=== PATIENT | female | born 1960 | race Caucasian/White ===

== ENCOUNTER 2019-07-07 06:35 | Outpatient (CLI) | payer OTHER, SELFPAY ==
[2019-07-07 07:23] LABS: Hematocrit 36.8 % (37.0-47.0); Hemoglobin 11.6 g/dL (12.0-15.0); Mean Corpuscular HGB Conc 31.5 g/dl (32-36); Mean Corpuscular Hemoglobin 30.1 pg (26-34); Mean Corpuscular Volume 95.3 fl (80-100); Mean Platelet Volume 10.7 fl (7.4-10.4); Platelet Count Result 227 k/mm3 (150-375); Red Blood Count 3.86 M/mm3 (4.2-5.4); Red Cell Distribution Width 13.9 % (11.5-14.5); White Blood Count 5.5 K/mm3 (4.5-10.0)
[2019-07-07 08:00] LABS: Alanine Aminotransferase 20 U/L (4-35); Albumin Level 4.2 g/dL (3.5-5.1); Alkaline Phosphatase 95 U/L (38-126); Aspartate Amino Transferase 22 U/L (14-36); Bilirubin,Total 0.4 mg/dL (0.2-1.3); Blood Urea Nitrogen 67 mg/dL (7-17); Calcium 9.5 mg/dL (8.4-10.2); Carbon Dioxide 23 mmol/L (22-30); Chloride 102 mmol/L (98-107); Cholesterol 188 mg/dL (0-200); Estimated Glomerular Filt Rate 12; Glucose 111 mg/dL (65-105); HDL Direct 62 mg/dL; Potassium 4.7 mmol/L (3.4-5.0); Sodium 141 mmol/L (137-145); Triglycerides 96 mg/dL (<150)
[2019-07-07 08:11] LABS: LDL Cholesterol Direct 97 mg/dL
[2019-07-07 08:14] LABS: Free T4 Free Thyroxine 1.49 ng/mL (0.78-2.19); Vitamin D 25 Hydroxy 62.1 ng/mL
[2019-07-07 09:03] LABS: Folic Acid 9.1 ng/mL (2.76->20)
== END 2019-07-07 06:36 | disposition home or self-care (01) ==
PROVIDERS: PCP Physician Assistant; Visit Provider Physician Assistant
DX: E78.5 Hyperlipidemia, unspecified (principal); R53.83 Other fatigue; N18.9 Chronic kidney disease, unspecified; E03.9 Hypothyroidism, unspecified
CPT/HCPCS: 36415; 80053; 80061; 82306; 82607; 82746; 84439; 84443; 85027

== ENCOUNTER 2019-07-07 06:43 | Outpatient (CLI) | payer OTHER, SELFPAY ==
[2019-07-16 10:35] LABS: Kit Draw Collected
== END 2019-07-07 06:44 | disposition home or self-care (01) ==
PROVIDERS: PCP Physician Assistant
DX: N18.6 End stage renal disease (principal)
CPT/HCPCS: 36415

== ENCOUNTER 2019-08-06 09:35 | Outpatient (CLI) | payer OTHER, SELFPAY ==
[2019-08-06 11:33] LABS: Kit Draw Collected
== END 2019-08-06 09:36 | disposition home or self-care (01) ==
PROVIDERS: PCP Physician Assistant
DX: N18.6 End stage renal disease (principal)
CPT/HCPCS: 36415

== ENCOUNTER 2019-09-09 09:25 | Outpatient (CLI) | payer OTHER, SELFPAY ==
[2019-09-16 13:00] LABS: Kit Draw Collected
== END 2019-09-09 09:26 | disposition home or self-care (01) ==
PROVIDERS: PCP Physician Assistant
DX: N18.6 End stage renal disease (principal)
CPT/HCPCS: 36415

== ENCOUNTER 2019-09-09 09:32 | Outpatient (CLI) | payer OTHER, SELFPAY ==
[2019-09-09 10:16] LABS: Hematocrit 35.2 % (37.0-47.0); Hemoglobin 11.4 g/dL (12.0-15.0); Mean Corpuscular HGB Conc 32.4 g/dl (32-36); Mean Corpuscular Hemoglobin 30.4 pg (26-34); Mean Corpuscular Volume 93.9 fl (80-100); Platelet Count Result 227 k/mm3 (150-375); Red Blood Count 3.75 M/mm3 (4.2-5.4); Red Cell Distribution Width 13.2 % (11.5-14.5); White Blood Count 6.3 K/mm3 (4.5-10.0)
[2019-09-09 10:40] LABS: Alanine Aminotransferase 14 U/L (4-35); Albumin Level 4.3 g/dL (3.5-5.1); Blood Urea Nitrogen 60 mg/dL (7-17); Calcium 9.3 mg/dL (8.4-10.2); Carbon Dioxide 28 mmol/L (22-30); Chloride 102 mmol/L (98-107); Cholesterol 170 mg/dL (0-200); Estimated Glomerular Filt Rate 13; Glucose 103 mg/dL (65-105); HDL Direct 54 mg/dL; Phosphorus 4.2 mg/dL (2.5-4.5); Sodium 138 mmol/L (137-145); Triglycerides 94 mg/dL (<150)
[2019-09-09 10:43] LABS: Parathyroid Intact 382.4 pg/mL (7.5-53.5)
[2019-09-09 10:46] LABS: LDL Cholesterol Direct 77 mg/dL
[2019-09-09 12:00] LABS: Creatinine Urine 46.2 mg/dL; Total Protein Urine Random 41 mg/dL
== END 2019-09-09 09:33 | disposition home or self-care (01) ==
PROVIDERS: PCP Physician Assistant; Visit Provider Internal Medicine Nephrology
DX: N18.5 Chronic kidney disease, stage 5 (principal)
CPT/HCPCS: 36415; 80061; 80069; 82306; 82570; 83970; 84156; 84460; 85027

== ENCOUNTER 2019-10-09 07:08 | Outpatient (CLI) | payer OTHER, SELFPAY ==
[2019-12-25 13:52] LABS: Kit Draw Collected
== END 2019-10-09 07:09 | disposition home or self-care (01) ==
PROVIDERS: PCP Physician Assistant
DX: N18.6 End stage renal disease (principal)
CPT/HCPCS: 36415

== ENCOUNTER 2019-11-09 15:03 | Outpatient (CLI) | payer OTHER, SELFPAY | END 2019-11-09 15:04 | disposition home or self-care (01) | PROVIDERS: PCP Physician Assistant | DX: N18.6 End stage renal disease (principal) | CPT/HCPCS: 36415 ==

== ENCOUNTER 2020-01-05 12:26 | Outpatient (CLI) | payer OTHER, SELFPAY ==
[2020-01-05 13:22] LABS: Hematocrit 35.6 % (37.0-47.0); Hemoglobin 11.7 g/dL (12.0-15.0); Mean Corpuscular HGB Conc 32.9 g/dl (32-36); Mean Corpuscular Hemoglobin 30.6 pg (26-34); Mean Corpuscular Volume 93.2 fl (80-100); Mean Platelet Volume 10.6 fl (7.4-10.4); Platelet Count Result 236 k/mm3 (150-375); Red Blood Count 3.82 M/mm3 (4.2-5.4); Red Cell Distribution Width 13.7 % (11.5-14.5); White Blood Count 6.2 K/mm3 (4.5-10.0)
[2020-01-05 13:31] LABS: Total Protein Urine Random 64 mg/dL
[2020-01-05 13:34] LABS: Albumin Level 4.3 g/dL (3.5-5.1); Anion Gap 10 mmol/L (8-16); Blood Urea Nitrogen 63 mg/dL (7-17); Calcium 9.3 mg/dL (8.4-10.2); Carbon Dioxide 23 mmol/L (22-30); Chloride 106 mmol/L (98-107); Estimated Glomerular Filt Rate 12; Glucose 106 mg/dL (65-105); Phosphorus 7.7 mg/dL (2.5-4.5); Potassium 4.5 mmol/L (3.4-5.0); Sodium 139 mmol/L (137-145)
[2020-01-05 13:45] LABS: Parathyroid Intact 559.2 pg/mL (7.5-53.5)
[2020-01-05 14:41] LABS: Vitamin D 25 Hydroxy 66.4 ng/mL
== END 2020-01-05 12:27 | disposition home or self-care (01) ==
PROVIDERS: PCP Physician Assistant; Visit Provider Internal Medicine Nephrology
DX: N18.5 Chronic kidney disease, stage 5 (principal)
CPT/HCPCS: 36415; 80069; 82306; 82570; 83970; 84156; 85027

== ENCOUNTER 2020-01-14 17:01 | Outpatient (CLI) | payer OTHER, SELFPAY ==
[2020-01-14 17:44] LABS: Add Urine Microscopic? YES; Amorphous Sediment Urine Few; Appearance Urine Clear (Clear); Bacteria Urine 1+ /hpf; Bilirubin Urine Negative (Negative); Blood Urine 1+ (Negative); Color Urine Straw (Yellow); Glucose Urine UA Negative (Negative); Ketones Urine Negative (Negative); Leukocyte Esterase Ur 2+ LEU/UL (Negative); Mucus Urine Rare /lpf; Nitrate Urine Negative (Negative); Protein Urine 1+ mg/dL (Negative); Squamous Epithelial Cell Urine Rare /hpf (Few); Urobilinogen Urine Negative mg/dL (<2.0); WBC Clumps Urine Present /HPF; WBC Urine 31-50 /hpf
[2020-01-14 19:04] LABS: Hepatitis B Surface Anti Res Negative
== END 2020-01-14 17:02 | disposition home or self-care (01) ==
PROVIDERS: PCP Internal Medicine; Referring Provider Internal Medicine Nephrology; Visit Provider Obstetrics & Gynecology
DX: N18.5 Chronic kidney disease, stage 5 (principal); R39.9 Unspecified symptoms and signs involving the genitourinary system
CPT/HCPCS: 36415; 81001; 86706; 87077; 87086; 87088; 87186

== ENCOUNTER 2020-03-09 14:54 | Outpatient (CLI) | payer OTHER, SELFPAY ==
--- NOTE | ~2020-03-09 | MM_ITS ---
EXAMINATION: MM screening kellen BI w daniela HISTORY: Screening mammogram TECHNIQUE: Craniocaudal and mediolateral oblique 3-D tomosynthesis images were obtained and synthetic 2-D images were generated. CAD analysis was submitted and interpreted. COMPARISON: 02/02/2019, 01/08/2018, 05/09/2016 bilateral digital screening mammogram examinations BREAST PARENCHYMAL COMPOSITION: There are scattered areas of fibroglandular density. FINDINGS: There is no evidence of suspicious mass, calcification, or architectural distortion to sugg est malignancy in either breast. There has been no suspicious interval change. IMPRESSION: 1. No mammographic evidence of malignancy. 2. Recommend routine screening mammography in one year. BI-RADS Category 1: Negative Reviewed, dictated and finalized at location A.
--- NOTE | ~2020-03-09 | DEXA_ITS ---
Bone Density Report Name: Grecia Marroquin Age: 59 Sex: Female Ethnicity: White Date of : 1960 Indication: postmenopausal; prior fracture; Referring Provider: RODY NOBLE Study: Bone densitometry was performed. Exam Date: March 09, 2020 Accession number: [id number] Bone Density: Region BMD T-score Z-score Classification AP Spine (L1-L4) 1.041 -0.1 1.4 Normal Femoral Neck (Left) 0.691 -1.4 -0.1 Osteopenia Total Hip (Left) 0.840 -0.8 0.1 Normal Total Hip Bilateral Avg 0.846 -0.8 0.2 Normal Femoral Neck (Right) 0.674 -1.6 -0.3 Osteopenia Total Hip (Right) 0.852 -0.7 0.2 Normal World Health Organization criteria for BMD impression classify patients as: Normal (T-score at or above -1.0), Osteopenia (T-score between -1.0 and -2.5), or Osteoporosis (T-score at or below -2.5). 10-year Fracture Risk(1): Major Osteoporotic Fracture 13% Hip Fracture 1.1% Reported Risk Factors: [place] (), Neck BMD=0.674, BMI=37.5, previous fracture (1) FRAX(R) Version 3.08. Fracture probability calculated for an untreated patient. Fracture probability may be lower if the patient has received treatment. Previous Exams: Region Exam Age BMD T-score BMD Change BMD Change Date g/cm2 vs Baseline vs Previous AP Spine(L1-L4) 03/09/2020 59 1.041 -0.1 -0.234(-18.3%) 0.031(3.0%)* 01/08/2018 57 1.011 -0.3 -0.264(-20.7%) 0.001(0.1%) 11/03/2014 53 1.009 -0.3 -0.266(-20.8%) -0.028(-2.7%)# 05/02/2012 51 1.037 -0.1 -0.238(-18.7%) -0.151(-12.7%) 07/11/2009 48 1.188 1.3 -0.087(-6.8%)* -0.087(-6.8%)* 05/23/2005 44 1.275 2.1 Total Hip(Left) 03/09/2020 59 0.840 -0.8 -0.167(-16.6%) 0.014(1.7%) 01/08/2018 57 0.826 -1.0 -0.181(-18.0%) -0.059(-6.6%)* 11/03/2014 53 0.885 -0.5 -0.122(-12.2%) -0.049(-5.2%)# 05/02/2012 51 0.933 -0.1 -0.074(-7.3%)# 0.016(1.7%)# 07/11/2009 48 0.918 -0.2 -0.089(-8.9%)* -0.089(-8.9%)* 05/23/2005 44 1.007 0.5 Total Hip(Right) 03/09/2020 59 0.852 -0.7 -0.158(-15.7%) 0.025(3.0%) 01/08/2018 57 0.827 -0.9 -0.183(-18.1%) -0.083(-9.1%)* 11/03/2014 53 0.909 -0.3 -0.100(-9.9%)# 0.003(0.4%)# 05/02/2012 51 0.906 -0.3 -0.104(-10.3%) -0.015(-1.6%)# 07/11/2009 48 0.921 -0.2 -0.089(-8.8%)* -0.089(-8.8%)* 05/23/2005 44 1.010 0.6 *Denotes significance at 95% confidence level, LSC for AP Spine = 0.022 g/cm2, LSC for Total Hip = 0.027 g/cm2 Clinical Information Provided by Patient: H
== END 2020-03-09 14:55 | disposition home or self-care (01) ==
LOC: ANHIMG 14:56
PROVIDERS: PCP Internal Medicine; Visit Provider Obstetrics & Gynecology
DX: Z12.31 Encounter for screening mammogram for malignant neoplasm of breast (principal); Z78.0 Asymptomatic menopausal state; M85.852 Other specified disorders of bone density and structure, left thigh; M85.851 Other specified disorders of bone density and structure, right thigh
CPT/HCPCS: 77063; 77067; 77080

== ENCOUNTER 2020-04-05 06:33 | Outpatient (CLI) | payer OTHER, SELFPAY ==
[2020-04-05 07:35] LABS: Hematocrit 35.1 % (37.0-47.0); Hemoglobin 11.4 g/dL (12.0-15.0); Mean Corpuscular HGB Conc 32.5 g/dl (32-36); Mean Corpuscular Hemoglobin 30.1 pg (26-34); Mean Corpuscular Volume 92.6 fl (80-100); Mean Platelet Volume 10.9 fl (7.4-10.4); Platelet Count Result 244 k/mm3 (150-375); Red Blood Count 3.79 M/mm3 (4.2-5.4); Red Cell Distribution Width 13.4 % (11.5-14.5); White Blood Count 6.4 K/mm3 (4.5-10.0)
[2020-04-05 07:47] LABS: Albumin Level 4.2 g/dL (3.5-5.1); Anion Gap 9 mmol/L (8-16); Blood Urea Nitrogen 61 mg/dL (7-17); Calcium 9.5 mg/dL (8.4-10.2); Carbon Dioxide 26 mmol/L (22-30); Chloride 109 mmol/L (98-107); Estimated Glomerular Filt Rate 12; Glucose 103 mg/dL (65-105); Phosphorus 4.8 mg/dL (2.5-4.5); Potassium 4.3 mmol/L (3.4-5.0); Sodium 144 mmol/L (137-145)
[2020-04-05 07:56] LABS: Creatinine Urine 62.5 mg/dL; Total Protein Urine Random 56 mg/dL
[2020-04-05 07:59] LABS: Parathyroid Intact 395.3 pg/mL (7.5-53.5)
[2020-04-05 08:22] LABS: Vitamin D 25 Hydroxy 86.2 ng/mL
== END 2020-04-05 06:34 | disposition home or self-care (01) ==
PROVIDERS: PCP Internal Medicine; Visit Provider Internal Medicine Nephrology
DX: N18.5 Chronic kidney disease, stage 5 (principal)
CPT/HCPCS: 36415; 80069; 82306; 82570; 83970; 84156; 85027

== ENCOUNTER 2020-04-05 06:39 | Outpatient (CLI) | payer OTHER, SELFPAY ==
[2020-07-22 13:01] LABS: Kit Draw Collected
== END 2020-04-05 06:40 | disposition home or self-care (01) ==
PROVIDERS: PCP Internal Medicine; Visit Provider Transplant Surgery
DX: N18.6 End stage renal disease (principal)
CPT/HCPCS: 36415

== ENCOUNTER 2020-05-04 14:27 | Outpatient (CLI) | payer OTHER, SELFPAY ==
[2020-05-04 15:39] LABS: Cholesterol 166 mg/dL (0-200); HDL Direct 52 mg/dL; Triglycerides 221 mg/dL (<150)
[2020-05-04 15:50] LABS: LDL Cholesterol Direct 74 mg/dL
[2020-05-04 17:27] LABS: Free T4 Free Thyroxine 1.26 ng/mL (0.78-2.19)
== END 2020-05-04 14:28 | disposition home or self-care (01) ==
PROVIDERS: PCP Physician Assistant; Visit Provider Physician Assistant
DX: E03.9 Hypothyroidism, unspecified (principal); E78.5 Hyperlipidemia, unspecified
CPT/HCPCS: 36415; 80061; 84439; 84443

== ENCOUNTER 2020-06-10 07:13 | Outpatient (CLI) | payer OTHER, SELFPAY ==
[2020-07-22 12:58] LABS: Kit Draw Collected
== END 2020-06-10 07:14 | disposition home or self-care (01) ==
PROVIDERS: PCP Physician Assistant; Visit Provider Transplant Surgery
DX: N18.6 End stage renal disease (principal)
CPT/HCPCS: 36415

== ENCOUNTER 2020-08-16 14:36 | Outpatient (CLI) | payer OTHER, SELFPAY ==
--- NOTE | ~2020-08-16 | XR_ITS ---
EXAMINATION: XR foot RT min 3V DATE: 08/16/2020 14:53 INDICATION: Right foot injury. TECHNIQUE: 4 views of right foot were obtained. COMPARISON: Right foot radiograph 10/11/2009 FINDINGS: Bone alignment is normal. No fracture. Joint spaces are well maintained. There are enthesop hytes at the dorsal aspect of the midfoot at the plantar aspect of calcaneus. IMPRESSION: 1. No fracture. Reviewed, dictated and finalized at location A. IMPRESSION: 1. No fracture.
== END 2020-08-16 14:37 | disposition home or self-care (01) ==
PROVIDERS: PCP Physician Assistant; Visit Provider Physician Assistant
DX: S99.921A Unspecified injury of right foot, initial encounter (principal); X58.XXXA Exposure to other specified factors, initial encounter
CPT/HCPCS: 73630

== ENCOUNTER 2020-09-08 12:34 | Outpatient (CLI) | payer OTHER, SELFPAY ==
[2020-09-08 13:49] LABS: Hematocrit 34.4 % (37.0-47.0); Hemoglobin 11.3 g/dL (12.0-15.0); Mean Corpuscular HGB Conc 32.8 g/dl (32-36); Mean Corpuscular Hemoglobin 30.4 pg (26-34); Mean Corpuscular Volume 92.5 fl (80-100); Mean Platelet Volume 10.7 fl (7.4-10.4); Platelet Count Result 237 k/mm3 (150-375); Red Blood Count 3.72 M/mm3 (4.2-5.4); Red Cell Distribution Width 13.1 % (11.5-14.5); White Blood Count 5.8 K/mm3 (4.5-10.0)
[2020-09-08 14:11] LABS: Creatinine Urine 45.5 mg/dL; Total Protein Urine Random 52 mg/dL; Ur Ttl Prot Creatinine Ratio 1.14 mg/mg (0-0.20)
[2020-09-09 00:38] LABS: Albumin Level 4.1 g/dL (3.5-5.1); Anion Gap 10 mmol/L (8-16); Blood Urea Nitrogen 56 mg/dL (7-17); Carbon Dioxide 24 mmol/L (22-30); Chloride 107 mmol/L (98-107); Estimated Glomerular Filt Rate 12; Glucose 101 mg/dL (65-105); Phosphorus 4.7 mg/dL (2.5-4.5); Potassium 3.7 mmol/L (3.4-5.0); Sodium 141 mmol/L (137-145)
[2020-09-09 00:42] LABS: Parathyroid Intact 666.8 pg/mL (7.5-53.5)
== END 2020-09-08 12:35 | disposition home or self-care (01) ==
PROVIDERS: PCP Physician Assistant; Visit Provider Internal Medicine Nephrology
DX: N18.5 Chronic kidney disease, stage 5 (principal)
CPT/HCPCS: 36415; 80069; 82570; 83970; 84156; 85027

== ENCOUNTER 2020-09-08 12:38 | Outpatient (CLI) | payer OTHER, SELFPAY | END 2020-09-08 12:39 | disposition home or self-care (01) | PROVIDERS: PCP Physician Assistant; Visit Provider Transplant Surgery | DX: N18.6 End stage renal disease (principal); Z53.8 Procedure and treatment not carried out for other reasons | CPT/HCPCS: 36415 ==

== ENCOUNTER 2020-10-06 06:49 | Outpatient (CLI) | payer OTHER, SELFPAY ==
[2020-10-21 08:51] LABS: Kit Draw Collected
== END 2020-10-06 06:50 | disposition home or self-care (01) ==
PROVIDERS: PCP Physician Assistant; Visit Provider Transplant Surgery
DX: N18.6 End stage renal disease (principal)
CPT/HCPCS: 99199; 36415

== ENCOUNTER 2020-11-09 12:33 | Outpatient (CLI) | payer OTHER, SELFPAY ==
[2020-11-09 13:29] LABS: Kit Draw Collected
== END 2020-11-09 12:34 | disposition home or self-care (01) ==
PROVIDERS: PCP Physician Assistant; Visit Provider Transplant Surgery
DX: N18.6 End stage renal disease (principal)
CPT/HCPCS: 36415

== ENCOUNTER 2020-12-07 14:06 | Outpatient (CLI) | payer OTHER, SELFPAY | END 2020-12-07 14:07 | disposition home or self-care (01) | PROVIDERS: PCP Physician Assistant; Visit Provider Transplant Surgery | DX: N18.6 End stage renal disease (principal) | CPT/HCPCS: 36415 ==

== ENCOUNTER 2021-01-10 07:45 | Outpatient (CLI) | payer OTHER, SELFPAY ==
[2021-01-24 10:41] LABS: Kit Draw Collected
== END 2021-01-10 07:46 | disposition home or self-care (01) ==
PROVIDERS: PCP Physician Assistant; Visit Provider Transplant Surgery
DX: N18.6 End stage renal disease (principal)
CPT/HCPCS: 36415

== ENCOUNTER 2021-02-09 07:03 | Outpatient (CLI) | payer OTHER, SELFPAY ==
[2021-02-21 07:49] LABS: Kit Draw Collected
== END 2021-02-09 07:04 | disposition home or self-care (01) ==
PROVIDERS: PCP Physician Assistant; Visit Provider Transplant Surgery
DX: N18.6 End stage renal disease (principal)
CPT/HCPCS: 36415

== ENCOUNTER 2021-03-10 12:01 | Outpatient (CLI) | payer OTHER, SELFPAY ==
[2021-03-10 12:17] LABS: Kit Draw Collected
== END 2021-03-10 12:02 | disposition home or self-care (01) ==
PROVIDERS: PCP Physician Assistant; Visit Provider Transplant Surgery
DX: N18.6 End stage renal disease (principal)
CPT/HCPCS: 99199; 36415

== ENCOUNTER 2021-03-22 14:50 | Outpatient (CLI) | payer OTHER, SELFPAY ==
--- NOTE | ~2021-03-22 | MM_ITS ---
EXAMINATION: MM screening kellen BI w daniela HISTORY: Screening mammogram TECHNIQUE: Craniocaudal and mediolateral oblique 3-D tomosynthesis images were obtained and synthetic 2-D images were generated. CAD analysis was submitted and interpreted. COMPARISON: 03/09/2020, 02/02/2019, 01/08/2018 bilateral screening mammogram examinations BREAST PARENCHYMAL COMPOSITION: There are scattered areas of fibroglandular density. FINDINGS: There is no evidence of suspicious mass, calcification, or architectural distortion to sugg est malignancy in either breast. There has been no suspicious interval change. IMPRESSION: 1. No mammographic evidence of malignancy. 2. Recommend routine screening mammography in one year. BI-RADS Category 1: Negative Reviewed, dictated and finalized at location A. PILOT
== END 2021-03-22 14:51 | disposition home or self-care (01) ==
LOC: ANHIMG 14:53
PROVIDERS: PCP Physician Assistant; Visit Provider Obstetrics & Gynecology
DX: Z12.31 Encounter for screening mammogram for malignant neoplasm of breast (principal)
CPT/HCPCS: 77063; 77067

== ENCOUNTER 2021-04-11 08:45 | Outpatient (CLI) | payer OTHER, SELFPAY ==
[2021-04-11 09:22] LABS: Kit Draw Collected
== END 2021-04-11 08:46 | disposition home or self-care (01) ==
LOC: ANHLAB 08:47
PROVIDERS: PCP Physician Assistant; Visit Provider Transplant Surgery
DX: N18.6 End stage renal disease (principal)
CPT/HCPCS: 99199; 36415

== ENCOUNTER 2021-06-08 12:11 | Outpatient (CLI) | payer OTHER, SELFPAY ==
[2021-06-09 09:04] LABS: Kit Draw Collected
== END 2021-06-08 12:12 | disposition home or self-care (01) ==
LOC: ANHLAB 12:13
PROVIDERS: PCP Physician Assistant; Visit Provider Transplant Surgery
DX: N18.6 End stage renal disease (principal)
CPT/HCPCS: 36415

== ENCOUNTER 2021-09-25 00:18 | Day surgery (SDC) | payer OTHER, SELFPAY ==
[2021-09-19 12:58] VITALS: BMI 39.2
[2021-09-25 08:13] VITALS: BP 132/72; PULSE 85; RESP 16; TEMP 35.9; O2SAT 100; BMI 37.9
[2021-09-25] MEDS: LACTATED RINGERS 1,000 ML 150 ML IV CONT (08:29)
--- NOTE | 2021-09-25 08:47 | WPDGICN ---
Assessment and Plan Assessment and plan (1) Encounter for screening colonoscopy: Code(s): Z12.11 - Encounter for screening for malignant neoplasm of colon Status: Acute Assessment and Plan: Patient presents today for screening colonoscopy. She appears to be at average risk for colon polyps. It has been more than 10 years since last colonoscopy. GI Consult Note Consult date/time: 09/25/21 08:47 HPI: Grecia Marroquin is a 60 year old female Presents for neoplasia screening. Patient's current weight appetite bowel movements are normal. She denies abdominal pain. She has had no bleeding. Family history is noncontributory. Last colonoscopy was more than 10 years ago. Patient presents today for neoplasia screening. 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 virus (HPV) infection of cervix Hypertension Hypothyroidism Kidney disease Vaginal delivery x2 Surgical History Surgical History H/O laparoscopy History of colposcopy [place] teeth extracted Family History Family History Father Hypertension Patient's father is in good health Mother Hypertension Patient's mother is in good health Family history of heart disease in male family member before age 55 Grandparent Family history of malignant neoplasm Social History Social History Smoking status: Never smoker Second hand tobacco smoke exposure: No Alcohol intake: never Living arrangements: with family Spiritual care concerns: No Meds Home Medications and Allergies Home Medications Medication Instructions Recorded Confirmed Type hydrochlorothiazide 50 mg tablet 50 mg PO DAILY 05/25/19 09/25/21 History pravastatin 40 mg tablet 40 mg PO DAILY 05/25/19 09/25/21 History triamcinolone acetonide 0.5 % 1 applic TOPICAL BID PRN #15 g 08/04/20 09/25/21 Rx topical ointment levothyroxine 75 mcg tablet See Rx Instructions .ROUTE 04/26/21 09/25/21 Rx .COMPLEX #90 tablet Allergies Allergy/AdvReac Type Severity Reaction Status Date / Time ibuprofen Allergy Severe on kidney Verified 09/25/21 08:12 transplant list nitrofurantoin Allergy Mild Unknown Verified 09/25/21 08:12 Vital Signs Vital Signs - 24 hr 09/25/21 08:13 Temperature 96.7 F L Pulse Rate 85 Respiratory Rate 16 Blood Pressure 132/72 Pulse Oximetry 100 Exam Narrative: Physical exam reveals patient to be alert. Vital signs stable. HEENT exam is unremarkable. Patient is anicteric. Lungs are clear to auscultation and percussion. Heart is without murmur or extra sounds. Abdominal exam bowel sounds are present soft nontender with no organomegaly. Digital external rectal exam is normal.
--- NOTE | 2021-09-25 09:03 | WPDANESEPPF ---
Anes - Initial Pre Proc Eval Procedure: Operation Date: 09/25/21 09:00 Proposed Procedures p Screening Colonoscopy - Catrachito Pardo MD Date/Time: 09/25/21 09:03 Surgeon: Catrachito Pardo MD Pre Op Diagnosis: neoplasm screening Patient Data Age: 60 Gender: F Height: 1.5 m Weight: 85.2 kg Last Vital Signs Temp 96.7 F L 09/25/21 08:13 Pulse 85 09/25/21 08:13 Resp 16 09/25/21 08:13 BP 132/72 09/25/21 08:13 Pulse Ox 100 09/25/21 08:13 Allergies Allergy/AdvReac Type Severity Reaction Status Date / Time ibuprofen Allergy Severe on kidney Verified 09/25/21 08:12 transplant list nitrofurantoin Allergy Mild Unknown Verified 09/25/21 08:12 Home Medications Medication Instructions Recorded Confirmed Type hydrochlorothiazide 50 mg tablet 50 mg PO DAILY 05/25/19 09/25/21 History pravastatin 40 mg tablet 40 mg PO DAILY 05/25/19 09/25/21 History triamcinolone acetonide 0.5 % 1 applic TOPICAL BID PRN #15 g 08/04/20 09/25/21 Rx topical ointment levothyroxine 75 mcg tablet See Rx Instructions .ROUTE 04/26/21 09/25/21 Rx .COMPLEX #90 tablet Patient hx anesthesia problems: none Family hx anesthesia problems: none Results Review: All pre-operative results and documents have been reviewed as part of the pre-operative evaluation. PMFSH Past Medical History Medical History High cholesterol High risk human papilloma virus (HPV) infection of cervix Hypertension Hypothyroidism Kidney disease Vaginal delivery x2 Surgical History Surgical History H/O laparoscopy History of colposcopy [place] teeth extracted Family History Family History Father Hypertension Patient's father is in good health Mother Hypertension Patient's mother is in good health Family history of heart disease in male family member before age 55 Grandparent Family history of malignant neoplasm Social History Social History (Reviewed 07/21/21 @ 13:01 by TRINIDAD Jensen Smoking status: Never smoker Second hand tobacco smoke exposure: No Alcohol intake: never Living arrangements: with family Spiritual care concerns: No Anes - Eval Final PreProcedure Day of Procedure 09/25/21 09:03 Patient weight: obese Heart: regular rate and rhythm Lungs: clear to auscultation Airway: Mallampati scale class II Neurological: alert and oriented Last oral intake: >/= 8 hours ASA classification: III Emergent: no Anesthetic plan: proceed Anesthesia type and monitoring: general GIVS and standard monitoring Results Review: All pre-operative results and documents have been reviewed as part of the pre-operative evaluation. Informed Consent: The patient's anesthetic plan and its attendant risks and benefits were discussed with the patient/family/POA. Questions were solicited and answers provided to the satisfaction of the patient/family/POA.
[2021-09-25 09:18] VITALS: BP 128/57; PULSE 76; RESP 22; O2SAT 97
[2021-09-25 09:28] VITALS: BP 124/64; PULSE 74; RESP 28; O2SAT 97
[2021-09-25 09:38] VITALS: BP 136/89; PULSE 72; RESP 18; O2SAT 99
== END 2021-09-25 09:50 | disposition home or self-care (01) ==
PROVIDERS: PCP Physician Assistant; Visit Provider Internal Medicine Gastroenterology
PROC: 0DJD8ZZ Inspection of Lower Intestinal Tract, Via Natural or Artificial Opening Endoscopic (ICD-10-PCS; CPT 45378; principal; 2021-09-25 09:00)
DX: Z12.11 Encounter for screening for malignant neoplasm of colon (principal); K64.8 Other hemorrhoids; K57.30 Diverticulosis of large intestine without perforation or abscess without bleeding; I10 Essential (primary) hypertension; E03.9 Hypothyroidism, unspecified; E78.00 Pure hypercholesterolemia, unspecified; R87.810 Cervical high risk human papillomavirus (HPV) DNA test positive; E66.9 Obesity, unspecified; Z68.37 Body mass index [BMI] 37.0-37.9, adult
CPT/HCPCS: 45378; J2704; J7120

== ENCOUNTER 2022-02-07 14:33 | Outpatient (CLI) | payer OTHER, SELFPAY ==
[2022-02-07 15:05] LABS: Hematocrit 34.2 % (37.0-47.0); Hemoglobin 11.1 g/dL (12.0-15.0); Mean Corpuscular HGB Conc 32.5 g/dl (32-36); Mean Corpuscular Hemoglobin 30.7 pg (26-34); Mean Corpuscular Volume 94.7 fl (80-100); Mean Platelet Volume 10.6 fl (7.4-10.4); Platelet Count Result 231 k/mm3 (150-375); Red Blood Count 3.61 M/mm3 (4.2-5.4); Red Cell Distribution Width 14.1 % (11.5-14.5)
[2022-02-07 15:14] LABS: Creatinine Urine 46.6 mg/dL; Total Protein Urine Random 44 mg/dL; Ur Ttl Prot Creatinine Ratio 0.94 mg/mg (0-0.20)
[2022-02-07 15:19] LABS: Albumin Level 4.1 g/dL (3.5-5.1); Anion Gap 15 mmol/L (8-16); Blood Urea Nitrogen 68 mg/dL (7-17); Calcium 8.7 mg/dL (8.4-10.2); Carbon Dioxide 23 mmol/L (22-30); Chloride 105 mmol/L (98-107); Estimated Glomerular Filt Rate 11; Glucose 115 mg/dL (65-110); Phosphorus 5.2 mg/dL (2.5-4.5); Potassium 4.1 mmol/L (3.4-5.0); Sodium 143 mmol/L (137-145)
[2022-02-07 15:42] LABS: Vitamin D 25 Hydroxy 42.6 ng/mL
== END 2022-02-07 14:34 | disposition home or self-care (01) ==
LOC: ANHLAB 14:37
PROVIDERS: PCP Physician Assistant; Visit Provider Internal Medicine Nephrology
DX: N18.5 Chronic kidney disease, stage 5 (principal); E55.9 Vitamin D deficiency, unspecified
CPT/HCPCS: 36415; 80069; 82306; 82570; 83970; 84156; 85027

== ENCOUNTER 2022-03-10 09:44 | Emergency (ER) | payer OTHER, SELFPAY ==
--- NOTE | ~2022-03-10 | XR_ITS ---
XR foot RT min 3V 03/10/2022 10:15 Indication: Right foot pain and swelling. No trauma. Procedure: 4 views right foot Comparison: No prior studies for comparison. Findings: Osteopenia. There is mild osteoarthritis of the midfoot. No fracture, subluxation or disloc ation. Mild diffuse soft tissue swelling. Prominent degenerative calcaneal enthesophyte at the planta r surface. Impression: 1: Mild polyarticular osteoarthritis of the midfoot. Reviewed, dictated and finalized at location A. Impression: 1: Mild polyarticular osteoarthritis of the midfoot.
--- NOTE | ~2022-03-10 | US_ITS ---
EXAMINATION:US venous doppler LE BI INDICATION:Lower extremity edema TECHNIQUE: Multiple grayscale, color flow and Doppler images of the right and left lower extremity de ep venous systems were obtained and reviewed. COMPARISON:No prior studies for comparison. FINDINGS: The common femoral, superficial femoral and popliteal veins demonstrate normal respiratory variation, augmentation and compressibility. Color flow is also seen within the posterior tibial, pe roneal, greater saphenous and profunda veins. IMPRESSION: 1: No lower extremity deep venous thrombosis. Reviewed, dictated and finalized at location A.
[2022-03-10 09:49] VITALS: BP 148/81; PULSE 96; RESP 18; TEMP 36.3; O2SAT 99
--- NOTE | 2022-03-10 10:04 | ED.GENADULT ---
HPI - General Adult General Chief complaint: Extremity Problem,Nontraumatic Stated complaint: right foot pain Time Seen by Provider: 03/10/22 09:55 History of Present Illness HPI narrative: this is a 61-year-old female presenting ED with chief complaint of a nontraumatic right foot pain. Patient says that her foot started hurting at 2:00 a.m. morning. Since then it is been a throbbing pain throughout the day. She has also noticed some swelling of her foot. She denies any trauma, she denies skin changes, she denies any recent surgeries, immobilization or cancer. Denies any systemic signs of illness such as fever, chills, nausea vomiting diarrhea Related Data Home Medications Medication Instructions Recorded Confirmed hydrochlorothiazide 50 mg tablet 50 mg PO DAILY 05/25/19 02/19/22 pravastatin 40 mg tablet 40 mg PO DAILY 05/25/19 02/19/22 calcitriol 0.25 mcg capsule 0.25 mcg PO DAILY 03/10/22 03/10/22 Allergies Allergy/AdvReac Type Severity Reaction Status Date / Time ibuprofen Allergy Severe on kidney Verified 03/10/22 09:53 transplant list nitrofurantoin Allergy Mild Unknown Verified 03/10/22 09:53 Review of Systems Review of Systems: CONSTITUTIONAL: Denies night sweats. EYES: No eye pain ENT: Denies rhinorrhea CARDIOVASCULAR: Denies palpitations RESPIRATORY: Denies hemoptysis GASTROINTESTINAL: Denies hematemesis GENITOURINARY: Denies hematuria. SKIN: Denies rash MUSCULOSKELETAL: Denies myalgia. NEUROLOGIC: Denies weakness. 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 virus (HPV) infection of cervix Hypertension Hypothyroidism Kidney disease Vaginal delivery x2 Surgical History Surgical History H/O laparoscopy History of colposcopy [place] teeth extracted Family History Family History Father Hypertension Patient's father is in good health Mother Hypertension Patient's mother is in good health Family history of heart disease in male family member before age 55 Grandparent Family history of malignant neoplasm Social History Social History Smoking status: Never smoker Second hand tobacco smoke exposure: No Alcohol intake: never Spiritual care concerns: No Exam Narrative: APPEARANCE: No apparent distress. Head atraumatic. EYES: PERRLA/EOMI, NOSE: Normal no drainage NECK: Supple, Trachea midline RESPIRATORY: CTAB, No increased work of breathing. CARDIOVASCULAR: S1S2 appreciated, patient has bilateral edema of the lower extremities ABDOMINAL: Soft, nontender, nondistended, MUSCULOSKELETAl: No obvious deformities, focal exam of right lower extremity revealed no point of focal tenderness. No ecchymosis, no erythema or signs of infection. Cap refill is less than 2 seconds. Sensation light touch, motor function cerebellar intact. NEURO: Alert. Moving 4/4 extremities SKIN:: Warm, dry. Normal color PSYCHIATRIC: Normal affect Course Vital Signs Vital signs: Vital Signs Temperature 97.4 F L 03/10/22 09:49 Pulse Rate 96 03/10/22 09:49 Respiratory Rate 18 03/10/22 09:49 Blood Pressure 148/81 H 03/10/22 09:49 Pulse Oximetry 99 03/10/22 09:49 Oxygen Delivery Room Air 03/10/22 09:49 Temperature 97.4 F L 03/10/22 09:49 Pulse Rate 96 03/10/22 09:49 Respiratory Rate 18 03/10/22 09:49 Blood Pressure 148/81 H 03/10/22 09:49 Pulse Oximetry 99 03/10/22 09:49 Oxygen Delivery Room Air 03/10/22 09:49 Medical Decision Making [facility] Narrative Medical decision making narrative: this is a 61-year-old female presenting ED with chief complain nontraumatic foot pain. X-rays been ordered. Venous duplex has been ordered. X-ray showed mild po
[2022-03-10 10:55] LABS: Basophils Absolute Auto 0.1 K/mm3 (0.0-0.1); Basophils Percent Auto 0.7 % (0.2-1.2); Eosinophils Absolute Auto 0.1 K/mm3 (0-0.3); Eosinophils Percent Auto 1.1 % (0-4.4); Hematocrit 33.8 % (37.0-47.0); Hemoglobin 10.8 g/dL (12.0-15.0); Immature Granulocyte Absolute 0.03 K/mm3 (0.00-0.031); Immature Granulocyte Percent A 0.4 % (0-0.5); Lymphocytes Absolute Auto 1.18 K/mm3 (0.9-3.2); Lymphocytes Percent Auto 14.3 % (18.3-44.2); Mean Corpuscular Hemoglobin 30.4 pg (26-34); Mean Corpuscular Volume 95.2 fl (80-100); Mean Platelet Volume 10.7 fl (7.4-10.4); Monocytes Absolute Auto 0.6 K/mm3 (0.1-0.6); Monocytes Percent Auto 6.9 % (2.6-8.5); Neutrophils Absolute Auto 6.4 K/mm3 (1.3-6.7); Neutrophils Percent Auto 76.6 % (45.5-73.1); Platelet Count Result 203 k/mm3 (150-375); Red Blood Count 3.55 M/mm3 (4.2-5.4); Red Cell Distribution Width 13.3 % (11.5-14.5); White Blood Count 8.3 K/mm3 (4.5-10.0)
[2022-03-10 11:07] LABS: Anion Gap 14 mmol/L (8-16); Blood Urea Nitrogen 62 mg/dL (7-17); Carbon Dioxide 24 mmol/L (22-30); Chloride 104 mmol/L (98-107); Estimated Glomerular Filt Rate 10; Glucose 111 mg/dL (65-110); Potassium 4.4 mmol/L (3.4-5.0); Sodium 142 mmol/L (137-145)
[2022-03-10 11:10] LABS: INR 1.1; Prothrombin Time 13.9 Seconds (11.1-14.7)
[2022-03-10 12:04] VITALS: BP 132/78; PULSE 76; RESP 18; O2SAT 99
== END 2022-03-10 12:05 | disposition home or self-care (01) ==
PROVIDERS: Emergency Provider Emergency Medicine; PCP Physician Assistant
DX: M79.671 Pain in right foot (principal); E78.00 Pure hypercholesterolemia, unspecified; I10 Essential (primary) hypertension; E03.9 Hypothyroidism, unspecified; N28.9 Disorder of kidney and ureter, unspecified; M19.071 Primary osteoarthritis, right ankle and foot
CPT/HCPCS: 36415; 73630; 80048; 85025; 85610; 85730; 93970; 99284

== ENCOUNTER 2022-03-29 07:24 | Outpatient (CLI) | payer OTHER, SELFPAY ==
[2022-03-29 08:54] LABS: Free T4 Free Thyroxine 1.54 ng/mL (0.78-2.19)
[2022-03-29 09:21] LABS: Cholesterol 182 mg/dL (0-200); HDL Direct 56 mg/dL; Triglycerides 79 mg/dL (<150)
[2022-03-29 09:35] LABS: LDL Cholesterol Direct 78 mg/dL
[2022-03-29 10:29] LABS: Folic Acid 7.4 ng/mL (2.76->20)
[2022-03-30 08:53] LABS: Albumin Level 4.2 g/dL (3.5-5.1); Anion Gap 16 mmol/L (8-16); Blood Urea Nitrogen 72 mg/dL (7-17); Calcium 9.8 mg/dL (8.4-10.2); Carbon Dioxide 22 mmol/L (22-30); Chloride 105 mmol/L (98-107); Estimated Glomerular Filt Rate 10; Glucose 87 mg/dL (65-110); Parathyroid Intact 247.6 pg/mL (7.5-53.5); Phosphorus 3.7 mg/dL (2.5-4.5); Potassium 4.9 mmol/L (3.4-5.0); Sodium 143 mmol/L (137-145)
== END 2022-03-29 07:25 | disposition home or self-care (01) ==
LOC: ANHLAB 07:29
PROVIDERS: PCP Physician Assistant; Referring Provider Internal Medicine Nephrology; Visit Provider Physician Assistant
DX: Z00.00 Encounter for general adult medical examination without abnormal findings (principal); N18.5 Chronic kidney disease, stage 5
CPT/HCPCS: 36415; 80061; 80069; 82607; 82746; 83970; 84439; 84443

== ENCOUNTER 2022-03-29 07:32 | Outpatient (CLI) | payer SELFPAY ==
[2022-03-29 08:15] LABS: Kit Draw Collected
== END 2022-03-29 07:33 | disposition home or self-care (01) ==
LOC: ANHLAB 07:34
PROVIDERS: PCP Physician Assistant; Visit Provider Transplant Surgery
DX: N18.6 End stage renal disease (principal)
CPT/HCPCS: 36415

== ENCOUNTER 2022-04-23 14:55 | Outpatient (CLI) | payer OTHER, SELFPAY ==
--- NOTE | ~2022-04-23 | DEXA_ITS ---
Bone Density Report Name: MARCO BRIZUELA Age: 61 Sex: Female Ethnicity: White Date of : 1960 Indication: hyperparathyroidism; end stage renal disease;postmenopausal Referring Provider: RODY NOBLE Study: Bone densitometry was performed. Exam Date: April 23, 2022 Accession number: [id number] Bone Density: Region BMD T-score Z-score Classification AP Spine(L1-L4) 1.027 -0.2 1.4 Normal Femoral Neck (Left) 0.696 -1.4 0.0 Osteopenia Total Hip (Left) 0.889 -0.4 0.6 Normal Femoral Neck (Right) 0.617 -2.1 -0.7 Osteopenia Total Hip (Right) 0.846 -0.8 0.3 Normal Total Hip Mean 0.868 -0.6 0.5 Normal World Health Organization criteria for BMD impression classify patients as: Normal (T-score at or above -1.0), Osteopenia (T-score between -1.0 and -2.5), or Osteoporosis (T-score at or below -2.5). 10-year Fracture Risk(1): Major Osteoporotic Fracture 9.2% Hip Fracture 1.2% Reported Risk Factors: [place] (), Neck BMD=0.617, BMI=38.1 (1) FRAX(R) Version 3.08. Fracture probability calculated for an untreated patient. Fracture probability may be lower if the patient has received treatment. Clinical Information Provided by Patient: Has the following medical conditions: End stage renal disease, Hyperparathyroidism Patient maximum height was 59 Menopause Age: 54 Does not regularly consume dairy products Drinks caffeinated beverages Onset of menses at age 12 Number of children 2 Impression: The patient has low bone mass, based on the Right Femoral Neck T-score. The patient has an estimated ten-year risk of hip fracture of 1.2% and an estimated ten-year risk of major fracture of 9.2%, based on the WHO FRAX algorithm. Discussion: BONE DENSITY IS LOW AT ONE OR MORE SKELETAL SITES. This patient's lowest T-score is low at one or more skeletal sites. It meets the World Health Organization's (WHO) criteria for ?low bone mass? (T-score between -1.0 and -2.5). The patient's 10-year risk of fracture as calculated by FRAX is less than the threshold where pharmacological therapy is recommended by the National Osteoporosis Foundation (NOF). However, all treatment decisions require clinical judgment and consideration of individual patient factors, including patient preferences, comorbidities, previous drug use, risk factors not captured in the FRAX model (e.g., frailty, falls, vitamin D deficiency, increased bone turnover, interval significant decline in bone density) and possible under or overestimation of fracture risk by FRAX. The patient should follow a healthful lifestyle (good nutrition with adequate calcium and vitamin D, and appropriate weight-bearing exercise). Follow-Up: Consider repeating this study in 2 to 3 years to reassess this patient's status, or sooner if there is some
--- NOTE | ~2022-04-23 | MM_ITS ---
EXAMINATION: MM screening kellen BI w daniela HISTORY: Screening TECHNIQUE: Craniocaudal and mediolateral oblique 3-D tomosynthesis images were obtained and synthetic 2-D images were generated. CAD analysis was submitted and interpreted. COMPARISON: Comparison to multiple prior studies sequentially, with oldest reviewed study dated 11/03. BREAST PARENCHYMAL COMPOSITION: Breast composed of scattered areas of fibroglandular density FINDINGS: There is no evidence of suspicious mass, calcification, or architectural distortion to sugg est malignancy in either breast. There has been no suspicious interval change. IMPRESSION: 1. No mammographic evidence of malignancy. 2. Recommend routine screening mammography in one year. BI-RADS Category 1: Negative Reviewed, dictated and finalized at location B. UMPIRE
== END 2022-04-23 14:56 | disposition home or self-care (01) ==
LOC: ANHIMG 14:56
PROVIDERS: PCP Physician Assistant; Visit Provider Obstetrics & Gynecology
DX: Z12.31 Encounter for screening mammogram for malignant neoplasm of breast (principal); Z78.0 Asymptomatic menopausal state; M85.852 Other specified disorders of bone density and structure, left thigh; M85.851 Other specified disorders of bone density and structure, right thigh
CPT/HCPCS: 77063; 77067; 77080

== ENCOUNTER 2022-07-02 07:19 | Outpatient (CLI) | payer OTHER, SELFPAY ==
[2022-07-02 08:05] LABS: Basophils Percent Auto 0.7 % (0.2-1.2); Eosinophils Percent Auto 0.7 % (0-4.4); Hematocrit 29.7 % (37.0-47.0); Hemoglobin 9.1 g/dL (12.0-15.0); Immature Granulocyte Absolute 0.14 K/mm3 (0.00-0.031); Immature Granulocyte Percent A 2.3 % (0-0.5); Lymphocytes Absolute Auto 0.28 K/mm3 (0.9-3.2); Lymphocytes Percent Auto 4.7 % (18.3-44.2); Mean Corpuscular HGB Conc 30.6 g/dl (32-36); Mean Corpuscular Hemoglobin 31.6 pg (26-34); Mean Corpuscular Volume 103.1 fl (80-100); Mean Platelet Volume 11.2 fl (7.4-10.4); Monocytes Absolute Auto 0.4 K/mm3 (0.1-0.6); Neutrophils Absolute Auto 5.2 K/mm3 (1.3-6.7); Neutrophils Percent Auto 85.6 % (45.5-73.1); Platelet Count Result 173 k/mm3 (150-375); Red Blood Count 2.88 M/mm3 (4.2-5.4); Red Cell Distribution Width 16.2 % (11.5-14.5)
[2022-07-02 08:18] LABS: Albumin Level 3.6 g/dL (3.5-5.1); Anion Gap 2 mmol/L (8-16); Blood Urea Nitrogen 25 mg/dL (7-17); Carbon Dioxide 26 mmol/L (22-30); Chloride 109 mmol/L (98-107); Estimated Glomerular Filt Rate 24; Glucose 99 mg/dL (65-110); Phosphorus 3.4 mg/dL (2.5-4.5); Potassium 4.7 mmol/L (3.4-5.0); Sodium 137 mmol/L (137-145)
[2022-07-02 08:42] LABS: Free T4 Free Thyroxine 1.31 ng/mL (0.78-2.19)
[2022-07-04 10:34] LABS: BK Virus DNA, QN PCR log Not Detected Log cps/mL; BK Virus Specimen Source Plasma
[2022-07-04 15:49] LABS: Tacrolimus Prograf 6.8 mcg/L
== END 2022-07-02 07:20 | disposition home or self-care (01) ==
PROVIDERS: PCP Physician Assistant; Referring Provider Surgery; Visit Provider Physician Assistant
DX: E03.9 Hypothyroidism, unspecified (principal); Z94.0 Kidney transplant status
CPT/HCPCS: 36415; 80069; 80197; 84439; 84443; 85025; 87799

== ENCOUNTER 2022-08-27 08:01 | Outpatient (CLI) | payer OTHER, SELFPAY ==
[2022-08-27 09:13] LABS: Free T4 Free Thyroxine 1.53 ng/mL (0.78-2.19)
[2022-08-27 09:26] LABS: Thyroid Stimulating Hormone 0.233 uIU/mL (0.465-4.680)
== END 2022-08-27 08:02 | disposition home or self-care (01) ==
PROVIDERS: PCP Physician Assistant; Visit Provider Physician Assistant
DX: E03.9 Hypothyroidism, unspecified (principal)
CPT/HCPCS: 36415; 84439; 84443

== ENCOUNTER 2022-10-01 07:05 | Outpatient (RCR) | payer OTHER, SELFPAY ==
[2022-07-09 07:53] LABS: Basophils Absolute Auto 0.1 K/mm3 (0.0-0.1); Eosinophils Percent Auto 0.7 % (0-4.4); Hematocrit 28.1 % (37.0-47.0); Hemoglobin 8.6 g/dL (12.0-15.0); Immature Granulocyte Absolute 0.13 K/mm3 (0.00-0.031); Immature Granulocyte Percent A 2.2 % (0-0.5); Lymphocytes Percent Auto 6.6 % (18.3-44.2); Mean Corpuscular HGB Conc 30.6 g/dl (32-36); Mean Corpuscular Volume 101.4 fl (80-100); Mean Platelet Volume 10.8 fl (7.4-10.4); Monocytes Absolute Auto 0.4 K/mm3 (0.1-0.6); Monocytes Percent Auto 6.1 % (2.6-8.5); Neutrophils Percent Auto 83.4 % (45.5-73.1); Platelet Count Result 188 k/mm3 (150-375); Red Blood Count 2.77 M/mm3 (4.2-5.4)
[2022-07-09 08:01] LABS: Alanine Aminotransferase 17 U/L (6-35); Albumin Level 3.4 g/dL (3.5-5.1); Alkaline Phosphatase 60 U/L (38-126); Anion Gap 4 mmol/L (8-16); Aspartate Amino Transferase 16 U/L (14-36); Bilirubin,Total 0.4 mg/dL (0.2-1.3); Blood Urea Nitrogen 22 mg/dL (7-17); Calcium 9.3 mg/dL (8.4-10.2); Carbon Dioxide 23 mmol/L (22-30); Chloride 109 mmol/L (98-107); Cholesterol 172 mg/dL (0-200); Estimated Glomerular Filt Rate 33; Glucose 91 mg/dL (65-110); HDL Direct 59 mg/dL; Phosphorus 3.4 mg/dL (2.5-4.5); Potassium 4.4 mmol/L (3.4-5.0); Sodium 136 mmol/L (137-145); Triglycerides 118 mg/dL (<150)
[2022-07-09 08:17] LABS: LDL Cholesterol Direct 67 mg/dL
[2022-07-11 10:21] LABS: BK Virus DNA, QN PCR log Not Detected Log cps/mL; BK Virus Specimen Source Plasma
[2022-07-11 18:39] LABS: Tacrolimus Prograf 9.5 mcg/L
[2022-07-16 09:21] LABS: Albumin Level 3.5 g/dL (3.5-5.1); Anion Gap 4 mmol/L (8-16); Blood Urea Nitrogen 28 mg/dL (7-17); Calcium 9.1 mg/dL (8.4-10.2); Carbon Dioxide 25 mmol/L (22-30); Chloride 114 mmol/L (98-107); Estimated Glomerular Filt Rate 33; Glucose 99 mg/dL (65-110); Phosphorus 3.4 mg/dL (2.5-4.5); Potassium 4.8 mmol/L (3.4-5.0); Sodium 143 mmol/L (137-145)
[2022-07-16 09:29] LABS: Hematocrit 29.7 % (37.0-47.0); Hemoglobin 9.2 g/dL (12.0-15.0); Mean Corpuscular Hemoglobin 32.4 pg (26-34); Mean Corpuscular Volume 104.6 fl (80-100); Platelet Count Result 213 k/mm3 (150-375); Red Blood Count 2.84 M/mm3 (4.2-5.4); Red Cell Distribution Width 15.9 % (11.5-14.5); White Blood Count 6.1 K/mm3 (4.5-10.0)
[2022-07-16 09:30] LABS: Basophils Absolute Auto 0.1 K/mm3 (0.0-0.1); Eosinophils Absolute Auto 0.1 K/mm3 (0-0.3); Immature Granulocyte Absolute 0.13 K/mm3 (0.00-0.031); Immature Granulocyte Percent A 2.1 % (0-0.5); Lymphocytes Absolute Auto 0.34 K/mm3 (0.9-3.2); Lymphocytes Percent Auto 5.6 % (18.3-44.2); Mean Platelet Volume 11.5 fl (7.4-10.4); Monocytes Absolute Auto 0.4 K/mm3 (0.1-0.6); Monocytes Percent Auto 5.7 % (2.6-8.5); Neutrophils Absolute Auto 5.2 K/mm3 (1.3-6.7); Neutrophils Percent Auto 84.6 % (45.5-73.1)
[2022-07-18 18:30] LABS: BK Virus DNA, QN PCR log Not Detected Log cps/mL; BK Virus Specimen Source Plasma
[2022-07-18 22:01] LABS: Tacrolimus Prograf 8.6 mcg/L
[2022-07-23 08:50] LABS: Basophils Absolute Auto 0.1 K/mm3 (0.0-0.1); Basophils Percent Auto 0.8 % (0.2-1.2); Eosinophils Percent Auto 0.7 % (0-4.4); Hematocrit 31.9 % (37.0-47.0); Hemoglobin 9.9 g/dL (12.0-15.0); Immature Granulocyte Absolute 0.11 K/mm3 (0.00-0.031); Immature Granulocyte Percent A 1.8 % (0-0.5); Lymphocytes Absolute Auto 0.39 K/mm3 (0.9-3.2); Lymphocytes Percent Auto 6.5 % (18.3-44.2); Mean Corpuscular Hemoglobin 31.6 pg (26-34); Mean Corpuscular Volume 101.9 fl (80-100); Monocytes Absolute Auto 0.4 K/mm3 (0.1-0.6); Monocytes Percent Auto 6.6 % (2.6-8.5); Neutrophils Absolute Auto 5.1 K/mm3 (1.3-6.7); Neutrophils Percent Auto 83.6 % (45.5-73.1); Platelet Count Result 205 k/mm3 (150-375); Red Blood Count 3.13 M/mm3 (4.2-5.4); Red Cell Distribution Width 15.2 % (11.5-14.5)
[2022-07-23 08:59] LABS: Albumin Level 3.9 g/dL (3.5-5.1); Anion Gap 5 mmol/L (8-16); Blood Urea Nitrogen 33 mg/dL (7-17); Calcium 9.5 mg/dL (8.4-10.2); Carbon Dioxide 28 mmol/L (22-30); Chloride 103 mmol/L (98-107); Estimated Glomerular Filt Rate 21; Glucose 107 mg/dL (65-110); Phosphorus 3.7 mg/dL (2.5-4.5); Potassium 4.4 mmol/L (3.4-5.0); Sodium 136 mmol/L (137-145)
[2022-07-25 16:40] LABS: BK Virus DNA, QN PCR log Not Detected Log cps/mL; BK Virus Specimen Source Plasma
[2022-07-25 20:56] LABS: Tacrolimus Prograf 6.9 mcg/L
[2022-07-30 09:00] LABS: Basophils Absolute Auto 0.1 K/mm3 (0.0-0.1); Eosinophils Absolute Auto 0.1 K/mm3 (0-0.3); Eosinophils Percent Auto 1.8 % (0-4.4); Hematocrit 30.5 % (37.0-47.0); Hemoglobin 9.5 g/dL (12.0-15.0); Immature Granulocyte Absolute 0.07 K/mm3 (0.00-0.031); Immature Granulocyte Percent A 1.4 % (0-0.5); Lymphocytes Absolute Auto 0.38 K/mm3 (0.9-3.2); Lymphocytes Percent Auto 7.5 % (18.3-44.2); Mean Corpuscular HGB Conc 31.1 g/dl (32-36); Mean Corpuscular Hemoglobin 31.8 pg (26-34); Mean Platelet Volume 11.1 fl (7.4-10.4); Monocytes Absolute Auto 0.3 K/mm3 (0.1-0.6); Monocytes Percent Auto 5.7 % (2.6-8.5); Neutrophils Absolute Auto 4.2 K/mm3 (1.3-6.7); Neutrophils Percent Auto 82.6 % (45.5-73.1); Platelet Count Result 195 k/mm3 (150-375); Red Blood Count 2.99 M/mm3 (4.2-5.4); White Blood Count 5.1 K/mm3 (4.5-10.0)
[2022-07-30 09:19] LABS: Alanine Aminotransferase 17 U/L (6-35); Albumin Level 3.8 g/dL (3.5-5.1); Alkaline Phosphatase 58 U/L (38-126); Anion Gap 4 mmol/L (8-16); Aspartate Amino Transferase 17 U/L (14-36); Bilirubin,Total 0.5 mg/dL (0.2-1.3); Blood Urea Nitrogen 26 mg/dL (7-17); Calcium 9.8 mg/dL (8.4-10.2); Carbon Dioxide 26 mmol/L (22-30); Chloride 110 mmol/L (98-107); Cholesterol 167 mg/dL (0-200); Estimated Glomerular Filt Rate 29; Glucose 95 mg/dL (65-110); HDL Direct 61 mg/dL; Phosphorus 3.3 mg/dL (2.5-4.5); Potassium 4.8 mmol/L (3.4-5.0); Sodium 140 mmol/L (137-145); Triglycerides 94 mg/dL (<150)
[2022-07-30 09:30] LABS: LDL Cholesterol Direct 74 mg/dL
[2022-08-01 10:42] LABS: BK Virus DNA, QN PCR log Not Detected Log cps/mL; BK Virus Specimen Source Plasma
[2022-08-01 14:20] LABS: Tacrolimus Prograf 6.1 mcg/L
[2022-08-06 08:29] LABS: Basophils Percent Auto 0.7 % (0.2-1.2); Eosinophils Absolute Auto 0.1 K/mm3 (0-0.3); Eosinophils Percent Auto 1.3 % (0-4.4); Hematocrit 30.1 % (37.0-47.0); Hemoglobin 9.3 g/dL (12.0-15.0); Immature Granulocyte Percent A 1.7 % (0-0.5); Lymphocytes Percent Auto 6.7 % (18.3-44.2); Mean Corpuscular HGB Conc 30.9 g/dl (32-36); Mean Corpuscular Hemoglobin 31.8 pg (26-34); Mean Corpuscular Volume 103.1 fl (80-100); Mean Platelet Volume 10.3 fl (7.4-10.4); Monocytes Absolute Auto 0.4 K/mm3 (0.1-0.6); Monocytes Percent Auto 6.6 % (2.6-8.5); Neutrophils Absolute Auto 4.9 K/mm3 (1.3-6.7); Platelet Count Result 192 k/mm3 (150-375); Red Blood Count 2.92 M/mm3 (4.2-5.4); Red Cell Distribution Width 14.6 % (11.5-14.5); White Blood Count 5.9 K/mm3 (4.5-10.0)
[2022-08-06 09:05] LABS: Albumin Level 3.7 g/dL (3.5-5.1); Anion Gap 4 mmol/L (8-16); Blood Urea Nitrogen 30 mg/dL (7-17); Calcium 9.5 mg/dL (8.4-10.2); Carbon Dioxide 25 mmol/L (22-30); Chloride 111 mmol/L (98-107); Estimated Glomerular Filt Rate 29; Glucose 99 mg/dL (65-110); Phosphorus 3.9 mg/dL (2.5-4.5); Potassium 4.5 mmol/L (3.4-5.0); Sodium 140 mmol/L (137-145)
[2022-08-08 17:27] LABS: BK Virus DNA, QN PCR log Not Detected Log cps/mL; BK Virus Specimen Source Plasma
[2022-08-08 23:38] LABS: Tacrolimus Prograf 6.6 mcg/L
[2022-08-13 08:32] LABS: Basophils Percent Auto 0.7 % (0.2-1.2); Eosinophils Absolute Auto 0.1 K/mm3 (0-0.3); Eosinophils Percent Auto 1.6 % (0-4.4); Hematocrit 29.3 % (37.0-47.0); Hemoglobin 9.1 g/dL (12.0-15.0); Immature Granulocyte Absolute 0.05 K/mm3 (0.00-0.031); Immature Granulocyte Percent A 0.9 % (0-0.5); Lymphocytes Absolute Auto 0.36 K/mm3 (0.9-3.2); Lymphocytes Percent Auto 6.5 % (18.3-44.2); Mean Corpuscular HGB Conc 31.1 g/dl (32-36); Mean Corpuscular Hemoglobin 31.9 pg (26-34); Mean Corpuscular Volume 102.8 fl (80-100); Mean Platelet Volume 10.2 fl (7.4-10.4); Monocytes Absolute Auto 0.4 K/mm3 (0.1-0.6); Monocytes Percent Auto 6.5 % (2.6-8.5); Neutrophils Absolute Auto 4.7 K/mm3 (1.3-6.7); Neutrophils Percent Auto 83.8 % (45.5-73.1); Platelet Count Result 188 k/mm3 (150-375); Red Blood Count 2.85 M/mm3 (4.2-5.4); Red Cell Distribution Width 14.4 % (11.5-14.5); White Blood Count 5.6 K/mm3 (4.5-10.0)
[2022-08-13 08:46] LABS: Alanine Aminotransferase 18 U/L (6-35); Albumin Level 3.6 g/dL (3.5-5.1); Alkaline Phosphatase 63 U/L (38-126); Anion Gap 3 mmol/L (8-16); Aspartate Amino Transferase 17 U/L (14-36); Bilirubin,Total 0.5 mg/dL (0.2-1.3); Blood Urea Nitrogen 32 mg/dL (7-17); Calcium 9.4 mg/dL (8.4-10.2); Carbon Dioxide 25 mmol/L (22-30); Chloride 111 mmol/L (98-107); Cholesterol 149 mg/dL (0-200); Estimated Glomerular Filt Rate 27; Glucose 95 mg/dL (65-110); HDL Direct 61 mg/dL; Phosphorus 3.8 mg/dL (2.5-4.5); Potassium 4.8 mmol/L (3.4-5.0); Sodium 139 mmol/L (137-145); Triglycerides 97 mg/dL (<150)
[2022-08-13 08:56] LABS: LDL Cholesterol Direct 60 mg/dL
[2022-08-15 17:21] LABS: BK Virus DNA, QN PCR log Not Detected Log cps/mL; BK Virus Specimen Source Plasma
[2022-08-15 20:58] LABS: Tacrolimus Prograf 5.9 mcg/L
[2022-08-20 09:16] LABS: Basophils Percent Auto 0.5 % (0.2-1.2); Eosinophils Absolute Auto 0.1 K/mm3 (0-0.3); Eosinophils Percent Auto 1.8 % (0-4.4); Hematocrit 30.3 % (37.0-47.0); Hemoglobin 9.2 g/dL (12.0-15.0); Immature Granulocyte Absolute 0.04 K/mm3 (0.00-0.031); Immature Granulocyte Percent A 0.7 % (0-0.5); Lymphocytes Percent Auto 4.9 % (18.3-44.2); Mean Corpuscular HGB Conc 30.4 g/dl (32-36); Mean Corpuscular Hemoglobin 31.4 pg (26-34); Mean Corpuscular Volume 103.4 fl (80-100); Mean Platelet Volume 10.5 fl (7.4-10.4); Monocytes Absolute Auto 0.4 K/mm3 (0.1-0.6); Monocytes Percent Auto 6.7 % (2.6-8.5); Neutrophils Absolute Auto 5.2 K/mm3 (1.3-6.7); Neutrophils Percent Auto 85.4 % (45.5-73.1); Platelet Count Result 211 k/mm3 (150-375); Red Blood Count 2.93 M/mm3 (4.2-5.4); Red Cell Distribution Width 14.2 % (11.5-14.5); White Blood Count 6.1 K/mm3 (4.5-10.0)
[2022-08-20 09:28] LABS: Albumin Level 3.8 g/dL (3.5-5.1); Anion Gap 4 mmol/L (8-16); Blood Urea Nitrogen 25 mg/dL (7-17); Calcium 9.4 mg/dL (8.4-10.2); Carbon Dioxide 26 mmol/L (22-30); Chloride 109 mmol/L (98-107); Estimated Glomerular Filt Rate 30; Glucose 98 mg/dL (65-110); Iron 60 ug/dL (37-170); Phosphorus 3.5 mg/dL (2.5-4.5); Potassium 4.5 mmol/L (3.4-5.0); Sodium 139 mmol/L (137-145)
[2022-08-20 09:36] LABS: Percent Iron Saturation 23 % (20-50)
[2022-08-22 23:31] LABS: BK Virus DNA, QN PCR log Not Detected Log cps/mL; BK Virus Specimen Source Plasma
[2022-08-23 08:33] LABS: Tacrolimus Prograf 7.5 mcg/L
[2022-08-27 08:43] LABS: Basophils Absolute Auto 0.1 K/mm3 (0.0-0.1); Basophils Percent Auto 0.8 % (0.2-1.2); Eosinophils Absolute Auto 0.1 K/mm3 (0-0.3); Eosinophils Percent Auto 1.2 % (0-4.4); Hematocrit 30.3 % (37.0-47.0); Hemoglobin 9.4 g/dL (12.0-15.0); Immature Granulocyte Absolute 0.04 K/mm3 (0.00-0.031); Immature Granulocyte Percent A 0.6 % (0-0.5); Lymphocytes Absolute Auto 0.35 K/mm3 (0.9-3.2); Lymphocytes Percent Auto 5.3 % (18.3-44.2); Mean Corpuscular Hemoglobin 30.9 pg (26-34); Mean Corpuscular Volume 99.7 fl (80-100); Mean Platelet Volume 10.7 fl (7.4-10.4); Monocytes Absolute Auto 0.4 K/mm3 (0.1-0.6); Monocytes Percent Auto 5.9 % (2.6-8.5); Neutrophils Absolute Auto 5.7 K/mm3 (1.3-6.7); Neutrophils Percent Auto 86.2 % (45.5-73.1); Platelet Count Result 222 k/mm3 (150-375); Red Blood Count 3.04 M/mm3 (4.2-5.4); Red Cell Distribution Width 13.6 % (11.5-14.5); White Blood Count 6.6 K/mm3 (4.5-10.0)
[2022-08-27 08:57] LABS: Iron 67 ug/dL (37-170)
[2022-08-27 08:58] LABS: Albumin Level 3.9 g/dL (3.5-5.1); Anion Gap 4 mmol/L (8-16); Blood Urea Nitrogen 26 mg/dL (7-17); Calcium 9.5 mg/dL (8.4-10.2); Carbon Dioxide 26 mmol/L (22-30); Chloride 105 mmol/L (98-107); Estimated Glomerular Filt Rate 35; Glucose 98 mg/dL (65-110); Phosphorus 3.2 mg/dL (2.5-4.5); Sodium 135 mmol/L (137-145)
[2022-08-27 09:07] LABS: Percent Iron Saturation 25 % (20-50)
[2022-08-29 13:39] LABS: BK Virus DNA, QN PCR log Not Detected Log cps/mL; BK Virus Specimen Source Plasma
[2022-08-30 08:28] LABS: Tacrolimus Prograf 8.6 mcg/L
[2022-09-03 07:35] LABS: Basophils Absolute Auto 0.1 K/mm3 (0.0-0.1); Eosinophils Absolute Auto 0.1 K/mm3 (0-0.3); Eosinophils Percent Auto 1.6 % (0-4.4); Hematocrit 29.6 % (37.0-47.0); Immature Granulocyte Absolute 0.04 K/mm3 (0.00-0.031); Immature Granulocyte Percent A 0.8 % (0-0.5); Lymphocytes Absolute Auto 0.36 K/mm3 (0.9-3.2); Lymphocytes Percent Auto 7.4 % (18.3-44.2); Mean Corpuscular HGB Conc 30.4 g/dl (32-36); Mean Corpuscular Hemoglobin 31.3 pg (26-34); Mean Corpuscular Volume 102.8 fl (80-100); Mean Platelet Volume 10.7 fl (7.4-10.4); Monocytes Absolute Auto 0.5 K/mm3 (0.1-0.6); Monocytes Percent Auto 9.9 % (2.6-8.5); Neutrophils Absolute Auto 3.8 K/mm3 (1.3-6.7); Neutrophils Percent Auto 79.3 % (45.5-73.1); Platelet Count Result 209 k/mm3 (150-375); Red Blood Count 2.88 M/mm3 (4.2-5.4); Red Cell Distribution Width 13.7 % (11.5-14.5); White Blood Count 4.9 K/mm3 (4.5-10.0)
[2022-09-03 07:53] LABS: Albumin Level 3.7 g/dL (3.5-5.1); Anion Gap 5 mmol/L (8-16); Blood Urea Nitrogen 26 mg/dL (7-17); Calcium 9.5 mg/dL (8.4-10.2); Carbon Dioxide 26 mmol/L (22-30); Chloride 109 mmol/L (98-107); Estimated Glomerular Filt Rate 35; Glucose 100 mg/dL (65-110); Phosphorus 3.3 mg/dL (2.5-4.5); Potassium 4.3 mmol/L (3.4-5.0); Sodium 140 mmol/L (137-145)
[2022-09-05 16:00] LABS: BK Virus DNA, QN PCR log Not Detected Log cps/mL; BK Virus Specimen Source Plasma
[2022-09-10 09:14] LABS: Basophils Absolute Auto 0.1 K/mm3 (0.0-0.1); Basophils Percent Auto 1.4 % (0.2-1.2); Eosinophils Absolute Auto 0.1 K/mm3 (0-0.3); Eosinophils Percent Auto 2.5 % (0-4.4); Hematocrit 30.3 % (37.0-47.0); Hemoglobin 9.3 g/dL (12.0-15.0); Immature Granulocyte Absolute 0.04 K/mm3 (0.00-0.031); Immature Granulocyte Percent A 1.1 % (0-0.5); Lymphocytes Percent Auto 8.2 % (18.3-44.2); Mean Corpuscular HGB Conc 30.7 g/dl (32-36); Mean Corpuscular Hemoglobin 31.3 pg (26-34); Mean Platelet Volume 10.8 fl (7.4-10.4); Monocytes Absolute Auto 0.3 K/mm3 (0.1-0.6); Monocytes Percent Auto 8.4 % (2.6-8.5); Neutrophils Absolute Auto 2.9 K/mm3 (1.3-6.7); Neutrophils Percent Auto 78.4 % (45.5-73.1); Platelet Count Result 205 k/mm3 (150-375); Red Blood Count 2.97 M/mm3 (4.2-5.4); Red Cell Distribution Width 13.3 % (11.5-14.5); White Blood Count 3.7 K/mm3 (4.5-10.0)
[2022-09-10 09:23] LABS: Albumin Level 3.8 g/dL (3.5-5.1); Anion Gap 6 mmol/L (8-16); Blood Urea Nitrogen 28 mg/dL (7-17); Calcium 9.3 mg/dL (8.4-10.2); Carbon Dioxide 25 mmol/L (22-30); Chloride 106 mmol/L (98-107); Estimated Glomerular Filt Rate 30; Glucose 96 mg/dL (65-110); Phosphorus 3.7 mg/dL (2.5-4.5); Potassium 4.4 mmol/L (3.4-5.0); Sodium 137 mmol/L (137-145)
[2022-09-12 16:36] LABS: BK Virus DNA, Qual PCR Not Detected (Not Detected); BK Virus Specimen Source Whole Blood
[2022-09-17 07:46] LABS: Basophils Percent Auto 1.3 % (0.2-1.2); Eosinophils Absolute Auto 0.1 K/mm3 (0-0.3); Eosinophils Percent Auto 3.4 % (0-4.4); Hemoglobin 9.9 g/dL (12.0-15.0); Immature Granulocyte Absolute 0.05 K/mm3 (0.00-0.031); Immature Granulocyte Percent A 1.6 % (0-0.5); Lymphocytes Absolute Auto 0.39 K/mm3 (0.9-3.2); Lymphocytes Percent Auto 12.2 % (18.3-44.2); Mean Corpuscular Hemoglobin 30.1 pg (26-34); Mean Corpuscular Volume 100.3 fl (80-100); Mean Platelet Volume 10.5 fl (7.4-10.4); Monocytes Absolute Auto 0.4 K/mm3 (0.1-0.6); Monocytes Percent Auto 11.3 % (2.6-8.5); Neutrophils Absolute Auto 2.3 K/mm3 (1.3-6.7); Neutrophils Percent Auto 70.2 % (45.5-73.1); Platelet Count Result 231 k/mm3 (150-375); Red Blood Count 3.29 M/mm3 (4.2-5.4); Red Cell Distribution Width 13.2 % (11.5-14.5); White Blood Count 3.2 K/mm3 (4.5-10.0)
[2022-09-17 07:54] LABS: Anion Gap 5 mmol/L (8-16); Blood Urea Nitrogen 30 mg/dL (7-17); Calcium 9.4 mg/dL (8.4-10.2); Carbon Dioxide 27 mmol/L (22-30); Chloride 107 mmol/L (98-107); Estimated Glomerular Filt Rate 29; Glucose 93 mg/dL (65-110); Phosphorus 3.5 mg/dL (2.5-4.5); Potassium 4.4 mmol/L (3.4-5.0); Sodium 139 mmol/L (137-145)
[2022-09-20 14:42] LABS: BK Virus DNA, QN PCR log Not Detected Log cps/mL; BK Virus Specimen Source Plasma
[2022-09-20 16:58] LABS: Tacrolimus Prograf 7.1 mcg/L
[2022-09-24 07:18] LABS: Hematocrit 30.6 % (37.0-47.0); Hemoglobin 9.5 g/dL (12.0-15.0); Mean Corpuscular Hemoglobin 31.1 pg (26-34); Mean Corpuscular Volume 100.3 fl (80-100); Mean Platelet Volume 9.9 fl (7.4-10.4); Platelet Count Result 208 k/mm3 (150-375); Red Blood Count 3.05 M/mm3 (4.2-5.4); Red Cell Distribution Width 13.2 % (11.5-14.5)
[2022-09-24 07:30] LABS: Albumin Level 3.8 g/dL (3.5-5.1); Anion Gap 4 mmol/L (8-16); Blood Urea Nitrogen 34 mg/dL (7-17); Calcium 9.8 mg/dL (8.4-10.2); Carbon Dioxide 26 mmol/L (22-30); Chloride 111 mmol/L (98-107); Estimated Glomerular Filt Rate 33; Glucose 94 mg/dL (65-110); Potassium 4.4 mmol/L (3.4-5.0); Sodium 141 mmol/L (137-145)
[2022-09-24 08:12] LABS: White Blood Count 1.8 K/mm3 (4.5-10.0)
[2022-09-27 13:08] LABS: BK Virus DNA, QN PCR log Not Detected Log cps/mL; BK Virus Specimen Source Plasma
[2022-09-27 17:43] LABS: Tacrolimus Prograf 6.5 mcg/L
[2022-10-01 07:55] LABS: Basophils Absolute Auto 0.1 K/mm3 (0.0-0.1); Basophils Percent Auto 2.9 % (0.2-1.2); Eosinophils Absolute Auto 0.1 K/mm3 (0-0.3); Eosinophils Percent Auto 4.6 % (0-4.4); Hematocrit 30.3 % (37.0-47.0); Hemoglobin 9.4 g/dL (12.0-15.0); Immature Granulocyte Absolute 0.02 K/mm3 (0.00-0.031); Immature Granulocyte Percent A 1.2 % (0-0.5); Lymphocytes Absolute Auto 0.32 K/mm3 (0.9-3.2); Lymphocytes Percent Auto 18.5 % (18.3-44.2); Mean Corpuscular Hemoglobin 30.8 pg (26-34); Mean Corpuscular Volume 99.3 fl (80-100); Mean Platelet Volume 10.5 fl (7.4-10.4); Monocytes Absolute Auto 0.2 K/mm3 (0.1-0.6); Monocytes Percent Auto 13.3 % (2.6-8.5); Neutrophils Percent Auto 59.5 % (45.5-73.1); Platelet Count Result 198 k/mm3 (150-375); Red Blood Count 3.05 M/mm3 (4.2-5.4); Red Cell Distribution Width 13.2 % (11.5-14.5)
[2022-10-01 08:05] LABS: Alanine Aminotransferase 20 U/L (6-35); Albumin Level 3.4 g/dL (3.5-5.1); Alkaline Phosphatase 56 U/L (38-126); Anion Gap 2 mmol/L (8-16); Aspartate Amino Transferase 23 U/L (14-36); Bilirubin,Total 0.3 mg/dL (0.2-1.3); Blood Urea Nitrogen 28 mg/dL (7-17); Calcium 9.3 mg/dL (8.4-10.2); Carbon Dioxide 29 mmol/L (22-30); Chloride 109 mmol/L (98-107); Cholesterol 155 mg/dL (0-200); Estimated Glomerular Filt Rate 30; Glucose 94 mg/dL (65-110); HDL Direct 64 mg/dL; Phosphorus 3.6 mg/dL (2.5-4.5); Potassium 4.5 mmol/L (3.4-5.0); Sodium 140 mmol/L (137-145); Triglycerides 83 mg/dL (<150)
[2022-10-01 08:16] LABS: LDL Cholesterol Direct 65 mg/dL
[2022-10-01 08:34] LABS: White Blood Count 1.7 K/mm3 (4.5-10.0)
[2022-10-04 22:03] LABS: BK Virus DNA, QN PCR log Not Detected Log cps/mL; BK Virus Specimen Source Plasma
== END 2022-10-07 23:59 | disposition home or self-care (01) ==
LOC: ANHLAB 07:05
PROVIDERS: PCP Physician Assistant; Visit Provider Internal Medicine
DX: E78.2 Mixed hyperlipidemia (principal); Z94.0 Kidney transplant status; Z79.899 Other long term (current) drug therapy
CPT/HCPCS: 36415; 80061; 80069; 80076; 80197; 82728; 83540; 83550; 85025; 87798; 87799

== ENCOUNTER 2022-10-01 07:06 | Outpatient (CLI) | payer OTHER, SELFPAY ==
[2022-10-06 01:46] LABS: CMV DNA Quant PCR IU/mL Not Detected; Cytomegalovirus DNA Quant PCR Not Detected log IU/mL; Cytomegalovirus DNA Source Whole Blood
== END 2022-10-01 07:07 | disposition home or self-care (01) ==
PROVIDERS: PCP Physician Assistant; Visit Provider Internal Medicine
DX: Z94.0 Kidney transplant status (principal)
CPT/HCPCS: 36415; 80061; 80069; 80076; 80197; 85025; 87497; 87799

== ENCOUNTER 2022-10-22 07:18 | Outpatient (CLI) | payer OTHER, MEDICARE, SELFPAY ==
[2022-10-22 09:24] LABS: Free T4 Free Thyroxine 2.18 ng/mL (0.78-2.19)
[2022-10-22 10:06] LABS: Thyroid Stimulating Hormone 0.556 uIU/mL (0.465-4.680)
== END 2022-10-22 07:19 | disposition home or self-care (01) ==
PROVIDERS: PCP Physician Assistant; Visit Provider Physician Assistant
DX: E03.9 Hypothyroidism, unspecified (principal)
CPT/HCPCS: 36415; 80069; 80197; 84439; 84443; 85025; 87799

== ENCOUNTER 2022-10-28 02:03 | Emergency (ER) | payer MEDICARE, OTHER, SELFPAY ==
[2022-10-28] VITALS (13 sets, daily range): BP systolic 134–170; BP diastolic 75–118; PULSE 67–74; RESP 15–17; TEMP 36.2; O2SAT 95–100
--- NOTE | ~2022-10-28 | CT_ITS ---
EXAMINATION: CT abdomen pelvis wo con DATE: 10/28/2022 04:06 INDICATION: Right flank pain. Right-sided kidney transplant 5 months ago. TECHNIQUE: Computed tomography (CT) of the abdomen and pelvis was performed without intravenous contr ast. Automated exposure control and iterative reconstruction technique were employed. Exam dose: 919 .43 mGy-cm total exam DLP. COMPARISON: None. FINDINGS: Minimal discoid atelectasis or scarring at the lung bases. No infiltrate or consolidation i s noted. No pleural effusions. Trace pericardial fluid. The liver, gallbladder, bile ducts, pancreas, pancreatic duct and spleen and adrenal glands are unrem arkable. Severe atrophy of the tolowa dee-ni' kidneys. Right pelvic transplant kidney is noted. No right renal calculu s or hydronephrosis is evident. There is mild fat stranding around the transplant kidney; recommend c orrelation with urinalysis to exclude infection. There is mild diffuse thickening of the urinary bladder wall and mild perivesical fat stranding sugge stive of cholecystitis is not excluded. The uterus and adnexal areas are unremarkable. Normal appendix. Diverticulosis of the colon; no CT evidence of diverticulitis. There is a prominent of fecal material in the colon but no bowel obstruction, bowel wall thickening, pneumatosis or intraperitoneal free ai r is evident. There is atherosclerotic calcification but normal caliber of the abdominal aorta. No intraperitoneal or retroperitoneal or pelvic mass lesion or adenopathy or ascites. Approximately 15 x 19 x 29 mm fluid collection with soft tissue capsule is noted in the right anterio r pelvic wall scar, likely residual hematoma or seroma; abscess is not excluded. Diffuse idiopathic skeletal hyperostosis of the thoracic spine. Multilevel degenerative disc disease of lumbar spine, most prominent at L5-S1. No suspicious osteolytic or osteoblastic lesions are noted. IMPRESSION: Mild ascites around the right pelvic transplant kidney and urinary bladder similar recom mend correlation with urinalysis to exclude pyelonephritis or cystitis Severe atrophy of tolowa dee-ni' kidneys Approximately 15 x 19 x 29 mm fluid collection in the anterior right pelvic wall; diffusion diagnosis includes hematoma, seroma or abscess Normal appendix Diverticulosis of the colon; no evidence of diverticulitis Reviewed, dictated and finalized at [facility]. Reviewed, dictated and finalized at location A. IMPRESSION: Mild ascites around the right pelvic transplant kidney and urinary bladder similar recommend correlation with urinalysis to exclude pyelonephriti s or cystitis Severe atrophy of tolowa dee-ni' kidneys Approximately 15 x 19 x 29 mm fluid collection in the anterior right pelvic wal l; diffusion diagnosis includes hematoma, seroma or abscess Normal appendix Diverticulosis of the colon; no evidence of diverticulitis
--- NOTE | 2022-10-28 02:08 | ECG_ITS ---
Measurements Intervals [place] Rate: 71 P: 193 NV: 362 QRS: 0 QRSD: 79 T: 25 QT: 358 QTc: 390 Interpretive Statements ELECTRONIC ATRIAL PACEMAKER ATYPICAL ECG NO PREVIOUS ECG AVAILABLE FOR COMPARISON Electronically Signed On 10-28-2022 9:13:09 CDT by Chad Kelsey M.D.
[2022-10-28] MEDS: ACETAMINOPHEN 500 MG TABLET 1000 MG PO (04:09)
[2022-10-28 04:21] LABS: Basophils Absolute Auto 0.1 K/mm3 (0.0-0.1); Basophils Percent Auto 1.5 % (0.2-1.2); Eosinophils Absolute Auto 0.1 K/mm3 (0-0.3); Eosinophils Percent Auto 1.6 % (0-4.4); Hematocrit 34.5 % (37.0-47.0); Hemoglobin 10.7 g/dL (12.0-15.0); Immature Granulocyte Absolute 0.49 K/mm3 (0.00-0.031); Immature Granulocyte Percent A 5.7 % (0-0.5); Lymphocytes Absolute Auto 0.57 K/mm3 (0.9-3.2); Lymphocytes Percent Auto 6.6 % (18.3-44.2); Mean Corpuscular Hemoglobin 30.3 pg (26-34); Mean Corpuscular Volume 97.7 fl (80-100); Mean Platelet Volume 10.7 fl (7.4-10.4); Monocytes Absolute Auto 1.1 K/mm3 (0.1-0.6); Monocytes Percent Auto 12.7 % (2.6-8.5); Neutrophils Absolute Auto 6.2 K/mm3 (1.3-6.7); Neutrophils Percent Auto 71.9 % (45.5-73.1); Platelet Count Result 216 k/mm3 (150-375); Red Blood Count 3.53 M/mm3 (4.2-5.4); Red Cell Distribution Width 13.4 % (11.5-14.5); White Blood Count 8.7 K/mm3 (4.5-10.0)
[2022-10-28 04:28] LABS: Alanine Aminotransferase 26 U/L (6-35); Albumin Level 3.7 g/dL (3.5-5.1); Alkaline Phosphatase 74 U/L (38-126); Anion Gap 5 mmol/L (8-16); Aspartate Amino Transferase 26 U/L (14-36); Bilirubin,Total 0.4 mg/dL (0.2-1.3); Blood Urea Nitrogen 30 mg/dL (7-17); Calcium 9.5 mg/dL (8.4-10.2); Carbon Dioxide 29 mmol/L (22-30); Chloride 106 mmol/L (98-107); Estimated Glomerular Filt Rate 33; Glucose 98 mg/dL (65-110); Potassium 4.6 mmol/L (3.4-5.0); Sodium 140 mmol/L (137-145)
--- NOTE | 2022-10-28 04:29 | ED.BACK ---
HPI - Back Pain/Injury General Chief Complaint: Back Pain/Injury <Fifi Altman MD - Last Filed: 10/28/22 07:20> Stated Complaint: Lower back pain <Fifi Altman MD - Last Filed: 10/28/22 07:20> Time Seen by Provider: 10/28/22 03:29 <Fifi Altman MD - Last Filed: 10/28/22 07:20> History of Present Illness HPI Narrative: Patient with history of renal transplant 5 months ago presents with 2 days of pain to her right flank, she has not had any issues with urination nor changes in the color of her urine, she has been off of several immunosuppressants and antibiotics for the past few weeks due to leukocytopenia. Followed at [facility]. <Fifi Altman MD - Last Filed: 10/28/22 07:20> Related Data Home Medications: Home Medications Medication Instructions Recorded Confirmed aspirin 81 mg tablet,delayed 81 mg PO DAILY 10/12/22 10/19/22 release carvedilol 3.125 mg tablet 3.125 mg PO Q12H 10/12/22 10/19/22 famotidine 20 mg tablet 20 mg PO DAILY 10/12/22 10/19/22 linagliptin 5 mg tablet (Tradjenta) 5 mg PO QAM 10/12/22 10/19/22 pantoprazole 40 mg tablet,delayed 40 mg PO QAM 10/12/22 10/19/22 release polyethylene glycol 3350 17 17 g PO DAILY PRN 10/12/22 10/19/22 gram/dose oral powder (Miralax) prednisone 5 mg tablet 5 mg PO DAILY 10/12/22 10/19/22 senna-docusate sodium capsule cap PO PRN 10/12/22 10/19/22 tacrolimus 4 mg tablet,extended 4 mg PO DAILY 10/12/22 10/19/22 release 24 hr (Envarsus XR) <Fifi Altman MD - Last Filed: 10/28/22 07:20> Allergies/Adverse Reactions: Allergies Allergy/AdvReac Type Severity Reaction Status Date / Time ibuprofen Allergy Severe on kidney Verified 10/19/22 10:20 transplant list nitrofurantoin Allergy Mild Unknown Verified 10/19/22 10:20 <Fifi Altman MD - Last Filed: 10/28/22 07:20> Review of Systems Review of Systems: CONST: No fever. HEENT: No sore throat C/V: No chest pain RESP: No cough GI: Right flank pain : No dysuria. M/S: No joint pain. SKIN: No rash. NEURO: [No headache or focal numbness or weakness] PSYCH: [No depression] <Fifi Altman MD - Last Filed: 10/28/22 07:20> [facility] Past Medical History Medical History: Medical History High cholesterol High risk human papilloma virus (HPV) infection of cervix History of bruising easily History of stress test (~2021) Hypertension Hypothyroidism Kidney disease Vaginal delivery x2 <Fifi Altman MD - Last Filed: 10/28/22 07:20> Surgical History Surgical History: Surgical History H/O laparoscopy History of colposcopy [place] teeth extracted <Fifi Altman MD - Last Filed: 10/28/22 07:20> Family History Family History: Family History Father Hypertension Patient's father is in good health Mother Hypertension Patient's mother is in good health Family history of heart disease in male family member before age 55 Grandparent Family history of malignant neoplasm <Fifi Altman MD - Last Filed: 10/28/22 07:20> Social History Social History: Social History Smoking status: Never smoker Second hand tobacco smoke exposure: No Alcohol intake: never Lack of Transportation: No Lack of Food: Never True Current Housing: I Have Housing Concerned About Future Housing: No Difficulty Paying Gas/Electric Bills: No Difficulty Paying for Meds: No Currently Unemployed: No Education: High School Diploma/GED Difficulty w/ Childcare or Family Care: No Living arrangements: with family Spiritual care concerns: No <Fifi Altman MD - Last Filed: 10/28/22 07:20> Exam Narrative: EXAMINATION OF ORGAN SYSTEMS/BODY AREAS: Constitutional: Vital signs per nursing GENERAL:[No acute distress, non-toxic appearing.] HEAD: Nor
[2022-10-28 05:42] LABS: Appearance Urine Clear (Clear); Bacteria Urine Rare /hpf; Bilirubin Urine Negative (Negative); Blood Urine Negative (Negative); Color Urine Yellow (Yellow); Glucose Urine UA Negative (Negative); Ketones Urine Negative (Negative); Leukocyte Esterase Ur Trace LEU/UL (Negative); Nitrate Urine Negative (Negative); Non Pathogenic Casts 0-2; Protein Urine Trace mg/dL (Negative); RBC Urine 0-2 /hpf (0-2); Specific Grav Ur 1.019 (1.001-1.035); Squamous Epithelial Cell Urine Few /hpf (Few); Urobilinogen Urine 0.2 mg/dL (<2.0); pH Urine 5.5 (5.0-9.0)
[2022-10-28 05:50] LABS: Add Urine Microscopic? YES
--- NOTE | 2022-10-28 07:20 | PC.NURSE ---
no cultures needed per MD Altman
== END 2022-10-28 11:39 | disposition home or self-care (01) ==
PROVIDERS: Emergency Provider Emergency Medicine; PCP Physician Assistant
DX: S29.012A Strain of muscle and tendon of back wall of thorax, initial encounter (principal); E78.00 Pure hypercholesterolemia, unspecified; I10 Essential (primary) hypertension; E03.9 Hypothyroidism, unspecified; N28.9 Disorder of kidney and ureter, unspecified; Z94.0 Kidney transplant status; K57.90 Diverticulosis of intestine, part unspecified, without perforation or abscess without bleeding; N26.1 Atrophy of kidney (terminal); R18.8 Other ascites; X58.XXXA Exposure to other specified factors, initial encounter
CPT/HCPCS: 36415; 74176; 80053; 81001; 85025; 87086; 87088; 93005; 96365; 99284; A9270; J0696

== ENCOUNTER 2022-11-08 15:15 | Outpatient (CLI) | payer MEDICARE, OTHER, SELFPAY ==
--- NOTE | ~2022-11-08 | CT_ITS ---
EXAMINATION: CT brain wo con DATE: 11/08/2022 15:43 INDICATION: KIDNEY REPLACED BY TRANSPLANT;MEMORY LOSS . TECHNIQUE: Computed tomography (CT) of the head was performed without intravenous contrast. The mA wa s adjusted according to patient size. Iterative reconstruction technique was employed. The dose-lengt h product was 529.67 mGy-cm. COMPARISON: 09/13/2016. FINDINGS: No acute intracranial hemorrhage or extra-axial fluid collection. No hydrocephalus, mass, or herniation. No acute ischemic infarct. Unremarkable dural venous sinus attenuation. No acute osseous abnormality. Trace left mastoid fluid, the remaining aerated spaces are clear. Mild chronic white matter change. Atherosclerotic intracranial calcification. IMPRESSION: No acute intracranial process. Reviewed, dictated and finalized at location K.
--- NOTE | ~2022-11-08 | XR_ITS ---
EXAMINATION: XR chest 2V Exam Date/Time: 11/08/2022 15:30 CDT HISTORY: KIDNEY TRANSPLANT/LEUKOCYTOSIS Comparison: 09/13/2016. RESULT: Lines, tubes, and devices: None. Lungs and pleura: Clear. Cardiomediastinal silhouette: Stable. Other: No acute osseous or upper abdominal finding. IMPRESSION: No acute cardiopulmonary process. Reviewed, dictated and finalized at location K.
== END 2022-11-08 15:16 | disposition home or self-care (01) ==
PROVIDERS: PCP Physician Assistant
DX: R41.3 Other amnesia (principal); D72.829 Elevated white blood cell count, unspecified; Z94.0 Kidney transplant status
CPT/HCPCS: 70450; 71046

== ENCOUNTER 2022-11-26 06:55 | Outpatient (CLI) | payer OTHER, MEDICARE, SELFPAY ==
[2022-11-26 07:52] LABS: Hemoglobin A1C 5.8 % (<5.7)
[2022-11-26 08:21] LABS: Thyroid Stimulating Hormone 0.387 uIU/mL (0.465-4.680)
[2022-11-26 08:31] LABS: Vitamin D 25 Hydroxy 44.2 ng/mL
[2022-11-30 15:56] LABS: EBV Nuclear Ab Interpretation Past; EBV Virus Capsid Ag IgG Ab >750.00 U/mL (<18.00); EBV Virus Capsid Ag IgM Ab <36.00 U/mL (<36.00)
[2022-12-03 07:36] LABS: CMV DNA Quant PCR IU/mL Not Detected; Cytomegalovirus DNA Quant PCR Not Detected; Cytomegalovirus DNA Source Whole Blood
== END 2022-11-26 06:56 | disposition home or self-care (01) ==
PROVIDERS: PCP Physician Assistant; Visit Provider Internal Medicine
DX: Z94.0 Kidney transplant status (principal)
CPT/HCPCS: 36415; 80061; 80069; 80076; 80197; 82306; 82607; 83036; 84443; 85025; 86664; 86665; 87497; 87799

== ENCOUNTER 2023-01-07 07:53 | Outpatient (RCR) | payer OTHER, SELFPAY ==
[2022-10-09 07:31] LABS: Hematocrit 32.5 % (37.0-47.0); Hemoglobin 10.1 g/dL (12.0-15.0); Mean Corpuscular HGB Conc 31.1 g/dl (32-36); Mean Corpuscular Hemoglobin 30.6 pg (26-34); Mean Corpuscular Volume 98.5 fl (80-100); Mean Platelet Volume 10.4 fl (7.4-10.4); Platelet Count Result 212 k/mm3 (150-375); Red Cell Distribution Width 13.2 % (11.5-14.5)
[2022-10-09 07:35] LABS: Albumin Level 3.7 g/dL (3.5-5.1); Anion Gap 5 mmol/L (8-16); Blood Urea Nitrogen 40 mg/dL (7-17); Calcium 9.2 mg/dL (8.4-10.2); Carbon Dioxide 27 mmol/L (22-30); Chloride 105 mmol/L (98-107); Estimated Glomerular Filt Rate 25; Glucose 90 mg/dL (65-110); Phosphorus 3.9 mg/dL (2.5-4.5); Potassium 4.6 mmol/L (3.4-5.0); Sodium 137 mmol/L (137-145)
[2022-10-09 09:49] LABS: White Blood Count 1.3 K/mm3 (4.5-10.0)
[2022-10-09 10:01] LABS: Band Neutrophils Percent 3 % (0-6); Basophils Absolute Manual 0.06 K/mm3 (0.0-0.1); Basophils Percent Manual 5 % (0-1); Eosinophils Absolute Manual 0.11 K/mm3 (0.02-0.5); Eosinophils Percent Manual 9 % (0-4); Lymphocytes Absolute Manual 0.28 K/mm3 (1.1-4.5); Monocytes Absolute Manual 0.16 K/mm3 (0.1-0.90); Monocytes Percent Manual 13 % (3-9); Neutrophils Absolute Manual 0.66 K/mm3 (1.7-7.2); Neutrophils Percent Manual 48 % (46-73); Platelet Estimate Adequate (Adequate); Total Cells Counted 100
[2022-10-09 10:03] LABS: Burr Cells 1+ (NORMAL); Schistocytes 1+ (NORMAL)
[2022-10-11 18:44] LABS: BK Virus DNA, QN PCR log Not Detected Log cps/mL; BK Virus Specimen Source Plasma
[2022-10-12 01:20] LABS: Tacrolimus Prograf 6.8 mcg/L
[2022-10-15 08:01] LABS: Basophils Absolute Auto 0.1 K/mm3 (0.0-0.1); Basophils Percent Auto 4.9 % (0.2-1.2); Eosinophils Absolute Auto 0.1 K/mm3 (0-0.3); Eosinophils Percent Auto 5.6 % (0-4.4); Hematocrit 33.1 % (37.0-47.0); Hemoglobin 10.2 g/dL (12.0-15.0); Immature Granulocyte Absolute 0.07 K/mm3 (0.00-0.031); Immature Granulocyte Percent A 4.9 % (0-0.5); Lymphocytes Absolute Auto 0.31 K/mm3 (0.9-3.2); Lymphocytes Percent Auto 21.8 % (18.3-44.2); Mean Corpuscular HGB Conc 30.8 g/dl (32-36); Mean Corpuscular Hemoglobin 30.7 pg (26-34); Mean Corpuscular Volume 99.7 fl (80-100); Mean Platelet Volume 10.2 fl (7.4-10.4); Monocytes Absolute Auto 0.4 K/mm3 (0.1-0.6); Monocytes Percent Auto 25.4 % (2.6-8.5); Neutrophils Absolute Auto 0.5 K/mm3 (1.3-6.7); Neutrophils Percent Auto 37.4 % (45.5-73.1); Platelet Count Result 226 k/mm3 (150-375); Red Blood Count 3.32 M/mm3 (4.2-5.4); Red Cell Distribution Width 13.2 % (11.5-14.5)
[2022-10-15 08:21] LABS: Alanine Aminotransferase 23 U/L (6-35); Albumin Level 3.5 g/dL (3.5-5.1); Alkaline Phosphatase 61 U/L (38-126); Anion Gap 2 mmol/L (8-16); Aspartate Amino Transferase 24 U/L (14-36); Bilirubin,Total 0.3 mg/dL (0.2-1.3); Blood Urea Nitrogen 26 mg/dL (7-17); Calcium 9.3 mg/dL (8.4-10.2); Carbon Dioxide 29 mmol/L (22-30); Chloride 109 mmol/L (98-107); Cholesterol 182 mg/dL (0-200); Estimated Glomerular Filt Rate 33; Glucose 94 mg/dL (65-110); HDL Direct 59 mg/dL; Potassium 4.6 mmol/L (3.4-5.0); Sodium 140 mmol/L (137-145); Triglycerides 92 mg/dL (<150)
[2022-10-15 08:29] LABS: LDL Cholesterol Direct 84 mg/dL
[2022-10-15 08:39] LABS: White Blood Count 1.4 K/mm3 (4.5-10.0)
[2022-10-17 19:43] LABS: BK Virus DNA, QN PCR log Not Detected Log cps/mL; BK Virus Specimen Source Plasma
[2022-10-22 08:33] LABS: Basophils Absolute Auto 0.1 K/mm3 (0.0-0.1); Basophils Percent Auto 2.5 % (0.2-1.2); Eosinophils Absolute Auto 0.1 K/mm3 (0-0.3); Eosinophils Percent Auto 2.8 % (0-4.4); Hematocrit 34.2 % (37.0-47.0); Hemoglobin 10.5 g/dL (12.0-15.0); Immature Granulocyte Percent A 9.4 % (0-0.5); Lymphocytes Absolute Auto 0.35 K/mm3 (0.9-3.2); Lymphocytes Percent Auto 10.9 % (18.3-44.2); Mean Corpuscular HGB Conc 30.7 g/dl (32-36); Mean Corpuscular Hemoglobin 29.9 pg (26-34); Mean Corpuscular Volume 97.4 fl (80-100); Mean Platelet Volume 10.2 fl (7.4-10.4); Monocytes Absolute Auto 0.7 K/mm3 (0.1-0.6); Monocytes Percent Auto 21.9 % (2.6-8.5); Neutrophils Absolute Auto 1.7 K/mm3 (1.3-6.7); Neutrophils Percent Auto 52.5 % (45.5-73.1); Platelet Count Result 207 k/mm3 (150-375); Red Blood Count 3.51 M/mm3 (4.2-5.4); Red Cell Distribution Width 13.2 % (11.5-14.5); White Blood Count 3.2 K/mm3 (4.5-10.0)
[2022-10-22 08:44] LABS: Albumin Level 3.7 g/dL (3.5-5.1); Anion Gap 2 mmol/L (8-16); Blood Urea Nitrogen 29 mg/dL (7-17); Calcium 9.3 mg/dL (8.4-10.2); Carbon Dioxide 29 mmol/L (22-30); Chloride 107 mmol/L (98-107); Estimated Glomerular Filt Rate 38; Glucose 97 mg/dL (65-110); Phosphorus 3.5 mg/dL (2.5-4.5); Potassium 4.1 mmol/L (3.4-5.0); Sodium 138 mmol/L (137-145)
[2022-10-25 08:22] LABS: BK Virus DNA, QN PCR log Not Detected Log cps/mL; BK Virus Specimen Source Plasma
[2022-10-25 15:15] LABS: Tacrolimus Prograf 6.3 mcg/L
[2022-10-30 08:27] LABS: Basophils Absolute Auto 0.1 K/mm3 (0.0-0.1); Basophils Percent Auto 1.2 % (0.2-1.2); Eosinophils Absolute Auto 0.1 K/mm3 (0-0.3); Hematocrit 34.9 % (37.0-47.0); Hemoglobin 10.9 g/dL (12.0-15.0); Immature Granulocyte Absolute 0.52 K/mm3 (0.00-0.031); Immature Granulocyte Percent A 4.3 % (0-0.5); Lymphocytes Absolute Auto 0.42 K/mm3 (0.9-3.2); Lymphocytes Percent Auto 3.5 % (18.3-44.2); Mean Corpuscular HGB Conc 31.2 g/dl (32-36); Mean Corpuscular Hemoglobin 30.4 pg (26-34); Mean Corpuscular Volume 97.5 fl (80-100); Mean Platelet Volume 10.9 fl (7.4-10.4); Monocytes Absolute Auto 0.8 K/mm3 (0.1-0.6); Monocytes Percent Auto 6.6 % (2.6-8.5); Neutrophils Percent Auto 83.4 % (45.5-73.1); Platelet Count Result 218 k/mm3 (150-375); Red Blood Count 3.58 M/mm3 (4.2-5.4); Red Cell Distribution Width 13.2 % (11.5-14.5)
[2022-10-30 08:39] LABS: Alanine Aminotransferase 24 U/L (6-35); Albumin Level 3.8 g/dL (3.5-5.1); Alkaline Phosphatase 92 U/L (38-126); Anion Gap 4 mmol/L (8-16); Aspartate Amino Transferase 24 U/L (14-36); Bilirubin,Total 0.4 mg/dL (0.2-1.3); Blood Urea Nitrogen 33 mg/dL (7-17); Calcium 9.8 mg/dL (8.4-10.2); Carbon Dioxide 30 mmol/L (22-30); Chloride 104 mmol/L (98-107); Cholesterol 169 mg/dL (0-200); Estimated Glomerular Filt Rate 29; Glucose 119 mg/dL (65-110); HDL Direct 60 mg/dL; Phosphorus 4.1 mg/dL (2.5-4.5); Potassium 4.6 mmol/L (3.4-5.0); Sodium 138 mmol/L (137-145); Triglycerides 106 mg/dL (<150)
[2022-10-30 08:50] LABS: LDL Cholesterol Direct 79 mg/dL
[2022-11-01 19:12] LABS: BK Virus DNA, QN PCR log Not Detected Log cps/mL; BK Virus Specimen Source Plasma
[2022-11-02 09:49] LABS: Tacrolimus Prograf 6.9 mcg/L
[2022-11-05 07:31] LABS: Basophils Absolute Auto 0.1 K/mm3 (0.0-0.1); Basophils Percent Auto 1.2 % (0.2-1.2); Eosinophils Absolute Auto 0.2 K/mm3 (0-0.3); Eosinophils Percent Auto 2.1 % (0-4.4); Hematocrit 33.2 % (37.0-47.0); Hemoglobin 10.4 g/dL (12.0-15.0); Immature Granulocyte Absolute 0.12 K/mm3 (0.00-0.031); Immature Granulocyte Percent A 1.2 % (0-0.5); Lymphocytes Percent Auto 4.1 % (18.3-44.2); Mean Corpuscular HGB Conc 31.3 g/dl (32-36); Mean Corpuscular Hemoglobin 30.9 pg (26-34); Mean Corpuscular Volume 98.5 fl (80-100); Monocytes Absolute Auto 0.6 K/mm3 (0.1-0.6); Monocytes Percent Auto 6.5 % (2.6-8.5); Neutrophils Absolute Auto 8.2 K/mm3 (1.3-6.7); Neutrophils Percent Auto 84.9 % (45.5-73.1); Platelet Count Result 230 k/mm3 (150-375); Red Blood Count 3.37 M/mm3 (4.2-5.4); Red Cell Distribution Width 13.4 % (11.5-14.5); White Blood Count 9.7 K/mm3 (4.5-10.0)
[2022-11-05 07:41] LABS: Albumin Level 3.4 g/dL (3.5-5.1); Anion Gap 3 mmol/L (8-16); Blood Urea Nitrogen 27 mg/dL (7-17); Calcium 9.3 mg/dL (8.4-10.2); Carbon Dioxide 29 mmol/L (22-30); Chloride 107 mmol/L (98-107); Estimated Glomerular Filt Rate 33; Glucose 104 mg/dL (65-110); Phosphorus 3.6 mg/dL (2.5-4.5); Sodium 139 mmol/L (137-145)
[2022-11-07 14:29] LABS: BK Virus DNA, QN PCR log Not Detected Log cps/mL; BK Virus Specimen Source Plasma
[2022-11-08 03:39] LABS: Tacrolimus Prograf 9.8 mcg/L
[2022-11-12 07:08] LABS: Basophils Absolute Auto 0.1 K/mm3 (0.0-0.1); Basophils Percent Auto 0.9 % (0.2-1.2); Eosinophils Absolute Auto 0.2 K/mm3 (0-0.3); Eosinophils Percent Auto 2.6 % (0-4.4); Hematocrit 32.3 % (37.0-47.0); Immature Granulocyte Absolute 0.06 K/mm3 (0.00-0.031); Immature Granulocyte Percent A 0.8 % (0-0.5); Lymphocytes Absolute Auto 0.33 K/mm3 (0.9-3.2); Lymphocytes Percent Auto 4.5 % (18.3-44.2); Mean Corpuscular Hemoglobin 30.1 pg (26-34); Mean Corpuscular Volume 97.3 fl (80-100); Mean Platelet Volume 10.6 fl (7.4-10.4); Monocytes Absolute Auto 0.2 K/mm3 (0.1-0.6); Monocytes Percent Auto 2.2 % (2.6-8.5); Neutrophils Absolute Auto 6.6 K/mm3 (1.3-6.7); Platelet Count Result 192 k/mm3 (150-375); Red Blood Count 3.32 M/mm3 (4.2-5.4); Red Cell Distribution Width 13.6 % (11.5-14.5); White Blood Count 7.4 K/mm3 (4.5-10.0)
[2022-11-12 07:19] LABS: Alanine Aminotransferase 25 U/L (6-35); Albumin Level 3.6 g/dL (3.5-5.1); Alkaline Phosphatase 82 U/L (38-126); Anion Gap 4 mmol/L (8-16); Aspartate Amino Transferase 23 U/L (14-36); Bilirubin,Total 0.3 mg/dL (0.2-1.3); Blood Urea Nitrogen 32 mg/dL (7-17); Calcium 9.6 mg/dL (8.4-10.2); Carbon Dioxide 28 mmol/L (22-30); Chloride 109 mmol/L (98-107); Cholesterol 157 mg/dL (0-200); Estimated Glomerular Filt Rate 38; Glucose 111 mg/dL (65-110); HDL Direct 52 mg/dL; Phosphorus 3.8 mg/dL (2.5-4.5); Potassium 4.4 mmol/L (3.4-5.0); Sodium 141 mmol/L (137-145); Triglycerides 114 mg/dL (<150)
[2022-11-12 07:29] LABS: LDL Cholesterol Direct 67 mg/dL
[2022-11-14 22:17] LABS: BK Virus DNA, QN PCR log Not Detected Log cps/mL; BK Virus Specimen Source Plasma
[2022-11-15 06:17] LABS: Tacrolimus Prograf 8.2 mcg/L
[2022-11-19 07:41] LABS: Albumin Level 3.8 g/dL (3.5-5.1); Anion Gap 5 mmol/L (8-16); Blood Urea Nitrogen 36 mg/dL (7-17); Calcium 9.7 mg/dL (8.4-10.2); Carbon Dioxide 28 mmol/L (22-30); Chloride 103 mmol/L (98-107); Estimated Glomerular Filt Rate 27; Glucose 110 mg/dL (65-110); Phosphorus 4.1 mg/dL (2.5-4.5); Potassium 4.9 mmol/L (3.4-5.0); Sodium 136 mmol/L (137-145)
[2022-11-19 08:00] LABS: Basophils Absolute Auto 0.1 K/mm3 (0.0-0.1); Basophils Percent Auto 1.4 % (0.2-1.2); Eosinophils Absolute Auto 0.2 K/mm3 (0-0.3); Eosinophils Percent Auto 2.2 % (0-4.4); Hematocrit 35.4 % (37.0-47.0); Immature Granulocyte Absolute 0.06 K/mm3 (0.00-0.031); Immature Granulocyte Percent A 0.8 % (0-0.5); Lymphocytes Absolute Auto 0.24 K/mm3 (0.9-3.2); Lymphocytes Percent Auto 3.3 % (18.3-44.2); Mean Corpuscular HGB Conc 31.1 g/dl (32-36); Mean Corpuscular Hemoglobin 30.4 pg (26-34); Mean Corpuscular Volume 97.8 fl (80-100); Monocytes Absolute Auto 0.3 K/mm3 (0.1-0.6); Monocytes Percent Auto 3.6 % (2.6-8.5); Neutrophils Absolute Auto 6.5 K/mm3 (1.3-6.7); Neutrophils Percent Auto 88.7 % (45.5-73.1); Platelet Count Result 195 k/mm3 (150-375); Red Blood Count 3.62 M/mm3 (4.2-5.4); Red Cell Distribution Width 13.7 % (11.5-14.5); White Blood Count 7.3 K/mm3 (4.5-10.0)
[2022-11-21 09:41] LABS: BK Virus DNA, QN PCR log Not Detected Log cps/mL; BK Virus Specimen Source Plasma
[2022-11-21 20:39] LABS: Tacrolimus Prograf 10.4 mcg/L
[2022-11-26 07:40] LABS: Basophils Absolute Auto 0.1 K/mm3 (0.0-0.1); Basophils Percent Auto 0.7 % (0.2-1.2); Eosinophils Absolute Auto 0.1 K/mm3 (0-0.3); Eosinophils Percent Auto 1.1 % (0-4.4); Hematocrit 34.7 % (37.0-47.0); Hemoglobin 10.9 g/dL (12.0-15.0); Immature Granulocyte Absolute 0.05 K/mm3 (0.00-0.031); Immature Granulocyte Percent A 0.6 % (0-0.5); Lymphocytes Absolute Auto 0.34 K/mm3 (0.9-3.2); Mean Corpuscular HGB Conc 31.4 g/dl (32-36); Mean Corpuscular Hemoglobin 30.6 pg (26-34); Mean Corpuscular Volume 97.5 fl (80-100); Mean Platelet Volume 10.4 fl (7.4-10.4); Monocytes Absolute Auto 0.2 K/mm3 (0.1-0.6); Monocytes Percent Auto 2.6 % (2.6-8.5); Neutrophils Absolute Auto 7.7 K/mm3 (1.3-6.7); Platelet Count Result 220 k/mm3 (150-375); Red Blood Count 3.56 M/mm3 (4.2-5.4); Red Cell Distribution Width 14.1 % (11.5-14.5); White Blood Count 8.4 K/mm3 (4.5-10.0)
[2022-11-26 07:51] LABS: Alanine Aminotransferase 31 U/L (6-35); Albumin Level 3.9 g/dL (3.5-5.1); Alkaline Phosphatase 88 U/L (38-126); Anion Gap 5 mmol/L (8-16); Aspartate Amino Transferase 30 U/L (14-36); Bilirubin,Total 0.4 mg/dL (0.2-1.3); Blood Urea Nitrogen 33 mg/dL (7-17); Calcium 9.8 mg/dL (8.4-10.2); Carbon Dioxide 25 mmol/L (22-30); Chloride 108 mmol/L (98-107); Cholesterol 183 mg/dL (0-200); Estimated Glomerular Filt Rate 33; Glucose 108 mg/dL (65-110); HDL Direct 64 mg/dL; Phosphorus 3.4 mg/dL (2.5-4.5); Potassium 4.8 mmol/L (3.4-5.0); Sodium 138 mmol/L (137-145); Triglycerides 88 mg/dL (<150)
[2022-11-26 08:02] LABS: LDL Cholesterol Direct 76 mg/dL
[2022-11-28 17:53] LABS: BK Virus DNA, QN PCR log Not Detected Log cps/mL; BK Virus Specimen Source Plasma
[2022-11-29 07:19] LABS: Tacrolimus Prograf 9.1 mcg/L
[2022-12-10 09:16] LABS: Basophils Absolute Auto 0.1 K/mm3 (0.0-0.1); Basophils Percent Auto 0.6 % (0.2-1.2); Eosinophils Percent Auto 0.4 % (0-4.4); Hematocrit 34.6 % (37.0-47.0); Hemoglobin 11.1 g/dL (12.0-15.0); Immature Granulocyte Absolute 0.08 K/mm3 (0.00-0.031); Immature Granulocyte Percent A 0.9 % (0-0.5); Lymphocytes Absolute Auto 0.24 K/mm3 (0.9-3.2); Lymphocytes Percent Auto 2.8 % (18.3-44.2); Mean Corpuscular HGB Conc 32.1 g/dl (32-36); Mean Corpuscular Hemoglobin 30.8 pg (26-34); Mean Corpuscular Volume 96.1 fl (80-100); Mean Platelet Volume 10.6 fl (7.4-10.4); Monocytes Absolute Auto 0.2 K/mm3 (0.1-0.6); Monocytes Percent Auto 2.8 % (2.6-8.5); Neutrophils Absolute Auto 7.9 K/mm3 (1.3-6.7); Neutrophils Percent Auto 92.5 % (45.5-73.1); Platelet Count Result 220 k/mm3 (150-375); Red Cell Distribution Width 14.2 % (11.5-14.5); White Blood Count 8.5 K/mm3 (4.5-10.0)
[2022-12-10 09:38] LABS: Alanine Aminotransferase 29 U/L (6-35); Albumin Level 3.8 g/dL (3.5-5.1); Alkaline Phosphatase 80 U/L (38-126); Anion Gap 2 mmol/L (8-16); Aspartate Amino Transferase 24 U/L (14-36); Bilirubin,Total 0.5 mg/dL (0.2-1.3); Blood Urea Nitrogen 32 mg/dL (7-17); Carbon Dioxide 24 mmol/L (22-30); Chloride 107 mmol/L (98-107); Cholesterol 191 mg/dL (0-200); Estimated Glomerular Filt Rate 30; Glucose 141 mg/dL (65-110); HDL Direct 67 mg/dL; Phosphorus 3.6 mg/dL (2.5-4.5); Potassium 4.5 mmol/L (3.4-5.0); Sodium 133 mmol/L (137-145); Triglycerides 89 mg/dL (<150)
[2022-12-10 09:49] LABS: LDL Cholesterol Direct 80 mg/dL
[2022-12-10 12:01] LABS: Platelet Estimate Adequate (Adequate)
[2022-12-10 12:02] LABS: Anisocytosis 1+ (NORMAL); Ovalocytes 1+ (NORMAL); Poikilocytosis 1+ (NORMAL); Schistocytes Rare (NORMAL)
[2022-12-12 12:24] LABS: BK Virus DNA, QN PCR log Not Detected Log cps/mL; BK Virus Specimen Source Plasma
[2022-12-12 22:34] LABS: Tacrolimus Prograf 10.1 mcg/L
[2022-12-14 10:30] LABS: CMV DNA Quant PCR IU/mL Not Detected; Cytomegalovirus DNA Quant PCR Not Detected
[2022-12-14 10:31] LABS: Cytomegalovirus DNA Source Whole Blood
[2022-12-14 13:33] LABS: Reference Lab Test Result Not Detected
[2022-12-24 07:31] LABS: Basophils Absolute Auto 0.1 K/mm3 (0.0-0.1); Basophils Percent Auto 0.8 % (0.2-1.2); Eosinophils Absolute Auto 0.1 K/mm3 (0-0.3); Eosinophils Percent Auto 0.9 % (0-4.4); Hematocrit 35.6 % (37.0-47.0); Hemoglobin 11.2 g/dL (12.0-15.0); Immature Granulocyte Absolute 0.08 K/mm3 (0.00-0.031); Immature Granulocyte Percent A 0.9 % (0-0.5); Lymphocytes Absolute Auto 0.33 K/mm3 (0.9-3.2); Lymphocytes Percent Auto 3.8 % (18.3-44.2); Mean Corpuscular HGB Conc 31.5 g/dl (32-36); Mean Corpuscular Hemoglobin 30.3 pg (26-34); Mean Corpuscular Volume 96.2 fl (80-100); Mean Platelet Volume 9.9 fl (7.4-10.4); Monocytes Absolute Auto 0.4 K/mm3 (0.1-0.6); Monocytes Percent Auto 4.5 % (2.6-8.5); Neutrophils Absolute Auto 7.7 K/mm3 (1.3-6.7); Neutrophils Percent Auto 89.1 % (45.5-73.1); Platelet Count Result 200 k/mm3 (150-375); Red Cell Distribution Width 14.2 % (11.5-14.5); White Blood Count 8.7 K/mm3 (4.5-10.0)
[2022-12-24 08:01] LABS: Albumin Level 3.6 g/dL (3.5-5.1); Anion Gap 3 mmol/L (8-16); Blood Urea Nitrogen 31 mg/dL (7-17); Calcium 9.3 mg/dL (8.4-10.2); Carbon Dioxide 26 mmol/L (22-30); Chloride 103 mmol/L (98-107); Estimated Glomerular Filt Rate 27; Glucose 105 mg/dL (65-110); Phosphorus 3.6 mg/dL (2.5-4.5); Potassium 4.1 mmol/L (3.4-5.0); Sodium 132 mmol/L (137-145)
[2022-12-26 20:03] LABS: CMV DNA Quant PCR IU/mL Not Detected; Cytomegalovirus DNA Quant PCR Not Detected log IU/mL; Cytomegalovirus DNA Source Serum
[2022-12-26 22:09] LABS: BK Virus DNA, QN PCR log Not Detected Log cps/mL; BK Virus Specimen Source Plasma
[2022-12-27 11:21] LABS: Tacrolimus Prograf 9.5 mcg/L
[2023-01-07 08:44] LABS: Basophils Percent Auto 0.8 % (0.2-1.2); Eosinophils Absolute Auto 0.1 K/mm3 (0-0.3); Eosinophils Percent Auto 2.6 % (0-4.4); Hematocrit 33.6 % (37.0-47.0); Hemoglobin 10.8 g/dL (12.0-15.0); Immature Granulocyte Absolute 0.05 K/mm3 (0.00-0.031); Lymphocytes Absolute Auto 0.29 K/mm3 (0.9-3.2); Lymphocytes Percent Auto 5.8 % (18.3-44.2); Mean Corpuscular HGB Conc 32.1 g/dl (32-36); Mean Corpuscular Hemoglobin 30.9 pg (26-34); Mean Platelet Volume 10.5 fl (7.4-10.4); Monocytes Absolute Auto 0.4 K/mm3 (0.1-0.6); Monocytes Percent Auto 8.4 % (2.6-8.5); Neutrophils Absolute Auto 4.1 K/mm3 (1.3-6.7); Neutrophils Percent Auto 81.4 % (45.5-73.1); Platelet Count Result 181 k/mm3 (150-375); Red Cell Distribution Width 14.6 % (11.5-14.5)
[2023-01-07 08:59] LABS: Albumin Level 3.6 g/dL (3.5-5.1); Anion Gap 13 mmol/L (8-16); Blood Urea Nitrogen 27 mg/dL (7-17); Calcium 9.4 mg/dL (8.4-10.2); Carbon Dioxide 29 mmol/L (22-30); Chloride 96 mmol/L (98-107); Estimated Glomerular Filt Rate 33; Glucose 109 mg/dL (65-110); Phosphorus 3.8 mg/dL (2.5-4.5); Potassium 4.1 mmol/L (3.4-5.0); Sodium 138 mmol/L (137-145)
[2023-01-10 02:05] LABS: Tacrolimus Prograf 7.1 mcg/L
== END 2023-01-07 23:59 | disposition home or self-care (01) ==
LOC: ANHLAB 07:53
PROVIDERS: PCP Physician Assistant; Visit Provider Internal Medicine
DX: E78.2 Mixed hyperlipidemia (principal); Z94.0 Kidney transplant status; Z79.899 Other long term (current) drug therapy
CPT/HCPCS: 36415; 80061; 80069; 80076; 80197; 82607; 85025; 87497; 87799

== ENCOUNTER 2023-01-21 07:26 | Outpatient (RCR) | payer OTHER, MEDICARE, SELFPAY ==
[2023-01-21 08:30] LABS: Basophils Absolute Auto 0.1 K/mm3 (0.0-0.1); Basophils Percent Auto 0.6 % (0.2-1.2); Eosinophils Absolute Auto 0.1 K/mm3 (0-0.3); Eosinophils Percent Auto 0.6 % (0-4.4); Hemoglobin 11.1 g/dL (12.0-15.0); Immature Granulocyte Absolute 0.09 K/mm3 (0.00-0.031); Immature Granulocyte Percent A 0.9 % (0-0.5); Lymphocytes Absolute Auto 0.32 K/mm3 (0.9-3.2); Mean Corpuscular HGB Conc 31.7 g/dl (32-36); Mean Corpuscular Hemoglobin 30.2 pg (26-34); Mean Corpuscular Volume 95.4 fl (80-100); Mean Platelet Volume 10.6 fl (7.4-10.4); Monocytes Absolute Auto 0.4 K/mm3 (0.1-0.6); Monocytes Percent Auto 3.5 % (2.6-8.5); Neutrophils Absolute Auto 9.6 K/mm3 (1.3-6.7); Neutrophils Percent Auto 91.4 % (45.5-73.1); Platelet Count Result 214 k/mm3 (150-375); Red Blood Count 3.67 M/mm3 (4.2-5.4); Red Cell Distribution Width 14.5 % (11.5-14.5); White Blood Count 10.5 K/mm3 (4.5-10.0)
[2023-01-21 08:49] LABS: Albumin Level 3.9 g/dL (3.5-5.1); Anion Gap 8 mmol/L (8-16); Blood Urea Nitrogen 38 mg/dL (7-17); Calcium 9.9 mg/dL (8.4-10.2); Carbon Dioxide 24 mmol/L (22-30); Chloride 106 mmol/L (98-107); Estimated Glomerular Filt Rate 30; Glucose 123 mg/dL (65-110); Phosphorus 4.1 mg/dL (2.5-4.5); Potassium 4.1 mmol/L (3.4-5.0); Sodium 138 mmol/L (137-145)
[2023-01-23 11:07] LABS: CMV DNA Quant PCR IU/mL Not Detected; Cytomegalovirus DNA Quant PCR Not Detected log IU/mL; Cytomegalovirus DNA Source Serum
[2023-01-23 14:06] LABS: BK Virus DNA, QN PCR log Not Detected Log cps/mL; BK Virus Specimen Source Plasma
[2023-01-23 15:11] LABS: Tacrolimus Prograf 8.2 mcg/L
[2023-01-24 16:41] LABS: EBV Nuclear Ab Interpretation Past; EBV Virus Capsid Ag IgG Ab >750.00 U/mL (<18.00); EBV Virus Capsid Ag IgM Ab <36.00 U/mL (<36.00)
== END 2023-02-04 09:29 | disposition home or self-care (01) ==
LOC: ANHLAB 07:26
PROVIDERS: PCP Physician Assistant; Visit Provider Internal Medicine
DX: E78.2 Mixed hyperlipidemia (principal); Z94.0 Kidney transplant status
CPT/HCPCS: 36415; 80069; 80197; 85025; 86664; 86665; 87497; 87799

== ENCOUNTER 2023-04-01 06:59 | Outpatient (CLI) | payer OTHER, SELFPAY ==
[2023-04-01 07:39] LABS: Basophils Absolute Auto 0.1 K/mm3 (0.0-0.1); Basophils Percent Auto 0.9 % (0.2-1.2); Eosinophils Absolute Auto 0.1 K/mm3 (0-0.3); Eosinophils Percent Auto 1.8 % (0-4.4); Hemoglobin 11.1 g/dL (12.0-15.0); Immature Granulocyte Absolute 0.04 K/mm3 (0.00-0.031); Immature Granulocyte Percent A 0.6 % (0-0.5); Lymphocytes Absolute Auto 0.49 K/mm3 (0.9-3.2); Lymphocytes Percent Auto 7.4 % (18.3-44.2); Mean Corpuscular HGB Conc 31.7 g/dl (32-36); Mean Corpuscular Hemoglobin 30.8 pg (26-34); Mean Corpuscular Volume 97.2 fl (80-100); Mean Platelet Volume 10.3 fl (7.4-10.4); Monocytes Absolute Auto 0.4 K/mm3 (0.1-0.6); Monocytes Percent Auto 6.5 % (2.6-8.5); Neutrophils Absolute Auto 5.5 K/mm3 (1.3-6.7); Neutrophils Percent Auto 82.8 % (45.5-73.1); Platelet Count Result 197 k/mm3 (150-375); Red Cell Distribution Width 13.8 % (11.5-14.5); White Blood Count 6.7 K/mm3 (4.5-10.0)
[2023-04-01 07:53] LABS: Albumin Level 3.6 g/dL (3.5-5.1); Anion Gap 8 mmol/L (8-16); Blood Urea Nitrogen 33 mg/dL (7-17); Calcium 9.8 mg/dL (8.4-10.2); Carbon Dioxide 25 mmol/L (22-30); Chloride 106 mmol/L (98-107); Estimated Glomerular Filt Rate 33; Glucose 98 mg/dL (65-110); Phosphorus 3.2 mg/dL (2.5-4.5); Potassium 3.9 mmol/L (3.4-5.0); Sodium 139 mmol/L (137-145)
[2023-04-03 10:36] LABS: BK Virus DNA, Qual PCR Not Detected (Not Detected); BK Virus Specimen Source Plasma
[2023-04-03 17:15] LABS: EVB DNA,QN PCR Not Detected Log cps/mL; Epstein Barr Virus PCR Not Detected copies/mL; Source Whole Blood
[2023-04-04 07:34] LABS: Tacrolimus Prograf 8.4 mcg/L
== END 2023-04-01 07:00 | disposition home or self-care (01) ==
PROVIDERS: PCP Physician Assistant
DX: Z94.0 Kidney transplant status (principal)
CPT/HCPCS: 36415; 80069; 80197; 85025; 87798

== ENCOUNTER 2023-04-29 06:45 | Outpatient (RCR) | payer OTHER, MEDICARE, SELFPAY ==
[2023-02-04 10:06] LABS: Basophils Absolute Auto 0.1 K/mm3 (0.0-0.1); Basophils Percent Auto 0.5 % (0.2-1.2); Eosinophils Percent Auto 0.3 % (0-4.4); Hematocrit 36.4 % (37.0-47.0); Hemoglobin 11.5 g/dL (12.0-15.0); Immature Granulocyte Percent A 1.1 % (0-0.5); Lymphocytes Absolute Auto 0.28 K/mm3 (0.9-3.2); Lymphocytes Percent Auto 2.9 % (18.3-44.2); Mean Corpuscular HGB Conc 31.6 g/dl (32-36); Mean Corpuscular Hemoglobin 30.9 pg (26-34); Mean Corpuscular Volume 97.8 fl (80-100); Mean Platelet Volume 10.4 fl (7.4-10.4); Monocytes Absolute Auto 0.2 K/mm3 (0.1-0.6); Monocytes Percent Auto 2.3 % (2.6-8.5); Neutrophils Absolute Auto 8.8 K/mm3 (1.3-6.7); Neutrophils Percent Auto 92.9 % (45.5-73.1); Platelet Count Result 227 k/mm3 (150-375); Red Blood Count 3.72 M/mm3 (4.2-5.4); Red Cell Distribution Width 14.8 % (11.5-14.5); White Blood Count 9.5 K/mm3 (4.5-10.0)
[2023-02-04 10:10] LABS: Alanine Aminotransferase 28 U/L (6-35); Albumin Level 4.1 g/dL (3.5-5.1); Alkaline Phosphatase 71 U/L (38-126); Anion Gap 6 mmol/L (8-16); Aspartate Amino Transferase 28 U/L (14-36); Bilirubin,Total 0.5 mg/dL (0.2-1.3); Blood Urea Nitrogen 29 mg/dL (7-17); Calcium 9.8 mg/dL (8.4-10.2); Carbon Dioxide 25 mmol/L (22-30); Chloride 106 mmol/L (98-107); Cholesterol 190 mg/dL (0-200); Estimated Glomerular Filt Rate 33; Glucose 130 mg/dL (65-110); HDL Direct 77 mg/dL; Phosphorus 3.8 mg/dL (2.5-4.5); Potassium 4.1 mmol/L (3.4-5.0); Sodium 137 mmol/L (137-145); Triglycerides 76 mg/dL (<150)
[2023-02-04 10:20] LABS: LDL Cholesterol Direct 85 mg/dL
[2023-02-06 19:36] LABS: Tacrolimus Prograf 7.2 mcg/L
[2023-02-07 18:03] LABS: EBV Nuclear Ab Interpretation Past; EBV Virus Capsid Ag IgG Ab >750.00 U/mL (<18.00); EBV Virus Capsid Ag IgM Ab <36.00 U/mL (<36.00)
[2023-02-18 07:55] LABS: Anion Gap 4 mmol/L (8-16); Blood Urea Nitrogen 29 mg/dL (7-17); Calcium 9.7 mg/dL (8.4-10.2); Carbon Dioxide 27 mmol/L (22-30); Chloride 106 mmol/L (98-107); Estimated Glomerular Filt Rate 38; Glucose 137 mg/dL (65-110); Phosphorus 3.9 mg/dL (2.5-4.5); Potassium 4.3 mmol/L (3.4-5.0); Sodium 137 mmol/L (137-145)
[2023-02-18 08:32] LABS: Basophils Absolute Auto 0.1 K/mm3 (0.0-0.1); Basophils Percent Auto 0.9 % (0.2-1.2); Eosinophils Absolute Auto 0.1 K/mm3 (0-0.3); Eosinophils Percent Auto 1.6 % (0-4.4); Hematocrit 35.8 % (37.0-47.0); Hemoglobin 11.3 g/dL (12.0-15.0); Immature Granulocyte Absolute 0.08 K/mm3 (0.00-0.031); Immature Granulocyte Percent A 1.1 % (0-0.5); Lymphocytes Absolute Auto 0.25 K/mm3 (0.9-3.2); Lymphocytes Percent Auto 3.6 % (18.3-44.2); Mean Corpuscular HGB Conc 31.6 g/dl (32-36); Mean Corpuscular Volume 98.4 fl (80-100); Mean Platelet Volume 10.5 fl (7.4-10.4); Monocytes Absolute Auto 0.3 K/mm3 (0.1-0.6); Monocytes Percent Auto 4.3 % (2.6-8.5); Neutrophils Absolute Auto 6.2 K/mm3 (1.3-6.7); Neutrophils Percent Auto 88.5 % (45.5-73.1); Platelet Count Result 216 k/mm3 (150-375); Red Blood Count 3.64 M/mm3 (4.2-5.4); Red Cell Distribution Width 14.6 % (11.5-14.5)
[2023-02-20 07:46] LABS: Tacrolimus Prograf 6.5 mcg/L
[2023-03-04 07:41] LABS: Basophils Absolute Auto 0.1 K/mm3 (0.0-0.1); Basophils Percent Auto 0.7 % (0.2-1.2); Eosinophils Absolute Auto 0.1 K/mm3 (0-0.3); Eosinophils Percent Auto 1.1 % (0-4.4); Hematocrit 34.8 % (37.0-47.0); Hemoglobin 10.9 g/dL (12.0-15.0); Immature Granulocyte Absolute 0.07 K/mm3 (0.00-0.031); Immature Granulocyte Percent A 0.8 % (0-0.5); Lymphocytes Absolute Auto 0.27 K/mm3 (0.9-3.2); Mean Corpuscular HGB Conc 31.3 g/dl (32-36); Mean Corpuscular Hemoglobin 30.4 pg (26-34); Mean Corpuscular Volume 97.2 fl (80-100); Mean Platelet Volume 9.8 fl (7.4-10.4); Monocytes Absolute Auto 0.4 K/mm3 (0.1-0.6); Monocytes Percent Auto 4.2 % (2.6-8.5); Neutrophils Absolute Auto 8.2 K/mm3 (1.3-6.7); Neutrophils Percent Auto 90.2 % (45.5-73.1); Platelet Count Result 212 k/mm3 (150-375); Red Blood Count 3.58 M/mm3 (4.2-5.4); White Blood Count 9.1 K/mm3 (4.5-10.0)
[2023-03-04 07:56] LABS: Alanine Aminotransferase 25 U/L (6-35); Albumin Level 3.8 g/dL (3.5-5.1); Alkaline Phosphatase 67 U/L (38-126); Anion Gap 4 mmol/L (8-16); Aspartate Amino Transferase 27 U/L (14-36); Bilirubin,Total 0.5 mg/dL (0.2-1.3); Blood Urea Nitrogen 26 mg/dL (7-17); Carbon Dioxide 27 mmol/L (22-30); Chloride 106 mmol/L (98-107); Cholesterol 180 mg/dL (0-200); Estimated Glomerular Filt Rate 38; Glucose 122 mg/dL (65-110); HDL Direct 66 mg/dL; Phosphorus 3.3 mg/dL (2.5-4.5); Potassium 4.3 mmol/L (3.4-5.0); Sodium 137 mmol/L (137-145); Triglycerides 78 mg/dL (<150)
[2023-03-04 08:06] LABS: LDL Cholesterol Direct 84 mg/dL
[2023-03-06 15:32] LABS: Tacrolimus Prograf 7.8 mcg/L
[2023-03-07 18:31] LABS: EBV Nuclear Ab Interpretation Past; EBV Virus Capsid Ag IgG Ab >750.00 U/mL (<18.00); EBV Virus Capsid Ag IgM Ab <36.00 U/mL (<36.00)
[2023-03-10 20:26] LABS: EVB DNA,QN PCR <2.30 Detected Log cps/mL; Epstein Barr Virus PCR <200 Detected copies/mL; Source Whole Blood
[2023-03-18 08:56] LABS: Basophils Absolute Auto 0.1 K/mm3 (0.0-0.1); Basophils Percent Auto 1.1 % (0.2-1.2); Eosinophils Absolute Auto 0.2 K/mm3 (0-0.3); Eosinophils Percent Auto 2.9 % (0-4.4); Hematocrit 36.7 % (37.0-47.0); Hemoglobin 11.6 g/dL (12.0-15.0); Immature Granulocyte Absolute 0.06 K/mm3 (0.00-0.031); Immature Granulocyte Percent A 0.9 % (0-0.5); Lymphocytes Absolute Auto 0.42 K/mm3 (0.9-3.2); Lymphocytes Percent Auto 6.5 % (18.3-44.2); Mean Corpuscular HGB Conc 31.6 g/dl (32-36); Mean Corpuscular Hemoglobin 30.6 pg (26-34); Mean Corpuscular Volume 96.8 fl (80-100); Mean Platelet Volume 9.8 fl (7.4-10.4); Monocytes Absolute Auto 0.4 K/mm3 (0.1-0.6); Monocytes Percent Auto 6.7 % (2.6-8.5); Neutrophils Absolute Auto 5.3 K/mm3 (1.3-6.7); Neutrophils Percent Auto 81.9 % (45.5-73.1); Platelet Count Result 215 k/mm3 (150-375); Red Blood Count 3.79 M/mm3 (4.2-5.4); Red Cell Distribution Width 14.3 % (11.5-14.5); White Blood Count 6.5 K/mm3 (4.5-10.0)
[2023-03-18 09:04] LABS: Alanine Aminotransferase 29 U/L (6-35); Alkaline Phosphatase 78 U/L (38-126); Anion Gap 7 mmol/L (8-16); Aspartate Amino Transferase 27 U/L (14-36); Bilirubin,Total 0.6 mg/dL (0.2-1.3); Blood Urea Nitrogen 26 mg/dL (7-17); Calcium 9.9 mg/dL (8.4-10.2); Carbon Dioxide 26 mmol/L (22-30); Chloride 106 mmol/L (98-107); Cholesterol 181 mg/dL (0-200); Estimated Glomerular Filt Rate 38; Glucose 106 mg/dL (65-110); HDL Direct 70 mg/dL; Phosphorus 3.1 mg/dL (2.5-4.5); Potassium 3.8 mmol/L (3.4-5.0); Sodium 139 mmol/L (137-145); Triglycerides 85 mg/dL (<150)
[2023-03-18 09:15] LABS: LDL Cholesterol Direct 78 mg/dL
[2023-03-21 11:25] LABS: EBV Nuclear Ab Interpretation Past; EBV Virus Capsid Ag IgG Ab >750.00 U/mL (<18.00); EBV Virus Capsid Ag IgM Ab <36.00 U/mL (<36.00)
[2023-03-24 12:44] LABS: EVB DNA,QN PCR Not Detected Log cps/mL; Epstein Barr Virus PCR Not Detected copies/mL; Source Whole Blood
[2023-04-15 07:08] LABS: Basophils Absolute Auto 0.1 K/mm3 (0.0-0.1); Basophils Percent Auto 0.8 % (0.2-1.2); Eosinophils Absolute Auto 0.2 K/mm3 (0-0.3); Eosinophils Percent Auto 2.4 % (0-4.4); Hemoglobin 11.4 g/dL (12.0-15.0); Immature Granulocyte Absolute 0.06 K/mm3 (0.00-0.031); Immature Granulocyte Percent A 0.9 % (0-0.5); Lymphocytes Absolute Auto 0.28 K/mm3 (0.9-3.2); Lymphocytes Percent Auto 4.2 % (18.3-44.2); Mean Corpuscular HGB Conc 32.6 g/dl (32-36); Mean Corpuscular Volume 95.1 fl (80-100); Mean Platelet Volume 10.3 fl (7.4-10.4); Monocytes Absolute Auto 0.3 K/mm3 (0.1-0.6); Monocytes Percent Auto 4.2 % (2.6-8.5); Neutrophils Absolute Auto 5.8 K/mm3 (1.3-6.7); Neutrophils Percent Auto 87.5 % (45.5-73.1); Platelet Count Result 204 k/mm3 (150-375); Red Blood Count 3.68 M/mm3 (4.2-5.4); Red Cell Distribution Width 13.9 % (11.5-14.5); White Blood Count 6.6 K/mm3 (4.5-10.0)
[2023-04-15 07:24] LABS: Albumin Level 3.5 g/dL (3.5-5.1); Anion Gap 7 mmol/L (8-16); Blood Urea Nitrogen 25 mg/dL (7-17); Calcium 9.6 mg/dL (8.4-10.2); Carbon Dioxide 26 mmol/L (22-30); Chloride 107 mmol/L (98-107); Estimated Glomerular Filt Rate 45; Glucose 104 mg/dL (65-110); Potassium 3.8 mmol/L (3.4-5.0); Sodium 140 mmol/L (137-145)
[2023-04-17 15:29] LABS: BK Virus DNA, QN PCR log Not Detected Log cps/mL; BK Virus Specimen Source Plasma
[2023-04-17 17:03] LABS: Tacrolimus Prograf 6.6 mcg/L
[2023-04-18 10:04] LABS: EVB DNA,QN PCR Not Detected Log cps/mL; Epstein Barr Virus PCR Not Detected copies/mL; Source Whole Blood
[2023-04-29 07:49] LABS: Basophils Absolute Auto 0.1 K/mm3 (0.0-0.1); Basophils Percent Auto 0.6 % (0.2-1.2); Eosinophils Absolute Auto 0.1 K/mm3 (0-0.3); Eosinophils Percent Auto 1.2 % (0-4.4); Hematocrit 36.7 % (37.0-47.0); Hemoglobin 11.8 g/dL (12.0-15.0); Immature Granulocyte Absolute 0.07 K/mm3 (0.00-0.031); Immature Granulocyte Percent A 0.7 % (0-0.5); Lymphocytes Absolute Auto 0.26 K/mm3 (0.9-3.2); Lymphocytes Percent Auto 2.7 % (18.3-44.2); Mean Corpuscular HGB Conc 32.2 g/dl (32-36); Mean Corpuscular Hemoglobin 30.5 pg (26-34); Mean Corpuscular Volume 94.8 fl (80-100); Mean Platelet Volume 10.7 fl (7.4-10.4); Monocytes Absolute Auto 0.4 K/mm3 (0.1-0.6); Monocytes Percent Auto 3.8 % (2.6-8.5); Neutrophils Absolute Auto 8.6 K/mm3 (1.3-6.7); Platelet Count Result 226 k/mm3 (150-375); Red Blood Count 3.87 M/mm3 (4.2-5.4); Red Cell Distribution Width 13.7 % (11.5-14.5); White Blood Count 9.5 K/mm3 (4.5-10.0)
[2023-04-29 08:06] LABS: Albumin Level 3.9 g/dL (3.5-5.1); Anion Gap 5 mmol/L (8-16); Blood Urea Nitrogen 27 mg/dL (7-17); Carbon Dioxide 27 mmol/L (22-30); Chloride 106 mmol/L (98-107); Estimated Glomerular Filt Rate 38; Glucose 115 mg/dL (65-110); Phosphorus 3.4 mg/dL (2.5-4.5); Potassium 4.1 mmol/L (3.4-5.0); Sodium 138 mmol/L (137-145)
[2023-05-01 18:53] LABS: Tacrolimus Prograf 8.1 mcg/L
== END 2023-05-05 23:59 | disposition home or self-care (01) ==
LOC: ANHLAB 06:45
PROVIDERS: PCP Physician Assistant; Visit Provider Internal Medicine
DX: Z94.0 Kidney transplant status (principal); Z79.899 Other long term (current) drug therapy
CPT/HCPCS: 36415; 80061; 80069; 80076; 80197; 85025; 86664; 86665; 87799

== ENCOUNTER 2023-05-01 13:37 | Outpatient (CLI) | payer OTHER, SELFPAY ==
--- NOTE | ~2023-05-01 | MM_ITS ---
EXAMINATION: MM screening [facility] BI w daniela HISTORY: Screening mammogram TECHNIQUE: Craniocaudal and mediolateral oblique 3-D tomosynthesis images were obtained and synthetic 2-D images were generated. CAD analysis was submitted and interpreted. COMPARISON: 04/23/2022, 03/22/2021, 03/01/2020 bilateral screening mammogram examinations BREAST PARENCHYMAL COMPOSITION: There are scattered areas of fibroglandular density. FINDINGS: There is no evidence of suspicious mass, calcification, or architectural distortion to sugg est malignancy in either breast. There has been no suspicious interval change. IMPRESSION: 1. No mammographic evidence of malignancy. 2. Recommend routine screening mammography in one year. BI-RADS Category 1: Negative Reviewed, dictated and finalized at location A. TRONIC PUBLISHING SPECIALIST
== END 2023-05-01 13:38 | disposition home or self-care (01) ==
LOC: ANHIMG 13:39
PROVIDERS: PCP Physician Assistant; Visit Provider Obstetrics & Gynecology
DX: Z12.31 Encounter for screening mammogram for malignant neoplasm of breast (principal)
CPT/HCPCS: 77063; 77067

== ENCOUNTER 2023-05-02 15:02 | Outpatient (CLI) | payer OTHER, SELFPAY ==
--- NOTE | ~2023-05-02 | US_ITS ---
EXAMINATION: US pelvic complete w TV DATE: 05/02/2023 16:05 INDICATION: N94.9 - Unspecified condition associated with female lenny... TECHNIQUE: Multiple transabdominal and endovaginal sonographic images of the pelvis were obtained. COMPARISON: 07/11/2009; CT abdomen pelvis 10/28/2022. FINDINGS: Uterus: 3.7 x 2.9 x 4.8 cm., Poorly visualized. Endometrial complex is not well seen. Right Ovary: Not visualized. Left Ovary: Not visualized. There is no free fluid in the pelvis. IMPRESSION: Limited examination. Suboptimal visualization of the uterus. Endometrial stripe and bilateral ovaries not visualized. Given the difficulty obtaining adequate sonographic images in this patient, consider MRI of the pelvi s for further evaluation. Reviewed, dictated and finalized at location K. PRESIDENT QUALITY IMPROVEMENT IMPRESSION: Limited examination. Suboptimal visualization of the uterus. Endometrial stripe and bilateral ovaries not visualized. Given the difficulty obtaining adequate sonographic images in this patient, con manager spring MRI of the pelvis for further evaluation.
== END 2023-05-02 15:03 | disposition home or self-care (01) ==
PROVIDERS: PCP Physician Assistant; Visit Provider Obstetrics & Gynecology
DX: N94.9 Unspecified condition associated with female genital organs and menstrual cycle (principal)
CPT/HCPCS: 76830; 76856

== ENCOUNTER 2023-06-10 15:29 | Outpatient (CLI) | payer OTHER, SELFPAY ==
--- NOTE | ~2023-06-10 | MR_ITS ---
EXAMINATION: MR pelvis wo con DATE: 06/10/2023 16:48 INDICATION: Unspecified condition associated with female genitalia. TECHNIQUE: Magnetic resonance imaging (MRI) of the pelvis was performed without intravenous contrast. COMPARISON: CT abdomen and pelvis 10/28/2022, pelvis ultrasound 05/02/2023 FINDINGS: There is a transplant kidney in right iliac fossa. There is a 11 mm cyst in the transplant kidney. Th ere are no pathologically enlarged lymph nodes. There is no free intraperitoneal fluid. There is dive rticulosis of the colon without evidence of diverticulitis. The uterus is normal. The endometrial com plex measures less than 2 mm in thickness. The adnexa are normal. IMPRESSION: 1. Normal uterus and adnexa. Reviewed, dictated and finalized at location A. O BROADCASTER
== END 2023-06-10 15:30 | disposition home or self-care (01) ==
LOC: ANHIMG 15:34
PROVIDERS: PCP Physician Assistant; Visit Provider Obstetrics & Gynecology
DX: N94.9 Unspecified condition associated with female genital organs and menstrual cycle (principal)
CPT/HCPCS: 72195

== ENCOUNTER 2023-07-17 14:28 | Outpatient (CLI) | payer OTHER, SELFPAY ==
--- NOTE | ~2023-07-17 | XR_ITS ---
EXAMINATION: XR shoulder RT min 2V DATE: 07/17/2023 14:52 INDICATION: Right shoulder pain. TECHNIQUE: 4 views of right shoulder were obtained. COMPARISON: None. FINDINGS: Bone alignment is normal. No fracture. There is mild osteoarthritis of glenohumeral joint a nd severe osteoarthritis of acromioclavicular joint. IMPRESSION: 1. Polyarticular osteoarthritis. Reviewed, dictated and finalized at location E. TEGIC CLIENT EXECUTIVE
== END 2023-07-17 14:29 | disposition home or self-care (01) ==
PROVIDERS: PCP Physician Assistant; Visit Provider Orthopaedic Surgery
DX: M19.011 Primary osteoarthritis, right shoulder (principal)
CPT/HCPCS: 73030

== ENCOUNTER 2023-07-19 06:56 | Outpatient (RCR) | payer OTHER, SELFPAY ==
[2023-05-22 07:43] LABS: Basophils Absolute Auto 0.1 K/mm3 (0.0-0.1); Basophils Percent Auto 0.7 % (0.2-1.2); Eosinophils Absolute Auto 0.1 K/mm3 (0-0.3); Eosinophils Percent Auto 1.7 % (0-4.4); Hematocrit 37.2 % (37.0-47.0); Hemoglobin 11.9 g/dL (12.0-15.0); Immature Granulocyte Absolute 0.04 K/mm3 (0.00-0.031); Immature Granulocyte Percent A 0.6 % (0-0.5); Lymphocytes Absolute Auto 0.38 K/mm3 (0.9-3.2); Lymphocytes Percent Auto 5.4 % (18.3-44.2); Mean Corpuscular Hemoglobin 30.5 pg (26-34); Mean Corpuscular Volume 95.4 fl (80-100); Mean Platelet Volume 10.5 fl (7.4-10.4); Monocytes Absolute Auto 0.3 K/mm3 (0.1-0.6); Monocytes Percent Auto 4.5 % (2.6-8.5); Neutrophils Absolute Auto 6.1 K/mm3 (1.3-6.7); Neutrophils Percent Auto 87.1 % (45.5-73.1); Platelet Count Result 215 k/mm3 (150-375); Red Cell Distribution Width 14.2 % (11.5-14.5); White Blood Count 7.1 K/mm3 (4.5-10.0)
[2023-05-22 07:49] LABS: Alanine Aminotransferase 26 U/L (6-35); Albumin Level 3.6 g/dL (3.5-5.1); Alkaline Phosphatase 62 U/L (38-126); Anion Gap 7 mmol/L (8-16); Aspartate Amino Transferase 24 U/L (14-36); Bilirubin,Total 0.5 mg/dL (0.2-1.3); Blood Urea Nitrogen 28 mg/dL (7-17); Calcium 9.3 mg/dL (8.4-10.2); Carbon Dioxide 26 mmol/L (22-30); Chloride 107 mmol/L (98-107); Cholesterol 171 mg/dL (0-200); Estimated Glomerular Filt Rate 38; Glucose 106 mg/dL (65-110); HDL Direct 70 mg/dL; Phosphorus 2.8 mg/dL (2.5-4.5); Potassium 4.2 mmol/L (3.4-5.0); Sodium 140 mmol/L (137-145); Triglycerides 82 mg/dL (<150)
[2023-05-22 08:01] LABS: LDL Cholesterol Direct 78 mg/dL
[2023-05-24 13:27] LABS: EVB DNA,QN PCR Not Detected Log cps/mL; Epstein Barr Virus PCR Not Detected copies/mL; Source Whole Blood
[2023-05-25 07:49] LABS: BK Virus DNA, QN PCR log Not Detected Log cps/mL; BK Virus Specimen Source Plasma
[2023-05-25 09:07] LABS: Tacrolimus Prograf 7.4 mcg/L
[2023-06-24 07:51] LABS: Basophils Absolute Auto 0.1 K/mm3 (0.0-0.1); Basophils Percent Auto 0.6 % (0.2-1.2); Eosinophils Absolute Auto 0.2 K/mm3 (0-0.3); Eosinophils Percent Auto 1.5 % (0-4.4); Hematocrit 38.7 % (37.0-47.0); Immature Granulocyte Absolute 0.09 K/mm3 (0.00-0.031); Immature Granulocyte Percent A 0.9 % (0-0.5); Lymphocytes Absolute Auto 0.31 K/mm3 (0.9-3.2); Lymphocytes Percent Auto 3.2 % (18.3-44.2); Mean Corpuscular Hemoglobin 29.9 pg (26-34); Mean Corpuscular Volume 96.3 fl (80-100); Mean Platelet Volume 10.8 fl (7.4-10.4); Monocytes Absolute Auto 0.5 K/mm3 (0.1-0.6); Monocytes Percent Auto 5.4 % (2.6-8.5); Neutrophils Absolute Auto 8.6 K/mm3 (1.3-6.7); Neutrophils Percent Auto 88.4 % (45.5-73.1); Platelet Count Result 216 k/mm3 (150-375); Red Blood Count 4.02 M/mm3 (4.2-5.4); White Blood Count 9.7 K/mm3 (4.5-10.0)
[2023-06-24 08:15] LABS: Albumin Level 3.5 g/dL (3.5-5.1); Anion Gap 3 mmol/L (8-16); Blood Urea Nitrogen 30 mg/dL (7-17); Carbon Dioxide 28 mmol/L (22-30); Chloride 106 mmol/L (98-107); Estimated Glomerular Filt Rate 38; Glucose 124 mg/dL (65-110); Phosphorus 3.3 mg/dL (2.5-4.5); Potassium 3.8 mmol/L (3.4-5.0); Sodium 137 mmol/L (137-145)
[2023-06-26 10:31] LABS: BK Virus DNA, QN PCR log Not Detected Log cps/mL; BK Virus Specimen Source Plasma
[2023-06-26 13:01] LABS: Tacrolimus Prograf 6.5 mcg/L
[2023-06-26 13:55] LABS: EVB DNA,QN PCR Not Detected Log cps/mL; Epstein Barr Virus PCR Not Detected copies/mL; Source Whole Blood
[2023-07-19 07:36] LABS: Basophils Absolute Auto 0.1 K/mm3 (0.0-0.1); Basophils Percent Auto 0.8 % (0.2-1.2); Eosinophils Absolute Auto 0.2 K/mm3 (0-0.3); Eosinophils Percent Auto 1.9 % (0-4.4); Hematocrit 35.5 % (37.0-47.0); Hemoglobin 11.4 g/dL (12.0-15.0); Immature Granulocyte Absolute 0.08 K/mm3 (0.00-0.031); Lymphocytes Absolute Auto 0.32 K/mm3 (0.9-3.2); Lymphocytes Percent Auto 3.8 % (18.3-44.2); Mean Corpuscular HGB Conc 32.1 g/dl (32-36); Mean Corpuscular Hemoglobin 30.6 pg (26-34); Mean Corpuscular Volume 95.4 fl (80-100); Mean Platelet Volume 10.7 fl (7.4-10.4); Monocytes Absolute Auto 0.5 K/mm3 (0.1-0.6); Monocytes Percent Auto 5.6 % (2.6-8.5); Neutrophils Absolute Auto 7.3 K/mm3 (1.3-6.7); Neutrophils Percent Auto 86.9 % (45.5-73.1); Platelet Count Result 251 k/mm3 (150-375); Red Blood Count 3.72 M/mm3 (4.2-5.4); Red Cell Distribution Width 13.6 % (11.5-14.5); White Blood Count 8.4 K/mm3 (4.5-10.0)
[2023-07-19 07:51] LABS: Albumin Level 3.5 g/dL (3.5-5.1); Anion Gap 3 mmol/L (8-16); Blood Urea Nitrogen 24 mg/dL (7-17); Calcium 9.7 mg/dL (8.4-10.2); Carbon Dioxide 28 mmol/L (22-30); Chloride 107 mmol/L (98-107); Estimated Glomerular Filt Rate 50; Glucose 136 mg/dL (65-110); Phosphorus 3.3 mg/dL (2.5-4.5); Potassium 3.8 mmol/L (3.4-5.0); Sodium 138 mmol/L (137-145)
[2023-07-22 08:59] LABS: Tacrolimus Prograf 5.9 mcg/L
[2023-07-22 13:08] LABS: BK Virus DNA, QN PCR log Not Detected Log cps/mL; BK Virus Specimen Source Plasma
[2023-07-22 14:37] LABS: EVB DNA,QN PCR 2.87 Log cps/mL; Epstein Barr Virus PCR 743 copies/mL; Source Whole Blood
== END 2023-08-20 23:59 | disposition home or self-care (01) ==
LOC: ANHLAB 06:56
PROVIDERS: PCP Physician Assistant; Visit Provider Internal Medicine
DX: E78.2 Mixed hyperlipidemia (principal); Z94.0 Kidney transplant status; Z79.899 Other long term (current) drug therapy
CPT/HCPCS: 36415; 80061; 80069; 80076; 80197; 85025; 87799

== ENCOUNTER 2023-08-21 07:20 | Outpatient (NON) | payer OTHER, SELFPAY ==
[2023-08-21 09:48] LABS: Vitamin B12 > 1000.0 pg/mL (239-931)
[2023-08-21 11:07] LABS: Appearance Urine Clear (Clear); Bacteria Urine None Seen /hpf; Bilirubin Urine Negative (Negative); Blood Urine Negative (Negative); Color Urine Yellow (Yellow); Glucose Urine UA 1+ mg/dL (Negative); Ketones Urine Negative (Negative); Leukocyte Esterase Ur Trace LEU/UL (Negative); Nitrate Urine Negative (Negative); Non Pathogenic Casts 0-2; Protein Urine Negative (Negative); RBC Urine 0-2 /hpf (0-2); Specific Grav Ur 1.016 (1.001-1.035); Squamous Epithelial Cell Urine Occasional /hpf (Few); Urobilinogen Urine 0.2 mg/dL (<2.0); WBC Urine 0-5 /hpf (0-3); pH Urine 5.5 (5.0-9.0)
[2023-08-21 11:14] LABS: Add Urine Microscopic? YES
[2023-08-21 11:24] LABS: Creatinine Urine 76.8 mg/dL; Total Protein Urine Random 11 mg/dL; Ur Ttl Prot Creatinine Ratio 0.14 mg/mg (0-0.20)
== END 2023-08-21 07:21 | disposition home or self-care (01) ==
PROVIDERS: PCP Physician Assistant
DX: Z94.0 Kidney transplant status (principal)
CPT/HCPCS: 36415; 80061; 80069; 80076; 80197; 81001; 82570; 82607; 84156; 85025; 87799

== ENCOUNTER 2023-10-23 06:50 | Outpatient (RCR) | payer OTHER, SELFPAY ==
[2023-08-21 07:51] LABS: Basophils Absolute Auto 0.1 K/mm3 (0.0-0.1); Eosinophils Absolute Auto 0.1 K/mm3 (0-0.3); Hematocrit 38.2 % (37.0-47.0); Immature Granulocyte Absolute 0.05 K/mm3 (0.00-0.031); Immature Granulocyte Percent A 0.8 % (0-0.5); Lymphocytes Absolute Auto 0.37 K/mm3 (0.9-3.2); Lymphocytes Percent Auto 6.1 % (18.3-44.2); Mean Corpuscular HGB Conc 31.4 g/dl (32-36); Mean Corpuscular Volume 95.5 fl (80-100); Mean Platelet Volume 10.8 fl (7.4-10.4); Monocytes Absolute Auto 0.4 K/mm3 (0.1-0.6); Monocytes Percent Auto 6.3 % (2.6-8.5); Neutrophils Percent Auto 83.8 % (45.5-73.1); Platelet Count Result 196 k/mm3 (150-375); Red Cell Distribution Width 13.9 % (11.5-14.5)
[2023-08-21 08:57] LABS: Alanine Aminotransferase 19 U/L (6-35); Albumin Level 3.7 g/dL (3.5-5.1); Alkaline Phosphatase 73 U/L (38-126); Anion Gap 8 mmol/L (4-12); Aspartate Amino Transferase 20 U/L (14-36); Bilirubin,Total 0.5 mg/dL (0.2-1.3); Blood Urea Nitrogen 28 mg/dL (7-17); Calcium 9.9 mg/dL (8.4-10.2); Carbon Dioxide 24 mmol/L (22-30); Chloride 109 mmol/L (98-107); Cholesterol 160 mg/dL (0-200); Estimated Glomerular Filt Rate 45; Glucose 111 mg/dL (65-110); HDL Direct 66 mg/dL; Phosphorus 3.6 mg/dL (2.5-4.5); Potassium 3.7 mmol/L (3.4-5.0); Sodium 141 mmol/L (137-145); Triglycerides 87 mg/dL (<150)
[2023-08-21 09:08] LABS: LDL Cholesterol Direct 74 mg/dL
[2023-08-29 15:22] LABS: Tacrolimus Prograf 4.8 mcg/L
[2023-09-02 12:33] LABS: BK Virus DNA, QN PCR log NOT DETECTED Log cps/mL; BK Virus Specimen Source BLOOD
[2023-09-03 06:39] LABS: EVB DNA,QN PCR 2.64; Epstein Barr Virus PCR 439 copies/mL; Source WHOLE BLOOD
[2023-09-24 08:54] LABS: Alanine Aminotransferase 25 U/L (6-35); Albumin Level 3.9 g/dL (3.5-5.1); Alkaline Phosphatase 84 U/L (38-126); Anion Gap 5 mmol/L (4-12); Aspartate Amino Transferase 28 U/L (14-36); Bilirubin,Total 0.4 mg/dL (0.2-1.3); Blood Urea Nitrogen 30 mg/dL (7-17); Carbon Dioxide 28 mmol/L (22-30); Chloride 105 mmol/L (98-107); Cholesterol 167 mg/dL (0-200); Estimated Glomerular Filt Rate 38; Glucose 120 mg/dL (65-110); HDL Direct 65 mg/dL; Sodium 138 mmol/L (137-145); Triglycerides 70 mg/dL (<150)
[2023-09-24 09:07] LABS: LDL Cholesterol Direct 86 mg/dL
[2023-09-24 09:23] LABS: Basophils Absolute Auto 0.1 K/mm3 (0.0-0.1); Basophils Percent Auto 0.6 % (0.2-1.2); Eosinophils Absolute Auto 0.1 K/mm3 (0-0.3); Eosinophils Percent Auto 0.9 % (0-4.4); Hemoglobin 12.5 g/dL (12.0-15.0); Immature Granulocyte Absolute 0.06 K/mm3 (0.00-0.031); Immature Granulocyte Percent A 0.6 % (0-0.5); Lymphocytes Absolute Auto 0.32 K/mm3 (0.9-3.2); Lymphocytes Percent Auto 3.1 % (18.3-44.2); Mean Corpuscular HGB Conc 32.1 g/dl (32-36); Mean Corpuscular Hemoglobin 30.5 pg (26-34); Mean Corpuscular Volume 95.1 fl (80-100); Mean Platelet Volume 11.2 fl (7.4-10.4); Monocytes Absolute Auto 0.5 K/mm3 (0.1-0.6); Monocytes Percent Auto 4.7 % (2.6-8.5); Neutrophils Absolute Auto 9.5 K/mm3 (1.3-6.7); Neutrophils Percent Auto 90.1 % (45.5-73.1); Platelet Count Result 229 k/mm3 (150-375); White Blood Count 10.5 K/mm3 (4.5-10.0)
[2023-09-25 15:24] LABS: Tacrolimus Prograf 5.1 mcg/L
[2023-09-27 14:03] LABS: EVB DNA,QN PCR NOT DETECTED; Epstein Barr Virus PCR NOT DETECTED copies/mL; Source WHOLE BLOOD
[2023-10-23 07:46] LABS: Basophils Absolute Auto 0.1 K/mm3 (0.0-0.1); Basophils Percent Auto 0.6 % (0.2-1.2); Eosinophils Absolute Auto 0.1 K/mm3 (0-0.3); Eosinophils Percent Auto 1.4 % (0-4.4); Hematocrit 39.1 % (37.0-47.0); Hemoglobin 12.4 g/dL (12.0-15.0); Immature Granulocyte Absolute 0.05 K/mm3 (0.00-0.031); Immature Granulocyte Percent A 0.6 % (0-0.5); Lymphocytes Absolute Auto 0.36 K/mm3 (0.9-3.2); Lymphocytes Percent Auto 4.1 % (18.3-44.2); Mean Corpuscular HGB Conc 31.7 g/dl (32-36); Mean Corpuscular Hemoglobin 29.5 pg (26-34); Mean Corpuscular Volume 92.9 fl (80-100); Mean Platelet Volume 10.3 fl (7.4-10.4); Monocytes Absolute Auto 0.6 K/mm3 (0.1-0.6); Monocytes Percent Auto 6.3 % (2.6-8.5); Neutrophils Absolute Auto 7.7 K/mm3 (1.3-6.7); Platelet Count Result 241 k/mm3 (150-375); Red Blood Count 4.21 M/mm3 (4.2-5.4); Red Cell Distribution Width 14.1 % (11.5-14.5); White Blood Count 8.8 K/mm3 (4.5-10.0)
[2023-10-23 08:01] LABS: Alanine Aminotransferase 24 U/L (6-35); Albumin Level 3.7 g/dL (3.5-5.1); Alkaline Phosphatase 98 U/L (38-126); Anion Gap 4 mmol/L (4-12); Aspartate Amino Transferase 23 U/L (14-36); Bilirubin,Total 0.6 mg/dL (0.2-1.3); Blood Urea Nitrogen 28 mg/dL (7-17); Carbon Dioxide 27 mmol/L (22-30); Chloride 108 mmol/L (98-107); Estimated Glomerular Filt Rate 41; Glucose 130 mg/dL (65-110); Phosphorus 3.4 mg/dL (2.5-4.5); Sodium 139 mmol/L (137-145)
[2023-10-25 15:44] LABS: Tacrolimus Prograf 5.7 mcg/L
[2023-10-26 08:34] LABS: BK Virus DNA, QN PCR log NOT DETECTED Log cps/mL; BK Virus Specimen Source BLOOD
[2023-10-26 18:32] LABS: EVB DNA,QN PCR 3.46; Epstein Barr Virus PCR 2889 copies/mL; Source WHOLE BLOOD
== END 2023-11-19 23:59 | disposition home or self-care (01) ==
LOC: ANHLAB 06:50
PROVIDERS: PCP Physician Assistant; Visit Provider Internal Medicine
DX: E78.2 Mixed hyperlipidemia (principal); Z94.0 Kidney transplant status; Z79.899 Other long term (current) drug therapy
CPT/HCPCS: 36415; 80061; 80069; 80076; 80197; 85025; 87799

== ENCOUNTER 2023-11-20 06:43 | Outpatient (CLI) | payer OTHER, SELFPAY ==
[2023-11-20 08:44] LABS: Thyroid Stimulating Hormone 0.094 uIU/mL (0.465-4.680)
[2023-11-20 20:44] LABS: Hemoglobin A1C 6.1 % (<5.7)
== END 2023-11-20 06:44 | disposition home or self-care (01) ==
PROVIDERS: PCP Physician Assistant; Visit Provider Internal Medicine
DX: R73.9 Hyperglycemia, unspecified (principal); E03.9 Hypothyroidism, unspecified
CPT/HCPCS: 36415; 80069; 80197; 83036; 84443; 85025

== ENCOUNTER 2024-01-22 07:15 | Outpatient (RCR) | payer OTHER, SELFPAY ==
[2023-11-20 07:55] LABS: Basophils Absolute Auto 0.1 K/mm3 (0.0-0.1); Basophils Percent Auto 0.7 % (0.2-1.2); Eosinophils Absolute Auto 0.2 K/mm3 (0-0.3); Eosinophils Percent Auto 1.9 % (0-4.4); Hematocrit 37.8 % (37.0-47.0); Hemoglobin 12.2 g/dL (12.0-15.0); Immature Granulocyte Absolute 0.05 K/mm3 (0.00-0.031); Immature Granulocyte Percent A 0.6 % (0-0.5); Lymphocytes Absolute Auto 0.56 K/mm3 (0.9-3.2); Lymphocytes Percent Auto 6.9 % (18.3-44.2); Mean Corpuscular HGB Conc 32.3 g/dl (32-36); Mean Corpuscular Hemoglobin 30.3 pg (26-34); Mean Corpuscular Volume 93.8 fl (80-100); Monocytes Absolute Auto 0.5 K/mm3 (0.1-0.6); Monocytes Percent Auto 6.1 % (2.6-8.5); Neutrophils Absolute Auto 6.8 K/mm3 (1.3-6.7); Neutrophils Percent Auto 83.8 % (45.5-73.1); Platelet Count Result 200 k/mm3 (150-375); Red Blood Count 4.03 M/mm3 (4.2-5.4); Red Cell Distribution Width 14.5 % (11.5-14.5); White Blood Count 8.1 K/mm3 (4.5-10.0)
[2023-11-20 08:06] LABS: Albumin Level 3.9 g/dL (3.5-5.1); Anion Gap 6 mmol/L (4-12); Blood Urea Nitrogen 24 mg/dL (7-17); Calcium 9.7 mg/dL (8.4-10.2); Carbon Dioxide 28 mmol/L (22-30); Chloride 106 mmol/L (98-107); Estimated Glomerular Filt Rate 41; Glucose 108 mg/dL (65-110); Phosphorus 3.4 mg/dL (2.5-4.5); Potassium 3.8 mmol/L (3.4-5.0); Sodium 140 mmol/L (137-145)
[2023-11-21 16:03] LABS: Tacrolimus Prograf 5.2 mcg/L
[2023-12-23 07:38] LABS: Albumin Level 3.5 g/dL (3.5-5.1); Anion Gap 8 mmol/L (4-12); Blood Urea Nitrogen 35 mg/dL (7-17); Calcium 9.4 mg/dL (8.4-10.2); Carbon Dioxide 28 mmol/L (22-30); Chloride 101 mmol/L (98-107); Estimated Glomerular Filt Rate 33; Glucose 122 mg/dL (65-110); Phosphorus 3.3 mg/dL (2.5-4.5); Sodium 137 mmol/L (137-145)
[2023-12-23 07:43] LABS: Basophils Absolute Auto 0.1 K/mm3 (0.0-0.1); Basophils Percent Auto 0.5 % (0.2-1.2); Eosinophils Absolute Auto 0.1 K/mm3 (0-0.3); Eosinophils Percent Auto 1.3 % (0-4.4); Hematocrit 34.9 % (37.0-47.0); Hemoglobin 11.3 g/dL (12.0-15.0); Immature Granulocyte Absolute 0.07 K/mm3 (0.00-0.031); Immature Granulocyte Percent A 0.7 % (0-0.5); Lymphocytes Absolute Auto 0.46 K/mm3 (0.9-3.2); Lymphocytes Percent Auto 4.8 % (18.3-44.2); Mean Corpuscular HGB Conc 32.4 g/dl (32-36); Mean Corpuscular Hemoglobin 30.3 pg (26-34); Mean Corpuscular Volume 93.6 fl (80-100); Mean Platelet Volume 10.9 fl (7.4-10.4); Monocytes Absolute Auto 0.7 K/mm3 (0.1-0.6); Monocytes Percent Auto 6.9 % (2.6-8.5); Neutrophils Absolute Auto 8.2 K/mm3 (1.3-6.7); Neutrophils Percent Auto 85.8 % (45.5-73.1); Platelet Count Result 235 k/mm3 (150-375); Red Blood Count 3.73 M/mm3 (4.2-5.4); White Blood Count 9.5 K/mm3 (4.5-10.0)
[2023-12-24 16:36] LABS: Tacrolimus Prograf 5.3
[2023-12-26 14:17] LABS: EVB DNA,QN PCR 3.54; Epstein Barr Virus PCR 3448 copies/mL; Source WHOLE BLOOD
[2023-12-27 08:19] LABS: BK Virus DNA, Qual PCR Not Detected; BK Virus Specimen Source Not Detected
[2024-01-22 08:08] LABS: Basophils Absolute Auto 0.1 K/mm3 (0.0-0.1); Basophils Percent Auto 0.5 % (0.2-1.2); Eosinophils Absolute Auto 0.1 K/mm3 (0-0.3); Eosinophils Percent Auto 0.7 % (0-4.4); Hematocrit 36.2 % (37.0-47.0); Hemoglobin 11.5 g/dL (12.0-15.0); Immature Granulocyte Absolute 0.11 K/mm3 (0.00-0.031); Immature Granulocyte Percent A 0.9 % (0-0.5); Lymphocytes Absolute Auto 0.47 K/mm3 (0.9-3.2); Lymphocytes Percent Auto 3.6 % (18.3-44.2); Mean Corpuscular HGB Conc 31.8 g/dl (32-36); Mean Corpuscular Hemoglobin 29.9 pg (26-34); Mean Corpuscular Volume 94.3 fl (80-100); Mean Platelet Volume 10.3 fl (7.4-10.4); Monocytes Absolute Auto 0.7 K/mm3 (0.1-0.6); Monocytes Percent Auto 5.6 % (2.6-8.5); Neutrophils Absolute Auto 11.5 K/mm3 (1.3-6.7); Neutrophils Percent Auto 88.7 % (45.5-73.1); Platelet Count Result 225 k/mm3 (150-375); Red Blood Count 3.84 M/mm3 (4.2-5.4); Red Cell Distribution Width 14.7 % (11.5-14.5); White Blood Count 12.9 K/mm3 (4.5-10.0)
[2024-01-22 08:20] LABS: Albumin Level 3.7 g/dL (3.5-5.1); Anion Gap 7 mmol/L (4-12); Blood Urea Nitrogen 28 mg/dL (7-17); Calcium 9.7 mg/dL (8.4-10.2); Carbon Dioxide 28 mmol/L (22-30); Chloride 103 mmol/L (98-107); Estimated Glomerular Filt Rate 32; Glucose 133 mg/dL (65-110); Potassium 3.9 mmol/L (3.4-5.0); Sodium 138 mmol/L (137-145)
[2024-01-24 17:15] LABS: BK Virus DNA, QN PCR log Not Detected Log cps/mL (Not Detected)
[2024-01-25 21:43] LABS: EVB DNA,QN PCR 4.31 Log cps/mL (Not Detected); Epstein Barr Virus PCR 20521 copies/mL (Not Detected)
[2024-01-29 15:58] LABS: BK Virus Specimen Source BLOOD; Tacrolimus Prograf 5.1 mcg/L
== END 2024-02-18 23:59 | disposition home or self-care (01) ==
LOC: ANHLAB 07:15
PROVIDERS: PCP Physician Assistant; Visit Provider Internal Medicine
DX: E78.2 Mixed hyperlipidemia (principal); Z94.0 Kidney transplant status
CPT/HCPCS: 36415; 80069; 80197; 85025; 87798; 87799

== ENCOUNTER 2024-01-22 08:05 | Outpatient (NON) | payer OTHER, SELFPAY ==
[2024-01-22 09:34] LABS: Add Urine Microscopic? YES; Appearance Urine Clear (Clear); Bacteria Urine 4+ /hpf; Bilirubin Urine Negative (Negative); Blood Urine Negative (Negative); Color Urine Yellow (Yellow); Glucose Urine UA Negative (Negative); Ketones Urine Negative (Negative); Leukocyte Esterase Ur 1+ LEU/UL (Negative); Nitrate Urine Positive (Negative); Non Pathogenic Casts 0-2; Protein Urine Negative (Negative); RBC Urine 0-2 /hpf (0-2); Specific Grav Ur 1.009 (1.001-1.035); Squamous Epithelial Cell Urine None Seen /hpf (Few); Urobilinogen Urine 0.2 mg/dL (<2.0); pH Urine 5.5 (5.0-9.0)
[2024-01-27 11:49] LABS: CMV DNA Quant PCR IU/mL Not Detected (Not Detected); Cytomegalovirus DNA Quant PCR Not Detected Log IU/mL (Not Detected)
== END 2024-01-22 08:06 | disposition home or self-care (01) ==
LOC: ANHLAB 08:06
PROVIDERS: PCP Physician Assistant; Visit Provider Internal Medicine Nephrology
DX: Z94.0 Kidney transplant status (principal)
CPT/HCPCS: 36415; 80069; 80197; 81001; 85025; 87077; 87086; 87088; 87186; 87497; 87799

== ENCOUNTER 2024-03-12 06:51 | Outpatient (CLI) | payer OTHER, SELFPAY ==
[2024-03-12 08:06] LABS: Lactate Dehydrogenase 224 U/L (120-246)
== END 2024-03-12 06:52 | disposition home or self-care (01) ==
LOC: ANHLAB 06:52
PROVIDERS: PCP Internal Medicine; Visit Provider Internal Medicine
DX: Z94.0 Kidney transplant status (principal)
CPT/HCPCS: 36415; 83615

== ENCOUNTER 2024-04-24 13:38 | Outpatient (CLI) | payer OTHER, SELFPAY ==
--- NOTE | ~2024-04-24 | DEXA_ITS ---
Bone Density Report Name: MARCO BRIZUELA Age: 63 Sex: Female Ethnicity: White Date of : 1960 Indication: hyperparathyroidism; end stage renal disease; Referring Provider: RODY NOBLE Study: Bone densitometry was performed. Exam Date: April 24, 2024 Accession number: [id number] Bone Density: Region BMD T-score Z-score Classification AP Spine(L1-L4) 1.000 -0.4 1.3 Normal Femoral Neck (Left) 0.650 -1.8 -0.3 Osteopenia Total Hip (Left) 0.943 0.0 1.2 Normal Femoral Neck (Right) 0.652 -1.8 -0.3 Osteopenia Total Hip (Right) 0.912 -0.2 0.9 Normal Total Hip Mean 0.928 -0.1 1.1 Normal World Health Organization criteria for BMD impression classify patients as: Normal (T-score at or above -1.0), Osteopenia (T-score between -1.0 and -2.5), or Osteoporosis (T-score at or below -2.5). 10-year Fracture Risk(1): Major Osteoporotic Fracture 8.3% Hip Fracture 0.9% Reported Risk Factors: [place] (), Neck BMD=0.650, BMI=40.7 (1) FRAX(R) Version 3.08. Fracture probability calculated for an untreated patient. Fracture probability may be lower if the patient has received treatment. Previous Exams: Region Exam Age BMD T-score BMD Change BMD Change Date g/cm2 vs Baseline vs Previous Total Hip(Left) 04/24/2024 63 0.943 0.0 0.010 (1.0%)# 0.054 (6.1%)* 04/23/2022 61 0.889 -0.4 -0.044 (-4.7%) 0.049 (5.8%)* 03/09/2020 59 0.840 -0.8 -0.093 (-10.0% 0.014 (1.7%) 01/08/2018 57 0.826 -1.0 -0.107 (-11.5% -0.059 (-6.6%) 11/03/2014 53 0.885 -0.5 -0.049 (-5.2%) -0.049 (-5.2%) 05/02/2012 51 0.933 -0.1 *Denotes significance at 95% confidence level, LSC for Total Hip = 0.027 g/cm2 # Denotes dissimilar scan types or analysis methods Clinical Information Provided by Patient: Has used the following medications: Vitamin D Has the following medical conditions: End stage renal disease, Hyperparathyroidism Patient maximum height was 59 Menopause Age: 54 No regular weight bearing exercise Does not regularly consume dairy products Drinks caffeinated beverages Onset of menses at age 12 Number of children 2 Impression: The patient has low bone mass, based on the Left Femoral Neck T-score. The patient has an estimated ten-year risk of hip fracture of 0.9% and an estimated ten-year risk of major fracture of 8.3%, based on the WHO FRAX algorithm. No significant bone loss was observed. Discussion: BONE DENSITY IS LOW AT ONE OR MORE SKELETAL SITES. This patient's lowest T-score is low at one or more skeletal sites. It meets the World Health Organization's (WHO) criteria for ?low bone mass? (T-score between -1.0 and -2.5). The patient's 10-year risk of fracture as calculated by FRAX is less than the threshold where pharmacological therapy is recommended by the National Osteoporosis Foundation (NOF). However, all treatment decisions require clinical judgment and consideration of individual patient factors, including patient preferences, comorbidities, previous drug use, risk factors not captured in the FRAX model (e.g., frailty, falls, vitamin D deficiency, increased bone turnover, interval significant decline in bone density) and possible under or overestimation of fracture risk by FRAX. The patient should follow a healthful lifestyle (good nutrition with adequate calcium and vitamin D, and appropriate weight-bearing exercise). Follow-Up: Consider repeating this study in 2 to 3 years to reassess this patient's status, or sooner if there is some new clinical indication. Reported by: DOLORES on 04/24/2024 2:32:00 PM. Reviewed, dictated and finalized at location AReno PEARCE
== END 2024-04-24 13:39 | disposition home or self-care (01) ==
LOC: ANHIMG 13:39
PROVIDERS: PCP Internal Medicine; Visit Provider Obstetrics & Gynecology
DX: Z78.0 Asymptomatic menopausal state (principal); Z13.820 Encounter for screening for osteoporosis; M85.852 Other specified disorders of bone density and structure, left thigh; M85.851 Other specified disorders of bone density and structure, right thigh
CPT/HCPCS: 77080

== ENCOUNTER 2024-05-11 14:31 | Outpatient (CLI) | payer OTHER, SELFPAY ==
--- NOTE | ~2024-05-11 | MM_ITS ---
EXAMINATION: MM screening [facility] BI w daniela HISTORY: Screening TECHNIQUE: Craniocaudal and mediolateral oblique 3-D tomosynthesis images were obtained and synthetic 2-D images were generated. CAD analysis was submitted and interpreted. COMPARISON: Comparison to multiple prior studies sequentially, with oldest reviewed study dated 01/08. BREAST PARENCHYMAL COMPOSITION: Not dense: There are scattered areas of fibroglandular density. FINDINGS: There is no evidence of suspicious mass, calcification, or architectural distortion to sugg est malignancy in either breast. There has been no suspicious interval change. IMPRESSION: 1. No mammographic evidence of malignancy. 2. Recommend routine screening mammography in one year. BI-RADS Category 1: Negative Reviewed, dictated and finalized at location A. [employer] PUBLICATIONS
== END 2024-05-11 14:32 | disposition home or self-care (01) ==
LOC: ANHIMG 14:34
PROVIDERS: PCP Internal Medicine; Visit Provider Obstetrics & Gynecology
DX: Z12.31 Encounter for screening mammogram for malignant neoplasm of breast (principal)
CPT/HCPCS: 77063; 77067

== ENCOUNTER 2024-05-27 06:43 | Outpatient (RCR) | payer OTHER, SELFPAY ==
[2024-05-27 07:30] LABS: Basophils Absolute Auto 0.1 K/mm3 (0.0-0.1); Basophils Percent Auto 0.6 % (0.2-1.2); Eosinophils Absolute Auto 0.2 K/mm3 (0-0.3); Eosinophils Percent Auto 1.9 % (0-4.4); Hemoglobin 11.8 g/dL (12.0-15.0); Immature Granulocyte Absolute 0.07 K/mm3 (0.00-0.031); Immature Granulocyte Percent A 0.7 % (0-0.5); Lymphocytes Absolute Auto 0.73 K/mm3 (0.9-3.2); Mean Corpuscular HGB Conc 31.9 g/dl (32-36); Mean Corpuscular Hemoglobin 29.6 pg (26-34); Mean Platelet Volume 10.7 fl (7.4-10.4); Monocytes Absolute Auto 0.6 K/mm3 (0.1-0.6); Monocytes Percent Auto 6.1 % (2.6-8.5); Neutrophils Absolute Auto 8.7 K/mm3 (1.3-6.7); Neutrophils Percent Auto 83.7 % (45.5-73.1); Platelet Count Result 229 k/mm3 (150-375); Red Blood Count 3.98 M/mm3 (4.2-5.4); Red Cell Distribution Width 15.2 % (11.5-14.5); White Blood Count 10.4 K/mm3 (4.5-10.0)
[2024-05-27 07:42] LABS: Albumin Level 3.7 g/dL (3.5-5.1); Anion Gap 6 mmol/L (4-12); Blood Urea Nitrogen 27 mg/dL (7-17); Calcium 9.5 mg/dL (8.4-10.2); Carbon Dioxide 27 mmol/L (22-30); Chloride 108 mmol/L (98-107); Estimated Glomerular Filt Rate 32; Glucose 112 mg/dL (65-110); Phosphorus 3.3 mg/dL (2.5-4.5); Potassium 3.9 mmol/L (3.4-5.0); Sodium 141 mmol/L (137-145)
[2024-05-29 08:48] LABS: Tacrolimus Prograf 5.8 mcg/L
[2024-05-30 22:59] LABS: EVB DNA,QN PCR Not Detected log IU/mL (Not Detected); Epstein Barr Virus PCR Not Detected (Not Detected)
== END 2024-08-25 23:59 | disposition home or self-care (01) ==
LOC: ANHLAB 06:43
PROVIDERS: PCP Internal Medicine; Visit Provider Internal Medicine
DX: Z94.0 Kidney transplant status (principal)
CPT/HCPCS: 36415; 80069; 80197; 85025

== ENCOUNTER 2024-06-25 06:41 | Outpatient (CLI) | payer OTHER, SELFPAY ==
--- OUTSIDE RECORDS SUMMARY | 2024-06-25 06:43 | XMS_ITS | Referral Summary ---
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; Encounter for long-term (current) use of high-risk medication; Hypertension, unspecified type 06/01/2024 Lab [facility] Transplant Kidney [address] [facility] [address] Mailstop [phone] [place] [address] Bessie Alvarado MD 05/29/2024 Lab [facility] Transplant Kidney [address] [facility] [address] Mailstop [phone] [place] [address] Bessie Alvarado MD 05/28/2024 Orders Only [facility] Transplant Kidney [address] [facility] [address] [facility] [place] [address] Ilene Beltran Kidney transplanted (Primary Dx); Encounter for long-term (current) use of medications; Hyperlipidemia, unspecified hyperlipidemia type 05/27/2024 Orders Only [facility] Transplant Kidney [address] [facility] [address] Mailstop [facility] [place] [address] Latisha Benavidez RN Kidney replaced by transplant 05/27/2024 Lab [facility] Transplant Kidney [address] [address] Mailstop [facility] [place] [address] Bessie Alvarado MD 03/30/2024 Lab [facility] Transplant Kidney [address] [address] [address] [facility] [place] [address] Bessie Alvarado MD 03/30/2024 Lab [facility] Transplant Kidney [address] [address] Mail[address] [facility] [place] [address] Bessie Alvarado MD 03/30/2024 Lab [facility] Transplant Kidney [address] [address] [address] [facility] [place] [address] Bessie Alvarado MD 03/30/2024 Lab [facility] Transplant Kidney [address] [facility] [address] [place] [address] Bessie Alvarado MD 03/27/2024 Lab [facility] Transplant Kidney [address] [place] [address] Bessie Alvarado MD 03/25/2024 Lab [facility] Transplant Kidney [address] Mailstop [phone] [place] [address] Bessie Alvarado MD from Last 3 Months Allergies No known active allergies Medications senna-docusate (PERICOLACE) 8.6-50 mg Take 1 tablet by mouth daily 30 tablet 11 3 Active pravastatin (PravachoL) 20 mg tablet Take 2 tablets (40 mg total) by mouth daily 3 Active Additional Information Patient taking differently:40 mg oralNightly, Reported on 06/03/2024 acetaminophen 500 mg capsuleIndicat ions:Pain Take 2 capsules (1,000 mg total) by mouth every 6 (six) hours as needed for pain 3 Active blood glucose strip-disp meter kit Use as directed. 1 kit 3 Active blood glucose diagnostic (glucose blood) strip Use as directed up to four times a day. 100 each 1 3 Active lancets misc Use as directed up to 4 times a day. 100 each 3 Active alcohol swabs (Alcohol Wipes) pads, medicated Use as directed. 100 each 3 Active levothyroxine (Synthroid) 125 mcg tablet Take 1 tablet (125 mcg total) by mouth data processing consultant before breakfast 30 tablet 3 3 Active famotidine (PEPCID) 20 mg tablet Take 1 tablet (20 mg total) by mouth nightly as needed for heartburn 3 Active cyanocobalamin (vitamin B-12) 1,000 mcg tabletIndicati ons:Prevention of Vitamin B12 Deficiency Take 1 tablet (1,000 mcg total) by mouth daily 90 tablet 3 3 Active predniSONE (DELTASONE) 5 mg tablet TAKE ONE TABLET BY MOUTH EVERY DAY 30 tablet 11 4 Active linaGLIPtin (Tradjenta) 5 mg tablet TAKE ONE TABLET BY MOUTH EVERY DAY 30 tablet 11 4 Active amLODIPine (NORVASC) 5 mg tablet Take 1 tablet by mouth once daily 30 tablet 11 4 Active carvediloL (COREG) 25 mg tabletIndicati ons:Status post kidney transplant TAKE 1 TABLET BY MOUTH 2 TIMES A DAY WITH MEALS 60 tablet 11 [address] (MYFORTIC) 360 mg EC tabletIndicati ons:Prevention of Kidney Transplant Rejection Take 1 tablet (360 mg total) by mouth daily HOLDING as of 11/06 for + EBV pcr 4 11/07/19 25 Active Additional Information Patient not taking.Reported on 06/03/2024 aspirin 81 mg enteric coated tablet TAKE ONE TABLET BY MOUTH EVERY DAY 30 tablet 10 4 Active cholecalcifero l (VITAMIN D-3) 2000 unit tablet TAKE ONE TABLET BY MOUTH EVERY DAY 30 tablet 11 5 Active tacrolimus XR (Envarsus XR) 1 mg tablet extended release 24 hrIndications: Kidney replaced by transplant Take 1 tablet (1 mg total) by mouth daily 90 tablet 3 5 06/03/19 26 Active Envarsus XR 1 mg tablet extended release 24 hrIndications: Kidney replaced by transplant TAKE ONE TABLET BY MOUTH EVERY DAY 30 tablet 11 4 05/27/19 25 Discontin ued(Reord er) tacrolimus XR (Envarsus XR) 1 mg tablet extended release 24 hrIndications: Kidney replaced by transplant Take 1 tablet (1 mg total) by mouth daily 30 tablet 11 5 06/03/19 25 Discontin ued(Reord er) Active Problems Patient Care Coordination No te Formatting of this note migh t be different from the original. Patient gave verbal consent to speak with concha Reich [facility].P- [phone] Standing orders q- Monthly, FK ,EBV/PCR, q3 Routine Exp. 05/28/25 Problem Noted Date Diagnosed Date Kidney replaced by transplant 06/19/2022 Removal of staple 06/19/2022 Encounter for long-term (cur rent) use of high-risk medication 06/19/2022 Dyslipidemia 06/19/2022 Kidney transplant candidate 05/24/2022 Pre-transplant evaluation for kidney transplant 02/16/2019 Pericardial effusion 09/05/2016 Overview (10/05/2016): Pericardial effusion Hypothyroidism 06/27/2016 Overview (08/16/2016): Hypothyroidism, unspecified type Essential hypertension 06/27/2016 Overview (08/16/2016): Hypertension, essential Fatigue 06/27/2016 Overview (08/16/2016): Fatigue, unspecified type IgA nephropathy 06/27/2016 Overview (08/16/2016): IgA nephropathy Obesity with body mass index 30 or greater 06/27 Overview (08/16/2016): Obesity (BMI 30-39.9) Chronic kidney disease, stage III (moderate) Overview (08/16/2016): Chronic kidney disease, stage III (moderate) Social History Tobacco Use Types Packs/Day Years Used Date Smoking Tobacco: Never Smokeless Tobacco: Never Tobacco Cessation:Counseling Given: Not Answered Alcohol Use Standard Drinks/Week Comments No 0 (1 standard drink = 0.6 oz pur e alcohol) OASIS D0700: Social Isolation Answer Da te Recorded Frequency of experiencing loneliness or isolatio n Never 06/28/2022 OASIS A1250: Transportation Answer Date Recorded Lack of Transportation (Medical) No 06/28/2022 Lack of Transportation (Non-Medical) No 06/28/2022 Patient Unable or Declines to Respond No 06/28/2022 OASIS B1300: Health Literacy Answer Jayson e Recorded Frequency of needing help to read materials from doctor or pharmacy Never 06/28/2022 Social Connection and Isolat ion Panel [NHANES] Answer Date Recorded In a typical week, how many times do you talk on the phone with family, friends, or neighbors? More than three times a week 05/25/2022 How often do you get togethe r with friends or relatives? Three times a week 05/25/2022 How often do you attend chur ch or yazidi services? More than 4 times per year 05/25/2022 Do you belong to any clubs o r organizations such as holiness groups, unions, fraternal or athletic groups, or school groups? Yes 05/25/2022 How often do you attend meet ings of the clubs or organizations you belong to? More than 4 times per year 05/25/2022 Are you , , di vorced, , never , or living with a partner? 05/25/2022 AUDIT-C Answer Date Recorded Q1: How often do you have a drink containing alc ohol? Never 05/25/2022 Average Number of Drinks Not on file 023 Q3: How often do you have si x or more drinks on one occasion? Never 05/25/2022 Overall Financial Resource Strain (CARDIA) Answe r Date Recorded How hard is it for you to pa y for the very basics like food, housing, medical care, and heating? Not hard at all 05/25/2022 Hunger Vital Sign Answer Date Recorded Within the past 12 months, y ou worried that your food would run out before you got the money to buy more. Never true 05/25/19 23 Within the past 12 months, t he food you bought just didn't last and you didn't have money to get more. Never true 05/25/2022 PRAPARE - Transportation Answer Date Re corded In the past 12 months, has l ack of transportation kept you from medical appointments or from getting medications? No 05/13 In the past 12 months, has l ack of transportation kept you from meetings, work, or from getting things needed for daily living? No 05/25/2022 Personal Safety Answer Date Recorded Getting School Help Needed Denies 04/26 Comments No Sex and Gender Information Value Date Recorded Sex Assigned at Not on file Legal Sex Female 11:59 PM SUPERVISOR [employer]SEMBLY Gender Identity Not on file Sexual Orientation Not on file Last Filed Vital Signs Vital Sign Reading Time Taken Comments Blood Pressure 138/84 06/03/2024 11:11 AM SUPERVISOR [employer]URN[employer] ASSEMBLY Pulse 76 06/03/2024 11:11 AM SUPERVISOR METAL FURN[employer]URE ASSEMBLY Temperature 36.8 C (98.3 F) 06/03/2024 11:11 AM SUPERVISOR METAL FURNITURE ASSEMBLY Respiratory Rate 18 06/28/2022 9:00 AM SUPERVISOR METAL FURNITURE ASSEMBLY Oxygen Saturation 99% 06/28/2022 9:00 AM SUPERVISOR METAL FURNITURE ASSEMBLY Inhaled Oxygen Concentration - - Weight 91.1 kg (200 lb 12.8 oz) 025 11:11 AM SUPERVISOR MET[employer]URNITURE ASSEMBLY Height 149.9 cm (4' 11 ) 06/03/2024 11: 11 AM SUPERVISOR METAL FURNITURE ASSEMBLY Body Mass Index 40.56 06/03/2024 11:11 AM SUPERVISOR METAL FURNITURE ASSEMBLY Plan of Treatment Scheduled Procedures Name Priority Associated Diagnoses Date/Ti me TRANSPLANT KIDNEY ESRD (end stage renal disease) ([facility]/HCC) (HCC) TRANSPLANT KIDNEY ESRD (end stage renal disease) ([facility]) Medical Devices Explanted Type Area Medical Billing Assistant Device Identifier Shelf Expiration Date Model / Serial / Lot [employer] Double-J 6fr 20cm 100cm 1 Step Insert Push Catheter [place] Suture [id number] - [id number] Implanted:Qt y: 1 on 05/25/2022 by Aguilar Barfield MD PhD at [facility] Explanted:Qt y: 1 on 06/26/2022 by Monty Harper MD Stent Right: Transplanted Ureter [employer] [id number] 10/30/2026 [id number] / / [id number] Description:Transplanted Ure ter Procedures Procedure Name Priority Date/Time Associated Diagnosis Comments TACROLIMUS LEVEL, TROUGH Routine 05/27/2024 CBC WITH AUTO DIFFERENTIAL Routine 05/27/2024 RENAL FUNCTION PANEL Routine 05/27/2024 EBV DNA PCR Routine 05/27/2024 TACROLIMUS LEVEL, TROUGH Routine 04/27/2024 6:58 AM SUPERVISOR METAL FURNITURE ASSEMBLY RENAL FUNCTION PANEL Routine 04/27/2024 6:58 AM SUPERVISOR METAL FURNITURE ASSEMBLY CBC WITH AUTO DIFFERENTIAL Routine 04/27/2024 6:58 AM SUPERVISOR METAL FURNITURE ASSEMBLY JAZMÍN RENE VIRUS PCR QUALITATIVE Routine 04/27/2024 6:58 AM SUPERVISOR METAL FURNITURE ASSEMBLY BK VIRUS, DNA, QUANTITATIVE Routine 04/27/2024 6:58 AM SUPERVISOR METAL FURNITURE ASSEMBLY JAZMÍN-RENE VIRSU (EBV), QUANTITATIVE, DNA PCR, BLOOD Routine 03/25/2024 TACROLIMUS LEVEL, TROUGH Routine 03/25/2024 CBC WITH AUTO DIFFERENTIAL Routine 03/25/2024 RENAL FUNCTION PANEL Routine 03/25/2024 BK VIRUS, DNA, QUANTITATIVE Routine 03/25/2024 JAZMÍN RENE VIRUS PCR QUALITATIVE Routine 03/25/2024 HEPATITIS C RNA, QUANTITATIVE, PCR Routine 06/26/2022 5:00 PM SUPERVISOR METAL FURNITURE ASSEMBLY Inconclusive laboratory evidence of human immunodeficiency virus (HIV) Aftercare following organ transplant SCREENING MAMMOGRAM 2D BILATERAL Schedule Routine, Read Routine (OP Routine) 02/02/2019 COLONOSCOPY Routine 12/20/2009 from Last 3 Months or Most Recently Relevant to Health Maintenance Results * EBV DNA PCR, Qualitative (05/27/2024) Pathologist [facility] EBV DNA, PCR Nt. Det. TXP NO LAB FOUND 05/27/2024 Historical Provider LAB MICROBIOLOGY - GENERA L ORDERABLES Final Result Performing Organization Address [facility] Co de Phone Number TXP NO LAB FOUND * Tacrolimus level trough (05/27/2024) Pathologist [facility] SCRIBED Tacrolimus, trough 5.8 5 - 20 TXP NO LAB FOUND Blood 05/27/2024 Historical Provider LAB BLOOD ORDERABLES Edit ed Result - Final Performing Organization Address [facility]/ZIP Co de Phone Number TXP NO LAB FOUND * (ABNORMAL) CBC with auto differential (05/27/2024) SCRIBED WBC 10.4(A) 4.5 - 10.0 k/cumm TXP NO LAB FOUND SCRIBED Hemoglobin 11.8(A) 12 - 15 g/dL TXP NO LAB FOUND SCRIBED Hematocrit 37 37 - 47 % TXP NO LAB FOUND SCRIBED Platelets 229 150 - 375 k/cumm TXP NO LAB FOUND SCRIBED Lymphocytes Abs 0.73(A) 0.9 - 3.2 k/cumm TXP NO LAB FOUND Blood 05/27/2024 Historical Provider LAB BLOOD ORDERABLES Edit ed Result - Final TXP NO LAB FOUND * (ABNORMAL) Renal function panel (05/27/2024) SCRIBED Calcium 9.5 8.4 - 10.2 mg/dl TXP NO LAB FOUND SCRIBED Phosphorus 3.3 2.5 - 4.5 mg/dl TXP NO LAB FOUND SCRIBED Albumin 3.7 3.5 - 5.1 g/dl TXP NO LAB FOUND SCRIBED Glucose 112(A) 65 - 110 mg/dl TXP NO LAB FOUND SCRIBED Creatinine 1.63(A) 0.7 - 1.0 mg/dl TXP NO LAB FOUND SCRIBED Sodium 141 137 - 145 mmol/L TXP NO LAB FOUND SCRIBED Potassium 3.9 3.4 - 5.0 mmol/L TXP NO LAB FOUND SCRIBED Chloride 108(A) 98 - 107 mmol/L TXP NO LAB FOUND SCRIBED Carbon Dioxide 27(A) 7 - 17 mmol/L TXP NO LAB FOUND SCRIBED eGFR in NonAfrican Citizen Of [place] 32 >60 TXP NO LAB FOUND SCRIBED Urea Nitrogen (BUN) 27(A) 7 - 17 mg/dl TXP NO LAB FOUND Blood 05/27/2024 Historical Provider LAB BLOOD ORDERABLES Yajaira l Result TXP NO LAB FOUND * Jazmín Rene Virus PCR Qualitative (04/27/2024 6:58 AM SUPERVISOR METAL FURNITURE ASSEMBLY) SCRIBED EBV PCR Positive TXP NO LAB FOUND EBV DNA log IU/mL <1.54 NT DET LOG IU/mL TXP NO LAB FOUND EBV DNA, PCR <35 NT DET IU/mL TXP NO LAB FOUND 04/27/2024 6:58 AM SUPERVISOR METAL FURNIT[employer] ASSEMBLY Historical Provider LAB MICROBIOLOGY - GENERA L ORDERABLES Edited Result - Final Performing Organization Address [facility] de Phone Number TXP NO LAB FOUND * BK virus, DNA, quantitative Blood (04/27/2024 6:58 AM SUPERVISOR METAL FURNITURE ASSEMBLY) SCRIBED BK PCR Quant NT DET NT DET copies/mL TXP NO LAB FOUND Blood 04/27/2024 6:58 AM SUPERVISOR METAL FURNITURE ASSEMBLY Historical Provider LAB MICROBIOLOGY - GENERA L ORDERABLES Final Result Performing Organization Address [facility] Phone Number TXP NO LAB FOUND * Tacrolimus level trough (04/27/2024 6:58 AM SUPERVISOR METAL FURNITURE ASSEMBLY) SCRIBED Tacrolimus, trough 7 5 - 20 MCG/L TXP NO LAB FOUND Blood 04/27/2024 6:58 AM SUPERVISOR METAL FURNITURE ASSEMBLY [facility] Provider LAB BLOOD ORDERABLES Edit ed Result - Final Performing Organization Address [facility] Phone Number TXP NO LAB FOUND * (ABNORMAL) CBC with auto differential (04/27/2024 6:58 AM SUPERVISOR METAL FURNITURE ASSEMBLY) SCRIBED WBC 10 4.5 - 10 k/cumm TXP NO LAB FOUND SCRIBED Hemoglobin 11.2(A) 12 - 15 g/dL TXP NO LAB FOUND SCRIBED Hematocrit 34.9(A) 37 - 47 % TXP NO LAB FOUND SCRIBED Platelets 230 150 - 375 k/cumm TXP NO LAB FOUND SCRIBED Lymphocytes Abs 0.53(A) 0.9 - 3.2 k/cumm TXP NO LAB FOUND Blood 04/27/2024 6:58 AM SUPERVISOR METAL FURNITURE ASSEMBLY Historical Provider LAB BLOOD ORDERABLES Yajaira l Result TXP NO LAB FOUND * (ABNORMAL) Renal function panel (04/27/2024 6:58 AM SUPERVISOR METAL FURNITURE ASSEMBLY) SCRIBED Calcium 9.6 8.4 - 10.2 mg/dl TXP NO LAB FOUND SCRIBED Phosphorus 2.9 2.5 - 4.5 mg/dl TXP NO LAB FOUND SCRIBED Albumin 3.6 3.5 - 5.1 g/dl TXP NO LAB FOUND SCRIBED Glucose 113(A) 65 - 110 mg/dl TXP NO LAB FOUND SCRIBED Creatinine 1.6(A) 0.7 - 1 mg/dl TXP NO LAB FOUND SCRIBED Sodium 139 137 - 145 mmol/L TXP NO LAB FOUND SCRIBED Potassium 4 3.4 - 5 mmol/L TXP NO LAB FOUND SCRIBED Chloride 107 98 - 107 mmol/L TXP NO LAB FOUND SCRIBED Carbon Dioxide 28 22 - 30 mmol/L TXP NO LAB FOUND SCRIBED eGFR in NonAfrican Citizen Of [place] 32 >=60 mL/min TXP NO LAB FOUND SCRIBED Urea Nitrogen (BUN) 24(A) 7 - 17 mg/dl TXP NO LAB FOUND Blood 04/27/2024 6:58 AM SUPERVISOR METAL FURNITURE ASSEMBLY Historical Provider LAB BLOOD ORDERABLES Edit ed Result - Final Performing Organization Address [facility] de Phone Number TXP NO LAB FOUND * Jazmín Rene Virus PCR Qualitative (03/25/2024) Pathologist [facility] SCRIBED EBV PCR Negative TXP NO LAB FOUND Comment:error wrong test 03/25/2024 us Historical Provider LAB MICROBIOLOGY - GENERA L ORDERABLES Edited Result - Final Performing Organization Address [facility] Co de Phone Number TXP NO LAB FOUND * Jazmín-Rene Virsu (EBV), Quantitative, DNA PCR, Blood (03/25/2024) Pathologist [facility] EBV DNA qn 4,149 COPIES/ML TXP NO LA B FOUND Comment:positive 03/25/2024 Historical Provider LAB BLOOD ORDERABLES Yajaira l Result Performing Organization Address [facility] Phone Number TXP NO LAB FOUND * BK virus, DNA, quantitative Blood (03/25/2024) SCRIBED BK PCR Quant Nt. Det. Nt. Det. copies/mL TXP NO LAB FOUND Blood 03/25/2024 Result [facility] Provider LAB MICROBIOLOGY - GENERA L ORDERABLES Edited Result - Final Performing Organization Address [facility] Phone Number TXP NO LAB FOUND * Tacrolimus level trough (03/25/2024) SCRIBED Tacrolimus, trough 6.5 5 - 20 TXP NO LAB FOUND Blood 03/25/2024 Result [facility] Provider LAB BLOOD ORDERABLES Edit ed Result - Final Performing Organization Address [facility] Phone Number TXP NO LAB FOUND * (ABNORMAL) CBC with auto differential (03/25/2024) SCRIBED WBC 9.7 4.5 - 10.0 k/cumm TXP NO LAB FOUND SCRIBED Hemoglobin 11.4(A) 12 - 15 g/dL TXP NO LAB FOUND SCRIBED Hematocrit 36.1(A) 37 - 47 % TXP NO LAB FOUND SCRIBED Platelets 269 150 - 375 k/cumm TXP NO LAB FOUND SCRIBED Lymphocytes Abs 0.53(A) 0.9 - 3.2 k/cumm TXP NO LAB FOUND Blood 03/25/2024 [facility] Provider LAB BLOOD ORDERABLES Edit ed Result - Final TXP NO LAB FOUND * (ABNORMAL) Renal function panel (03/25/2024) Pathologist [facility] SCRIBED Calcium 9.8 8.4 - 10.2 mg/dl TXP NO LAB FOUND SCRIBED Phosphorus 3.54 2.5 - 4.5 mg/dl TXP NO LAB FOUND SCRIBED Albumin 3.8 3.5 - 5.1 g/dl TXP NO LAB FOUND SCRIBED Glucose 121(A) 65 - 110 mg/dl TXP NO LAB FOUND SCRIBED Creatinine 1.50(A) 0.7 - 1.0 mg/dl TXP NO LAB FOUND SCRIBED Sodium 139 137 - 145 mmol/L TXP NO LAB FOUND SCRIBED Potassium 3.7 3.4 - 5.0 mmol/L TXP NO LAB FOUND SCRIBED Chloride 105 98 - 107 mmol/L TXP NO LAB FOUND SCRIBED Carbon Dioxide 27 22 - 30 mmol/L TXP NO LAB FOUND SCRIBED eGFR in NonAfrican Citizen Of [place] 35 >=60 TXP NO LAB FOUND SCRIBED Urea Nitrogen (BUN) 26(A) 7 - 17 mg/dl TXP NO LAB FOUND Blood 03/25/2024 Historical Provider LAB BLOOD ORDERABLES Yajaira l Result TXP NO LAB FOUND * Hepatitis C (HCV) RNA PCR, quantitative (06/26/2022 5:00 PM SUPERVISOR METAL FURNITURE ASSEMBLY) [facility] HCV RNA result Not Detected [facility] Comment: The quantifiable range of this assay is 15 IU/mL to 100,000,000 IU/mL (1.18 log IU/mL to 8.00 log IU/mL). Testing was performed by the [employer] 6800 HCV Test ([employer] Testing performed at [facility] Current Interpretive Data was last revised on 2020 Blood 06/26/2022 5:00 PM SUPERVISOR METAL FURNITURE ASSEMBLY 06/26/2022 5:25 PM SUPERVISOR METAL FURNITURE ASSEMBLY Mo Velez MD LAB MICROBIOLOGY - GENERAL ORDERABLES Final Result [facility] Department [place] [address] * Screening Mammogram 2D Bilateral (02/02/2019) Anatomical Region Laterality Modality Breast Bilateral Mammography 02/02/2019 Impressions 02/06/2019 3:12 PM CDT Mammogram from [facility] IMPRESSION No mammographic evidence of malignancy. Recommend ourint screening mammography in one year Historical Provider IMG MAMMO PROCEDURES Yajaira l Result * Colonoscopy (12/20/2009) Anatomical Region Laterality Modality Other 12/20/2009 Impressions 02/06/2019 3:10 PM CDT Colonoscopy Results from [facility] IMPRESSION: 1 Internal Hemorrhoids 2. Minimal Diverticulosis Historical Provider ENDOSCOPY PROCEDURES Yajaira l Result from Last 3 Months or Most Recently Relevant to Health Maintenance Insurance [facility] MEDICARE [facility] MEDICARE MEDICARE [facility] TRANSPLANT [facility] MEDICARE MEDICARE Advance Directives For more information, please contact: [phone] Documents on File Type Date Recorded Patient Geological Technician Expl anation ADVANCE DIRECTIVE 05/28/2022 3:55 PM POWER OF SUPERVISOR OF INSTRUCTION-MEDICAL * Full Code (Latest Code Status on File) Date Activated Date Inactivated Comments 05/25/2022 9:00 PM 06/03/2022 6:34 PM * Full Code Date Activated Date Inactivated Comments 05/24/2022 11:25 PM 05/25/2022 9:00 PM Care Teams Application Support Consultant Relationship Specialty Start Date End Date Jose Martin Carlos MD [address] [place] [address] PCP - General 07/11/21 Latisha Benavidez, RN [address] [address] Dietist 05/25/22
--- OUTSIDE RECORDS SUMMARY | 2024-06-25 06:44 | XMS_ITS | Clinical Summary ---
Author Organization [facility] Address [address] [place] [address] Care Team Providers Care Metal Wire Technician Name Role Phone Jose Martin Carlos MD Primary Care Provider [phone] Latisha Benavidez RN Unavailable [phone] Allergies No known active allergies Medications senna-docusate [...] 1 tablet (125 mcg total) by mouth coat finisher before breakfast 30 tablet 3 3 Active [...] verbal consent to speak with concha Reich [facility].P- [phone] Standing orders q- Monthly, FK ,EBV/PCR, q3 [...] (08/16/2016): Chronic kidney disease, stage III (moderate) Encounters Date Type Department Care Team Description 06/03/2024 11:15 AM CUSTOMER SOLUTIONS ARCHITECT Office Visit [facility] Nephrology [address] 5th [place] [address] [place] [id number] Laure Corral NP Encounter for aftercare following kidney transplant (Primary Dx); Kidney replaced by transplant; glass belt sander current use of immunosuppressive drug; Encounter for long-term (current) use of high-risk medication; Hypertension, unspecified type 06/03/2024 Orders Only [facility] Transplant Kidney [id number] [place] [address] Latisha Benavidez RN Kidney replaced by transplant (Primary Dx) 06/01/2024 Lab [facility] Transplant Kidney [phone] [place] [address] Bessie Alvarado MD 05/29/2024 Lab [facility] Transplant Kidney [phone] [place] [address] Bessie Alvarado MD 05/28/2024 Orders Only [facility] Transplant Kidney [address] [address] [place] [address] Marsha Beltranricia Kidney transplanted (Primary Dx); Encounter for long-term (current) use of medications; Hyperlipidemia, unspecified hyperlipidemia type 05/27/2024 Orders Only [facility] Transplant Kidney [address] [address] [place] [address] Latisha Benavidez RN Kidney replaced by transplant 05/27/2024 Lab [facility] Transplant Kidney [address] [address] [place] [address] Bessie Alvarado MD 03/30/2024 Lab [facility] Transplant Kidney [address] [phone] [place] [address] Bessie Alvarado MD 03/30/2024 Lab [facility] Transplant Kidney [phone] [place] [address] Bessie Alvarado MD 03/30/2024 Lab [facility] Transplant Kidney [phone] [place] [address] Bessie Alvarado MD 03/30/2024 Lab [facility] Transplant Kidney [address] [phone] [place] [address] Bessie Alvarado MD 03/27/2024 Lab [facility] Transplant Kidney [address] [place] [address] Bessie Alvarado MD 03/25/2024 Lab [facility] Transplant Kidney [address] [place] [address] Bessie Alvarado MD from Last 3 Months Surgical History Surgery Date Site/Laterality Comments COLONOSCOPY HYSTEROSCOPY RENAL BIOPSY CENTRAL LINE PLACEMENT > 5 YEARS 05/29/2022 N/A Medical History Medical History Date Comments Hyperlipidemia Hyperlipidemia Hx Other Medical HTN, hypothyroi dism, IGA nephropathy, ovarian cyst; Comments: MAF 06/27/2016 - CKD (chronic kidney disease) , stage V (CMS/HCC) (HCC) Obesity Family History Medical History Relation Name Comments Heart attack Father Other Father Alive and well; Other Mother Alive and well; Heart disease Other 1 Family history of CArdiovascular Disease; Hyperlipidemia Other 2 Family histor y of Hyperlipidemia; Anesthesia problems Neg Hx Relation Name Status Comments Father Alive AR age 70s Mother Alive Other 1 Other 2 Social History Tobacco Use Types Packs/Day Years [...] often do you attend chur ch or mormon services? More than 4 times per year 05/25/2022 Do you belong to any clubs o r organizations such as gnosticist groups, unions, fraternal or athletic groups, or [...] on file Legal Sex Female 11:59 PM CUSTOMER SOLUTIONS ARCHITECT Gender Identity Not on file Sexual Orientation Not on file Obstetrics History Last Filed Vital Signs Vital Sign Reading Time Taken Comments Blood Pressure 138/84 06/03/2024 11:11 AM CUSTOMER SOLUTIONS ARCHITECT Pulse 76 06/03/2024 11:11 AM CUSTOMER SOLUTIONS ARCHITECT Temperature 36.8 C (98.3 F) 06/03/2024 11:11 AM CUSTOMER SOLUTIONS ARCHITECT Respiratory Rate 18 06/28/2022 9:00 AM CUSTOMER SOLUTIONS ARCHITECT Oxygen Saturation 99% 06/28/2022 9:00 AM CUSTOMER SOLUTIONS ARCHITECT Inhaled Oxygen Concentration - - Weight 91.1 kg (200 lb 12.8 oz) 025 11:11 AM CUSTOMER SOLUTIONS ARCHITECT Height 149.9 cm (4' 11 ) 06/03/2024 11: 11 AM CUSTOMER SOLUTIONS ARCHITECT Body Mass Index 40.56 06/03/2024 11:11 AM CUSTOMER SOLUTIONS ARCHITECT Plan of Treatment Scheduled Procedures Name Priority Associated Diagnoses Date/Ti me TRANSPLANT KIDNEY ESRD (end stage renal disease) (CMS/HCC) (HCC) TRANSPLANT KIDNEY ESRD (end stage renal disease) (CMS/HCC) Health Maintenance Due Date Last Done Comments Cervical Cancer Screening 1960 Depression Screening 1960 Regular Well Visit/Exam 18-64 12/29/1977 Zoster Vaccine (1 of 2) 12/29/1978 DTaP/Tdap/Td Vaccine (2 - Td or Tdap) 06/14/2019 06/14/2009 Colon Cancer Screening-Colonoscopy 12/21/2019 12/20/2009 Breast Cancer Screening-Mammogram 02/03/2020 019 Pneumococcal vaccine <65 (2 of 2 - PCV) 02/27/2021 02/28/2020 Influenza Vaccine (#1) 2024 Colon Cancer Screening-CT Colonography Discontinued 12/20/2009 Colon Cancer Screening-DNA Stool Discontinued 12/21/19 10 Colon Cancer Screening-FIT Discontinued 12/20/2009 Colon Cancer Screening-Sigmoidoscopy Discontinued 12/20/2009 Hepatitis B Screening Completed 05/24/2022 Hepatitis C Screening Completed 06/26/2022 , 05/24/2022, 05/24/2022, Additional history exists Medical Devices Explanted Type Area Home Demonstration Agent Device Identifier Shelf Expiration Date Model / Serial / Lot [employer] Double-J 6fr 20cm 100cm 1 Step Insert Push Catheter Fluker Suture [id number] - [id number] Implanted:Qt y: 1 on 05/25/2022 by Aguilar Barfield MD PhD at [facility] Explanted:Qt y: 1 on 06/26/2022 by Monty Harper MD Stent Right: Transplanted Ureter [employer] [id number] 10/30/2026 [id number] / / [id number] Description:Transplanted Ure ter Procedures Procedure Name Priority Date/Time Associated Diagnosis Comments TACROLIMUS LEVEL, TROUGH Routine 05/27/2024 CBC WITH AUTO DIFFERENTIAL Routine 05/27/2024 RENAL FUNCTION PANEL Routine 05/27/2024 EBV DNA PCR Routine 05/27/2024 TACROLIMUS LEVEL, TROUGH Routine 04/27/2024 6:58 AM CUSTOMER SOLUTIONS ARCHITECT RENAL FUNCTION PANEL Routine 04/27/2024 6:58 AM CUSTOMER SOLUTIONS ARCHITECT CBC WITH AUTO DIFFERENTIAL Routine 04/27/2024 6:58 AM CUSTOMER SOLUTIONS ARCHITECT JAZMÍN RENE VIRUS PCR QUALITATIVE Routine 04/27/2024 6:58 AM CUSTOMER SOLUTIONS ARCHITECT BK VIRUS, DNA, QUANTITATIVE Routine 04/27/2024 6:58 AM CUSTOMER SOLUTIONS ARCHITECT JAZMÍN-RENE VIRSU (EBV), QUANTITATIVE, DNA PCR, BLOOD Routine 03/25/2024 TACROLIMUS LEVEL, TROUGH Routine 03/25/2024 CBC WITH AUTO DIFFERENTIAL Routine 03/25/2024 RENAL FUNCTION PANEL Routine 03/25/2024 BK VIRUS, DNA, QUANTITATIVE Routine 03/25/2024 JAZMÍN RENE VIRUS PCR QUALITATIVE Routine 03/25/2024 HEPATITIS C RNA, QUANTITATIVE, PCR Routine 06/26/2022 5:00 PM CUSTOMER SOLUTIONS ARCHITECT Inconclusive laboratory evidence of human immunodeficiency virus (HIV) Aftercare following organ transplant SCREENING MAMMOGRAM 2D BILATERAL Schedule Routine, Read Routine (OP Routine) 02/02/2019 COLONOSCOPY Routine 12/20/2009 from Last 3 Months or Most Recently Relevant to Health Maintenance Results * EBV DNA PCR, Qualitative (05/27/2024) Pathologist [facility] EBV DNA, PCR Nt. Det. TXP NO LAB FOUND 05/27/2024 [facility] Provider MD LAB MICROBIOLOGY - GENERA L ORDERABLES Final Result Performing Organization Address [facility] de Phone Number TXP NO LAB FOUND * Tacrolimus level trough (05/27/2024) Pathologist [facility] SCRIBED Tacrolimus, trough 5.8 5 - 20 TXP NO LAB FOUND Blood 05/27/2024 Historical Provider MD LAB BLOOD ORDERABLES Edit ed Result - Final Performing Organization Address [facility] de Phone Number TXP NO LAB FOUND * (ABNORMAL) CBC with auto differential (05/27/2024) Pathologist [facility] SCRIBED WBC 10.4(A) 4.5 - 10.0 k/cumm TXP NO LAB FOUND SCRIBED Hemoglobin 11.8(A) 12 - 15 g/dL TXP NO LAB FOUND SCRIBED Hematocrit 37 37 - 47 % TXP NO LAB FOUND SCRIBED Platelets 229 150 - 375 k/cumm TXP NO LAB FOUND SCRIBED Lymphocytes Abs 0.73(A) 0.9 - 3.2 k/cumm TXP NO LAB FOUND Blood 05/27/2024 Historical Provider MD LAB BLOOD ORDERABLES Edit ed Result - Final Performing Organization Address [facility] de Phone Number TXP NO LAB FOUND * (ABNORMAL) Renal function panel (05/27/2024) Pathologist [facility] SCRIBED Calcium 9.5 8.4 - 10.2 mg/dl [...] NO LAB FOUND SCRIBED eGFR in NonAfrican Tanzanian 32 >60 TXP NO LAB FOUND SCRIBED Urea Nitrogen (BUN) 27(A) 7 - 17 mg/dl TXP NO LAB FOUND Blood 05/27/2024 us Historical Provider LAB BLOOD ORDERABLES Yajaira l Result TXP NO LAB FOUND * Jazmín Rene Virus PCR Qualitative (04/27/2024 6:58 AM CUSTOMER SOLUTIONS ARCHITECT) SCRIBED EBV PCR Positive TXP NO LAB FOUND EBV DNA log IU/mL <1.54 NT DET LOG IU/mL TXP NO LAB FOUND EBV DNA, PCR <35 NT DET IU/mL TXP NO LAB FOUND 04/27/2024 6:58 AM CUSTOMER SOLUTIONS ARCHITECT us Historical Provider LAB MICROBIOLOGY - GENERA L ORDERABLES Edited Result - Final Performing Organization Address City/[facility]/ZIP Co de Phone Number TXP NO LAB FOUND * BK virus, DNA, quantitative Blood (04/27/2024 6:58 AM CUSTOMER SOLUTIONS ARCHITECT) SCRIBED BK PCR Quant NT DET NT DET copies/mL TXP NO LAB FOUND Blood 04/27/2024 6:58 AM CUSTOMER SOLUTIONS ARCHITECT [facility] Provider LAB MICROBIOLOGY - GENERA L ORDERABLES Final Result Performing Organization Address [facility] de Phone Number [place] NO LAB FOUND * Tacrolimus level trough (04/27/2024 6:58 AM CUSTOMER SOLUTIONS ARCHITECT) SCRIBED Tacrolimus, trough 7 5 - 20 MCG/L TXP NO LAB FOUND Blood 04/27/2024 6:58 AM CUSTOMER SOLUTIONS ARCHITECT [facility] Provider LAB BLOOD ORDERABLES Edit ed Result - Final Performing Organization Address [facility] Phone Number [place] NO LAB FOUND * (ABNORMAL) CBC with auto differential (04/27/2024 6:58 AM CUSTOMER SOLUTIONS ARCHITECT) SCRIBED WBC 10 4.5 - 10 k/cumm TXP NO LAB FOUND SCRIBED Hemoglobin 11.2(A) 12 - 15 g/dL TXP NO LAB FOUND SCRIBED Hematocrit 34.9(A) 37 - 47 % TXP NO LAB FOUND SCRIBED Platelets 230 150 - 375 k/cumm TXP NO LAB FOUND SCRIBED Lymphocytes Abs 0.53(A) 0.9 - 3.2 k/cumm TXP NO LAB FOUND Blood 04/27/2024 6:58 AM CUSTOMER SOLUTIONS ARCHITECT Historical Provider LAB BLOOD ORDERABLES Yajaira l Result Performing Organization Address [facility] de Phone Number [place] NO LAB FOUND * (ABNORMAL) Renal function panel (04/27/2024 6:58 AM CUSTOMER SOLUTIONS ARCHITECT) SCRIBED Calcium 9.6 8.4 - 10.2 mg/dl [...] NO LAB FOUND SCRIBED eGFR in NonAfrican Tanzanian 32 >=60 mL/min TXP NO LAB FOUND SCRIBED Urea Nitrogen (BUN) 24(A) 7 - 17 mg/dl TXP NO LAB FOUND Blood 04/27/2024 6:58 AM CUSTOMER SOLUTIONS ARCHITECT Historical Provider LAB BLOOD ORDERABLES Edit ed Result - Final Performing Organization Address [facility] de Phone Number TXP NO LAB FOUND * Jazmín Rene Virus PCR Qualitative (03/25/2024) SCRIBED EBV PCR Negative TXP NO LAB FOUND Comment:error wrong test 03/25/[address] [facility] Provider LAB MICROBIOLOGY - GENERA L ORDERABLES Edited Result - Final Performing Organization Address [facility] de Phone Number [place] NO LAB FOUND * Jazmín-Rene Virsu (EBV), Quantitative, DNA PCR, Blood (03/25/2024) EBV DNA qn 4,149 COPIES/ML TXP NO LA B FOUND Comment:positive 03/25/2024 Historical Provider LAB BLOOD ORDERABLES Yajaira l Result Performing Organization Address [facility] Co de Phone Number TXP NO LAB FOUND * BK virus, DNA, quantitative Blood (03/25/2024) SCRIBED BK PCR Quant Nt. Det. Nt. Det. copies/mL TXP NO LAB FOUND Blood 03/25/2024 [facility] Provider LAB MICROBIOLOGY - GENERA L ORDERABLES Edited Result - Final Performing Organization Address [facility] de Phone Number TXP NO LAB FOUND * Tacrolimus level trough (03/25/2024) SCRIBED Tacrolimus, trough 6.5 5 - 20 TXP NO LAB FOUND Blood 03/25/2024 [facility] Provider LAB BLOOD ORDERABLES Edit ed Result - Final Performing Organization Address [facility] de Phone Number TXP NO [...] k/cumm TXP NO LAB FOUND Blood 03/25/2024 Result [facility] Historical Provider LAB BLOOD ORDERABLES Edit ed Result - Final Performing Organization Address [facility] de Phone Number TXP NO LAB FOUND * (ABNORMAL) Renal function panel (03/25/2024) SCRIBED Calcium 9.8 8.4 - 10.2 mg/dl [...] NO LAB FOUND SCRIBED eGFR in NonAfrican Tanzanian 35 >=60 TXP NO LAB FOUND SCRIBED Urea Nitrogen (BUN) 26(A) 7 - 17 mg/dl TXP NO LAB FOUND Blood 03/25/2024 [facility] Provider LAB BLOOD ORDERABLES Yajaira montalvo Result Performing Organization Address City/[facility]/ZIP Co de Phone Number [place] NO LAB FOUND * Hepatitis C (HCV) RNA PCR, quantitative (06/26/2022 5:00 PM CUSTOMER SOLUTIONS ARCHITECT) [facility] HCV RNA result Not Detected [facility] Comment: The quantifiable range of this assay is 15 IU/mL to 100,000,000 IU/mL (1.18 log IU/mL to 8.00 log IU/mL). Testing was performed by the [facility]00 HCV Test ([employer] Testing performed at [facility] Current Interpretive Data was last revised on 2020 Blood 06/26/2022 5:00 PM CUSTOMER SOLUTIONS ARCHITECT 06/26/2022 5:25 PM CUSTOMER SOLUTIONS ARCHITECT Mo Velez MD LAB MICROBIOLOGY - GENERAL ORDERABLES Final Result [facility] Department [place] [address] * Screening Mammogram 2D Bilateral (02/02/2019) Anatomical Region Laterality Modality Breast Bilateral Mammography 02/02/2019 Impressions 02/06/2019 3:12 PM CDT Mammogram from [facility] IMPRESSION No mammographic evidence of malignancy. Recommend ourint screening mammography in one year Historical Provider IMG MAMMO PROCEDURES Yajaira l Result * Colonoscopy (12/20/2009) Anatomical Region Laterality Modality Other 12/20/2009 Impressions 02/06/2019 3:10 PM CDT Colonoscopy Results from [facility] IMPRESSION: 1 Internal Hemorrhoids 2. Minimal Diverticulosis us Historical Provider ENDOSCOPY PROCEDURES Yajaira l Result from Last 3 Months or Most Recently Relevant to Health Maintenance Insurance [facility] MEDICARE [facility] MEDICARE MEDICARE [facility] [id number] [place] [address] MEDICARE MEDICARE Advance Directives For more information, please contact: [phone] Documents on File Type Date Recorded Patient Press Hand Expl anation ADVANCE DIRECTIVE 05/28/2022 3:55 PM POWER OF MECHANIC RECOVERY-MEDICAL * Full Code (Latest Code Status on File) Date Activated Date Inactivated Comments 05/25/2022 9:00 PM 06/03/2022 6:34 PM * Full Code Date Activated Date Inactivated Comments 05/24/2022 11:25 PM 05/25/2022 9:00 PM Care Teams Metal Wire Technician Relationship Specialty Start Date End Date Jose Martin Carlos MD [address] [place] [address] PCP - General 07/11/21 Latisha Benavidez, RN [address] [facility] [address] [place] [address] Concrete Puddler 05/25/22
--- OUTSIDE RECORDS SUMMARY | 2024-06-25 06:44 | XMS_ITS | Clinical Summary ---
Author Organization [facility] Address [address] [place] [address] Phone Care Team Providers Care Belt Loop Machine Operator Name Role Phone Dirk Love Primary Care Provider [phone] Allergies Active Allergy Reactions Criticality Noted Date Comments Ibuprofen 02/21/2019 Medications Medication Sig Dispensed Refills Start Date End Date Status levothyroxine (SYNTHROID) 75 MCG tablet 1 daily 12/09/2011 Active omega-3 (FISH OIL) 1000 MG capsule 12/09/2011 Active triamcinolone (KENALOG) 0.1 % ointment CHUCK A THIN LAYER AA BID UNTIL SYMPTOMS RESOLVE 0 10/13/2018 Active ergocalciferol (VITAMIN D2) 1.25 MG (19761 UT) capsule Take 1 capsule (50,000 Units total) by mouth every 14 (fourteen) days 2 capsule 11 04/11/2020 Active pravastatin (PRAVACHOL) 40 MG tablet Take 1 tablet by mouth nightly 300 tablet 06/20/2021 Active hydroCHLOROthiazide (HYDRODIURIL) 50 MG tablet Take 1 tablet (50 mg total) by mouth 1 (one) time each day 30 tablet 11 11/20/2021 Active calcium carbonate (TUMS) 500 MG chewable tablet Chew 1,000 mg 3 (three) times a day with meals Active calcitriol (ROCALTROL) 0.25 MCG capsule Take 1 capsule (0.25 mcg total) by mouth 1 (one) time each day 30 capsule 11 02/12/2022 Active Active Problems Problem Noted Date Diagnosed Date Patient encounter status 02/16/2019 Stage 5 chronic kidney disease 07/14/2018 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 07/14/2018 Hyperlipidemia 02/26/2018 Body mass index 30+ - obesity 06/27/2016 Overview (02/21/2019): Obesity (BMI 30-39.9) Fatigue 06/27/2016 Overview (02/21/2019): Fatigue, unspecified type Essential (primary) hypertension 11/13/2011 Disorder of thyroid 11/13/2011 Immunizations Name Administration Dates Next Due Pneumococcal Polysaccharide 02/28/2020 Family History Medical History Relation Comments Coronary arteriosclerosis Father Coronary arteriosclerosis Mother Kidney disease Neg Hx Kidney stone Neg Hx Relation Status Comments Father Mother Social History Tobacco Use Types Packs/Day Years Used Date Smoking Tobacco: Never Smokeless Tobacco: Never Alcohol Use Standard Drinks/Week Comments Not Currently 0 (1 standard drink = 0.6 oz pur e alcohol) Sex and Gender Information Value Date Recorded Sex Assigned at Not on file Gender Identity Not on file Sexual Orientation Not on file Last Filed Vital Signs Vital Sign Reading Time Taken Comments Blood Pressure 128/55 02/12/2022 2:39 PM CDT Pulse 72 02/12/2022 2:39 PM CDT Temperature 35.8 C (96.4 F) 02/12/2022 2:39 PM CDT Respiratory Rate - - Oxygen Saturation - - Inhaled Oxygen Concentration - - Weight 88 kg (194 lb) 02/12/2022 2:39 PM CDT Height 152.4 cm (5') 02/12/2022 2:39 PM CDT Body Mass Index 37.89 02/12/2022 2:39 PM CDT Plan of Treatment Health Maintenance Due Date Last Done Comments Influenza Vaccine (#1) 2024 Care Teams Belt Loop Machine Operator Relationship Specialty Start Date End Date Dirk Love PA [address] [facility] [address] [place] [address] PCP - General Family Medicine 09/14/20
--- OUTSIDE RECORDS SUMMARY | 2024-06-25 06:44 | XMS_ITS ---
Author Organization [facility] Address [address] [place] [address] Care Team Providers Care Digital Photo Printer Name Role Phone Jose Martin Carlos MD Primary Care Provider + [phone] Latisha Benavidez RN Unavailable [phone] Transplant Episode Kidney Recipient [facility] ([place], [place]) - [facility] Organ Received: Left Kidney Transplanted on 05/25/2022 Marked as Active Follow-up on 05/25/2022 Reason: Transplanted at [facility] Kidney CoordinatorWhdestiny Benavidez RN Fax: N/A Email: N/A Donor Information Organ ABO Source Meets Risk Criteria HLA Match Mismatches Cross Match Left Kidney Transplanted A DBD No A: B: DR: Left Kidney Donor Serology Results Anti-CMV CMV IgG: Positive EBV IgG EBV VCA IgG: Positive Anti-HBcAb HBC Total: Negative HBsAg HBsAg: Negative HBV DNA No results on file Anti-HCV HCV: Negative Anti-HIV I/II No results on file Anti-HTLV I/II HTLV: Negative RPR/VDRL RPR: Negative EBV IgM EBV VCA IgM: Not Done HBsAb HBsAb: Not Done EBNA No results on file SARS CoV-2 No results on file Care Team Name Role Phone Fax Email Latisha Benavidez RN Kidney Coordinator [phone] N/A N/A Xin Joel RN Secondary Coordinator Secondary Post Kidney Coordinator [phone] N/A N/A Ignacio Lala MD Referring Physician [phone] N/A Ilene Beltran Primary Border Inspector N/A N/A N/A Martin Godoy Secondary Border Inspector N/A N/A N/A Therese Locke Silica Dry Press Helper [phone] N/A N/A Latisha Benavidez, plant engineerImmigration Paralegal [phone] N/A N/A Events Post-Transplant Pre-Transplant Admitted: 05/24/2022 Referred: 11/28/2018 Transplanted: 05/25/2022 Evaluation began: 9 Discharged: 06/03/2022 Committee: 02/23/2019 Center waitlisted: 9 Appointments (05/25/2024 - 07/23/2024) When With Visit Type Description 06/03/2024 Transplant - [place], [place] for aftercare following kidney transplant (Primary Dx); Kidney replaced by transplant; hoop puncher current use of immunosuppressive drug; Encounter for long-term (current) use of high-risk medication; Hypertension, unspecified type
--- OUTSIDE RECORDS SUMMARY | 2024-06-25 06:44 | XMS_ITS | Encounter Summary ---
Author Organization [facility] Address [address] [place] [address] Care Team Providers Care Government Services Professional Name Role Phone Benton Bland MD Primary Care Provider [phone]- [phone] Benton Bland MD Primary Care Provider [phone]- [phone] Jose Martin Carlos MD Primary Care Provider +1- [phone] Latisha Benavidez RN Unavailable [phone] Encounter Details Date Type Department Care Team (Late st Contact Info) Description 06/27/2016 Orders Only [facility] ProviderKate MD [address] [place] [address] Social History Tobacco Use Types Packs/Day Years Used Date Smoking Tobacco: Never Alcohol Use Standard Drinks/Week Comments No 0 (1 standard drink = 0.6 oz pur e alcohol) Comments Unknown Sex and Gender Information Value Date Recorded Sex Assigned at Not on file Legal Sex Female 11:59 PM FILTER OPERATOR Gender Identity Not on file Sexual Orientation Not on file documented as of this encounter Plan of Treatment Scheduled Procedures Name Priority Associated Diagnoses Date/Ti me TRANSPLANT KIDNEY ESRD (end stage renal disease) (CMS/HCC) (HCC) TRANSPLANT KIDNEY ESRD (end stage renal disease) (CMS/HCC) documented as of this encounter Procedures Procedure Name Priority Date/Time Associated Diagnosis Comments CARDIOLOGY REPORT 06/27/2016 documented in this encounter Results * CARDIOLOGY REPORT (06/27/2016) Anatomical Region Laterality Modality Other Narrative 06/27/2016 Ordered by an unspecified provider. us Historical Provider [facility] MELENDEZ Final Result documented in this encounter Visit Diagnoses Not on filedocumented in this encounter Care Teams Government Services Professional Relationship Specialty Start Date End Date Benton Bland MD [address] [place] [address] PCP - General 08/10/16 07/10/21 Benton Bland MD [address] [place] [address] PCP - General 12/16/09 08/09/16 Jose Martin Carlos MD [address] [place], [place] [id number] PCP - General 07/11/21 Latisha Benavidez RN [address] [facility] [address] [place] [address] Belt Conveyor Drier 05/25/22 documented as of this encounter
--- OUTSIDE RECORDS SUMMARY | 2024-06-25 06:44 | XMS_ITS | Encounter Summary ---
Author Organization [facility] Address [address] [place] [address] Care Team Providers Care Banking Representative Name Role Phone Benton Bland MD Primary Care Provider [phone]- [phone] Benton Bland MD Primary Care Provider [phone]- [phone] Jose Martin Carlos MD Primary Care Provider [phone]- [phone] Latisha Benavidez RN Unavailable Encounter Details Date Type Department Care Team (Late st Contact Info) Description 05/29/2005 Orders Only [facility] ProviderKate MD [address] [place] [address] Social History Tobacco Use Types Packs/Day Years Used Date Smoking Tobacco: Never Assessed Comments Unknown Sex and Gender Information Value Date Recorded Sex Assigned at Not on file Legal Sex Female 11:59 PM PARKING OFFICER Gender Identity Not on file Sexual Orientation Not on file documented as of this encounter Plan of Treatment Scheduled Procedures Name Priority Associated Diagnoses Date/Ti me TRANSPLANT KIDNEY ESRD (end stage renal disease) ([facility]/HCC) (HCC) TRANSPLANT KIDNEY ESRD (end stage renal disease) ([facility]) documented as of this encounter Procedures Procedure Name Priority Date/Time Associated Diagnosis Comments CARDIOLOGY REPORT 05/29/2005 documented in this encounter Results * CARDIOLOGY REPORT (05/29/2005) Anatomical Region Laterality Modality Other Narrative 05/29/2005 Ordered by an unspecified provider. us Historical Provider [facility] ROS MELENDEZ Final Result documented in this encounter Visit Diagnoses Not on filedocumented in this encounter Care Teams Banking Representative Relationship Specialty Start Date End Date Benton Bland MD [address] [place] [address] PCP - General 08/10/16 07/10/21 Benton Bland MD [address] [place] [address] PCP - General 12/16/09 08/09/16 Jose Martin Carlos MD [address] [place] [address] PCP - General 07/11/21 Latisha Benavidez, RN [address] [facility] [address] [place] [address] Radio Repairer Domestic 05/25/22 documented as of this encounter
--- OUTSIDE RECORDS SUMMARY | 2024-06-25 06:44 | XMS_ITS | Encounter Summary ---
Author Organization [facility] Medical [facility] Address [address] [facility] [address] [place] [address] Care Team Providers Care Contact Lens Blocker And Cutter Name Role Phone Benton Bland MD Primary Care Provider [phone]- [phone] Benton Bland MD Primary Care Provider [phone]- [phone] Jose Martin Carlos MD Primary Care Provider +1- [phone] Latisha Benavidez RN Unavailable [phone] Encounter Details Date Type Department Care Team (Late st Contact Info) Description 08/01/2016 Orders Only [facility] ProviderKate MD [address] [place] [address] Social History Tobacco Use Types Packs/Day Years Used Date Smoking Tobacco: Never Alcohol Use Standard Drinks/Week Comments No 0 (1 standard drink = 0.6 oz pur e alcohol) Comments Unknown Sex and Gender Information Value Date Recorded Sex Assigned at Not on file 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 Gender Identity Not on file Sexual Orientation Not on file documented as of this encounter Plan of Treatment Scheduled Procedures Name Priority Associated Diagnoses Date/Ti me TRANSPLANT KIDNEY ESRD (end stage renal disease) (CMS/HCC) (HCC) TRANSPLANT KIDNEY ESRD (end stage renal disease) (CMS/HCC) documented as of this encounter Procedures Procedure Name Priority Date/Time Associated Diagnosis Comments CARDIOLOGY REPORT 08/01/2016 documented in this encounter Results * CARDIOLOGY REPORT (08/01/2016) Anatomical Region Laterality Modality Other Narrative 08/01/2016 Ordered by an unspecified provider. us Historical Provider [facility] ROS MELENDEZ Final Result documented in this encounter Visit Diagnoses Not on filedocumented in this encounter Care Teams Contact Lens Blocker And Cutter Relationship Specialty Start Date End Date Benton Bland MD [address] [place] [place] [address] PCP - General 08/10/16 07/10/21 Benton Bland MD [address] [place] [address] PCP - General 12/16/09 08/09/16 Jose Martin Carlos MD [address] [place], [place] [id number] PCP - General 07/11/21 Latisha Benavidez RN [address] [facility] [address] [place] [address] Casino Manager 05/25/22 documented as of this encounter
[2024-06-25 08:18] LABS: Add Urine Microscopic? YES; Appearance Urine Turbid (Clear); Bacteria Urine 4+ /hpf; Bilirubin Urine Negative (Negative); Blood Urine 1+ (Negative); Color Urine Yellow (Yellow); Glucose Urine UA Negative (Negative); Ketones Urine Negative (Negative); Leukocyte Esterase Ur 3+ LEU/UL (Negative); Nitrate Urine Positive (Negative); Non Pathogenic Casts 0-2; Protein Urine Trace mg/dL (Negative); RBC Urine 0-2 /hpf (0-2); Specific Grav Ur 1.013 (1.001-1.035); Squamous Epithelial Cell Urine Moderate /hpf (Few); Urobilinogen Urine 0.2 mg/dL (<2.0); WBC Urine >100 /hpf (0-3); pH Urine 5.5 (5.0-9.0)
== END 2024-06-25 06:42 | disposition home or self-care (01) ==
LOC: ANHLAB 06:42
PROVIDERS: PCP Internal Medicine; Visit Provider Internal Medicine
DX: Z94.0 Kidney transplant status (principal)
CPT/HCPCS: 81001

== ENCOUNTER 2024-08-28 06:50 | Outpatient (CLI) | payer OTHER, MEDICARE, SELFPAY ==
--- OUTSIDE RECORDS SUMMARY | 2024-08-28 06:55 | XMS_ITS | Encounter Summary ---
Author Organization [facility] Medical [facility] Address [address] [facility] [address] [place] [address] Care Team Providers Care Dean Of Men Name Role Phone Benton Bland MD Primary Care Provider [phone]- [phone] Benton Bland MD Primary Care Provider [phone]- [phone] Jose Martin Carlos MD Primary Care Provider +1- [phone] Latisha Benavidez RN Unavailable [phone] Encounter Details Date Type Department Care Team (Late st Contact Info) Description 05/29/2005 Orders Only [facility] ProviderKate MD [address] [place] [address] Social History Tobacco Use Types Packs/Day Years Used Date Smoking Tobacco: Never Assessed Comments Unknown Sex and Gender Information Value Date Recorded Sex Assigned at Not on file 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 us Historical Provider [facility] ROS MELENDEZ Final Result documented in this encounter Visit Diagnoses Not on filedocumented in this encounter Care Teams Dean Of Men Relationship Specialty Start Date End Date Benton Bland MD [address] [place] [address] PCP - General 08/10/16 07/10/21 Benton Bland MD [address] [place] [place] [address] PCP - General 12/16/09 08/09/16 Jose Martin Carlos MD [address] [place], [place] [id number] PCP - General 07/11/21 Latisha Benavidez, RN [address] [facility] [address] [place] [address] Supervising Librarian 05/25/22 documented as of this encounter
--- OUTSIDE RECORDS SUMMARY | 2024-08-28 06:55 | XMS_ITS | Encounter Summary ---
Author Organization [facility] Address [address] [facility] [address] [place] [address] Care Team Providers Care Furnace Door Tender Name Role Phone Benton Bland MD Primary Care Provider [phone]- [phone] Benton Bland MD Primary Care Provider [phone]- [phone] Jose Martin Carlos MD Primary Care Provider +1- [phone] Latisha Benavidez RN Unavailable [phone] Encounter Details Date Type Department Care Team (Late st Contact Info) Description 08/01/2016 Orders Only [facility] ProviderKate MD [address] [place] [address] Social History Tobacco Use Types Packs/Day Years Used Date Smoking Tobacco: Never Alcohol Use Standard Drinks/Week Comments No 0 (1 standard drink = 0.6 oz pur e alcohol) Comments Unknown Sex and Gender Information Value Date Recorded Sex Assigned at Not on file 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 [address] [place] [address] Reference Library Assistant 05/25/22 documented as of this encounter
--- OUTSIDE RECORDS SUMMARY | 2024-08-28 06:55 | XMS_ITS | Clinical Summary ---
Author Organization [facility] Address [address] [place] [address] Phone Care Team Providers Care President Name Role Phone Dirk Love Primary Care Provider [phone] Allergies Active Allergy Reactions Criticality Noted Date Comments Ibuprofen 02/21/2019 Medications levothyroxine (SYNTHROID) 75 MCG tablet 1 daily 12/09/2011 Active omega-3 (FISH OIL) 1000 MG capsule 12/09/2011 Active triamcinolone (KENALOG) 0.1 % ointment CHUCK A THIN LAYER AA BID UNTIL SYMPTOMS RESOLVE 0 10/13/2018 Active ergocalciferol (VITAMIN D2) 1.25 MG (02856 UT) capsule Take 1 capsule (50,000 Units total) by mouth every 14 (fourteen) days 2 capsule 11 04/11/2020 Active pravastatin (PRAVACHOL) 40 MG tablet Take 1 tablet by mouth nightly 300 tablet 06/20/2021 Active hydroCHLOROthia zide (HYDRODIURIL) 50 MG tablet Take 1 tablet [...] hypertension 11/13/2011 Disorder of thyroid 11/13/2011 Immunizations Immunization Administration Dates Next Due Pneumococcal Polysaccharide 02/28/2020 [...] at Not on file Legal Sex Female 8:22 AM MST Gender Identity Not on file Sexual Orientation [...] Due Date Last Done Comments Influenza Vaccine (Season Ended) 2025 Insurance [facility] Care Teams President Relationship Specialty Start Date End Date Dirk Love PA [address] [facility] [address] [place] [address] PCP - General Family Medicine 09/14/20
--- OUTSIDE RECORDS SUMMARY | 2024-08-28 06:55 | XMS_ITS | Referral Summary ---
Author Organization [facility] Address [address] [place] [address] Care Team Providers Care Transportation Inspector Name Role Phone Jose Martin Carlos MD Primary Care Provider + [phone] Latisha Benavidez RN Unavailable [phone] Encounters Date Type Department Care Team Description 08/26/2024 Telephone [facility] Transplant Kidney [address] [facility] [address] Mailstop 90-32-360 [place] [address] Ilene Beltran 08/24/2024 Lab [facility] Transplant Kidney [address] [facility] [address] Mail[address] 90-69-360 [place] [address] Bessie Alvarado MD 08/24/2024 Telephone [facility] Transplant Kidney [address] [facility] [address] [id number] [place] [address] Latisha Benavidez, KATIE 08/24/2024 Lab [facility] Transplant Kidney [address] [facility] [address] Mailstop 9029-786 [place] [address] Bessie Alvarado MD 08/24/2024 Lab [facility] Transplant Kidney [address] [facility] [address] Mail[address] 90-91-697 [place] [address] Bessie Alvarado MD 08/20/2024 Lab [facility] Transplant Kidney [address] [facility] [address] Mailstop [address]-29[address] [place] [address] Bessie Alvarado MD 08/20/2024 Lab [facility] Transplant Kidney [address] [facility] [address] [place] [address] Bessie Alvarado MD 07/27/2024 Lab [facility] Transplant Kidney [address] [facility] [address] Mailstop [address]29[address] [place] [address] Bessie Alvarado MD 07/10/2024 Telephone [facility] Transplant Kidney [address] [facility] [address] Mail[address] [facility] [place] [address] Xin Joel RN 07/10/2024 Lab [facility] Transplant Kidney [address] [facility] [address] Mailstop [address] [place] [address] Bessie Alvarado MD 06/29/2024 Lab [facility] Transplant Kidney [address] [facility] [address] [place] [address] Bessie Alvarado MD 06/26/2024 Lab [facility] Transplant Kidney [address] [facility] [address] Mailstop [address] [place] [address] Bessie Alvarado MD 06/25/2024 Lab [facility] Transplant Kidney [address] [facility] [address] Mailstop [address] [place] [address] Bessie Alvarado MD 06/03/2024 Orders Only [facility] Transplant Kidney [address] [facility] [address] Mailstop [address]-29[address] [place] [address] Latisha Benavidez RN Kidney replaced by transplant (Primary Dx) 06/03/2024 11:15 AM HAND ASSEMBLER FOR PULLER OVER Office Visit [facility] Nephrology [address] [facility] 5[address] [place] [address] [place] [address] Laure Corral NP Encounter for aftercare following kidney transplant (Primary Dx); Kidney replaced by transplant; 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; Encounter for long-term (current) use of high-risk medication; Hypertension, unspecified type 06/01/2024 Lab [facility] Transplant Kidney [address] [facility] [address] Mailstop 97-54-229 [place] [address] Bessie Alvarado MD from Last 3 Months Allergies No known active allergies Medications senna-docusate (PERICOLACE) 8.6-50 mg Take 1 tablet by mouth daily 30 tablet 11 3 Active pravastatin (PravachoL) 20 mg tablet Take 2 tablets (40 mg total) by mouth daily 3 Active Additional Information Patient taking differently:40 mg oralNightly, Reported on 06/03/2024 acetaminophen 500 mg capsuleIndicati ons:Pain Take 2 capsules (1,000 mg total) by mouth every 6 (six) hours as needed for pain 3 Active blood glucose strip-disp meter kit Use as directed. 1 kit 3 Active blood glucose diagnostic (glucose blood) strip Use as directed up to four times a day. 100 each 1 3 Active lancets misc Use as directed up to 4 times a day. 100 each 1 3 Active alcohol swabs (Alcohol Wipes) pads, medicated Use as directed. 100 each 3 Active levothyroxine (Synthroid) 125 mcg tablet Take 1 tablet (125 mcg total) by mouth customer consultant before breakfast 30 tablet 3 3 Active famotidine (PEPCID) 20 mg tablet Take 1 tablet (20 mg total) by mouth nightly as needed for heartburn 3 Active cyanocobalamin (vitamin B-12) 1,000 mcg tabletIndicatio ns:Prevention of Vitamin B12 Deficiency Take 1 tablet (1,000 mcg total) by mouth daily 90 tablet 3 3 Active amLODIPine (NORVASC) 5 mg tablet Take 1 tablet by mouth once daily 30 tablet 11 4 Active carvediloL (COREG) 25 mg tabletIndicatio ns:Status post kidney transplant TAKE 1 TABLET BY MOUTH 2 TIMES A DAY WITH MEALS 60 tablet 11 [address] (MYFORTIC) 360 mg EC tabletIndicatio ns:Prevention of Kidney Transplant Rejection Take 1 tablet (360 mg total) by mouth daily HOLDING as of 11/06 for + EBV pcr 4 11/07/19 25 Active Additional Information Patient not taking.Reported on 06/03/2024 aspirin 81 mg enteric coated tablet TAKE ONE TABLET BY MOUTH EVERY DAY 30 tablet 10 4 Active cholecalciferol (VITAMIN D-3) 2000 unit tablet TAKE ONE TABLET BY MOUTH EVERY DAY 30 tablet 11 5 Active tacrolimus XR (Envarsus XR) 1 mg tablet extended release 24 hrIndications:K idney replaced by transplant Take 1 tablet (1 mg total) by mouth daily 90 tablet 3 5 06/03/19 26 Active predniSONE (DELTASONE) 5 mg tablet TAKE ONE TABLET BY MOUTH EVERY DAY 30 tablet 11 5 Active Tradjenta 5 mg tablet TAKE ONE TABLET BY MOUTH EVERY DAY 30 tablet 11 5 Active Active Problems Patient Care Coordination No te Formatting of this note migh t be different from the original. Patient gave verbal consent to speak with [facility]- [phone] Standing orders q- Monthly, FK ,EBV/PCR, q3 [...] 05/25/2022 How often do you attend chur or mormon services? More than 4 times per year 05/25/2022 Do you belong to any clubs o r organizations such as hoahaoism groups, unions, fraternal or athletic groups, or [...] on file Legal Sex Female 11:59 PM HAND ASSEMBLER FOR PULLER OVER Gender Identity Not on file Sexual Orientation Not on file Last Filed Vital Signs Vital Sign Reading Time Taken Comments Blood Pressure 138/84 06/03/2024 11:11 AM HAND ASSEMBLER FOR PULLER OVER Pulse 76 06/03/2024 11:11 AM HAND ASSEMBLER FOR PULLER OVER Temperature 36.8 C (98.3 F) 06/03/2024 11:11 AM HAND ASSEMBLER FOR PULLER OVER Respiratory Rate 18 06/28/2022 9:00 AM HAND ASSEMBLER FOR PULLER OVER Oxygen Saturation 99% 06/28/2022 9:00 AM HAND ASSEMBLER FOR PULLER OVER Inhaled Oxygen Concentration - - Weight 91.1 kg (200 lb 12.8 oz) 025 11:11 AM HAND ASSEMBLER FOR PULLER OVER Height 149.9 cm (4' 11 ) 06/03/2024 11: 11 AM HAND ASSEMBLER FOR PULLER OVER Body Mass Index 40.56 06/03/2024 11:11 AM HAND ASSEMBLER FOR PULLER OVER Plan of Treatment Scheduled Procedures Name Priority Associated Diagnoses Date/Ti me TRANSPLANT KIDNEY ESRD (end stage renal disease) (HCC) TRANSPLANT KIDNEY ESRD (end stage renal disease) (HCC) Medical Devices Explanted Type Area Screw Driver Operator Device Identifier Shelf Expiration Date Model / Serial / Lot Everlasting Values Organized [employer] Double-J 6fr 20cm 100cm 1 Step Insert Push Catheter [place] Suture [id number] - [id number] Implanted:Qt y: 1 on 05/25/2022 by Aguialr Barfield MD PhD at [facility] Explanted:Qt y: 1 on 06/26/2022 by Monty Harper MD Stent Right: Transplanted Ureter Everlasting [employer] [id number] 10/30/2026 [id number] / / [id number] Description:Transplanted Ure ter Procedures Procedure Name Priority Date/Time Associated Diagnosis Comments TACROLIMUS LEVEL, TROUGH Routine 08/20/2024 CBC WITH AUTO DIFFERENTIAL Routine 08/20/2024 HEPATIC FUNCTION PANEL Routine 08/20/2024 LIPID PANEL Routine 08/20/2024 RENAL FUNCTION PANEL Routine 08/20/2024 JAZMÍN RENE VIRUS PCR QUALITATIVE Routine 08/20/2024 HEPATIC FUNCTION PANEL Routine 07/23/2024 RENAL FUNCTION PANEL Routine 07/23/2024 LIPID PANEL Routine 07/23/2024 TACROLIMUS LEVEL, TROUGH Routine 07/23/2024 CBC WITH AUTO DIFFERENTIAL Routine 07/23/2024 EBV DNA PCR Routine 07/23/2024 TACROLIMUS LEVEL, TROUGH Routine 06/25/2024 CBC WITH AUTO DIFFERENTIAL Routine 06/25/2024 RENAL FUNCTION PANEL Routine 06/25/2024 URINALYSIS, MACROSCOPIC Routine 06/25/2024 JAZMÍN RENE VIRUS PCR QUALITATIVE Routine 06/25/2024 HEPATITIS C RNA, QUANTITATIVE, PCR Routine 06/26/2022 5:00 PM HAND ASSEMBLER FOR PULLER OVER Inconclusive laboratory evidence of human immunodeficiency virus (HIV) Aftercare following organ transplant SCREENING MAMMOGRAM 2D BILATERAL Schedule Routine, Read Routine (OP Routine) 02/02/2019 COLONOSCOPY Routine 12/20/2009 from Last 3 Months or Most Recently Relevant to Health Maintenance Results * Jazmín Rene Virus PCR Qualitative (08/20/2024) SCRIBED EBV PCR Negative TXP NO LAB FOUND 08/20/2024 Historical Provider LAB MICROBIOLOGY - GENERA L ORDERABLES Edited Result - Final Performing Organization Address [facility] de Phone Number TXP NO LAB FOUND * Tacrolimus level trough (08/20/2024) SCRIBED Tacrolimus, trough 6.3 5 - 20 TXP NO LAB FOUND Blood 08/20/2024 Historical Provider LAB BLOOD ORDERABLES Edit ed Result - Final Performing Organization Address [facility] Co de Phone Number TXP NO LAB FOUND * (ABNORMAL) CBC with auto differential (08/20/2024) SCRIBED WBC 9.1 4.5 - 10.0 k/cumm TXP NO LAB FOUND SCRIBED Hemoglobin 11.9(A) 12 - 15 g/dL TXP NO LAB FOUND SCRIBED Hematocrit 37.8 37 - 47 % TXP NO LAB FOUND SCRIBED Platelets 231 150 - 375 k/cumm TXP NO LAB FOUND SCRIBED Lymphocytes Abs 0.51(A) 0.9 - 3.2 k/cumm TXP NO LAB FOUND Blood 08/20/2024 [facility] Provider LAB BLOOD ORDERABLES Edit ed Result - Final Performing Organization Address [facility] de Phone Number TXP NO LAB FOUND * Hepatic function panel (08/20/2024) SCRIBED Protein, Total, Serum 7.0 6.3 - 8.2 g/dL TXP NO LAB FOUND SCRIBED Albumin 3.8 3.5 - 5.1 g/dl TXP NO LAB FOUND SCRIBED Bilirubin, Total 0.5 0.2 - 1.3 mg/dL TXP NO LAB FOUND SCRIBED Bilirubin, Direct 0.0 0.0 - 0.3 mg/dL TXP NO LAB FOUND SCRIBED Alkaline Phosphatase 87 38 - 126 Units/L TXP NO LAB FOUND SCRIBED Aspartate Transaminase (AST) 20 14 - 36 Units/L TXP NO LAB FOUND SCRIBED Alanine Transaminase (ALT) 22 6 - 35 Units/L TXP NO LAB FOUND Blood 08/20/2024 [facility] Provider LAB BLOOD ORDERABLES Edit ed Result - Final Performing Organization Address [facility] de Phone Number TXP NO LAB FOUND * (ABNORMAL) Renal function panel (08/20/2024) SCRIBED Calcium 9.7 8.4 - 10.2 mg/dl TXP NO LAB FOUND SCRIBED Phosphorus 3.5 2.5 - 4.5 mg/dl TXP NO LAB FOUND SCRIBED Albumin 3.8 3.5 - 5.1 g/dl TXP NO LAB FOUND SCRIBED Glucose 120(A) 65 - 110 mg/dl TXP NO LAB FOUND SCRIBED Creatinine 1.68(A) 0.7 - 1.0 mg/dl TXP NO LAB FOUND SCRIBED Sodium 139 137 - 145 mmol/L TXP NO LAB FOUND SCRIBED Potassium 4.0 3.4 - 5.0 mmol/L TXP NO LAB FOUND SCRIBED Chloride 106 98 - 107 mmol/L TXP NO LAB FOUND SCRIBED Carbon Dioxide 27 22 - 30 mmol/L TXP NO LAB FOUND SCRIBED eGFR in NonAfrican Bahamian 31 >60 TXP NO LAB FOUND SCRIBED Urea Nitrogen (BUN) 32(A) 7 - 17 mg/dl TXP NO LAB FOUND Blood 08/20/2024 Historical Provider MD LAB BLOOD ORDERABLES Yajaira l Result Performing Organization Address [facility] Co de Phone Number TXP NO LAB FOUND * Lipid panel (08/20/2024) SCRIBED Cholesterol, Total 166 0 - 200 TXP NO LA B FOUND SCRIBED HDL 75 >35 TXP NO L AB FOUND SCRIBED LDL 60 <130 TXP NO L AB FOUND SCRIBED Triglycerides 99 <150 TXP NO LAB FOUND Blood 08/20/2024 Result [facility] Historical Provider LAB BLOOD ORDERABLES Yajaira l Result Performing Organization Address [facility] de Phone Number TXP NO LAB FOUND * EBV DNA PCR, Qualitative (07/23/2024) EBV DNA, PCR Nt. Det. TXP NO LAB FOUND 07/23/2024 Historical Provider LAB MICROBIOLOGY - GENERA L ORDERABLES Edited Result - Final Performing Organization Address [facility] Co de Phone Number TXP NO LAB FOUND * (ABNORMAL) Tacrolimus level trough (07/23/2024) SCRIBED Tacrolimus, trough 2.2(A) 5 - 20 TXP NO LAB FOUND Blood 07/23/2024 Result [facility] Provider LAB BLOOD ORDERABLES Yajaira l Result Performing Organization Address [facility] de Phone Number TXP NO LAB FOUND * (ABNORMAL) CBC with auto differential (07/23/2024) SCRIBED WBC 9.2 4.5 - 10.0 k/cumm TXP NO LAB FOUND SCRIBED Hemoglobin 11.8(A) 12 - 15 g/dL TXP NO LAB FOUND SCRIBED Hematocrit 36.5(A) 37 - 47 % TXP NO LAB FOUND SCRIBED Platelets 210 150 - 372 k/cumm TXP NO LAB FOUND SCRIBED Lymphocytes Abs 0.57(A) 0.9 - 3.2 k/cumm TXP NO LAB FOUND Blood 07/23/2024 Result [facility] Provider LAB BLOOD ORDERABLES Yajaira l Result Performing Organization Address [facility] de Phone Number TXP NO LAB FOUND * Hepatic function panel (07/23/2024) SCRIBED Protein, Total, Serum 7.0 6.3 - 8.2 g/dL TXP NO LAB FOUND SCRIBED Albumin 3.8 3.5 - 5.1 g/dl TXP NO LAB FOUND SCRIBED Bilirubin, Total 0.6 0.2 - 1.3 mg/dL TXP NO LAB FOUND SCRIBED Bilirubin, Direct 0.0 0.0 - 0.3 mg/dL TXP NO LAB FOUND SCRIBED Alkaline Phosphatase 77 38 - 126 Units/L TXP NO LAB FOUND SCRIBED Aspartate Transaminase (AST) 21 14 - 36 Units/L TXP NO LAB FOUND SCRIBED Alanine Transaminase (ALT) 19 6 - 35 Units/L TXP NO LAB FOUND Blood 07/23/2024 Result [facility] Provider LAB BLOOD ORDERABLES Edit ed Result - Final Performing Organization Address [facility] de Phone Number TXP NO LAB FOUND * (ABNORMAL) Renal function panel (07/23/2024) SCRIBED Calcium 9.8 8.4 - 10.2 mg/dl TXP NO LAB FOUND SCRIBED Phosphorus 3.5 2.5 - 4.5 mg/dl TXP NO LAB FOUND SCRIBED Albumin 3.8 3.5 - 5.1 g/dl TXP NO LAB FOUND SCRIBED Glucose 134(A) 65 - 110 mg/dl TXP NO LAB FOUND SCRIBED Creatinine 1.68(A) 0.7 - 1.0 mg/dl TXP NO LAB FOUND SCRIBED Sodium 140 137 - 145 mmol/L TXP NO LAB FOUND SCRIBED Potassium 4.5 3.4 - 5.0 mmol/L TXP NO LAB FOUND SCRIBED Chloride 107 98 - 107 mmol/L TXP NO LAB FOUND SCRIBED Carbon Dioxide 27 22 - 30 mmol/L TXP NO LAB FOUND SCRIBED eGFR in NonAfrican Bahamian 31 >60 TXP NO LAB FOUND SCRIBED Urea Nitrogen (BUN) 32(A) 7 - 17 mg/dl TXP NO LAB FOUND Blood 07/23/2024 us Historical Provider LAB BLOOD ORDERABLES Yajaira l Result TXP NO LAB FOUND * Lipid panel (07/23/2024) SCRIBED Cholesterol, Total 162 0 - 200 TXP NO LA B FOUND SCRIBED HDL 66 >35 TXP NO L AB FOUND SCRIBED LDL 66 <130 TXP NO L AB FOUND SCRIBED Triglycerides 81 <150 TXP NO LAB FOUND Blood 07/23/2024 Historical Provider LAB BLOOD ORDERABLES Yajaira l Result TXP NO LAB FOUND * Jazmín Rene Virus PCR Qualitative (06/25/2024) SCRIBED EBV PCR Negative TXP NO LAB FOUND 06/25/2024 Historical Provider LAB MICROBIOLOGY - GENERA L ORDERABLES Edited Result - Final Performing Organization Address [facility] de Phone Number TXP NO LAB FOUND * Urinalysis, macroscopic Urine (06/25/2024) SCRIBED Urine-Color yellow TXP NO LAB FOUND SCRIBED Appearance turbid TXP NO LAB FOUND SCRIBED Specific Wilmer, Urine 1.013 TXP NO LAB FOUND SCRIBED pH, Urine 5.5 TXP NO LAB FOUND SCRIBED Glucose, Qual, Urine Negative TXP NO LAB FOUND SCRIBED Protein, Urine trace TXP NO LAB FOUND SCRIBED Ketone, Urine neg TXP NO LAB FOUND SCRIBED Bilirubin, Urine neg TXP NO LAB FOUND SCRIBED Urobilinogen, Semi-QN 0.2 TXP NO LAB FOUND SCRIBED Blood, Urine 1+ TXP NO LAB FOUND SCRIBED Nitrite, Urine positive TXP NO LAB FOUND SCRIBED Leukocyte Esterase, Urine 3+ TXP NO LAB FOUND SCRIBED RBC, Urine 0-2 /HPF TXP NO LAB FOUND SCRIBED WBC, Urine >100 TXP NO LAB FOUND SCRIBED Bacteria, Urine 4+ /HPF TXP NO LAB FOUND SCRIBED Cast, Urine 0-2 TXP NO LAB FOUND SCRIBED Epithelial Cells, Urine moderate /HPF TXP NO LAB FOUND Urine 06/25/2024 Historical Provider LAB MICROBIOLOGY - GENERA L ORDERABLES Edited Result - Final Performing Organization Address [facility] de Phone Number TXP NO LAB FOUND * Tacrolimus level trough (06/25/2024) SCRIBED Tacrolimus, trough 5.9 5 - 20 TXP NO LAB FOUND Blood 06/25/2024 Historical Provider LAB BLOOD ORDERABLES Edit ed Result - Final Performing Organization Address [facility] de Phone Number TXP NO LAB FOUND * (ABNORMAL) CBC with auto differential (06/25/2024) SCRIBED WBC 9.5 4.5 - 10.0 k/cumm TXP NO LAB FOUND SCRIBED Hemoglobin 11.8(A) 12.0 - 15.0 g/dL TXP NO LAB FOUND SCRIBED Hematocrit 37.3 37 - 47 % TXP NO LAB FOUND SCRIBED Platelets 250 150 - 375 k/cumm TXP NO LAB FOUND SCRIBED Lymphocytes Abs 0.54(A) 0.9 - 3.2 k/cumm TXP NO LAB FOUND Blood 06/25/2024 Historical Provider LAB BLOOD ORDERABLES Edit ed Result - Final Performing Organization Address [facility] Co de Phone Number TXP NO LAB FOUND * (ABNORMAL) Renal function panel (06/25/2024) SCRIBED Calcium 9.9 8.4 - 10.2 mg/dl TXP NO LAB FOUND SCRIBED Phosphorus 3.3 2.5 - 4.5 mg/dl TXP NO LAB FOUND SCRIBED Albumin 3.6 3.5 - 5.1 g/dl TXP NO LAB FOUND SCRIBED Glucose 122(A) 65 - 110 mg/dl TXP NO LAB FOUND SCRIBED Creatinine 1.56(A) 0.7 - 1.0 mg/dl TXP NO LAB FOUND SCRIBED Sodium 140 137 - 145 mmol/L TXP NO LAB FOUND SCRIBED Potassium 3.9 3.4 - 5.0 mmol/L TXP NO LAB FOUND SCRIBED Chloride 106 98 - 107 mmol/L TXP NO LAB FOUND SCRIBED Carbon Dioxide 29 22 - 30 mmol/L TXP NO LAB FOUND SCRIBED eGFR in NonAfrican Bahamian 33 >=60 TXP NO LAB FOUND SCRIBED Urea Nitrogen (BUN) 23(A) 7 - 17 mg/dl TXP NO LAB FOUND Blood 06/25/2024 Historical Provider LAB BLOOD ORDERABLES Yajaira l Result Performing Organization Address [facility]/ZIP Co de Phone Number TXP NO LAB FOUND * Hepatitis C (HCV) RNA PCR, quantitative (06/26/2022 5:00 PM HAND ASSEMBLER FOR PULLER OVER) [facility] Signature HCV RNA result Not Detected [facility] Comment: The quantifiable range of this assay is 15 IU/mL to 100,000,000 IU/mL (1.18 log IU/mL to 8.00 log IU/mL). Testing was performed by the [employer] 6800 HCV Test ([employer] Testing performed at [facility] Current Interpretive Data was last revised on 2020 Blood 06/26/2022 5:00 PM HAND ASSEMBLER FOR PULLER OVER 06/26/2022 5:25 PM HAND ASSEMBLER FOR PULLER OVER Mo Velez MD LAB MICROBIOLOGY - GENERAL ORDERABLES Final Result [facility] Department [place] [address] * Screening Mammogram 2D Bilateral (02/02/2019) Anatomical Region Laterality Modality Breast Bilateral Mammography 02/02/2019 Impressions 02/06/2019 3:12 PM CDT Mammogram from [facility] IMPRESSION No mammographic evidence of malignancy. [facility] one year Historical Provider IMG MAMMO PROCEDURES Yajaira l Result * Colonoscopy (12/20/2009) Anatomical Region Laterality Modality Other 12/20/2009 Impressions 02/06/2019 3:10 PM CDT Colonoscopy Results from [facility] IMPRESSION: 1 Internal Hemorrhoids 2. Minimal Diverticulosis Historical Provider ENDOSCOPY PROCEDURES Yajaira l Result from Last 3 Months or Most Recently Relevant to Health Maintenance Insurance [facility] H[facility]/PPO Address: [address] [address] [place] [address] MEDICARE [facility] H[facility]/PPO Address: [address] [address] [place] [address] MEDICARE MEDICARE [facility] H[facility]/PPO Address: [address] [address] [place] [address] TRANSPLANT [employer] [facility] HMO/PPO Address: [address] [address] [place] [address] MEDICARE MEDICARE Advance Directives For more information, please contact: [phone] Documents on File Type Date Recorded Patient Link Trainer Operator Expl anation ADVANCE DIRECTIVE 05/28/2022 3:55 PM POWER OF MANAGER [employer]GRIC[employer]URE-MEDICAL * Full Code (Latest Code Status on File) Date Activated Date Inactivated Comments 05/25/2022 9:00 PM 06/03/2022 6:34 PM * Full Code Date Activated Date Inactivated Comments 05/24/2022 11:25 PM 05/25/2022 9:00 PM Care Teams Transportation Inspector Relationship Specialty Start Date End Date Jose Martin Carlos MD [address] [place] [address] PCP - General 07/11/21 Latisha Benavidez, RN [address] [facility] [address] [place] [address] Shuttle Filler 05/25/22
--- OUTSIDE RECORDS SUMMARY | 2024-08-28 06:55 | XMS_ITS ---
Author Organization [facility] Address [address] [place] [address] Care Team Providers Care Body Make Up Artist Name Role Phone Jose Martin Carlos MD Primary Care Provider + [phone] Latisha Benavidez RN Unavailable [phone] Transplant Episode Kidney Recipient [facility] ([place], [place]) - [facility] Organ Received: Left Kidney Transplanted on 05/25/2022 Marked as Active Follow-up on 05/25/2022 Reason: Transplanted at [facility] Kidney CoordinatorWhdestiny Benavidez RN Fax: N/A Email: [...] Fax Email Latisha Benavidez RN Kidney Coordinator [phone] N/A N/A Xin Joel RN Secondary Coordinator Secondary Post Kidney Coordinator [phone] N/A N/A Ignacio Lala MD Referring Physician [phone] N/A Ilene Beltran Primary System Development Engineer N/A N/A N/A Martin Godoy Secondary System Development Engineer N/A N/A N/A Therese Locke Gasateria Attendant [phone] N/A N/A Latisha Benavidez RN Opto Mechanical Engineer [phone] N/A N/A Events Post-Transplant Pre-Transplant Admitted: 05/24/2022 Referred: 11/28/2018 Transplanted: 05/25/2022 Evaluation began: 9 Discharged: 06/03/2022 Committee: 02/23/2019 Center waitlisted: 9
--- OUTSIDE RECORDS SUMMARY | 2024-08-28 06:55 | XMS_ITS | Encounter Summary ---
Author Organization [facility] Address [address] [facility] [address] [place] [address] Care Team Providers Care Cost Control Specialist Name Role Phone Benton Bland MD Primary Care Provider [phone] Benton Bland MD Primary Care Provider [phone] Jose Martin Carlos MD Primary Care Provider [phone]- [phone] Latisha Benavidez RN Unavailable [phone] Encounter Details Date Type Department Care Team (Late st Contact Info) Description 06/27/2016 Orders Only [facility] ProviderKate MD [address] [place] [address] Social History Tobacco Use Types Packs/Day Years Used Date Smoking Tobacco: Never Alcohol Use Standard Drinks/Week Comments No 0 (1 standard drink = 0.6 oz pur e alcohol) Comments Unknown Sex and Gender Information Value Date Recorded Sex Assigned at Not on file 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 Gender Identity Not on file Sexual Orientation [...] on filedocumented in this encounter Care Teams Cost Control Specialist Relationship Specialty Start Date End Date Benton Bland MD [address] [place] [address] PCP - General 08/10/16 07/10/21 Benton Bland MD [address] [facility] [place] [address] PCP - General 12/16/09 08/09/16 Jose Martin Carlos MD [address] [place], [place] [id number] PCP - General 07/11/21 Latisha Benavidez, RN [address] [facility] [address] [place] [address] Production Support Specialist 05/25/22 documented as of this encounter
--- OUTSIDE RECORDS SUMMARY | 2024-08-28 06:55 | XMS_ITS | Clinical Summary ---
Author Organization [facility] Address [address] [place] [address] Care Team Providers Care Wildlife Conservationist Name Role Phone Jose Martin Carlos MD Primary Care Provider [phone] Latisha Benavidez RN Unavailable [phone] Allergies No known active allergies Medications senna-docusate [...] 1 tablet (125 mcg total) by mouth surveyor helper before breakfast 30 tablet 3 3 Active [...] consent to speak with [facility]- [phone] Standing orders q- Monthly, FK ,EBV/PCR, q3 [...] Date Type Department Care Team Description 08/26/2024 [facility] Transplant Kidney [address] [address] [address] [place] [address] Ilene Beltran 08/24/2024 [facility] Transplant Kidney [address] [facility] [address] 90-28-910 [place] [address] Bessie Alvarado MD 08/24/2024 [facility] Transplant Kidney [address] [facility] [address] 90-20-5 [place] [address] Latisha Benavidez RN 08/24/2024 [facility] Transplant Kidney [address] [facility] [address] 90-95-412 [place] [address] Bessie Alvarado MD 08/24/2024 [facility] Transplant Kidney [address] [facility] [address] 90-29-0 [place] [address] Bessie Alvarado MD 08/20/2024 Lab [facility] Transplant Kidney [address] [facility] [address] 90-29-0 [place] [address] Bessie Alvarado MD 08/20/2024 Lab [facility] Transplant Kidney [address] [facility] [address] 90-29-910 [place] [address] Bessie Alvarado MD 07/27/2024 [facility] Transplant Kidney [address] [facility] [address] 90-29-0 [place] [address] Bessie Alvarado MD 07/10/2024 Telephone [facility] Transplant Kidney [address] [facility] [address] 90-29-0 [place] [address] Xin Joel RN 07/10/2024 [facility] Transplant Kidney [address] [facility] [address] 90[address]29-0 [place] [address] Bessie Alvarado MD 06/29/2024 [facility] Transplant Kidney [address] [facility] [address] 90[address]29-0 [place] [address] Bessie Alvarado MD 06/26/2024 [facility] Transplant Kidney [address] [facility] [address] 90[address]29-0 [place] [address] Bessie Alvarado MD 06/25/2024 [facility] Transplant Kidney [address] [facility] [address] 90[address]29-0 [place] [address] Bessie Alvarado MD 06/03/2024 11:15 AM KILN DOOR REPAIRER Office Visit [facility] Nephrology [address] [facility] 5[address] [place] [address] [place] [address] Laure Corral NP Encounter for aftercare following kidney transplant (Primary Dx); Kidney replaced by transplant; detention current use of immunosuppressive drug; Encounter for long-term (current) use of high-risk medication; Hypertension, unspecified type 06/03/2024 Orders Only [facility] Transplant Kidney [address] [facility] [address] 70-30-517 [place] [address] Latisha Benavidez RN Kidney replaced by transplant (Primary Dx) 06/01/2024 Lab [facility] Transplant Kidney [address] [facility] [address] 53-41-680 [place] [address] Bessie Alvarado MD from Last 3 Months Surgical History Surgery Date Site/Laterality Comments COLONOSCOPY HYSTEROSCOPY RENAL BIOPSY CENTRAL LINE PLACEMENT > 5 YEARS 05/29/2022 N/A Medical History Medical History Date Comments Hyperlipidemia Hyperlipidemia Hx Other Medical HTN, hypothyroi dism, IGA nephropathy, ovarian cyst; Comments: MAF 06/27/2016 - CKD (chronic kidney disease) , stage V (HCC) Obesity Family History Medical History Relation Name Comments Heart attack Father Other Father Alive and well; Other Mother Alive and well; Heart disease Other 1 Family history of CArdiovascular Disease; Hyperlipidemia Other 2 Family histor y of Hyperlipidemia; Anesthesia problems Neg Hx Relation Name Status Comments Father Alive [place] age 70s Mother Alive Other 1 Other [...] often do you attend chur ch or zoroastrian services? More than 4 times per year 05/25/2022 Do you belong to any clubs o r organizations such as scientologist groups, unions, fraternal or athletic groups, or [...] on file Legal Sex Female 11:59 PM KILN DOOR REPAIRER Gender Identity Not on file Sexual Orientation Not on file Obstetrics History Last Filed Vital Signs Vital Sign Reading Time Taken Comments Blood Pressure 138/84 06/03/2024 11:11 AM KILN DOOR REPAIRER Pulse 76 06/03/2024 11:11 AM KILN DOOR REPAIRER Temperature 36.8 C (98.3 F) 06/03/2024 11:11 AM KILN DOOR REPAIRER Respiratory Rate 18 06/28/2022 9:00 AM KILN DOOR REPAIRER Oxygen Saturation 99% 06/28/2022 9:00 AM KILN DOOR REPAIRER Inhaled Oxygen Concentration - - Weight 91.1 kg (200 lb 12.8 oz) 025 11:11 AM KILN DOOR REPAIRER Height 149.9 cm (4' 11 ) 06/03/2024 11: 11 AM KILN DOOR REPAIRER Body Mass Index 40.56 06/03/2024 11:11 AM KILN DOOR REPAIRER Plan of Treatment Scheduled Procedures Name Priority Associated Diagnoses Date/Ti me TRANSPLANT KIDNEY ESRD (end stage renal disease) (HCC) TRANSPLANT KIDNEY ESRD (end stage renal disease) (HCC) Health Maintenance Due Date Last Done Comments Cervical Cancer Screening 1960 Depression Screening 1960 Regular Well Visit/Exam 18-64 12/29/1977 Zoster Vaccine (1 of 2) 12/29/1978 DTaP/Tdap/Td Vaccine (2 - Td or Tdap) 06/14/2019 06/14/2009 Colon Cancer Screening-Colonoscopy 12/21/2019 12/20/2009 Breast Cancer Screening-Mammogram 02/03/2020 019 Pneumococcal vaccine <65 (2 of 2 - PCV) 02/27/2021 02/28/2020 Influenza Vaccine (Season Ended) 2025 Colon Cancer Screening-CT Colonography Discontinued 12/20/2009 Colon Cancer Screening-DNA Stool Discontinued 12/21/19 10 Colon Cancer Screening-FIT Discontinued 12/20/2009 Colon Cancer Screening-Sigmoidoscopy Discontinued 12/20/2009 Hepatitis B Screening Completed 05/24/2022 Hepatitis C Screening Completed 06/26/2022 , 05/24/2022, 05/24/2022, Additional history exists Medical Devices Explanted Type Area Hand Worker Device Identifier Shelf Expiration Date Model / Serial / Lot Planbus Double-J 6fr 20cm 100cm 1 Step Insert Push Catheter [place] [employer] [id number] - [id number] Implanted:Qt y: 1 on 05/25/2022 by Aguilar Barfield MD PhD at [facility] Explanted:Qt y: 1 on 06/26/2022 by Monty Haprer MD Stent Right: Transplanted Ureter [employer] [id number] 10/30/2026 [id number] / / [id number] Description:Transplanted Ure ter Procedures Procedure Name Priority [...] RNA, QUANTITATIVE, PCR Routine 06/26/2022 5:00 PM KILN DOOR REPAIRER Inconclusive laboratory evidence of human immunodeficiency virus (HIV) Aftercare following organ transplant SCREENING MAMMOGRAM 2D BILATERAL Schedule Routine, Read Routine (OP Routine) 02/02/2019 COLONOSCOPY Routine 12/20/2009 from Last 3 Months or Most Recently Relevant to Health Maintenance Results * Jazmín Rene Virus PCR Qualitative (08/20/2024) SCRIBED EBV PCR Negative TXP NO LAB FOUND 08/20/2024 [facility] Provider LAB MICROBIOLOGY - GENERA L ORDERABLES Edited Result - Final Performing Organization Address [facility] de Phone Number TXP NO LAB FOUND * Tacrolimus level trough (08/20/2024) SCRIBED Tacrolimus, trough 6.3 5 - 20 TXP NO LAB FOUND Blood 08/20/2024 [facility] Provider LAB BLOOD ORDERABLES Edit ed Result - Final Performing Organization Address [facility] de Phone Number TXP [...] k/cumm TXP NO LAB FOUND Blood 08/20/2024 Historical Provider LAB BLOOD ORDERABLES Edit ed Result - Final Performing Organization Address [facility] de Phone Number TXP [...] Units/L TXP NO LAB FOUND Blood 08/20/2024 us Historical Provider LAB BLOOD ORDERABLES Edit ed [...] ORDERABLES Yajaira l Result Performing Organization Address [facility] Co de Phone Number TXP NO LAB FOUND * Lipid panel (08/20/2024) SCRIBED Cholesterol, Total 166 0 - 200 TXP NO LA B FOUND SCRIBED HDL 75 >35 TXP NO L AB FOUND SCRIBED LDL 60 <130 TXP NO L AB FOUND SCRIBED Triglycerides 99 <150 TXP NO LAB FOUND Blood 08/20/2024 Result [facility] Provider MD LAB BLOOD ORDERABLES Yajaira l Result Performing Organization Address [facility] de Phone Number TXP NO LAB FOUND * EBV DNA PCR, Qualitative (07/23/2024) Pathologist [facility] EBV DNA, PCR Nt. Det. TXP NO LAB FOUND 07/23/2024 Result [facility] Provider LAB MICROBIOLOGY - GENERA L ORDERABLES Edited Result - Final Performing Organization Address [facility] de Phone Number TXP NO LAB FOUND * (ABNORMAL) Tacrolimus level trough (07/23/2024) Pathologist [facility] SCRIBED Tacrolimus, trough 2.2(A) 5 - 20 TXP NO LAB FOUND Blood 07/23/2024 Result [facility] Provider MD LAB BLOOD ORDERABLES Yajaira l Result Performing Organization Address [facility] Co de Phone Number TXP NO LAB FOUND * (ABNORMAL) CBC with auto differential (07/23/2024) Pathologist [facility] SCRIBED WBC 9.2 4.5 - 10.0 k/cumm TXP NO LAB FOUND SCRIBED Hemoglobin 11.8(A) 12 - 15 g/dL TXP NO LAB FOUND SCRIBED Hematocrit 36.5(A) 37 - 47 % TXP NO LAB FOUND SCRIBED Platelets 210 150 - 372 k/cumm TXP NO LAB FOUND SCRIBED Lymphocytes Abs 0.57(A) 0.9 - 3.2 k/cumm TXP NO LAB FOUND Blood 07/23/2024 Historical Provider LAB BLOOD ORDERABLES Yajaira l Result TXP NO LAB FOUND * Hepatic function [...] Units/L TXP NO LAB FOUND Blood 07/23/2024 Historical Provider LAB BLOOD ORDERABLES Edit ed [...] mg/dl TXP NO LAB FOUND Blood 07/23/2024 [facility] Provider MD LAB BLOOD ORDERABLES Yajaira l Result Performing Organization Address [facility]/ZIP Co de Phone Number TXP NO LAB FOUND * Lipid panel (07/23/2024) SCRIBED Cholesterol, Total 162 0 - 200 TXP NO LA B FOUND SCRIBED HDL 66 >35 TXP NO L AB FOUND SCRIBED LDL 66 <130 TXP NO L AB FOUND SCRIBED Triglycerides 81 <150 TXP NO LAB FOUND Blood 07/23/2024 [facility] Provider LAB BLOOD ORDERABLES Yajaira l Result Performing Organization Address [facility] de Phone Number TXP NO LAB FOUND * Jazmín Rene Virus PCR Qualitative (06/25/2024) SCRIBED EBV PCR Negative TXP NO LAB FOUND 06/25/2024 [facility] Provider LAB MICROBIOLOGY - GENERA L ORDERABLES Edited Result - Final Performing Organization Address [facility] Co de Phone Number TXP NO LAB FOUND * Urinalysis, macroscopic Urine (06/25/2024) SCRIBED Urine-Color yellow TXP NO LAB FOUND SCRIBED Appearance turbid TXP NO LAB FOUND SCRIBED Specific [place], Urine 1.013 TXP NO LAB FOUND SCRIBED [...] Edited Result - Final Performing Organization Address [facility] Co de Phone Number TXP NO LAB FOUND * Tacrolimus level trough (06/25/2024) SCRIBED Tacrolimus, trough 5.9 5 - 20 TXP NO LAB FOUND Blood 06/25/2024 [facility] Provider LAB BLOOD ORDERABLES Edit ed Result - Final Performing Organization Address [facility] de Phone Number TXP [...] k/cumm TXP NO LAB FOUND Blood 06/25/2024 [facility] Provider LAB BLOOD ORDERABLES Edit ed Result - Final Performing Organization Address [facility]/ZIP Co de Phone Number TXP NO LAB FOUND * (ABNORMAL) Renal function panel (06/25/2024) Pathologist [facility] SCRIBED Calcium 9.9 8.4 - 10.2 mg/dl [...] mg/dl TXP NO LAB FOUND Blood 06/25/2024 [facility] Provider LAB BLOOD ORDERABLES Yajaira l Result Performing Organization Address [facility] Co de Phone Number TXP NO LAB FOUND * Hepatitis C (HCV) RNA PCR, quantitative (06/26/2022 5:00 PM KILN DOOR REPAIRER) Pathologist [facility] HCV RNA result Not Detected CITLALY APODACA Comment: The quantifiable range of this assay is 15 IU/mL to 100,000,000 IU/mL (1.18 log IU/mL to 8.00 log IU/mL). Testing was performed by the [employer] 6800 HCV Test ([employer] Testing performed at [facility] Current Interpretive Data was last revised on 2020 Blood 06/26/2022 5:00 PM KILN DOOR REPAIRER 06/26/2022 5:25 PM KILN DOOR REPAIRER Mo Velez MD LAB MICROBIOLOGY - GENERAL ORDERABLES Final Result CITLALY [facility] Department [place] [address] * Screening Mammogram 2D Bilateral (02/02/2019) Anatomical Region Laterality Modality Breast Bilateral Mammography 02/02/2019 Impressions 02/06/2019 3:12 PM CDT Mammogram from [facility] IMPRESSION No mammographic evidence of malignancy. Recommend ourint screening mammography in one year Historical Provider IMG MAMMO PROCEDURES Yajaira l Result * Colonoscopy (12/20/2009) Anatomical Region Laterality Modality Other 12/20/2009 Impressions 02/06/2019 3:10 PM CDT Colonoscopy Results from [facility] IMPRESSION: 1 Internal Hemorrhoids 2. 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
[2024-08-28 07:58] LABS: Free T4 Free Thyroxine 2.25 ng/dL (0.78-2.19)
[2024-08-28 08:11] LABS: Thyroid Stimulating Hormone 0.075 uIU/mL (0.465-4.680)
== END 2024-08-28 06:51 | disposition home or self-care (01) ==
PROVIDERS: PCP Internal Medicine; Visit Provider Internal Medicine
DX: E03.9 Hypothyroidism, unspecified (principal)
CPT/HCPCS: 36415; 84439; 84443

== ENCOUNTER 2024-09-06 08:36 | Inpatient (IN) | payer OTHER, MEDICARE, SELFPAY ==
[2024-09-06] VITALS (7 sets, daily range): BP systolic 147–170; BP diastolic 78–94; PULSE 63–85; RESP 14–16; TEMP 36–36.2; O2SAT 97–98; BMI 40.4
--- NOTE | ~2024-09-06 | CT_ITS ---
EXAMINATION: CT abdomen pelvis wo con DATE: 09/06/2024 10:17 INDICATION: Right lower quadrant abdominal pain. Elevated lipase. TECHNIQUE: Computed tomography (CT) of the abdomen and pelvis was performed without intravenous contr ast. Automated exposure control and iterative reconstruction technique were employed. The dose-length product was 593.17 mGy-cm. COMPARISON: CT dated 10/28/2022 FINDINGS: Mild discoid atelectasis in the left lower and right middle lobes. Heart size is normal. Atherosclero tic coronary artery calcification. No pericardial or pleural effusion. Severe renal atrophy. Right pe lvic transplant kidney. Liver, gallbladder, spleen, pancreas and bilateral adrenal glands are normal. There is moderate colonic diverticulosis with a sigmoid predominance. There is no adjacent inflammat ory change to suggest diverticulitis. Small bowel and appendix are normal. Bladder, anteverted uteru s and bilateral adnexa are unremarkable. No free intraperitoneal gas or fluid. No pathologically enla rged abdominal or pelvic lymphadenopathy. Moderate disc height loss with vacuum phenomena at L5-S1. O therwise mild lumbar and lower thoracic spondylosis. IMPRESSION: 1. 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 2. Diverticulosis. Reviewed, dictated and finalized at location A.
--- NOTE | ~2024-09-06 | US_ITS ---
EXAMINATION: US abdomen limited DATE: 09/06/2024 12:05 INDICATION: Elevated lipase TECHNIQUE: Multiple grayscale and Doppler ultrasound images of the abdomen were obtained. COMPARISON: CT dated 09/06/2024 FINDINGS: The pancreatic head and body are normal in appearance. The pancreatic tail is not visualized. Liver has normal echogenicity and contour, with a smooth surface. No liver lesion identified. No intrahepat ic biliary duct dilation suspected. Portal venous flow was seen in the hepatopetal, normal direction and has normal Doppler waveform. The gallbladder is normal in appearance. There is no cholelithiasis . The common bile duct measures 2 mm, which is normal. Sonographic Bond sign was reported as negati ve by the instructor physical.The visualized proximal inferior vena cava is normal. IMPRESSION: 1. Normal right upper quadrant ultrasound. Reviewed, dictated and finalized at location A.
--- OUTSIDE RECORDS SUMMARY | 2024-09-06 08:38 | XMS_ITS | Referral Summary ---
Author Organization [facility] Address [address] [place] [address] Care Team Providers Care Office Machine Servicer Name Role Phone Jose Martin Carlos MD Primary Care Provider + [phone] Latisha Benavidez RN Unavailable Encounters Date Type Department Care Team Description 08/26/[address] [facility] Transplant Kidney [address] [facility] [address] [phone] [place] [address] Ilene Beltran 08/24/[address] [facility] Transplant Kidney 4590 [facility] [address] [phone] [place] [address] Bessie Alvarado MD 08/24/[address] [facility] Transplant Kidney 45[address] [facility] [address] [id number] [place] [address] Latisha Benavidez, KATIE 08/24/[address] [facility] Transplant Kidney [address] [facility] [address] 9029-851 [place] [address] Bessie Alvarado MD 08/24/[address] [facility] Transplant Kidney 45[address] [facility] [phone] [address] Bessie Alvarado MD 08/20/[address] [facility] Transplant Kidney 45[address] [facility] [address] [place] [address] Bessie Alvarado MD 08/20/[address] [facility] Transplant Kidney [address] [place] [address] [place] [address] Bessie Alvarado MD 07/27/[address] [facility] Transplant Kidney [address] [place] [place] [address] [place] [address] Bessie Alvarado MD 07/10/[address] [facility] Transplant Kidney [address] [place] [address] [address] Xin Joel RN 07/10/[address] [facility] Transplant Kidney 45[address] [facility] 340 [address] [facility] [place] [address] Bessie Alvarado MD 06/29/[address] [facility] Transplant Kidney [address] [place] [address] [place] [address] Bessie Alvarado MD 06/26/[address] [facility] Transplant Kidney [address] [place] [address] [address] [facility] [place] [address] Bessie Alvarado MD 06/25/[address] [facility] Transplant Kidney [address] [place] [address] [place] [address] [place] [address] Bessie Alvarado MD from Last 3 Months [...] to four times a day. 100 each 3 Active lancets misc Use as directed up to 4 times a day. 100 each 3 Active alcohol swabs (Alcohol Wipes) pads, medicated Use as directed. 100 each 3 Active levothyroxine (Synthroid) 125 mcg tablet Take 1 tablet (125 mcg total) by mouth manager channel before breakfast 30 tablet 3 3 Active [...] XR) 1 mg tablet extended release 24 hrIndications:Ana matos replaced by transplant Take 1 tablet (1 [...] Patient gave verbal consent to speak with [facility]- [phone] Standing orders q- Monthly, FK ,EBV/PCR, q3 [...] any clubs o r organizations such as yarsani groups, unions, fraternal or athletic groups, or [...] on file Legal Sex Female 11:59 PM WINE STEWARD Gender Identity Not on file Sexual Orientation Not on file Last Filed Vital Signs Vital Sign Reading Time Taken Comments Blood Pressure 138/84 06/03/2024 11:11 AM WINE STEWARD Pulse 76 06/03/2024 11:11 AM WINE STEWARD Temperature 36.8 C (98.3 F) 06/03/2024 11:11 AM WINE STEWARD Respiratory Rate 18 06/28/2022 9:00 AM WINE STEWARD Oxygen Saturation 99% 06/28/2022 9:00 AM WINE STEWARD Inhaled Oxygen Concentration - - Weight 91.1 kg (200 lb 12.8 oz) 025 11:11 AM WINE STEWARD Height 149.9 cm (4' 11 ) 06/03/2024 11: 11 AM WINE STEWARD Body Mass Index 40.56 06/03/2024 11:11 AM WINE STEWARD Plan of Treatment Scheduled Procedures Name Priority Associated Diagnoses Date/Ti me TRANSPLANT KIDNEY ESRD (end stage renal disease) (HCC) TRANSPLANT KIDNEY ESRD (end stage renal disease) (HCC) Medical Devices Explanted Type Area [employer] Device Identifier Shelf Expiration Date Model / Serial / Lot [employer] Double-J 6fr 20cm 100cm 1 Step Insert Push Catheter [place] Suture [id number] - [id number] Implanted:Qt y: 1 on 05/25/2022 by Aguilar Barfield MD PhD at [facility] Explanted:Qt y: 1 on 06/26/2022 by Monty Harper MD Stent Right: Transplanted Ureter [employer] [id number] 10/30/2026 [id number] / / [id number] Description:Transplanted Ure ter Procedures Procedure Name Priority Date/Time Associated Diagnosis Comments TACROLIMUS LEVEL, TROUGH Routine 08/20/2024 CBC WITH AUTO DIFFERENTIAL Routine 08/20/2024 HEPATIC FUNCTION PANEL Routine 08/20/2024 LIPID PANEL Routine 08/20/2024 RENAL FUNCTION PANEL Routine 08/20/2024 JAZMÍN ZHU VIRUS PCR QUALITATIVE Routine 08/20/2024 HEPATIC FUNCTION PANEL Routine 07/23/2024 RENAL FUNCTION PANEL Routine 07/23/2024 LIPID PANEL Routine 07/23/2024 TACROLIMUS LEVEL, TROUGH Routine 07/23/2024 CBC WITH AUTO DIFFERENTIAL Routine 07/23/2024 EBV DNA PCR Routine 07/23/2024 TACROLIMUS LEVEL, TROUGH Routine 06/25/2024 CBC WITH AUTO DIFFERENTIAL Routine 06/25/2024 RENAL FUNCTION PANEL Routine 06/25/2024 URINALYSIS, MACROSCOPIC Routine 06/25/2024 JAZMÍN ZHU VIRUS PCR QUALITATIVE Routine 06/25/2024 HEPATITIS C RNA, QUANTITATIVE, PCR Routine 06/26/2022 5:00 PM WINE STEWARD Inconclusive laboratory evidence of human immunodeficiency virus (HIV) Aftercare following organ transplant SCREENING MAMMOGRAM 2D BILATERAL Schedule Routine, Read Routine (OP Routine) 02/02/2019 COLONOSCOPY Routine 12/20/2009 from Last 3 Months or Most Recently Relevant to Health Maintenance Results * Jazmín Zhu Virus PCR Qualitative (08/20/2024) SCRIBED EBV PCR Negative TXP NO LAB FOUND 08/20/2024 Result [facility] Provider LAB MICROBIOLOGY - GENERA L ORDERABLES Edited Result - Final Performing Organization Address [facility] de Phone Number TXP NO LAB FOUND * Tacrolimus level trough (08/20/2024) Pathologist [facility] SCRIBED Tacrolimus, trough 6.3 5 - 20 TXP NO LAB FOUND Blood 08/20/2024 [facility] Provider LAB BLOOD ORDERABLES Edit ed Result - Final Performing Organization Address [facility] de Phone Number TXP NO LAB FOUND * (ABNORMAL) CBC with auto differential (08/20/2024) Pathologist [facility] SCRIBED WBC 9.1 4.5 - 10.0 k/cumm TXP NO LAB FOUND SCRIBED Hemoglobin 11.9(A) 12 - 15 g/dL TXP NO LAB FOUND SCRIBED Hematocrit 37.8 37 - 47 % TXP NO LAB FOUND SCRIBED Platelets 231 150 - 375 k/cumm TXP NO LAB FOUND SCRIBED Lymphocytes Abs 0.51(A) 0.9 - 3.2 k/cumm TXP NO LAB FOUND Blood 08/20/2024 Result [facility] Provider LAB BLOOD ORDERABLES Edit ed Result - Final Performing Organization Address [facility] de Phone Number TXP NO LAB FOUND [...] Units/L TXP NO LAB FOUND Blood 08/20/2024 Result [facility] Provider LAB BLOOD ORDERABLES Edit ed Result - Final Performing Organization Address [facility]/ZIP Co de Phone Number TXP NO LAB [...] NO LAB FOUND SCRIBED eGFR in NonAfrican Sierra Leonean 31 >60 TXP NO LAB FOUND SCRIBED Urea Nitrogen (BUN) 32(A) 7 - 17 mg/dl TXP NO LAB FOUND Blood 08/20/2024 [facility] Provider LAB BLOOD ORDERABLES Yajaira l Result Performing Organization Address [facility]/ZIP Co de Phone Number TX NO LAB FOUND * Lipid panel (08/20/2024) SCRIBED Cholesterol, Total 166 0 - 200 TXP NO LA B FOUND SCRIBED HDL 75 >35 TXP NO L AB FOUND SCRIBED LDL 60 <130 TXP NO L AB FOUND SCRIBED Triglycerides 99 <150 TXP NO LAB FOUND Blood 08/20/2024 Result [facility] Provider LAB BLOOD ORDERABLES Yajaira l Result Performing Organization Address [facility] Co de Phone Number TXP NO LAB FOUND * EBV DNA PCR, Qualitative (07/23/2024) EBV DNA, PCR Nt. Det. TXP NO LAB FOUND 07/23/2024 Result [facility] Provider LAB MICROBIOLOGY - GENERA L ORDERABLES Edited Result - Final Performing Organization Address [facility] de Phone Number TXP NO LAB FOUND * (ABNORMAL) Tacrolimus level trough (07/23/2024) Pathologist [facility] SCRIBED Tacrolimus, trough 2.2(A) 5 - 20 TXP NO LAB FOUND Blood 07/23/2024 Result [facility] Provider LAB BLOOD ORDERABLES Yajaira l Result Performing Organization Address [facility] de Phone Number TXP NO LAB FOUND [...] TXP NO LAB FOUND Blood 07/23/2024 Result [facility] Provider LAB BLOOD ORDERABLES Yajaira l Result Performing Organization Address [facility]/ZIP Co de Phone Number TXP NO LAB [...] ed Result - Final Performing Organization Address [facility] Co de Phone Number TXP [...] NO LAB FOUND SCRIBED eGFR in NonAfrican Sierra Leonean 31 >60 TXP NO LAB FOUND SCRIBED Urea Nitrogen (BUN) 32(A) 7 - 17 mg/dl TXP NO LAB FOUND Blood 07/23/2024 Historical Provider LAB BLOOD ORDERABLES Yajaira l Result Performing Organization Address [facility]/ZIP Co de Phone Number TXP NO LAB FOUND * Lipid panel (07/23/2024) SCRIBED Cholesterol, Total 162 0 - 200 TXP NO LA B FOUND SCRIBED HDL 66 >35 TXP NO L AB FOUND SCRIBED LDL 66 <130 TXP NO L AB FOUND SCRIBED Triglycerides 81 <150 TXP NO LAB FOUND Blood 07/23/2024 [facility] Provider LAB BLOOD ORDERABLES Yajaira l Result Performing Organization Address [facility] Co de Phone Number TXP NO LAB FOUND * Jazmín Zhu Virus PCR Qualitative (06/25/2024) SCRIBED EBV PCR Negative TXP NO LAB FOUND 06/25/2024 Result [facility] Provider LAB MICROBIOLOGY - GENERA L ORDERABLES Edited Result - Final Performing Organization Address [facility] Co de Phone Number TXP NO LAB FOUND * Urinalysis, macroscopic Urine (06/25/2024) SCRIBED Urine-Color yellow TXP NO LAB FOUND SCRIBED Appearance turbid TXP NO LAB FOUND SCRIBED Specific [place], Urine 1.013 TXP NO LAB FOUND SCRIBED [...] /HPF TXP NO LAB FOUND Urine 06/25/2024 [facility] Provider LAB MICROBIOLOGY - GENERA L ORDERABLES Edited Result - Final Performing Organization Address [facility] de Phone Number TXP NO LAB FOUND * Tacrolimus level trough (06/25/2024) Pathologist [facility] SCRIBED Tacrolimus, trough 5.9 5 - 20 TXP NO LAB FOUND Blood 06/25/2024 [facility] Provider LAB BLOOD ORDERABLES Edit ed Result - Final Performing Organization Address [facility] de Phone Number TXP NO LAB FOUND * (ABNORMAL) CBC with auto differential (06/25/2024) Pathologist [facility] SCRIBED WBC 9.5 4.5 - 10.0 k/cumm TXP NO LAB FOUND SCRIBED Hemoglobin 11.8(A) 12.0 - 15.0 g/dL TXP NO LAB FOUND SCRIBED Hematocrit 37.3 37 - 47 % TXP NO LAB FOUND SCRIBED Platelets 250 150 - 375 k/cumm TXP NO LAB FOUND SCRIBED Lymphocytes Abs 0.54(A) 0.9 - 3.2 k/cumm TXP NO LAB FOUND Blood 06/25/2024 Result [facility] Provider LAB BLOOD ORDERABLES Edit ed Result - Final Performing Organization Address [facility] de Phone Number TXP NO LAB FOUND * (ABNORMAL) Renal function panel (06/25/2024) Pathologist [facility] SCRIBED Calcium 9.9 8.4 - 10.2 mg/dl [...] NO LAB FOUND SCRIBED eGFR in NonAfrican Sierra Leonean 33 >=60 TXP NO LAB FOUND SCRIBED Urea Nitrogen (BUN) 23(A) 7 - 17 mg/dl TXP NO LAB FOUND Blood 06/25/2024 Historical Provider LAB BLOOD ORDERABLES Yajaira l Result [facility] NO LAB FOUND * Hepatitis C (HCV) RNA PCR, quantitative (06/26/2022 5:00 PM WINE STEWARD) Pathologist [facility] HCV RNA result Not Detected [facility] Comment: The quantifiable range of this assay is 15 IU/mL to 100,000,000 IU/mL (1.18 log IU/mL to 8.00 log IU/mL). Testing was performed by the [facility] 6800 HCV Test ([employer] Testing performed at [facility] Current Interpretive Data was last revised on 2020 Blood 06/26/2022 5:00 PM WINE STEWARD 06/26/2022 5:25 PM WINE STEWARD Mo Velez MD LAB MICROBIOLOGY - GENERAL ORDERABLES Final Result [facility] [place] [address] * Screening Mammogram 2D Bilateral (02/02/2019) Anatomical Region Laterality Modality Breast Bilateral Mammography 02/02/2019 Impressions 02/06/2019 3:12 PM CDT Mammogram from [facility] IMPRESSION No mammographic evidence of malignancy. Recommend ourint screening mammography in one year us Historical Provider IMG MAMMO PROCEDURES Yajaira l Result * Colonoscopy (12/20/2009) Anatomical Region Laterality Modality Other 12/20/2009 Impressions 02/06/2019 3:10 PM CDT Colonoscopy Results from [facility] IMPRESSION: 1 Internal Hemorrhoids 2. Minimal Diverticulosis us Historical Provider ENDOSCOPY PROCEDURES Yajaira l Result from Last 3 Months or Most Recently Relevant to Health Maintenance Insurance [facility] MEDICARE [facility] [place] [address] MEDICARE MEDICARE [facility] TRANSPLANT [place] [address] MEDICARE MEDICARE Advance Directives For more information, please contact: [phone] Documents on File Type Date Recorded Patient Body Masker Expl anation ADVANCE DIRECTIVE 05/28/2022 3:55 PM POWER OF HEAD INSULATION BOARD SAW OPERATOR-MEDICAL * Full Code (Latest Code Status on File) Date Activated Date Inactivated Comments 05/25/2022 9:00 PM 06/03/2022 6:34 PM * Full Code Date Activated Date Inactivated Comments 05/24/2022 11:25 PM 05/25/2022 9:00 PM Care Teams Office Machine Servicer Relationship Specialty Start Date End Date Jose Martin Carlos MD [address] [place] [address] PCP - General 07/11/21 Latisha Benavidez, RN [address] [facility] [address] [place] [address] Computer Systems Design Analyst 05/25/22
--- OUTSIDE RECORDS SUMMARY | 2024-09-06 08:38 | XMS_ITS | Encounter Summary ---
Author Organization [facility] Address [address] [facility] [address] [place] [address] Care Team Providers Care Assistant Scientist Name Role Phone Benton Bland MD Primary Care Provider +1- [phone] Benton Bland MD Primary Care Provider +[phone]- [phone] Jose Martin Carlos MD Primary Care Provider +1- [phone] Latisha Benavidez RN Unavailable [phone] Encounter Details Date Type Department Care Team (Late st Contact Info) Description 06/27/2016 Orders Only [facility] ProviderKate MD [address] [place] [address] Social History Tobacco Use Types Packs/Day Years Used Date Smoking Tobacco: Never Alcohol Use Standard Drinks/Week Comments No 0 (1 standard drink = 0.6 oz pur e alcohol) Comments Unknown Sex and Gender Information Value Date Recorded Sex Assigned at Not on file Legal Sex Female 11:59 PM HOSPITAL SECRETARY Gender Identity Not on file Sexual Orientation [...] on filedocumented in this encounter Care Teams Assistant Scientist Relationship Specialty Start Date End Date Benton Bland MD [address] [place] [address] PCP - General 08/10/16 07/10/21 Benton Bland MD [address] [facility] [place] [address] PCP - General 12/16/09 08/09/16 Jose Martin Carlos MD [address] [place], [place] [id number] PCP - General 07/11/21 Latisha Benavidez, RN 45[address] [facility] [address] [place] [address] Floral Merchandiser 05/25/22 documented as of this encounter
--- OUTSIDE RECORDS SUMMARY | 2024-09-06 08:38 | XMS_ITS | Encounter Summary ---
Author Organization [facility] Address [address] [facility] [address] [place] [address] Care Team Providers Care Dance Instructor Name Role Phone Benton Bland MD Primary Care Provider +1- [phone] Benton Bland MD Primary Care Provider +1- [phone] Jos eMartin Carlos MD Primary Care Provider +1- [phone] Latisha Benavidez RN Unavailable [phone] Encounter Details Date Type Department Care Team (Late st Contact Info) Description 05/29/2005 Orders Only [facility] ProviderKate MD [address] [place] [address] Social History Tobacco Use Types Packs/Day Years Used Date Smoking Tobacco: Never Assessed Comments Unknown Sex and Gender Information Value Date Recorded Sex Assigned at Not on file Legal Sex Female 11:59 PM SHRINK PIT SUPERVISOR Gender Identity Not on file Sexual Orientation [...] on filedocumented in this encounter Care Teams Dance Instructor Relationship Specialty Start Date End Date Benton Bland MD [address] [place] [address] PCP - General 08/10/16 07/10/21 Benton Bland MD [address] [place] [address] PCP - General 12/16/09 08/09/16 Jose Martin Carlos MD [address] [place], [place] [id number] PCP - General 07/11/21 Latisha Benavidez, RN 45[address] [facility] [address] [place] [address] Service Station Manager 05/25/22 documented as of this encounter
--- OUTSIDE RECORDS SUMMARY | 2024-09-06 08:38 | XMS_ITS | Encounter Summary ---
Author Organization [facility] Medical [facility] Address [address] [facility] [address] [place] [address] Care Team Providers Care Sizing Machine Operator Name Role Phone Benton Bland MD Primary Care Provider [phone]- [phone] Benton Bland MD Primary Care Provider [phone]- [phone] Jose Martin Carlos MD Primary Care Provider +1- [phone] Latisha Benavidez RN Unavailable [phone] Encounter Details Date Type Department Care Team (Late st Contact Info) Description 08/01/2016 Orders Only [facility] ProviderKate MD [address] [place] [address] Social History Tobacco Use Types Packs/Day Years Used Date Smoking Tobacco: Never Alcohol Use Standard Drinks/Week Comments No 0 (1 standard drink = 0.6 oz pur e alcohol) Comments Unknown Sex and Gender Information Value Date Recorded Sex Assigned at Not on file Legal Sex Female 11:59 PM HANG GLIDING INSTRUCTOR Gender Identity Not on file Sexual Orientation [...] on filedocumented in this encounter Care Teams Sizing Machine Operator Relationship Specialty Start Date End Date Benton Bland MD [address] [place] [address] PCP - General 08/10/16 07/10/21 Benton Bland MD [address] [facility] [place] [place] [address] PCP - General 12/16/09 08/09/16 Jose Martin Carlos MD [address] [place] [address] PCP - General 07/11/21 Latisha Benavidez, RN 45[address] [facility] [address] [place] [address] Spinner Hydraulic 05/25/22 documented as of this encounter
--- OUTSIDE RECORDS SUMMARY | 2024-09-06 08:38 | XMS_ITS | Clinical Summary ---
Author Organization [facility] Address [address] [place] [address] Care Team Providers Care Drum Printer Name Role Phone Jose Martin Carlos MD Primary Care Provider [phone] Latisha Benavidez RN Unavailable [phone] Allergies No known active allergies Medications senna-docusate [...] 1 tablet (125 mcg total) by mouth environmental remediation engineer before breakfast 30 tablet 3 3 Active [...] consent to speak with [facility]- [phone] Standing orders q- Monthly, FK ,EBV/PCR, q3 [...] Date Type Department Care Team Description 08/26/2024 [facility] Transplant Kidney [address] [address] [address] [place] [address] Ilene Beltran 08/24/2024 [facility] Transplant Kidney [address] [facility] [address] Mailstop [id number] [place] [address] Bessie Alvarado MD 08/24/2024 [facility] Transplant Kidney [address] [facility] [address] [id number] [place] [address] Latisha Benavidez RN 08/24/2024 [facility] Transplant Kidney [address] [facility] [address] [id number] [place] [address] Bessie Alvarado MD 08/24/2024 Lab [facility] and [facility] Transplant Kidney [address] [facility] [address] [place] [address] Bessie Alvarado MD 08/20/2024 Lab [facility] and [facility] Transplant Kidney [address] [facility] [address] Mail[address] [facility] [place] [address] Bessie Alvarado MD 08/20/2024 Lab [facility] and [facility] Transplant Kidney [address] [facility] [address] [place] [address] Bessie Alvarado MD 07/27/2024 Lab [facility] and [facility] Transplant Kidney [address] [facility] [address] Mail[address] [facility] [place] [address] Bessie Alvarado MD 07/10/2024 Telephone [facility] Transplant Kidney [address] [facility] [address] Mail[address] [facility] [place] [address] Xin Joel RN 07/10/2024 Lab [facility] Transplant Kidney [address] [facility] [address] Mail[address] [facility] [place] [address] Bessie Alvarado MD 06/29/2024 Lab [facility] Transplant Kidney [address] [facility] [address] Mail[address] [facility] [place] [address] Bessie Alvarado MD 06/26/2024 Lab [facility] and [facility] Transplant Kidney [address] [facility] [address] [place] [address] Bessie Alvarado MD 06/25/2024 Lab [facility] and [facility] Transplant Kidney [address] [facility] [address] [place] [address] Bessie Alvarado MD from Last 3 Months [...] Hx Relation Name Status Comments Father Alive [place] age 70s Mother Alive Other 1 Other [...] often do you attend chur ch or jew services? More than 4 times per year 05/25/2022 Do you belong to any clubs o r organizations such as samaritan groups, unions, fraternal or athletic groups, or [...] on file Legal Sex Female 11:59 PM REGULATORY SCIENTIST Gender Identity Not on file Sexual Orientation Not on file Obstetrics History Last Filed Vital Signs Vital Sign Reading Time Taken Comments Blood Pressure 138/84 06/03/2024 11:11 AM REGULATORY SCIENTIST Pulse 76 06/03/2024 11:11 AM REGULATORY SCIENTIST Temperature 36.8 C (98.3 F) 06/03/2024 11:11 AM REGULATORY SCIENTIST Respiratory Rate 18 06/28/2022 9:00 AM REGULATORY SCIENTIST Oxygen Saturation 99% 06/28/2022 9:00 AM REGULATORY SCIENTIST Inhaled Oxygen Concentration - - Weight 91.1 kg (200 lb 12.8 oz) 025 11:11 AM REGULATORY SCIENTIST Height 149.9 cm (4' 11 ) 06/03/2024 11: 11 AM REGULATORY SCIENTIST Body Mass Index 40.56 06/03/2024 11:11 AM REGULATORY SCIENTIST Plan of Treatment Scheduled Procedures Name Priority [...] 12/20/2009 Colon Cancer Screening-DNA Stool Discontinued 12/21/19 Colon Cancer Screening-FIT Discontinued 12/20/2009 Colon Cancer Screening-Sigmoidoscopy Discontinued 12/20/2009 Hepatitis B Screening Completed 05/24/2022 Hepatitis C Screening Completed 06/26/2022 , 05/24/2022, 05/24/2022, Additional history exists Medical Devices Explanted Type Area Cloth Mender Device Identifier Shelf Expiration Date Model / Serial / Lot Tuee Double-J 6fr 20cm 100cm 1 Step Insert Push Catheter [place] Suture [id number] - [id number] Implanted:Qt y: 1 on 05/25/2022 by Aguilar Barfield MD PhD at [facility] Explanted:Qt y: 1 on 06/26/2022 by Monty Harper MD Stent Right: Transplanted Ureter Tuee [id number] 10/30/2026 [id number] / / [id number] Description:Transplanted Ure ter Procedures Procedure Name Priority [...] RNA, QUANTITATIVE, PCR Routine 06/26/2022 5:00 PM REGULATORY SCIENTIST Inconclusive laboratory evidence of human immunodeficiency virus (HIV) Aftercare following organ transplant SCREENING MAMMOGRAM 2D BILATERAL Schedule Routine, Read Routine (OP Routine) 02/02/2019 COLONOSCOPY Routine 12/20/2009 from Last 3 Months or Most Recently Relevant to Health Maintenance Results * Jazmín Rene Virus PCR Qualitative (08/20/2024) SCRIBED EBV PCR Negative TXP NO LAB FOUND 08/20/2024 us Historical Provider LAB MICROBIOLOGY - GENERA L ORDERABLES Edited Result - Final TXP NO LAB FOUND * Tacrolimus level trough (08/20/2024) SCRIBED Tacrolimus, trough 6.3 5 - 20 TXP NO LAB FOUND Blood 08/20/2024 Result [facility] Provider LAB BLOOD ORDERABLES Edit ed Result - Final Performing Organization Address [facility] de Phone Number TXP NO [...] TXP NO LAB FOUND Blood 08/20/2024 Result [facility] Provider LAB BLOOD ORDERABLES Edit ed Result - Final Performing Organization Address [facility] de Phone Number TXP NO [...] FOUND * (ABNORMAL) Renal function panel (08/20/2024) Pathologist [facility] SCRIBED Calcium 9.7 8.4 - 10.2 mg/dl [...] NO LAB FOUND SCRIBED eGFR in NonAfrican Cypriot 31 >60 TXP NO LAB FOUND SCRIBED Urea Nitrogen (BUN) 32(A) 7 - 17 mg/dl TXP NO LAB FOUND Blood 08/20/2024 Historical Provider LAB BLOOD ORDERABLES Yajaira l Result TXP NO LAB FOUND * Lipid panel (08/20/2024) [facility] SCRIBED Cholesterol, Total 166 0 - 200 TXP NO LA B FOUND SCRIBED HDL 75 >35 TXP NO L AB FOUND SCRIBED LDL 60 <130 TXP NO L AB FOUND SCRIBED Triglycerides 99 <150 TXP NO LAB FOUND Blood 08/20/2024 Historical Provider LAB BLOOD ORDERABLES Yajaira l Result TXP NO LAB FOUND * EBV DNA PCR, Qualitative (07/23/2024) EBV DNA, PCR Nt. Det. TXP NO LAB FOUND 07/23/2024 Historical Provider LAB MICROBIOLOGY - GENERA L ORDERABLES Edited Result - Final Performing Organization Address [facility] de Phone Number TXP NO LAB FOUND * (ABNORMAL) Tacrolimus level trough (07/23/2024) SCRIBED Tacrolimus, trough 2.2(A) 5 - 20 TXP NO LAB FOUND Blood 07/23/2024 Historical Provider LAB BLOOD ORDERABLES Yajaira l Result Performing Organization Address [facility] Phone Number TXP NO LAB FOUND [...] ORDERABLES Yajaira l Result Performing Organization Address [facility] de Phone Number TXP NO [...] ed Result - Final Performing Organization Address [facility]/ZIP Co de Phone Number TXP NO [...] NO LAB FOUND SCRIBED eGFR in NonAfrican Cypriot 31 >60 TXP NO LAB FOUND SCRIBED Urea Nitrogen (BUN) 32(A) 7 - 17 mg/dl TXP NO LAB FOUND Blood 07/23/2024 Historical Provider LAB BLOOD ORDERABLES Yajaira l Result Performing Organization Address [facility]/ZIP Co de Phone Number TXP NO LAB FOUND * Lipid panel (07/23/2024) SCRIBED Cholesterol, Total 162 0 - 200 TXP NO LA B FOUND SCRIBED HDL 66 >35 TXP NO L AB FOUND SCRIBED LDL 66 <130 TXP NO L AB FOUND SCRIBED Triglycerides 81 <150 TXP NO LAB FOUND Blood 07/23/2024 Result [facility] Provider LAB BLOOD ORDERABLES Yajaira l Result Performing Organization Address [facility]/ZIP Co de Phone Number TXP NO LAB FOUND * Jazmín Rene Virus PCR Qualitative (06/25/2024) SCRIBED EBV PCR Negative TXP NO LAB FOUND 06/25/2024 Result [facility] Historical Provider LAB MICROBIOLOGY - GENERA L ORDERABLES Edited Result - Final Performing Organization Address [facility] Co de Phone Number TXP NO LAB FOUND * Urinalysis, macroscopic Urine (06/25/2024) SCRIBED Urine-Color yellow TXP NO LAB FOUND SCRIBED Appearance turbid TXP NO LAB FOUND SCRIBED Specific Ecru, Urine 1.013 TXP NO LAB FOUND SCRIBED [...] /HPF TXP NO LAB FOUND Urine 06/25/2024 Result [facility] Provider LAB MICROBIOLOGY - GENERA L ORDERABLES Edited Result - Final Performing Organization Address [facility] de Phone Number [place] NO LAB FOUND * Tacrolimus level trough (06/25/2024) Pathologist [facility] SCRIBED Tacrolimus, trough 5.9 5 - 20 TXP NO LAB FOUND Blood 06/25/2024 [facility] Provider LAB BLOOD ORDERABLES Edit ed Result - Final Performing Organization Address [facility] de Phone Number TXP NO LAB FOUND * (ABNORMAL) CBC with auto differential (06/25/2024) Pathologist [facility] SCRIBED WBC 9.5 4.5 - 10.0 k/cumm TXP NO LAB FOUND SCRIBED Hemoglobin 11.8(A) 12.0 - 15.0 g/dL TXP NO LAB FOUND SCRIBED Hematocrit 37.3 37 - 47 % TXP NO LAB FOUND SCRIBED Platelets 250 150 - 375 k/cumm TXP NO LAB FOUND SCRIBED Lymphocytes Abs 0.54(A) 0.9 - 3.2 k/cumm TXP NO LAB FOUND Blood 06/25/2024 [facility] Provider LAB BLOOD ORDERABLES Edit ed Result - Final Performing Organization Address [facility] de Phone Number [place] NO LAB FOUND * (ABNORMAL) Renal function panel (06/25/2024) Pathologist [facility] SCRIBED Calcium 9.9 8.4 - 10.2 mg/dl [...] NO LAB FOUND SCRIBED eGFR in NonAfrican Cypriot 33 >=60 TXP NO LAB FOUND SCRIBED Urea Nitrogen (BUN) 23(A) 7 - 17 mg/dl TXP NO LAB FOUND Blood 06/25/2024 Historical Provider LAB BLOOD ORDERABLES Yajaira l Result Performing Organization Address City/[facility]/ZIP Co de Phone Number [place] NO LAB FOUND * Hepatitis C (HCV) RNA PCR, quantitative (06/26/2022 5:00 PM REGULATORY SCIENTIST) [facility] HCV RNA result Not Detected [facility] Comment: The quantifiable range of this assay is 15 IU/mL to 100,000,000 IU/mL (1.18 log IU/mL to 8.00 log IU/mL). Testing was performed by the [facility] 6800 HCV Test ([employer] Testing performed at [facility] Current Interpretive Data was last revised on 2020 Blood 06/26/2022 5:00 PM REGULATORY SCIENTIST 06/26/2022 5:25 PM REGULATORY SCIENTIST Mo Velez MD LAB MICROBIOLOGY - GENERAL ORDERABLES Final Result Performing Organization Address City/[facility] Co de Phone Number [facility] [place] [address] * Screening Mammogram 2D Bilateral (02/02/2019) Anatomical Region Laterality Modality Breast Bilateral Mammography 02/02/2019 Impressions 02/06/2019 3:12 PM CDT Mammogram from [facility] IMPRESSION No mammographic evidence of malignancy. Recommend ourint screening mammography in one year Historical Provider IMG MAMMO PROCEDURES Yajaira l Result * Colonoscopy (12/20/2009) Anatomical Region Laterality Modality Other 12/20/2009 Impressions 02/06/2019 3:10 PM CDT Colonoscopy Results from [facility] IMPRESSION: 1 Internal Hemorrhoids 2. Minimal Diverticulosis Historical Provider ENDOSCOPY PROCEDURES Yajaira l Result from Last 3 Months or Most Recently Relevant to Health Maintenance Insurance [facility] H[facility]/PPO Address: [facility] [address] [place] [address] MEDICARE [facility] Address: [facility] [address] [place] [address] [facility] H[facility]/PPO Address: [address] [address] [place] [address] MEDICARE MEDICARE [facility] H[facility]/PPO Address: [address] [address] [place] [address] TRANSPLANT [employer] [facility] HMO/PPO Address: [address] [address] [place] [address] MEDICARE MEDICARE Advance Directives For more information, please contact: [phone] Documents on File Type Date Recorded Patient Millinery Worker Expl anation ADVANCE DIRECTIVE 05/28/2022 3:55 PM POWER OF CORPORATE TRUST OFFICER-MEDICAL * Full Code (Latest Code Status on File) Date Activated Date Inactivated Comments 05/25/2022 9:00 PM 06/03/2022 6:34 PM * Full Code Date Activated Date Inactivated Comments 05/24/2022 11:25 PM 05/25/2022 9:00 PM Care Teams Drum Printer Relationship Specialty Start Date End Date Jose Martin Carlos MD [address] [facility] [address] [place] [address] PCP - General 07/11/21 Latisha Benavidez, RN [address] [address] Protection Engineer 05/25/22
--- OUTSIDE RECORDS SUMMARY | 2024-09-06 08:38 | XMS_ITS ---
Author Organization [facility] Address [address] [place] [address] Care Team Providers Care Switchboard And Control Room Operator Name Role Phone Jose Martin Carlos MD Primary Care Provider + [phone] Latisha Benavidez RN Unavailable [phone] Transplant Episode Kidney Recipient [facility] ([place], [place]) - [facility] Organ Received: Left Kidney Transplanted on 05/25/2022 Marked as Active Follow-up on 05/25/2022 Reason: Transplanted at [facility] Kidney CoordinatorWhdestiny Benavidez RN Fax: N/A Email: [...] Fax Email Latisha Benavidez RN Kidney Coordinator [phone] N/A N/A Xin Joel RN Secondary Coordinator Secondary Post Kidney Coordinator [phone] N/A N/A Ignacio Lala MD Referring Physician [phone] N/A Ilene Beltran Primary Timber Framer N/A N/A N/A Martin Godoy Secondary Timber Framer N/A N/A N/A Therese Locke Automobile Racer [phone] N/A N/A Latisha Benavidez RN Information Writer [phone] N/A N/A Events Post-Transplant Pre-Transplant Admitted: 05/24/2022 Referred: 11/28/2018 Transplanted: 05/25/2022 Evaluation began: 9 Discharged: 06/03/2022 Committee: 02/23/2019 Center waitlisted: 9
--- OUTSIDE RECORDS SUMMARY | 2024-09-06 08:38 | XMS_ITS | Clinical Summary ---
Author Organization [facility] Address [address] [place] [address] Phone Care Team Providers Care Project Mgr Name Role Phone Dirk Love Primary Care Provider Allergies Active Allergy Reactions Criticality Noted Date Comments Ibuprofen 02/21/2019 Medications levothyroxine (SYNTHROID) 75 MCG tablet 1 daily 12/09/2011 Active omega-3 (FISH OIL) 1000 MG capsule 12/09/2011 Active triamcinolone (KENALOG) 0.1 % ointment CHUCK A THIN LAYER AA BID UNTIL SYMPTOMS RESOLVE 0 10/13/2018 Active ergocalciferol (VITAMIN D2) 1.25 MG (49849 UT) capsule Take 1 capsule (50,000 Units [...] Comments Influenza Vaccine (Season Ended) 2025 Insurance [facility] Care Teams Project Mgr Relationship Specialty Start Date End Date Dirk Love PA [address] [place] [address] PCP - General Family Medicine 09/14/20
[2024-09-06 09:09] LABS: Basophils Absolute Auto 0.1 K/mm3 (0.0-0.1); Basophils Percent Auto 0.5 % (0.2-1.2); Eosinophils Absolute Auto 0.2 K/mm3 (0-0.3); Eosinophils Percent Auto 1.6 % (0-4.4); Hematocrit 41.5 % (37.0-47.0); Hemoglobin 13.2 g/dL (12.0-15.0); Immature Granulocyte Percent A 0.9 % (0-0.5); Lymphocytes Absolute Auto 0.56 K/mm3 (0.9-3.2); Mean Corpuscular HGB Conc 31.8 g/dl (32-36); Mean Corpuscular Hemoglobin 29.7 pg (26-34); Mean Corpuscular Volume 93.3 fl (80-100); Mean Platelet Volume 10.6 fl (7.4-10.4); Monocytes Absolute Auto 0.6 K/mm3 (0.1-0.6); Monocytes Percent Auto 5.7 % (2.6-8.5); Neutrophils Absolute Auto 9.7 K/mm3 (1.3-6.7); Neutrophils Percent Auto 86.3 % (45.5-73.1); Platelet Count Result 234 k/mm3 (150-375); Red Blood Count 4.45 M/mm3 (4.2-5.4); Red Cell Distribution Width 15.2 % (11.5-14.5); White Blood Count 11.2 K/mm3 (4.5-10.0)
--- OUTSIDE RECORDS SUMMARY | 2024-09-06 09:09 | XMS_ITS | Clinical Summary ---
Author Organization [facility] Address [address] [place] [address] Phone Care Team Providers Care Firestop/Containment Worker Name Role Phone Dirk Love Primary Care Provider [phone] Allergies Active Allergy Reactions Criticality Noted Date Comments Ibuprofen 02/21/2019 Medications levothyroxine (SYNTHROID) 75 MCG tablet 1 daily 12/09/2011 Active omega-3 (FISH OIL) 1000 MG capsule 12/09/2011 Active triamcinolone (KENALOG) 0.1 % ointment CHUCK A THIN LAYER AA BID UNTIL SYMPTOMS RESOLVE 0 10/13/2018 Active ergocalciferol (VITAMIN D2) 1.25 MG (62030 UT) capsule Take 1 capsule (50,000 Units [...] Comments Influenza Vaccine (Season Ended) 2025 Insurance [facility] Care Teams Firestop/Containment Worker Relationship Specialty Start Date End Date Dirk Love PA [address] [facility] [address] [place] [address] PCP - General Family Medicine 09/14/20
--- NOTE | 2024-09-06 09:21 | ED_ITS ---
HPI - General Adult General Chief complaint: Abdominal Pain Stated complaint: RLQ abd pain Time Seen by Provider: 09/06/24 09:00 History of Present Illness HPI narrative: [age] old female presents to the emergency department for evaluation for right lower quadrant pain that started on . Patient does have associated nausea vomiting and diarrhea. Patient does have a prior history kidney transplant in 2022 at [facility]. Patient reports her last kidney function was a GFR of 31. Patient denies any pain with urination. Patient declined medications for pain control for nausea control. Patient has new kidney is in her right lower quadrant near where her pain is located. Related Data Home Medications ?Medication ?Instructions ?Recorded ?Confirmed ?Last Taken ?Type aspirin 81 mg tablet,delayed 81 mg PO DAILY 10/12/22 09/06/24 09/06/24 08:00 History release linagliptin 5 mg tablet (Tradjenta) 5 mg PO QAM 10/12/22 09/06/24 09/06/24 08:00 History polyethylene glycol 3350 17 17 g PO DAILY PRN as needed for 10/12/22 09/06/24 Unknown History gram/dose oral powder (Miralax) constipation prednisone 5 mg tablet 5 mg PO DAILY 10/12/22 09/06/24 09/06/24 08:00 History amlodipine 5 mg tablet 5 mg PO DAILY 11/27/22 09/06/24 09/06/24 08:00 History cholecalciferol (vitamin D3) 50 50 mcg PO DAILY 11/13/23 09/06/24 09/06/24 08:00 History mcg (2,000 unit) capsule cyanocobalamin (vitamin B-12) 1,000 mcg PO DAILY 11/13/23 09/06/24 09/06/24 08:00 History 1,000 mcg capsule acetaminophen 500 mg capsule 500 mg PO Q4-6H PRN fever or pain 09/06/24 09/06/24 Unknown History carvedilol 25 mg tablet 25 mg PO BID hypertension 09/06/24 09/06/24 09/06/24 08:00 History tacrolimus 1 mg tablet,extended 1 mg PO DAILY 09/06/24 09/06/24 09/06/24 08:00 History release 24 hr (Envarsus XR) Allergies Allergy/AdvReac Type Severity Reaction Status Date / Time ibuprofen Allergy Severe on kidney Verified 09/06/24 08:37 transplant list nitrofurantoin Allergy Mild Unknown Verified 09/06/24 08:37 Review of Systems 2 Review of Systems: All systems reviewed & are unremarkable except as noted in HPI and below PMFSH Past Medical History Medical History (Updated 09/06/24 @ 17:22 by Amanda Mohr APRN) Hyperlipidemia History of bruising easily History of stress test (~2021) High risk human papilloma virus (HPV) infection of cervix Vaginal delivery x2 Hypertension Kidney disease Hypothyroidism Surgical History Surgical History History of kidney transplant History of colposcopy [place] teeth extracted H/O laparoscopy Family History Family History Father Hypertension Patient's father is in good health Mother Hypertension Patient's mother is in good health Family history of heart disease in male family member before age 55 Grandparent Family history of malignant neoplasm Social History Social History Smoking status: Never smoker Second hand tobacco smoke exposure: No Alcohol intake: never Substance use: never Substance use type: does not use Do You Feel Safe in your Home?: Yes Lack of Transportation: No Lack of Food: Never True Current Housing: I Have Housing Concerned About Future Housing: No Difficulty Paying Gas/Electric Bills: No Difficulty Paying for Meds: No Currently Unemployed: No Education: High School Diploma/GED Difficulty w/ Childcare or Family Care: No Living arrangements: with family Spiritual care concerns: No Exam 2 Narrative: APPEARANCE: Well appearing, no pain, no distress, well-nourished. HEAD: normocephalic, atraumatic. EYES: PERRLA/EOMI, conjunctivae clear. NOSE: Normal no drainage EARS:TMS clear with good light reflex. THROAT: Pharynx clear, no exudate. NECK: Supple. No adenopathy, no masses. RESPIRATORY: Airway patent, respirations nonlabored. Clear to auscultation bilaterally, no rales, rhonchi, wheezing. CARDIOVASCULAR: Regular rate and rhythm without murmurs rubs or gallops. ABDOMINAL: Right lower quadrant tenderness to palpation MUSCULOSKELETAL: Moves all extremities. Strength/ROM intact, No edema, No calf tenderness. NEURO: Alert. Cranial nerves II through XII intact. Good gait. Good coordination SKIN: Warm, dry. Normal Color Course Vital Signs Vital signs: Vital Signs Temperature 97.2 F L 09/06/24 08:42 Pulse Rate 85 09/06/24 08:42 Respiratory Rate 16 09/06/24 08:42 Blood Pressure 147/87 H 09/06/24 08:42 Pulse Oximetry 98 09/06/24 08:42 Temperature 96.8 F L 09/06/24 14:59 Pulse Rate 77 09/06/24 14:59 Respiratory Rate 16 09/06/24 14:59 Blood Pressure 155/94 H 09/06/24 14:59 Pulse Oximetry 98 09/06/24 14:59 Medical Decision Making MDM Narrative Medical decision making narrative: 63 old female with history of recent renal transplant in 2022 presented emergency department for evaluation for right lower quadrant abdominal pain. Urine is concerning for urinary tract infection and blood in urine cultures were ordered. Patient was started on Rocephin in the emergency department since she has previous cultures showing susceptibility to Rocephin when she grew Klebsiella pneumoniae. CT scan was negative for other acute findings. Patient's lipase was mildly elevated at 1100. Case was discussed with the transplant housekeeping associate at [facility], Dr Velez. He was comfortable the patient is staying here, continuing Rocephin IV, the patient should continue to take her daily tacrolimus and prednisone. He did recommend trending the amylase and lipase. Ultrasound of the right upper quadrant was ordered and he also requested a CMV PCR. If the hospitalist has any questions they are free to contact the transplant housekeeping associate at any time. Patient does prefer to stay at our facility. Differential Diagnosis Differential Diagnosis: Colitis, diverticulitis, pancreatitis, UTI Vital Signs Vital Signs: Vital Signs Temperature 97.2 F L 09/06/24 08:42 Pulse Rate 85 09/06/24 08:42 Respiratory Rate 16 09/06/24 08:42 Blood Pressure 147/87 H 09/06/24 08:42 Pulse Oximetry 98 09/06/24 08:42 Temperature 96.8 F L 09/06/24 14:59 Pulse Rate 77 09/06/24 14:59 Respiratory Rate 16 09/06/24 14:59 Blood Pressure 155/94 H 09/06/24 14:59 Pulse Oximetry 98 09/06/24 14:59 Lab Data Lab results reviewed: Yes I reviewed the patient's lab results. 09/06/24 09:02 09/06/24 09:02 Labs: Lab Results 09/06/24 09/06/24 Range/Units 09:02 09:28 WBC 11.2 H (4.5-10.0) K/mm3 RBC 4.45 (4.2-5.4) M/mm3 Hgb 13.2 (12.0-15.0) g/dL Hct 41.5 (37.0-47.0) % MCV 93.3 (80-100) fl MCH 29.7 (26-34) pg MCHC 31.8 L (32-36) g/dl RDW 15.2 H (11.5-14.5) % Plt Count 234 (150-375) k/mm3 MPV 10.6 H (7.4-10.4) fl Immature Gran % (Auto) 0.9 H (0-0.5) % Neut % (Auto) 86.3 H (45.5-73.1) % Lymph % (Auto) 5.0 L (18.3-44.2) % [place] % (Auto) 5.7 (2.6-8.5) % Eos % (Auto) 1.6 (0-4.4) % Baso % (Auto) 0.5 (0.2-1.2) % Lymph # (Auto) 0.56 L (0.9-3.2) K/mm3 [place] # (Auto) 0.6 (0.1-0.6) K/mm3 Eos # (Auto) 0.2 (0-0.3) K/mm3 Baso # (Auto) 0.1 (0.0-0.1) K/mm3 Abs Immat Gran (auto) 0.10 H (0.00-0.031) K/mm3 Absolute Neuts (auto) 9.7 H (1.3-6.7) K/mm3 Absolute Nucleated RBC 0.000 (0.0-0.012) K/mm3 Nucleated RBC % 0.0 (0.0-0.2) % Sodium 141 (137-145) mmol/L Potassium 4.1 (3.4-5.0) mmol/L Chloride 106 (98-107) mmol/L Carbon Dioxide 30 (22-30) mmol/L Anion Gap 5 (4-12) mmol/L BUN 23 H (7-17) mg/dL Creatinine 1.77 H (0.7-1.0) mg/dL Estim Creat Clear Calc Not Reportable Estimated GFR 29 L (59 - ) Glucose 121 H (65-110) mg/dL Calcium 10.1 (8.4-10.2) mg/dL Total Bilirubin 0.7 (0.2-1.3) mg/dL AST 25 (14-36) U/L ALT 19 (6-35) U/L Alkaline Phosphatase 76 (38-126) U/L Total Protein 7.0 (6.3-8.2) g/dL Albumin 4.1 (3.5-5.1) g/dL Amylase 240 H (30-110) U/L Lipase 1151 H (23-300) U/L Urine Color Yellow (Yellow) Urine Appearance Turbid H (Clear) Urine pH 5.5 (5.0-9.0) Ur Specific [place] 1.019 (1.001-1.035) Urine Protein 2+ H (Negative) mg/dL Urine Glucose (UA) Negative (Negative) mg/dL Urine Ketones Trace H (Negative) mg/dL Ur Blood (Man) 1+ H (Negative) Urine Nitrate Positive H (Negative) Urine Bilirubin Negative (Negative) Urine Urobilinogen 1.0 (<2.0) mg/dL Add Ur Microanalysis Reviewed Leukocyte Esterase Rfl 2+ H (Negative) ANNE MARIE/UL Urine RBC 0-2 (0-2) /hpf Urine WBC >100 H (0-3) /hpf Ur Squamous Epith Cells Moderate (Few) /hpf Urine Bacteria 4+ H /hpf Urine Casts 3-5 Imaging Data Radiologist's impression: Impressions Abdomen/Pelvis CT 09/06/24 10:20 IMPRESSION: 1. 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 2. Diverticulosis. Discharge Plan Discharge Clinical Impression: UTI (urinary tract infection) Qualifiers: Urinary tract infection type: acute cystitis Hematuria presence: without hematuria Qualified Code(s): N30.00 - Acute cystitis without hematuria Patient Disposition: Still a Patient Condition: Stable
[2024-09-06 09:30] LABS: Alanine Aminotransferase 19 U/L (6-35); Albumin Level 4.1 g/dL (3.5-5.1); Alkaline Phosphatase 76 U/L (38-126); Anion Gap 5 mmol/L (4-12); Aspartate Amino Transferase 25 U/L (14-36); Bilirubin,Total 0.7 mg/dL (0.2-1.3); Blood Urea Nitrogen 23 mg/dL (7-17); Calcium 10.1 mg/dL (8.4-10.2); Carbon Dioxide 30 mmol/L (22-30); Chloride 106 mmol/L (98-107); Estimated Glomerular Filt Rate 29; Glucose 121 mg/dL (65-110); Lipase 1151 U/L (23-300); Potassium 4.1 mmol/L (3.4-5.0); Sodium 141 mmol/L (137-145)
[2024-09-06] MEDS: LACTATED RINGERS 1,000 ML 999 ML IV CONT ×2 (09:32)
[2024-09-06] MEDS: ONDANSETRON INJ 4 MG/2 ML VIAL IV PUSH (09:32)
[2024-09-06 09:57] LABS: Add Urine Microscopic? YES; Appearance Urine Turbid (Clear); Bacteria Urine 4+ /hpf; Bilirubin Urine Negative (Negative); Blood Urine 1+ (Negative); Color Urine Yellow (Yellow); Glucose Urine UA Negative (Negative); Ketones Urine Trace mg/dL (Negative); Leukocyte Esterase Ur 2+ LEU/UL (Negative); Need Manual Microscopic Reviewed; Nitrate Urine Positive (Negative); Protein Urine 2+ mg/dL (Negative); RBC Urine 0-2 /hpf (0-2); Specific Grav Ur 1.019 (1.001-1.035); Squamous Epithelial Cell Urine Moderate /hpf (Few); WBC Urine >100 /hpf (0-3); pH Urine 5.5 (5.0-9.0)
[2024-09-06 12:01] LABS: Amylase 240 U/L (30-110)
--- NOTE | 2024-09-06 13:37 | P.HP_ITS ---
H&P: HPI History of Present Illness Date/Time: 09/06/24 13:37 Chief Complaint: Abdominal Pain Narrative: 63 y/o F with PMH of kidney transplant (2022, [facility]), hypertension, hyperlipidemia, and hypothyroidism presents here with abdominal pain. The patient presents here from home on 09/06/2024 for further evaluation of abdominal pain. She reports onset on (09/03). She describes the pain as throbbing, in her right lower quadrant, nonradiating, intermittent, episodes last around 5 minutes and resolved without intervention, no aggravating or alleviating factors. Then developed nausea on Saturday and poor appetite. Endorsing suprapubic discomfort. She denies fever, chills, body aches, dysuria, or urinary frequency. Denies previous history of pancreatitis. Very little to no ETOH use. Initial VS at presentation: ED workup showed: WBC 10.2, no anemia, creatinine 1.77 and GFR 29 (previously 1.68 and 31 on 08/20/2024), glucose 121, amylase 240, lipase 1151. UA consistent with UTI. CT of the abdomen/pelvis showed severe bilateral renal atrophy with right pelvic transplant kidney, diverticulosis. Abdominal ultrasound showed a normal right upper quadrant. Review of Systems Review of Systems: All systems reviewed & are unremarkable except as noted in HPI and below PMFSH Past Medical History Medical History (Updated 09/06/24 @ 17:22 by Amanda Mohr APRN) Hyperlipidemia History of bruising easily History of stress test (~2021) High risk human papilloma virus (HPV) infection of cervix Vaginal delivery x2 Hypertension Kidney disease Hypothyroidism Surgical History Surgical History History of kidney transplant History of colposcopy [place] teeth extracted H/O laparoscopy Family History Family History Father Hypertension Patient's father is in good health Mother Hypertension Patient's mother is in good health Family history of heart disease in male family member before age 55 Grandparent Family history of malignant neoplasm Social History Social History Smoking status: Never smoker Second hand tobacco smoke exposure: No Alcohol intake: never Substance use: never Substance use type: does not use Do You Feel Safe in your Home?: Yes Lack of Transportation: No Lack of Food: Never True Current Housing: I Have Housing Concerned About Future Housing: No Difficulty Paying Gas/Electric Bills: No Difficulty Paying for Meds: No Currently Unemployed: No Education: High School Diploma/GED Difficulty w/ Childcare or Family Care: No Living arrangements: with family Spiritual care concerns: No Meds Home Medications and Allergies Home Medications ?Medication ?Instructions ?Recorded ?Confirmed ?Type aspirin 81 mg tablet,delayed 81 mg PO DAILY 10/12/22 09/06/24 History release linagliptin 5 mg tablet (Tradjenta) 5 mg PO QAM 10/12/22 09/06/24 History polyethylene glycol 3350 17 17 g PO DAILY PRN as needed for 10/12/22 09/06/24 History gram/dose oral powder (Miralax) constipation prednisone 5 mg tablet 5 mg PO DAILY 10/12/22 09/06/24 History amlodipine 5 mg tablet 5 mg PO DAILY 11/27/22 09/06/24 History cholecalciferol (vitamin D3) 50 50 mcg PO DAILY 11/13/23 09/06/24 History mcg (2,000 unit) capsule cyanocobalamin (vitamin B-12) 1,000 mcg PO DAILY 11/13/23 09/06/24 History 1,000 mcg capsule pravastatin 40 mg tablet See Rx Instructions .Route 12/16/23 09/06/24 Rx .COMPLEX #90 tabs levothyroxine 88 mcg tablet 88 mcg PO DAILY #90 tabs 08/31/24 09/06/24 Rx (Levoxyl) acetaminophen 500 mg capsule 500 mg PO Q4-6H PRN fever or pain 09/06/24 09/06/24 History carvedilol 25 mg tablet 25 mg PO BID hypertension 09/06/24 09/06/24 History tacrolimus 1 mg tablet,extended 1 mg PO DAILY 09/06/24 09/06/24 History release 24 hr (Envarsus XR) Allergies Allergy/AdvReac Type Severity Reaction Status Date / Time ibuprofen Allergy Severe on kidney Verified 09/06/24 08:37 transplant list nitrofurantoin Allergy Mild Unknown Verified 09/06/24 08:37 Vital Signs Vital Signs - 24 hr 09/06/24 08:42 09/06/24 11:00 09/06/24 12:00 Temperature 97.2 F L Pulse Rate 85 63 68 Respiratory Rate 16 16 16 Blood Pressure 147/87 H 161/84 H 170/79 H Pulse Oximetry 98 97 98 09/06/24 13:00 Temperature Pulse Rate 67 Respiratory Rate 16 Blood Pressure 163/78 H Pulse Oximetry 98 Exam Const: General: comfortable and no acute distress Other: , female, nontoxic appearance HENMT: Face/Nose/Sinus: Normal nares present Mouth: Yes moist mucous membranes Eyes: General: appearance normal, both eyes and all related structures Sclera: sclerae normal Pupils: Equal, round and reactive pupils present EOM: EOMs intact bilaterally Resp: Effort & Inspection: normal respiratory effort Auscultation: clear to auscultation bilaterally Cardio: Rate: regular rate Rhythm: regular rhythm Other: S1-S2 present without murmur, rub, ectopy GI: Other: Abdomen soft, tender in the right lower quadrant and suprapubic region, normoactive bowel sounds in all quadrants. Nondistended. No hepatomegaly or splenomegaly appreciated. Skin: General skin exam: normal color and no rashes or lesions noted Wounds: no wounds Neuro: Speech: normal speech Motor exam (neuro): 5/5 motor strength present throughout Sensory Exam: normal sensation Other: A&O x4 Extrem: Other: Trace edema to bilateral ankles, symmetric and nonpitting. Psych: Mental Status: mental status grossly normal Affect: normal affect Other: Good insight and judgment, very pleasant. H&P: Results Labs Labs: Short CBC 09/06/24 Range/Units 09:02 WBC 11.2 H (4.5-10.0) K/mm3 Hgb 13.2 (12.0-15.0) g/dL Hct 41.5 (37.0-47.0) % Plt Count 234 (150-375) k/mm3 BMP 09/06/24 09:02 Sodium 141 Potassium 4.1 Chloride 106 Carbon Dioxide 30 BUN 23 H Creatinine 1.77 H Glucose 121 H Calcium 10.1 Liver Function 09/06/24 Range/Units 09:02 Total Bilirubin 0.7 (0.2-1.3) mg/dL AST 25 (14-36) U/L ALT 19 (6-35) U/L Alkaline Phosphatase 76 (38-126) U/L Albumin 4.1 (3.5-5.1) g/dL Urine 09/06/24 Range/Units 09:28 Urine Color Yellow (Yellow) Urine Appearance Turbid H (Clear) Urine pH 5.5 (5.0-9.0) Ur Specific [place] 1.019 (1.001-1.035) Urine Protein 2+ H (Negative) mg/dL Urine Glucose (UA) Negative (Negative) mg/dL Assessment and Plan Assessment and plan (1) Pancreatitis: Qualifiers: Chronicity: acute Pancreatitis type: unspecified pancreatitis type Acute pancreatitis complication: no infection or necrosis Qualified Code(s): K85.90 - Acute pancreatitis without necrosis or infection, unspecified Code(s): K85.90 - Acute pancreatitis without necrosis or infection, unspecified Status: Acute Assessment and Plan: - acute, no hx of same - IV fluids: 2L -> 100 mL/hr, d/c when appropriate - Lipase 1151, Amylase 240. Trend lipase. - AST, ALT, total bilirubin WNL, monitor. - check lipid panel - analgesics and antiemetic p.r.n. - CT abd/pelvis: Severe bilateral renal atrophy with right pelvic transplant kidney. Diverticulosis. - US of abdomen unremarkable - ETOH none - meds: currently on Statin and Tacrolimus, no other predisposing medications to pancreatitis. Hold statin, will continue Tacrolimus. - patient also recently noted that she had a reduction in her levothyroxine due (TSH low/T4 mildly elevated on labs from 08/28/24), could be contributing factor? - offered consultation to dietitian for education, currently declining - clear liquid, advance patient's diet as tolerated tomorrow (09/07). - GI consulted New, acute pancreatitis of unclear etiology. No evidence of cholecystitis on ultrasound. Little to no ETOH use. On statin, held. On Tacrolimus for kidney transplant, will continue at this time. GI consulted for input/work up. (2) UTI (urinary tract infection): Qualifiers: Hematuria presence: without hematuria Urinary tract infection type: acute cystitis Qualified Code(s): N30.00 - Acute cystitis without hematuria Code(s): N39.0 - Urinary tract infection, site not specified Status: Acute Assessment and Plan: - UA suspicious for UTI, moderate squamous cells. Contaminant versus infection. UC pending, follow - previous micro reviewed, Klebsiella in 2023 that was intermediate to Macrobid. No additional resistances. - started on Ceftriaxone on 09/06 (3) Hypertension: Qualifiers: Hypertension type: primary hypertension Qualified Code(s): I10 - Essential (primary) hypertension Code(s): I10 - Essential (primary) hypertension Status: Chronic Assessment and Plan: - chronic, currently 155/94 - continue home medications: Coreg 25 mg b.i.d., amlodipine 5 mg daily - monitor Plan Diet: clear liquid GI Prophylaxis: Not currently indicated DVT Prophylaxis: SCDs IV fluids: LR 100 mL/hour Lines/Tubes: Peripheral IV Code Status: Full code Quality VTE Prophylaxis VTE prophylaxis: mechanical ordered Hospitalist MIPS Advance Care Plan I have confirmed that the patient's Advanced Care Plan is present, code status is documented, or surrogate decision maker is listed in patient medical record.: Yes Medication Reconciliation I have utilized all available resources to obtain, update and review the patients current medications (includes all prescriptions, OTC, herbals, cannabis, and nutritional supplements).: Yes
--- NOTE | 2024-09-06 15:28 | ADMGEN ---
This patient, Grecia Marroquin, was admitted to [address] [facility] Surg Room 316-01. Patient/family oriented to hospital policies and general routines including ID bracelet, bed and alarms, visiting hours, pain management, procedures, bathroom and other care routines, personal items, smoking policy, room service/diet, and visiting hours. Information on how to activate the Rapid Response Team has been discussed. Patient/Family are encouraged to report perceived risks to care and to ask questions if they do not understand what they are told or what they should do.
[2024-09-06] MEDS: LACTATED RINGERS 1,000 ML 100 ML IV CONT (16:06)
--- NOTE | 2024-09-06 19:29 | P.CONGI_ITS ---
Assessment and Plan Assessment and plan (1) Elevated lipase: Code(s): R74.8 - Abnormal levels of other serum enzymes Status: Acute Assessment and Plan: The patient's clinical picture and abdominal CT findings do not support a diagnosis of acute pancreatitis. Rarely tacrolimus is listed as a cause of medication related acute pancreatitis, but her latest levels are within the therapeutic range. Her abdominal pain is consistently localized to the right lower quadrant, and she has clear evidence of a UTI. In this specific patient, the recent onset of acute, watery diarrhea may have been a predisposing factor for the development of a UTI. Given the direct anatomical connection of the transplanted kidney's ureter to the bladder, this UTI could potentially lead to rapid compromise of the renal allograft. It is important to note that UTIs can sometimes cause a non-specific elevation in lipase levels. While lipase is not a reliable prognostic marker for acute pancreatitis, in this particular clinical context, where acute pancreatitis is not suspected, serial lipase measurements might serve as a useful parameter in monitoring the resolution of her urinary tract infection. The patient has been in communication with her transplant center regarding these findings and her current condition. GI Consult Note Consult date/time: 09/06/24 19:29 HPI: Ms. Grecia Marroquin, a 63-year-old female with a past medical history significant for a kidney transplant at [facility] in 2022 due to chronic IgA nephropathy, presented to the ED with a 3-day history. Her initial symptoms included nausea, vomiting, and liquid diarrhea (approximately 3 to 4 episodes per day), which was shortly followed by the onset of mild to moderate right lower quadrant abdominal pain, rated as 5 out of 10 in intensity. She denied any epigastric or right upper quadrant pain and had no fever. Her significant medications include tacrolimus 400 mg/d and prednisone 5 mg/d . The patient reports regularly monitoring her tacrolimus levels, which she states are usually within or slightly below the therapeutic range. Significant laboratory findings included a white blood cell count of 11.2, hemoglobin of 13.2, platelet count of 234, AST of 25, ALT of 19, albumin of 4.1, amylase of 240, and lipase of 1151. An abdominal ultrasound was unremarkable and negative for cholelithiasis. CT of the abdomen revealed a normal pancreas, diverticulosis, and a transplanted kidney situated in the right lower quadrant. Urinalysis showed > 100 WBC , 4+ bacteria, and positive nitrites. The patient is currently receiving intravenous ceftriaxone. 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 virus (HPV) infection of cervix Vaginal delivery x2 Hypertension Kidney disease Hypothyroidism Surgical History Surgical History History of kidney transplant History of colposcopy [place] teeth extracted H/O laparoscopy Family History Family History Father Hypertension Patient's father is in good health Mother Hypertension Patient's mother is in good health Family history of heart disease in male family member before age 55 Grandparent Family history of malignant neoplasm Social History Social History Smoking status: Never smoker Second hand tobacco smoke exposure: No Alcohol intake: never Substance use: never Substance use type: does not use Do You Feel Safe in your Home?: Yes Lack of Transportation: No Lack of Food: Never True Current Housing: I Have Housing Concerned About Future Housing: No Difficulty Paying Gas/Electric Bills: No Difficulty Paying for Meds: No Currently Unemployed: No Education: High School Diploma/GED Difficulty w/ Childcare or Family Care: No Living arrangements: with family Spiritual care concerns: No Meds Home Medications and Allergies Home Medications ?Medication ?Instructions ?Recorded ?Confirmed ?Type aspirin 81 mg tablet,delayed 81 mg PO DAILY 10/12/22 09/06/24 History release linagliptin 5 mg tablet (Tradjenta) 5 mg PO QAM 10/12/22 09/06/24 History polyethylene glycol 3350 17 17 g PO DAILY PRN as needed for 10/12/22 09/06/24 History gram/dose oral powder (Miralax) constipation prednisone 5 mg tablet 5 mg PO DAILY 10/12/22 09/06/24 History amlodipine 5 mg tablet 5 mg PO DAILY 11/27/22 09/06/24 History cholecalciferol (vitamin D3) 50 50 mcg PO DAILY 11/13/23 09/06/24 History mcg (2,000 unit) capsule cyanocobalamin (vitamin B-12) 1,000 mcg PO DAILY 11/13/23 09/06/24 History 1,000 mcg capsule pravastatin 40 mg tablet See Rx Instructions .Route 12/16/23 09/06/24 Rx .COMPLEX #90 tabs levothyroxine 88 mcg tablet 88 mcg PO DAILY #90 tabs 08/31/24 09/06/24 Rx (Levoxyl) acetaminophen 500 mg capsule 500 mg PO Q4-6H PRN fever or pain 09/06/24 09/06/24 History carvedilol 25 mg tablet 25 mg PO BID hypertension 09/06/24 09/06/24 History tacrolimus 1 mg tablet,extended 1 mg PO DAILY 09/06/24 09/06/24 History release 24 hr (Envarsus XR) Allergies Allergy/AdvReac Type Severity Reaction Status Date / Time ibuprofen Allergy Severe on kidney Verified 09/06/24 08:37 transplant list nitrofurantoin Allergy Mild Unknown Verified 09/06/24 08:37 Vital Signs Vital Signs - 24 hr 09/06/24 08:42 09/06/24 11:00 09/06/24 12:00 Temperature 97.2 F L Pulse Rate 85 63 68 Respiratory Rate 16 16 16 Blood Pressure 147/87 H 161/84 H 170/79 H Pulse Oximetry 98 97 98 Oxygen Delivery 09/06/24 13:00 09/06/24 14:59 09/06/24 18:34 Temperature 96.8 F L Pulse Rate 67 77 Respiratory Rate 16 16 Blood Pressure 163/78 H 155/94 H Pulse Oximetry 98 98 Oxygen Delivery Room Air Exam 2 Const: General: comfortable and no acute distress Other: , female, nontoxic appearance HENMT: Face/Nose/Sinus: Normal nares present Mouth: Yes moist mucous membranes Eyes: General: appearance normal, both eyes and all related structures S clera: sclerae normal Pupils: Equal, round and reactive pupils present E OM: EOMs intact bilaterally Resp: Effort & Inspection: normal respiratory effort Auscultation: clear to auscultation bilaterally Cardio: Rate: regular rate Rhythm: regular rhythm Other: S1-S2 present without murmur, rub, ectopy GI: Other: Abdomen soft, tender in the right lower quadrant and suprapubic region, normoactive bowel sounds in all quadrants. Nondistended. No hepatomegaly or splenomegaly appreciated. Skin: General skin exam: normal color and no rashes or lesions noted W ounds: no wounds Neuro: Speech: normal speech Motor exam (neuro): 5/5 motor strength present throughout Sensory Exam: normal sensation Other: A&O x4 Extrem: Other: Trace edema to bilateral ankles, symmetric and nonpitting. Psych: Mental Status: mental status grossly normal Affect: normal affect Other: Good insight and judgment, very pleasant. Results Labs 09/06/24 09:02 09/06/24 09:02 Labs: Short CBC 09/06/24 Range/Units 09:02 WBC 11.2 H (4.5-10.0) K/mm3 Hgb 13.2 (12.0-15.0) g/dL Hct 41.5 (37.0-47.0) % Plt Count 234 (150-375) k/mm3 BMP 09/06/24 09:02 Sodium 141 Potassium 4.1 Chloride 106 Carbon Dioxide 30 BUN 23 H Creatinine 1.77 H Glucose 121 H Calcium 10.1 Liver Function 09/06/24 Range/Units 09:02 Total Bilirubin 0.7 (0.2-1.3) mg/dL AST 25 (14-36) U/L ALT 19 (6-35) U/L Alkaline Phosphatase 76 (38-126) U/L Albumin 4.1 (3.5-5.1) g/dL Urine 09/06/24 Range/Units 09:28 Urine Color Yellow (Yellow) Urine Appearance Turbid H (Clear) Urine pH 5.5 (5.0-9.0) Ur Specific [place] 1.019 (1.001-1.035) Urine Protein 2+ H (Negative) mg/dL Urine Glucose (UA) Negative (Negative) mg/dL
[2024-09-06] MEDS: HYDROcodone/acetaminophen (*CRX) 5-325 MG TABLET 1 TAB PO (21:08)
[2024-09-06] MEDS: carvediloL 25 MG TABLET PO (21:09)
[2024-09-07] MEDS: LACTATED RINGERS 1,000 ML 100 ML IV CONT (04:00)
[2024-09-07] MEDS: LEVOTHYROXINE SODIUM 88 MCG TABLET PO (05:35)
[2024-09-07 05:37] VITALS: BP 158/63; PULSE 62; RESP 16; TEMP 36.6; O2SAT 98
[2024-09-07 06:26] LABS: Basophils Absolute Auto 0.1 K/mm3 (0.0-0.1); Basophils Percent Auto 0.9 % (0.2-1.2); Eosinophils Absolute Auto 0.2 K/mm3 (0-0.3); Eosinophils Percent Auto 2.6 % (0-4.4); Hematocrit 34.8 % (37.0-47.0); Hemoglobin 11.2 g/dL (12.0-15.0); Immature Granulocyte Absolute 0.04 K/mm3 (0.00-0.031); Immature Granulocyte Percent A 0.6 % (0-0.5); Lymphocytes Absolute Auto 0.78 K/mm3 (0.9-3.2); Lymphocytes Percent Auto 11.3 % (18.3-44.2); Mean Corpuscular HGB Conc 32.2 g/dl (32-36); Mean Corpuscular Hemoglobin 29.6 pg (26-34); Mean Corpuscular Volume 92.1 fl (80-100); Mean Platelet Volume 10.6 fl (7.4-10.4); Monocytes Absolute Auto 0.7 K/mm3 (0.1-0.6); Monocytes Percent Auto 9.5 % (2.6-8.5); Neutrophils Absolute Auto 5.2 K/mm3 (1.3-6.7); Neutrophils Percent Auto 75.1 % (45.5-73.1); Platelet Count Result 207 k/mm3 (150-375); Red Blood Count 3.78 M/mm3 (4.2-5.4); Red Cell Distribution Width 14.9 % (11.5-14.5); White Blood Count 6.9 K/mm3 (4.5-10.0)
[2024-09-07 06:41] LABS: Alanine Aminotransferase 15 U/L (6-35); Albumin Level 3.2 g/dL (3.5-5.1); Alkaline Phosphatase 71 U/L (38-126); Anion Gap 5 mmol/L (4-12); Aspartate Amino Transferase 18 U/L (14-36); Bilirubin,Total 0.5 mg/dL (0.2-1.3); Blood Urea Nitrogen 15 mg/dL (7-17); Calcium 9.6 mg/dL (8.4-10.2); Carbon Dioxide 28 mmol/L (22-30); Chloride 105 mmol/L (98-107); Cholesterol 172 mg/dL (0-200); Estimated Glomerular Filt Rate 36; Glucose 83 mg/dL (65-110); HDL Direct 53 mg/dL; Lipase 750 U/L (23-300); Potassium 3.7 mmol/L (3.4-5.0); Sodium 138 mmol/L (137-145); Triglycerides 105 mg/dL (<150)
[2024-09-07 06:51] LABS: LDL Cholesterol Direct 73 mg/dL
--- NOTE | 2024-09-07 08:34 | PM.IMPN ---
Progress Note: A&P Assessment and Plan (1) UTI (urinary tract infection): Qualifiers: Hematuria presence: without hematuria Urinary tract infection type: acute cystitis Qualified Code(s): N30.00 - Acute cystitis without hematuria Code(s): N39.0 - Urinary tract infection, site not specified Status: Acute Assessment and Plan: - UA suspicious for UTI, moderate squamous cells. Contaminant versus infection. UC pending, follow - previous micro reviewed, Klebsiella in 2023 that was intermediate to Macrobid. No additional resistances. - started on Ceftriaxone on 09/06 -lipase 1151< 750 (2) Hypertension: Qualifiers: Hypertension type: primary hypertension Qualified Code(s): I10 - Essential (primary) hypertension Code(s): I10 - Essential (primary) hypertension Status: Chronic Assessment and Plan: - chronic, currently 155/ - continue home medications: Coreg 25 mg b.i.d., amlodipine 5 mg daily - monitor Plan Diet: clear liquid GI Prophylaxis: Not currently indicated DVT Prophylaxis: SCDs IV fluids: LR 100 mL/hour Lines/Tubes: Peripheral IV Code Status: Full code Subjective Date/time seen: 09/07/24 08:34 Interval history: 63-year-old female with a past medical history significant for a kidney transplant at [facility] in 2022 due to chronic IgA nephropathy, presented to the ED with a 3-day history abdominal pain. Patient was initially believed to have pancreatitis due to the elevation of lipase but according to the gastroenterology abdominal CT findings do not support diagnosis of pancreatitis and believes patient has UTI. Also he recommends serial measurement of lipase which can serve as a useful perimeter in monitoring the resolution of urinary tract infection. During the evaluation patient reports of doing well. Currently denies any nausea vomiting. Review of Systems Review of Systems: All systems reviewed & are unremarkable except as noted in HPI and below Exam Const: General: comfortable and no acute distress Other: , female, nontoxic appearance HENMT: Face/Nose/Sinus: Normal nares present Mouth: Yes moist mucous membranes Eyes: General: appearance normal, both eyes and all related structures Sclera: sclerae normal Pupils: Equal, round and reactive pupils present EOM: EOMs intact bilaterally Resp: Effort & Inspection: normal respiratory effort Auscultation: clear to auscultation bilaterally Cardio: Rate: regular rate Rhythm: regular rhythm Other: S1-S2 present without murmur, rub, ectopy GI: Other: Abdomen soft, tender in the right lower quadrant and suprapubic region, normoactive bowel sounds in all quadrants. Nondistended. No hepatomegaly or splenomegaly appreciated. Skin: General skin exam: normal color and no rashes or lesions noted Wounds: no wounds Neuro: Cranial nerves: Yes Equal, round and reactive pupils present Speech: normal speech Motor exam (neuro): 5/5 motor strength present throughout Sensory Exam: normal sensation Other: A&O x4 Extrem: Other: Trace edema to bilateral ankles, symmetric and nonpitting. Psych: Mental Status: mental status grossly normal Affect: normal affect Other: Good insight and judgment, very pleasant. Objective Data Vital Signs Vital Signs: Vital Signs - 24 hr 09/06/24 08:42 09/06/24 11:00 09/06/24 12:00 Temperature 97.2 F L Pulse Rate 85 63 68 Respiratory Rate 16 16 16 Blood Pressure 147/87 H 161/84 H 170/79 H Pulse Oximetry 98 97 98 Oxygen Delivery 09/06/24 13:00 09/06/24 14:59 09/06/24 18:34 Temperature 96.8 F L Pulse Rate 67 77 Respiratory Rate 16 16 Blood Pressure 163/78 H 155/94 H Pulse Oximetry 98 98 Oxygen Delivery Room Air 09/06/24 21:09 09/06/24 21:09 09/06/24 21:27 Temperature 97.0 F L Pulse Rate 70 64 Respiratory Rate 14 Blood Pressure 166/85 H Pulse Oximetry 98 Oxygen Delivery Room Air 09/07/24 05:37 Temperature 97.8 F Pulse Rate 62 Respiratory Rate 16 Blood Pressure 158/63 H Pulse Oximetry 98 Oxygen Delivery Intake/Output Intake/Output: Intake & Output 09/04/24 09/05/24 09/06/24 09/07/24 23:59 23:59 23:59 23:59 Intake Total 2250 1500 Balance 2250 1500 Meds/Results Medications: Active Medications Generic Name Dose Route Start Last Admin Trade Name Freq PRN Reason Stop Dose Admin Acetaminophen 650 mg 09/06/24 14:01 Acetaminophen 325 Mg Tablet PO Q6H PRN Mild Pain (1-3) or Fever Hydrocodone Bitart/Acetaminophen 1 tab 09/06/24 14:01 09/06/24 21:08 Hydrocodone/Acetaminophen (*Crx) 5-325 Mg Tablet PO 1 tab Q6H PRN Administration Pain Rated 4-6 Amlodipine Besylate 5 mg 09/07/24 09:00 Amlodipine Besylate 5 Mg Tablet PO DAILY [facility] Aspirin 81 mg 09/07/24 09:00 Aspirin 81 Mg Enteric Tablet PO DAILY [facility] Carvedilol 25 mg 09/06/24 21:00 09/06/24 21:09 Carvedilol 25 Mg Tablet PO 25 mg Q12HR [facility] Administration Cyanocobalamin 1,000 mcg 09/07/24 09:00 Cyanocobalamin 1,000 Mcg Tablet PO DAILY [facility] Ceftriaxone Sodium 1 gm in 50 mls @ 100 mls/hr 09/07/24 09:00 Rocephin 1 Gm/Ns 50 Ml IVPB Q24H [facility] Lactated Ringer's 1,000 mls @ 100 mls/hr 09/06/24 13:50 09/07/24 04:00 Lr - Lactated Ringers Iv IV CONT 100 mls/hr .Q10H [facility] Administration Levothyroxine Sodium 88 mcg 09/07/24 06:30 09/07/24 05:35 Levothyroxine Sodium 88 Mcg Tablet PO 88 mcg DAILY@0630 [facility] Administration Miscellaneous Information 1 each 09/07/24 00:01 Envarsus Xr Is Nonform; Can Pt Use From Home? XX 10/07/24 00:00 CLARIFY [facility] Morphine Sulfate 2 mg 09/06/24 14:01 Morphine Sulfate (*Crx) 2 Mg/Ml Inj IV PUSH Q4H PRN Pain Rated 7-10 Non-Formulary Medication 1 mg 09/07/24 09:00 Tacrolimus [Envarsus Xr] PO 10/07/24 08:59 DAILY [facility] Polyethylene Glycol 17 gm 09/06/24 17:18 Polyethylene Glycol 3350 17 Gm Powd.Pack PO DAILY PRN as needed for constipation Prednisone 5 mg 09/07/24 09:00 Prednisone 5 Mg Tablet PO DAILY [facility] Sitagliptin Phosphate 100 mg 09/07/24 09:00 Sitagliptin Phosphate 100 Mg Tablet PO QAM [facility] Vitamin D 2,000 units 09/07/24 09:00 Cholecalciferol 1,000 Units Tablet PO DAILY [facility] Radiology Results: ITS Impressions Abdomen/Pelvis CT 09/06/24 10:20 IMPRESSION: 1. 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 2. Diverticulosis. Abdomen Ultrasound 09/06/24 12:08 IMPRESSION: 1. Normal right upper quadrant ultrasound. Labs Labs: Laboratory Results - last 24 hr 09/06/24 09/06/24 09/07/24 09:02 09:28 06:00 WBC 11.2 H 6.9 RBC 4.45 3.78 L Hgb 13.2 11.2 L Hct 41.5 34.8 L MCV 93.3 92.1 MCH 29.7 29.6 MCHC 31.8 L 32.2 RDW 15.2 H 14.9 H Plt Count 234 207 MPV 10.6 H 10.6 H Immature Gran % (Auto) 0.9 H 0.6 H Neut % (Auto) 86.3 H 75.1 H Lymph % (Auto) 5.0 L 11.3 L Day % (Auto) 5.7 9.5 H Eos % (Auto) 1.6 2.6 Baso % (Auto) 0.5 0.9 Lymph # (Auto) 0.56 L 0.78 L Day # (Auto) 0.6 0.7 H Eos # (Auto) 0.2 0.2 Baso # (Auto) 0.1 0.1 Abs Immat Gran (auto) 0.10 H 0.04 H Absolute Neuts (auto) 9.7 H 5.2 Absolute Nucleated RBC 0.000 0.000 Nucleated RBC % 0.0 0.0 Sodium 141 138 Potassium 4.1 3.7 Chloride 106 105 Carbon Dioxide 30 28 Anion Gap 5 5 BUN 23 H 15 D Creatinine 1.77 H 1.46 H Estim Creat Clear Calc Not Reportable Not Reportable Estimated GFR 29 L 36 L Glucose 121 H 83 Calcium 10.1 9.6 Total Bilirubin 0.7 0.5 AST 25 18 ALT 19 15 Alkaline Phosphatase 76 71 Total Protein 7.0 6.0 L Albumin 4.1 3.2 L Triglycerides 105 Cholesterol 172 LDL Cholesterol Direct 73 HDL Direct 53 Amylase 240 H Lipase 1151 H 750 H Urine Color Yellow Urine Appearance Turbid H Urine pH 5.5 Ur Specific [place] 1.019 Urine Protein 2+ H Urine Glucose (UA) Negative Urine Ketones Trace H Ur Blood (Man) 1+ H Urine Nitrate Positive H Urine Bilirubin Negative Urine Urobilinogen 1.0 Add Ur Microanalysis Reviewed Leukocyte Esterase Rfl 2+ H Urine RBC 0-2 Urine WBC >100 H Ur Squamous Epith Cells Moderate Urine Bacteria 4+ H Urine Casts 3-5 Quality VTE Prophylaxis VTE prophylaxis: mechanical ordered Hospitalist MIPS Advance Care Plan I have confirmed that the patient's Advanced Care Plan is present, code status is documented, or surrogate decision maker is listed in patient medical record.: Yes Medication Reconciliation I have utilized all available resources to obtain, update and review the patients current medications (includes all prescriptions, OTC, herbals, cannabis, and nutritional supplements).: Yes
[2024-09-07] MEDS: CHOLECALCIFEROL 1,000 UNITS TABLET 2000 UNITS PO (08:47)
[2024-09-07] MEDS: ASPIRIN 81 MG ENTERIC TABLET PO (08:47)
[2024-09-07 08:48] VITALS: PULSE 76
[2024-09-07] MEDS: amLODIPine BESYLATE 5 MG TABLET PO (08:48)
[2024-09-07] MEDS: SITagliptin PHOSPHATE 100 MG TABLET PO (08:48)
[2024-09-07] MEDS: predniSONE 5 MG TABLET PO (08:48)
[2024-09-07] MEDS: CYANOCOBALAMIN 1,000 MCG TABLET 1000 MCG PO (08:48)
[2024-09-07] MEDS: carvediloL 25 MG TABLET PO ×2 (08:48→20:44)
[2024-09-07 14:00] VITALS: BP 148/77; PULSE 70; RESP 16; TEMP 36.4; O2SAT 96
--- NOTE | 2024-09-07 15:32 | P.PNGI_ITS ---
Progress Note: A&P Assessment and Plan (1) Elevated lipase: Code(s): R74.8 - Abnormal levels of other serum enzymes Status: Acute Assessment and Plan: This patient with a UTI is immunosuppressed following a kidney transplant. We note a transient elevation of lipase and white blood cell count, which are currently resolving. This presentation is attributed to a phenomenon related to the UTI, possibly affecting the transplanted kidney, (? inflammatory phenomenon, non specific) and is not indicative of pancreatitis. Given that this is not a primary gastroenterological problem or pancreatitis, please do not hesitate to contact us for any future issues within our specialty. Subjective Date/time seen: 09/07/24 15:32 Interval history: Patient feels much better today. UTI being treated. Exam Narrative: Unchanged from yesterday. Objective Data Vital Signs Vital Signs: Vital Signs - 24 hr 09/06/24 18:34 09/06/24 21:09 09/06/24 21:09 Temperature Pulse Rate 70 Respiratory Rate Blood Pressure Pulse Oximetry Oxygen Delivery Room Air Room Air 09/06/24 21:27 09/07/24 05:37 09/07/24 08:48 Temperature 97.0 F L 97.8 F Pulse Rate 64 62 76 Respiratory Rate 14 16 Blood Pressure 166/85 H 158/63 H Pulse Oximetry 98 98 Oxygen Delivery 09/07/24 14:00 Temperature 97.6 F Pulse Rate 70 Respiratory Rate 16 Blood Pressure 148/77 H Pulse Oximetry 96 Oxygen Delivery Intake/Output Intake/Output: Intake & Output 09/04/24 09/05/24 09/06/24 09/07/24 23:59 23:59 23:59 23:59 Intake Total 2250 1618 Balance 2250 1618 Meds/Results Medications: Active Medications Generic Name Dose Route Start Last Admin Trade Name Freq PRN Reason Stop Dose Admin Acetaminophen 650 mg 09/06/24 14:01 Acetaminophen 325 Mg Tablet PO Q6H PRN Mild Pain (1-3) or Fever Hydrocodone Bitart/Acetaminophen 1 tab 09/06/24 14:01 09/06/24 21:08 Hydrocodone/Acetaminophen (*Crx) 5-325 Mg Tablet PO 1 tab Q6H PRN Administration Pain Rated 4-6 Amlodipine Besylate 5 mg 09/07/24 09:00 09/07/24 08:48 Amlodipine Besylate 5 Mg Tablet PO 5 mg DAILY [facility] Administration Aspirin 81 mg 09/07/24 09:00 09/07/24 08:47 Aspirin 81 Mg Enteric Tablet PO 81 mg DAILY [facility] Administration Carvedilol 25 mg 09/06/24 21:00 09/07/24 08:48 Carvedilol 25 Mg Tablet PO 25 mg Q12HR [facility] Administration Cyanocobalamin 1,000 mcg 09/07/24 09:00 09/07/24 08:48 Cyanocobalamin 1,000 Mcg Tablet PO 1,000 mcg DAILY [facility] Administration Ceftriaxone Sodium 1 gm in 50 mls @ 100 mls/hr 09/07/24 09:00 09/07/24 08:54 Rocephin 1 Gm/Ns 50 Ml IVPB 100 mls/hr Q24H [facility] Administration Lactated Ringer's 1,000 mls @ 100 mls/hr 09/06/24 13:50 09/07/24 04:00 Lr - Lactated Ringers Iv IV CONT 100 mls/hr .Q10H [facility] Administration Levothyroxine Sodium 88 mcg 09/07/24 06:30 09/07/24 05:35 Levothyroxine Sodium 88 Mcg Tablet PO 88 mcg DAILY@0630 [facility] Administration Miscellaneous Information 1 each 09/07/24 00:01 Envarsus Xr Is Nonform; Can Pt Use From Home? XX 10/07/24 00:00 CLARIFY [facility] Morphine Sulfate 2 mg 09/06/24 14:01 Morphine Sulfate (*Crx) 2 Mg/Ml Inj IV PUSH Q4H PRN Pain Rated 7-10 Non-Formulary Medication 1 mg 09/07/24 09:00 Tacrolimus [Envarsus Xr] PO 10/07/24 08:59 DAILY [facility] Polyethylene Glycol 17 gm 09/06/24 17:18 Polyethylene Glycol 3350 17 Gm Powd.Pack PO DAILY PRN as needed for constipation Prednisone 5 mg 09/07/24 09:00 09/07/24 08:48 Prednisone 5 Mg Tablet PO 5 mg DAILY [facility] Administration Sitagliptin Phosphate 100 mg 09/07/24 09:00 09/07/24 08:48 Sitagliptin Phosphate 100 Mg Tablet PO 100 mg QAM [facility] Administration Vitamin D 2,000 units 09/07/24 09:00 09/07/24 08:47 Cholecalciferol 1,000 Units Tablet PO 2,000 units DAILY [facility] Administration Radiology Results: ITS Impressions Abdomen/Pelvis CT 09/06/24 10:20 IMPRESSION: 1. 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 2. Diverticulosis. Abdomen Ultrasound 09/06/24 12:08 IMPRESSION: 1. Normal right upper quadrant ultrasound. Labs Labs: Laboratory Results - last 24 hr 09/07/24 06:00 WBC 6.9 RBC 3.78 L Hgb 11.2 L Hct 34.8 L MCV 92.1 MCH 29.6 MCHC 32.2 RDW 14.9 H Plt Count 207 MPV 10.6 H Immature Gran % (Auto) 0.6 H Neut % (Auto) 75.1 H Lymph % (Auto) 11.3 L [place] % (Auto) 9.5 H Eos % (Auto) 2.6 Baso % (Auto) 0.9 Lymph # (Auto) 0.78 L [place] # (Auto) 0.7 H Eos # (Auto) 0.2 Baso # (Auto) 0.1 Abs Immat Gran (auto) 0.04 H Absolute Neuts (auto) 5.2 Absolute Nucleated RBC 0.000 Nucleated RBC % 0.0 Sodium 138 Potassium 3.7 Chloride 105 Carbon Dioxide 28 Anion Gap 5 BUN 15 D Creatinine 1.46 H Estim Creat Clear Calc Not Reportable Estimated GFR 36 L Glucose 83 Calcium 9.6 Total Bilirubin 0.5 AST 18 ALT 15 Alkaline Phosphatase 71 Total Protein 6.0 L Albumin 3.2 L Triglycerides 105 Cholesterol 172 LDL Cholesterol Direct 73 HDL Direct 53 Lipase 750 H
[2024-09-07 20:44] VITALS: PULSE 70
[2024-09-07 21:14] VITALS: BP 126/80; PULSE 77; RESP 16; TEMP 36.4; O2SAT 100
[2024-09-08 05:26] VITALS: BP 132/71; PULSE 59; RESP 16; TEMP 36.6; O2SAT 97
[2024-09-08] MEDS: LEVOTHYROXINE SODIUM 88 MCG TABLET PO (05:48)
[2024-09-08 05:59] LABS: Hematocrit 34.9 % (37.0-47.0); Hemoglobin 11.2 g/dL (12.0-15.0); Mean Corpuscular HGB Conc 32.1 g/dl (32-36); Mean Corpuscular Hemoglobin 29.9 pg (26-34); Mean Corpuscular Volume 93.1 fl (80-100); Mean Platelet Volume 10.4 fl (7.4-10.4); Platelet Count Result 198 k/mm3 (150-375); Red Blood Count 3.75 M/mm3 (4.2-5.4); Red Cell Distribution Width 14.7 % (11.5-14.5); White Blood Count 6.4 K/mm3 (4.5-10.0)
[2024-09-08 06:12] LABS: Alanine Aminotransferase 17 U/L (6-35); Albumin Level 3.4 g/dL (3.5-5.1); Alkaline Phosphatase 70 U/L (38-126); Anion Gap 6 mmol/L (4-12); Aspartate Amino Transferase 20 U/L (14-36); Bilirubin,Total 0.4 mg/dL (0.2-1.3); Blood Urea Nitrogen 21 mg/dL (7-17); Calcium 9.7 mg/dL (8.4-10.2); Carbon Dioxide 28 mmol/L (22-30); Chloride 104 mmol/L (98-107); Estimated Glomerular Filt Rate 32; Glucose 80 mg/dL (65-110); Lipase 1326 U/L (23-300); Potassium 3.7 mmol/L (3.4-5.0); Sodium 138 mmol/L (137-145)
[2024-09-08 06:13] LABS: Lipase 1340 U/L (23-300)
[2024-09-08] MEDS: LACTATED RINGERS 1,000 ML 100 ML IV CONT ×2 (08:22→23:28)
[2024-09-08 08:23] VITALS: PULSE 64
[2024-09-08] MEDS: polyethylene glycoL 3350 17 GM POWD.PACK PO (08:23)
[2024-09-08] MEDS: carvediloL 25 MG TABLET PO ×2 (08:23→21:57)
[2024-09-08] MEDS: predniSONE 5 MG TABLET PO (08:24)
[2024-09-08] MEDS: CHOLECALCIFEROL 1,000 UNITS TABLET 2000 UNITS PO (08:24)
[2024-09-08] MEDS: SITagliptin PHOSPHATE 100 MG TABLET PO (08:24)
[2024-09-08] MEDS: ASPIRIN 81 MG ENTERIC TABLET PO (08:24)
[2024-09-08] MEDS: amLODIPine BESYLATE 5 MG TABLET PO (08:24)
[2024-09-08] MEDS: CYANOCOBALAMIN 1,000 MCG TABLET 1000 MCG PO (08:24)
--- NOTE | 2024-09-08 11:09 | P.CDI_ITS ---
CDI Query Clarification Request Patient with a BMI of 40.5 please provide a diagnosis to accompany this finding: * Overweight * Obesity * Morbid Obesity * Other/Unknown <Lacey Sandhu RN - Last Filed: 09/08/24 11:10> Clarified Diagnosis Clarified Diagnosis: * Morbid Obesity <Renee Barba MD - Last Filed: 09/08/24 12:40>
--- NOTE | 2024-09-08 11:09 | WPDCDIQUERY2 ---
CDI Query Clarification Request Patient with a BMI of 40.5 please provide a diagnosis to accompany this finding: Overweight Obesity Morbid Obesity Other/Unknown <Lacey Sandhu RN - Last Filed: 09/08/24 11:10> Clarified Diagnosis Clarified Diagnosis: Morbid Obesity <Renee Barba MD - Last Filed: 09/08/24 12:40>
[2024-09-08 13:57] VITALS: BP 122/61; PULSE 67; RESP 18; TEMP 36.1; O2SAT 98
--- NOTE | 2024-09-08 15:36 | P.PNIM_ITS ---
Progress Note: A&P Assessment and Plan (1) UTI (urinary tract infection): Qualifiers: Hematuria presence: without hematuria Urinary tract infection type: acute cystitis Qualified Code(s): N30.00 - Acute cystitis without hematuria Code(s): N39.0 - Urinary tract infection, site not specified Status: Acute Assessment and Plan: Klebsiella pneumonia UTI urine culture sensitivity showed pansensitivity Now on Cipro to complete a total of 10 days, given immunosuppression for renal transplant (2) Hypertension: Qualifiers: Hypertension type: primary hypertension Qualified Code(s): I10 - Essential (primary) hypertension Code(s): I10 - Essential (primary) hypertension Status: Chronic Assessment and Plan: - chronic, currently 155/94 - continue home medications: Coreg 25 mg b.i.d., amlodipine 5 mg daily - monitor Plan S/p kidney transplant Cr today is 1.6 which appears to be baseline since December 2023 Nephrology consulted on patient's request discontinue IVF, while awaiting Nephrology eval Elevated lipase no abd pain and CT AP no pancreatic findings discussed with patient to have it repeat outpatient with her PCP. DVT prophylaxis on Sq heparin Code Status: Full code Subjective Date/time seen: 09/08/24 15:36 Interval history: Patient feels much better today. Urine culture and sensitivity evaluated patient noted she wants to see Nephrology as she is concerned about her renal function however her renal function appears stable since December of 2023 Nephrology consulted Review of Systems Review of Systems: All systems reviewed & are unremarkable except as noted in HPI and below Exam Const: General: comfortable and no acute distress Other: , female, nontoxic appearance HENMT: Face/Nose/Sinus: Normal nares present Mouth: Yes moist mucous membranes Eyes: General: appearance normal, both eyes and all related structures Sclera: sclerae normal Pupils: Equal, round and reactive pupils present EOM: EOMs intact bilaterally Resp: Effort & Inspection: normal respiratory effort Auscultation: clear to auscultation bilaterally Cardio: Rate: regular rate Rhythm: regular rhythm Other: S1-S2 present without murmur, rub, ectopy GI: Other: Abdomen soft, tender in the right lower quadrant and suprapubic region, normoactive bowel sounds in all quadrants. Nondistended. No hepatomegaly or splenomegaly appreciated. Skin: General skin exam: normal color and no rashes or lesions noted Wounds: no wounds Neuro: Cranial nerves: Yes Equal, round and reactive pupils present Speech: normal speech Motor exam (neuro): 5/5 motor strength present throughout Sensory Exam: normal sensation Other: A&O x4 Extrem: Other: Trace edema to bilateral ankles, symmetric and nonpitting. Psych: Mental Status: mental status grossly normal Affect: normal affect Other: Good insight and judgment, very pleasant. Objective Data Vital Signs Vital Signs: Vital Signs - 24 hr 09/07/24 20:44 09/07/24 20:44 09/07/24 21:14 Temperature 97.5 F L Pulse Rate 70 77 Respiratory Rate 16 Blood Pressure 126/80 Pulse Oximetry 100 Oxygen Delivery Room Air 09/08/24 05:26 09/08/24 08:23 09/08/24 13:57 Temperature 97.9 F 97.0 F L Pulse Rate 59 L 64 67 Respiratory Rate 16 18 Blood Pressure 132/71 122/61 Pulse Oximetry 97 98 Oxygen Delivery Intake/Output Intake/Output: Intake & Output 09/05/24 09/06/24 09/07/24 09/08/24 23:59 23:59 23:59 23:59 Intake Total 2250 3148 1280 Balance 2250 3148 1280 Meds/Results Medications: Active Medications Generic Name Dose Route Start Last Admin Trade Name Freq PRN Reason Stop Dose Admin Acetaminophen 650 mg 09/06/24 14:01 Acetaminophen 325 Mg Tablet PO Q6H PRN Mild Pain (1-3) or Fever Hydrocodone Bitart/Acetaminophen 1 tab 09/06/24 14:01 09/06/24 21:08 Hydrocodone/Acetaminophen (*Crx) 5-325 Mg Tablet PO 1 tab Q6H PRN Administration Pain Rated 4-6 Amlodipine Besylate 5 mg 09/07/24 09:00 09/08/24 08:24 Amlodipine Besylate 5 Mg Tablet PO 5 mg DAILY SHANEKA Administration Aspirin 81 mg 09/07/24 09:00 09/08/24 08:24 Aspirin 81 Mg Enteric Tablet PO 81 mg DAILY SHANEKA Administration Carvedilol 25 mg 09/06/24 21:00 09/08/24 08:23 Carvedilol 25 Mg Tablet PO 25 mg Q12HR SHANEKA Administration Ciprofloxacin 500 mg 09/09/24 09:00 Ciprofloxacin 500 Mg Tab PO 09/12/24 21:01 Q12HR SHANEKA Cyanocobalamin 1,000 mcg 09/07/24 09:00 09/08/24 08:24 Cyanocobalamin 1,000 Mcg Tablet PO 1,000 mcg DAILY SHANEKA Administration Lactated Ringer's 1,000 mls @ 100 mls/hr 09/06/24 13:50 09/08/24 08:22 Lr - Lactated Ringers Iv IV CONT 100 mls/hr .Q10H SHANEKA Administration Levothyroxine Sodium 88 mcg 09/07/24 06:30 09/08/24 05:48 Levothyroxine Sodium 88 Mcg Tablet PO 88 mcg DAILY@0630 SHANEKA Administration Miscellaneous Information 1 each 09/07/24 00:01 Envarsus Xr Is Nonform; Can Pt Use From Home? XX 10/07/24 00:00 [facility]ARIFY [facility] Morphine Sulfate 2 mg 09/06/24 14:01 Morphine Sulfate (*Crx) 2 Mg/Ml Inj IV PUSH Q4H PRN Pain Rated 7-10 Non-Formulary Medication 1 mg 09/07/24 09:00 Tacrolimus [Envarsus Xr] PO 10/07/24 08:59 DAILY [facility] Polyethylene Glycol 17 gm 09/06/24 17:18 09/08/24 08:23 Polyethylene Glycol 3350 17 Gm Powd.Pack PO 17 gm DAILY PRN Administration as needed for constipation Prednisone 5 mg 09/07/24 09:00 09/08/24 08:24 Prednisone 5 Mg Tablet PO 5 mg DAILY SHANEKA Administration Sitagliptin Phosphate 100 mg 09/07/24 09:00 09/08/24 08:24 Sitagliptin Phosphate 100 Mg Tablet PO 100 mg QAM [facility] Administration Vitamin D 2,000 units 09/07/24 09:00 09/08/24 08:24 Cholecalciferol 1,000 Units Tablet PO 2,000 units DAILY SHANEKA Administration Radiology Results: ITS Impressions Abdomen/Pelvis CT 09/06/24 10:20 IMPRESSION: 1. 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 2. Diverticulosis. Abdomen Ultrasound 09/06/24 12:08 IMPRESSION: 1. Normal right upper quadrant ultrasound. Labs Labs: Laboratory Results - last 24 hr 09/08/24 09/08/24 05:46 05:46 WBC 6.4 RBC 3.75 L Hgb 11.2 L Hct 34.9 L MCV 93.1 MCH 29.9 MCHC 32.1 RDW 14.7 H Plt Count 198 MPV 10.4 Sodium 138 Potassium 3.7 Chloride 104 Carbon Dioxide 28 Anion Gap 6 BUN 21 H Creatinine 1.60 H Estim Creat Clear Calc Not Reportable Estimated GFR 32 L Glucose 80 Calcium 9.7 Total Bilirubin 0.4 AST 20 ALT 17 Alkaline Phosphatase 70 Total Protein 6.0 L Albumin 3.4 L Lipase 1326 H 1340 H Quality VTE Prophylaxis VTE prophylaxis: mechanical ordered
--- NOTE | 2024-09-08 17:24 | P.CONNP_ITS ---
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 (3) UTI (urinary tract infection): Qualifiers: Hematuria presence: without hematuria Urinary tract infection type: a cute cystitis Qualified Code(s): N30.00 - Acute cystitis without hematuria Code(s): N39.0 - Urinary tract infection, site not specified Status: Acute Assessment and Plan: * admission highly suggestive * complicated by immunocompromised state * urine culture with Klebsiella * on antibiotics (4) Elevated lipase: Code(s): R74.8 - Abnormal levels of other serum enzymes Status: Acute Assessment and Plan: * unclear significance of this * so symptoms to suggest pancreatitis * no evidence of pancreatitis by recent CT imaging * related to inflammation from UTI?? * Gastroenterology recommendations noted (5) Hypertension: Qualifiers: Hypertension type: primary hypertension Qualified Code(s): I10 - Essential (primary) hypertension Code(s): I10 - Essential (primary) hypertension Status: Chronic Assessment and Plan: * well controlled * follow the trend of hemodynamics Not opposed to discharge from a renal perspective if she is otherwise medically stable as her transplant kidney function is at baseline and she is on appropriate antibiotic therapy for her urinary tract infection. I will continue to follow the patient with you while she remains hospitalized and make further recommendations as deemed necessary. Thank you for allowing me to participate in the care of this patient. L History of Present Illness Reason for Consult Consult date: 09/08/24 Reason for consult: chronic renal failure and Other (renal transplant) Chief Complaint Chief complaint: Urinary Tract Infection/Nausea/Vomiting/Diarrhea History of Present Illness Narrative: The patient is a 63-year-old female past medical history as outlined below who presented to [facility] for further evaluation of abdominal pain. The patient states that the abdominal pain started last and has progressively worsened since that time. She describes the pain as a throbbing sensation in her right lower quadrant that has been intermittent with each episode lasting about 5 minutes and then resolving on its own. The pain is nonradiating and does not appear to be associated with any type of aggravating or relieving factors. Subsequently, a few days later, she developed a poor appetite and suprapubic discomfort as well. Furthermore, there have been some episodes of diarrhea as well. She denies any history of fevers, chills, diaphoresis, body aches, dysuria, urinary frequency, melena, or hematochezia. Given the progression of the symptoms as mentioned, she presented to the ER for further assessment. Workup and evaluation emergency room demonstrated the patient be hemodynamically stable and in no acute distress. Routine blood work demonstrated white blood cell count of 10.2 normal hemoglobin, normal electrolytes, a creatinine of 1.77, glucose of 121, amylase 240, lipase 1151, and a urinalysis highly suggestive of urinary tract infection. A CT scan of the abdomen pelvis was done which demonstrated bilateral renal atrophy with a right pelvic transplant kidney and diverticulosis without any other acute pathology. Abdominal ultrasound was normal as well. Given the concern of urinary tract infection in a patient on immunosuppression therapy in conjunction with her elevated amylase and lipase, she was admitted to the hospital for IV fluids and IV antibiotic therapy after appropriate cultures were obtained. Since her admission, she appears to be clinically improving with current therapy although her amylase and lipase remain elevated. Gastroenterology has been consulted with regard to this issue it does not feel that these laboratory abnormalities represent pancreatitis based on imaging to date and her current symptoms. Renal consultation was requested due to her history of renal transplantation. The patient received her renal transplant in May of 2022 for treatment of her underlying advanced kidney disease secondary to IgA nephropathy. Since her transplant, her renal function has been relatively stable in the last couple of years with her creatinine running around 1.4-1.7 mg/dL in the last year. She follows with [facility] for monitoring of her kidney function as well as immunosuppressive therapy and last saw them in May of 2024 with her kidney function remains stable. On admission, as noted above, her creatinine was 1.77 mg/dL but has improved to 1.6 mg/dL on repeat labs this morning. Currently, the time my evaluation, she appears to be in no acute distress. Review of Systems 2 Review of Systems: As per HPI. [facility] Past Medical History Medical History (Updated 09/08/24 @ 17:49 by Manuel Ron MD) History of bruising easily History of stress test (~2021) High risk human papilloma virus (HPV) infection of cervix Vaginal delivery x2 Hypertension Kidney disease Hyperlipidemia Hypothyroidism Surgical History Surgical History (Updated 09/08/24 @ 17:47 by Maneul Ron MD) History of kidney transplant History of colposcopy Coy teeth extracted H/O laparoscopy Family History Family History Father Hypertension Patient's father is in good health Mother Hypertension Patient's mother is in good health Family history of heart disease in male family member before age 55 Grandparent Family history of malignant neoplasm Social History Social History Smoking status: Never smoker Second hand tobacco smoke exposure: No Alcohol intake: never Substance use: never Substance use type: does not use Do You Feel Safe in your Home?: Yes Lack of Transportation: No Lack of Food: Never True Current Housing: I Have Housing Concerned About Future Housing: No Difficulty Paying Gas/Electric Bills: No Difficulty Paying for Meds: No Currently Unemployed: No Education: High School Diploma/GED Difficulty w/ Childcare or Family Care: No Living arrangements: with family Spiritual care concerns: No Meds Home Medications and Allergies Home Medications ?Medication ?Instructions ?Recorded ?Confirmed ?Type aspirin 81 mg tablet,delayed 81 mg PO DAILY 10/12/22 09/06/24 History release linagliptin 5 mg tablet (Tradjenta) 5 mg PO QAM 10/12/22 09/06/24 History polyethylene glycol 3350 17 17 g PO DAILY PRN as needed for 10/12/22 09/06/24 History gram/dose oral powder (Miralax) constipation prednisone 5 mg tablet 5 mg PO DAILY 10/12/22 09/06/24 History amlodipine 5 mg tablet 5 mg PO DAILY 11/27/22 09/06/24 History cholecalciferol (vitamin D3) 50 50 mcg PO DAILY 11/13/23 09/06/24 History mcg (2,000 unit) capsule cyanocobalamin (vitamin B-12) 1,000 mcg PO DAILY 11/13/23 09/06/24 History 1,000 mcg capsule pravastatin 40 mg tablet See Rx Instructions .Route 12/16/23 09/06/24 Rx .COMPLEX #90 tabs levothyroxine 88 mcg tablet 88 mcg PO DAILY #90 tabs 08/31/24 09/06/24 Rx (Levoxyl) acetaminophen 500 mg capsule 500 mg PO Q4-6H PRN fever or pain 09/06/24 09/06/24 History carvedilol 25 mg tablet 25 mg PO BID hypertension 09/06/24 09/06/24 History tacrolimus 1 mg tablet,extended 1 mg PO DAILY 09/06/24 09/06/24 History release 24 hr (Envarsus XR) Allergies Allergy/AdvReac Type Severity Reaction Status Date / Time ibuprofen Allergy Severe on kidney Verified 09/06/24 08:37 transplant list nitrofurantoin Allergy Mild Unknown Verified 09/06/24 08:37 Vital Signs Vital Signs Temp Pulse Resp BP Pulse Ox O2 Del Method 09/08/24 13:57 97.0 F L 67 18 122/61 98 09/08/24 08:23 64 09/08/24 05:26 97.9 F 59 L 16 132/71 97 09/07/24 21:14 97.5 F L 77 16 126/80 100 09/07/24 20:44 Room Air 09/07/24 20:44 70 Exam 2 Narrative: GENERAL APPEARANCE: well developed well nourished female in no acute distress HEENT: normocephalic, atraumatic, normal conjunctiva and sclera, nares patient NECK: no lymphadenopathy, thyromegaly, or JVD MOUTH: normal lips, teeth, and gums CARDIOVASCULAR: RRR, normal S1 and S2, no rub RESPIRATORY: clear to auscultation bilaterally ABDOMEN: soft, nontender, nondistended, positive bowel sounds present EXTREMITIES: no evidence of cyanosis, clubbing, or edema NEUROLOGICAL: alert and oriented x 3; CN II - XII intact bilaterally; no focal deficits noted Results Lab Results 09/09/24 06:31 09/09/24 06:31 Lab results: Most recent lab results Calcium 9.7 mg/dL (8.4-10.2) 09/08/24 05:46
--- NOTE | 2024-09-08 18:35 | PC.NURSE ---
Pt concerned about hospitalist discharge without nephro consult. Hospitalist agreeable. Nephro proposing d/c 09/09 if labs stable. Nephro agreeable to maintenance fluids as long as pt tolerating.
[2024-09-08 20:00] VITALS: PULSE 68; RESP 20; O2SAT 98
--- NOTE | 2024-09-08 20:00 | PHAR ---
PT'S HOME MED ENVARSUS XR 1 MG TAB VERIFIED BY PHARMACY
[2024-09-08 21:57] VITALS: PULSE 68
[2024-09-08 22:00] VITALS: BP 134/60; PULSE 68; RESP 20; TEMP 36.8; O2SAT 98
[2024-09-09 06:00] VITALS: BP 143/70; PULSE 70; RESP 16; TEMP 36.5; O2SAT 98
[2024-09-09] MEDS: LEVOTHYROXINE SODIUM 88 MCG TABLET PO (06:53)
[2024-09-09 06:54] LABS: Basophils Percent Auto 0.6 % (0.2-1.2); Eosinophils Absolute Auto 0.2 K/mm3 (0-0.3); Eosinophils Percent Auto 2.9 % (0-4.4); Hematocrit 35.2 % (37.0-47.0); Hemoglobin 11.1 g/dL (12.0-15.0); Immature Granulocyte Absolute 0.04 K/mm3 (0.00-0.031); Immature Granulocyte Percent A 0.6 % (0-0.5); Lymphocytes Absolute Auto 1.04 K/mm3 (0.9-3.2); Lymphocytes Percent Auto 14.9 % (18.3-44.2); Mean Corpuscular HGB Conc 31.5 g/dl (32-36); Mean Corpuscular Hemoglobin 29.3 pg (26-34); Mean Corpuscular Volume 92.9 fl (80-100); Mean Platelet Volume 10.8 fl (7.4-10.4); Monocytes Absolute Auto 0.5 K/mm3 (0.1-0.6); Monocytes Percent Auto 7.5 % (2.6-8.5); Neutrophils Absolute Auto 5.1 K/mm3 (1.3-6.7); Neutrophils Percent Auto 73.5 % (45.5-73.1); Platelet Count Result 197 k/mm3 (150-375); Red Blood Count 3.79 M/mm3 (4.2-5.4); Red Cell Distribution Width 14.7 % (11.5-14.5)
[2024-09-09 07:07] LABS: Alanine Aminotransferase 17 U/L (6-35); Albumin Level 3.3 g/dL (3.5-5.1); Alkaline Phosphatase 70 U/L (38-126); Anion Gap 4 mmol/L (4-12); Aspartate Amino Transferase 19 U/L (14-36); Bilirubin,Total 0.3 mg/dL (0.2-1.3); Blood Urea Nitrogen 23 mg/dL (7-17); Calcium 9.7 mg/dL (8.4-10.2); Carbon Dioxide 29 mmol/L (22-30); Chloride 108 mmol/L (98-107); Estimated Glomerular Filt Rate 34; Glucose 84 mg/dL (65-110); Magnesium 1.6 mg/dL (1.6-2.3); Sodium 141 mmol/L (137-145)
--- NOTE | 2024-09-09 09:20 | P.PNNP_ITS ---
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 (3) UTI (urinary tract infection): Qualifiers: Hematuria presence: without hematuria Urinary tract infection type: a cute cystitis Qualified Code(s): N30.00 - Acute cystitis without hematuria Code(s): N39.0 - Urinary tract infection, site not specified Status: Acute Assessment and Plan: * admission UA highly suggestive * complicated by immunocompromised state * urine culture with Klebsiella * on antibiotics (4) Elevated lipase: Code(s): R74.8 - Abnormal levels of other serum enzymes Status: Acute Assessment and Plan: * unclear significance of this * so symptoms to suggest pancreatitis * no evidence of pancreatitis by recent CT imaging * related to inflammation from UTI?? * Gastroenterology recommendations noted (5) Hypertension: Qualifiers: Hypertension type: primary hypertension Qualified Code(s): I10 - Essential (primary) hypertension Code(s): I10 - Essential (primary) hypertension Status: Chronic Assessment and Plan: * well controlled * follow the trend of hemodynamics Not opposed to discharge from a renal perspective if she is otherwise medically stable as her transplant kidney function is at baseline and she is on appropriate antibiotic therapy for her urinary tract infection. Will continue to follow. L Subjective Date/time seen: 09/09/24 09:20 Interval history: Follow-up for renal transplant and associated chronic kidney disease. Appears to be doing quite well at the time of my visit; no apparent distress note when seen; renal function/creatinine remains stable by trend of labs; no specific complaints to report; no other acute issues/events overnight or earlier this morning. Exam 2 Narrative: General: WD/WN female in NAD Heart: normal S1 and S2; no rub Lungs: clear to auscultation Abdomen: soft, nontender, nondistended, positive bowel sounds Extremities: no cyanosis or clubbing; no edema Skin: warm and dry Objective Data Vital Signs Vital Signs: Vital Signs Temp Pulse Resp BP Pulse Ox O2 Del Method 09/09/24 08:00 Room Air 09/09/24 06:00 97.7 F 70 16 143/70 H 98 09/08/24 22:00 98.2 F 68 20 134/60 98 09/08/24 21:57 68 09/08/24 20:00 68 20 98 Room Air 09/08/24 13:57 97.0 F L 67 18 122/61 98 Intake/Output Intake/Output: Intake & Output 09/06/24 09/07/24 09/08/24 09/09/24 23:59 23:59 23:59 23:59 Intake Total 2250 3148 2398 340 Balance 2250 3148 2398 340 Meds/Results Medications: Active Medications Generic Name Dose Route Start Last Admin Trade Name Freq PRN Reason Stop Dose Admin Acetaminophen 650 mg 09/06/24 14:01 Acetaminophen 325 Mg Tablet PO Q6H PRN Mild Pain (1-3) or Fever Hydrocodone Bitart/Acetaminophen 1 tab 09/06/24 14:01 09/06/24 21:08 Hydrocodone/Acetaminophen (*Crx) 5-325 Mg Tablet PO 1 tab Q6H PRN Administration Pain Rated 4-6 Amlodipine Besylate 5 mg 09/07/24 09:00 09/08/24 08:24 Amlodipine Besylate 5 Mg Tablet PO 5 mg DAILY SHANEKA Administration Aspirin 81 mg 09/07/24 09:00 09/08/24 08:24 Aspirin 81 Mg Enteric Tablet PO 81 mg DAILY SHANEKA Administration Carvedilol 25 mg 09/06/24 21:00 09/08/24 21:57 Carvedilol 25 Mg Tablet PO 25 mg Q12HR SHANEKA Administration Ciprofloxacin 500 mg 09/09/24 09:00 Ciprofloxacin 500 Mg Tab PO 09/12/24 21:01 Q12HR SHANEKA Cyanocobalamin 1,000 mcg 09/07/24 09:00 09/08/24 08:24 Cyanocobalamin 1,000 Mcg Tablet PO 1,000 mcg DAILY SHANEKA Administration Heparin Sodium (Porcine) 5,000 units 09/08/24 22:00 09/09/24 06:54 Heparin Sodium 5,000 Units/Ml Vial SUB-Q Not Given Q8HR SHANEKA Lactated Ringer's 1,000 mls @ 75 mls/hr 09/06/24 13:50 09/08/24 23:28 Lr - Lactated Ringers Iv IV CONT 100 mls/hr .[id number] SHANEKA Administration Levothyroxine Sodium 88 mcg 09/07/24 06:30 09/09/24 06:53 Levothyroxine Sodium 88 Mcg Tablet PO 88 mcg DAILY@0630 SHANEKA Administration Morphine Sulfate 2 mg 09/06/24 14:01 Morphine Sulfate (*Crx) 2 Mg/Ml Inj IV PUSH Q4H PRN Pain Rated 7-10 Non-Formulary ( 1 each 09/09/24 09:00 Tacrolimus 1 Mg Oral PO 10/09/24 08:59 Tablet, Extended DAILY SHANEKA Release 24 Hr) Polyethylene Glycol 17 gm 09/06/24 17:18 09/08/24 08:23 Polyethylene Glycol 3350 17 Gm Powd.Pack PO 17 gm DAILY PRN Administration as needed for constipation Prednisone 5 mg 09/07/24 09:00 09/08/24 08:24 Prednisone 5 Mg Tablet PO 5 mg DAILY SHANKEA Administration Sitagliptin Phosphate 100 mg 09/07/24 09:00 09/08/24 08:24 Sitagliptin Phosphate 100 Mg Tablet PO 100 mg QAM SHANEKA Administration Vitamin D 2,000 units 09/07/24 09:00 09/08/24 08:24 Cholecalciferol 1,000 Units Tablet PO 2,000 units DAILY SHANEAK Administration Radiology Results: ITS Impressions Abdomen/Pelvis CT 09/06/24 10:20 IMPRESSION: 1. 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 2. Diverticulosis. Abdomen Ultrasound 09/06/24 12:08 IMPRESSION: 1. Normal right upper quadrant ultrasound. Labs Labs: Laboratory Tests 09/09/24 06:31 09/09/24 06:31 Calcium 9.7 Magnesium 1.6 Total Bilirubin 0.3 AST 19 ALT 17 Alkaline Phosphatase 70 Total Protein 6.0 L Albumin 3.3 L Microbiology 09/06/24 09:28 Clean Catch Midstream Urine Culture - Final Klebsiella pneumoniae
[2024-09-09 10:46] VITALS: O2SAT 97
[2024-09-09] MEDS: ASPIRIN 81 MG ENTERIC TABLET PO (11:01)
[2024-09-09 11:02] VITALS: PULSE 65
[2024-09-09] MEDS: carvediloL 25 MG TABLET PO (11:02)
[2024-09-09 11:05] VITALS: BP 133/70; PULSE 65
[2024-09-09] MEDS: amLODIPine BESYLATE 5 MG TABLET PO (11:07)
[2024-09-09] MEDS: CHOLECALCIFEROL 1,000 UNITS TABLET 2000 UNITS PO (11:10)
[2024-09-09] MEDS: SITagliptin PHOSPHATE 100 MG TABLET PO (11:11)
[2024-09-09] MEDS: predniSONE 5 MG TABLET PO (11:12)
[2024-09-09] MEDS: CYANOCOBALAMIN 1,000 MCG TABLET 1000 MCG PO (11:12)
[2024-09-09] MEDS: CIPROFLOXACIN 500 MG TAB PO (11:13)
[2024-09-09] MEDS: TACROLIMUS 1 MG 1 EACH PO (11:15)
--- NOTE | 2024-09-09 13:29 | P.DS_ITS ---
DS: Admitting Diagnosis Discharge Date 09/09/2024 Admitting Diagnosis Urinary tract infection Hypertension Elevated lipase Status post kidney transplant DS: Discharge Diagnosis Discharge Diagnosis (1) UTI (urinary tract infection): Qualifiers: Hematuria presence: without hematuria Urinary tract infection type: a cute cystitis Qualified Code(s): N30.00 - Acute cystitis without hematuria Code(s): N39.0 - Urinary tract infection, site not specified Status: Acute (2) Hypertension: Qualifiers: Hypertension type: primary hypertension Qualified Code(s): I10 - Essential (primary) hypertension Code(s): I10 - Essential (primary) hypertension Status: Chronic (3) Elevated lipase: Code(s): R74.8 - Abnormal levels of other serum enzymes Status: Acute (4) Status post kidney transplant: Code(s): Z94.0 - Kidney transplant status Status: Acute DS: Summary Hospital Course Reason for hospitalization: Urinary tract infection Hypertension Elevated lipase Status post kidney transplant Hospital Course: 63 year old female with past medical history of kidney transplant (2022, [facility]) secondary to IgA nephropathy, hypertension, hyperlipidemia, and hypothyroidism presents to the hospital with abdominal pain. Patient meeting sepsis criteria on admission. UA concerning for infection, started on IV antibio tics. Urine culture grew klebsiella pansensitive, transitioned to oral. Creatinine elevated on admission, started on IV fluids and returned to baseline. Abdomen/pelvis CT showed severe bilateral renal atrophy with right pelvic transplant and diverticulosis. Abdomen US showed normal right upper quadrant US. Nephrology consulted given kidney transplant and elevated creatinine. Per nephrology patient is ready for discharge from a renal perspective if she is otherwise medically stable as her transplant kidney function is at baseline and she is on appropriate antibiotic therapy for her urinary tract infection. She was noted to have an elevated lipase and was started on IV fluids at that time. Abdomen pelvis CT showed no signs of pancreatitis. Evaluated by GI and noted that this presentation is likely attributed to a phenomenon related to the UTI. The elevated lipase remained asymptomatic and patient is to follow up with her primary care provider. At time of discharge patient has no complaints denies chest pain, palpitations, shortness of breath, nausea/vomiting, abdominal pain, and dizziness/lightheadedness. Patient discharged home in a stable condition. She is to follow up with her primary care provider in 1 week and her transplant team as scheduled. Status at Discharge Functional status at discharge: independent ambulation Time Spent with Patient Time attestation: Total time spent providing and/or coordinating discharge services: Time spent: Greater than 30 minutes Exam Narrative: AF HR 65 RR 16 Spo2 98 BP 133/70 General: female in no acute respiratory distress who is nontoxic appearing, sitting up in chair HEENT: Normocephalic. Atraumatic. Extraocular movement intact. Sclera clear and anicteric. No facial asymmetry. Chest: Lungs are clear to auscultation CV: Heart was regular rate and rhythm Abd: Abdomen was soft. Nontender. Nondistended. Positive bowel sounds. Neuro: Patient is alert and oriented x4. Speech is clear. DS: Data Data Completed and Pending Completed studies during hospitalization: Abdomen ultrasound Abdomen pelvis CT Labs on day of discharge: Labs from last 24 hours 09/09/24 06:31 WBC 7.0 RBC 3.79 L Hgb 11.1 L Hct 35.2 L MCV 92.9 MCH 29.3 MCHC 31.5 L RDW 14.7 H Plt Count 197 MPV 10.8 H Immature Gran % (Auto) 0.6 H Neut % (Auto) 73.5 H Lymph % (Auto) 14.9 L Faulkner % (Auto) 7.5 Eos % (Auto) 2.9 Baso % (Auto) 0.6 Lymph # (Auto) 1.04 Faulkner # (Auto) 0.5 Eos # (Auto) 0.2 Baso # (Auto) 0.0 Abs Immat Gran (auto) 0.04 H Absolute Neuts (auto) 5.1 Absolute Nucleated RBC 0.000 Nucleated RBC % 0.0 Sodium 141 Potassium 4.0 Chloride 108 H Carbon Dioxide 29 Anion Gap 4 BUN 23 H Creatinine 1.52 H Estim Creat Clear Calc Not Reportable Estimated GFR 34 L Glucose 84 Calcium 9.7 Magnesium 1.6 Total Bilirubin 0.3 AST 19 ALT 17 Alkaline Phosphatase 70 Total Protein 6.0 L Albumin 3.3 L Preliminary micro results at discharge 09/06/24 11:43 Blood Culture - Preliminary Blood 09/06/24 12:18 Blood Culture - Preliminary Blood Discharge Plan Discharge Attending physician on discharge: Renee Barba Consulting providers: Manuel Ron Discharging Clinician: Thelma Laguna Anticipated Discharge Date/Time: 09/09/24 13:17 Patient Disposition: Home Activity: as tolerated Diet: as tolerated and heart healthy Discharge Instructions: Discharge disposition: Patient admitted to the hospital for a urinary tract infection and elevated creatinine Started on IV fluids and creatinine has returned to baseline Take all medications as prescribed even if feeling better Ciprofloxacin twice a day, course to be completed on 09/12 Attached is information on this medication Follow up with your transplant team as scheduled Eat well balanced meals and stay hydrated Keep active to remain strong Avoid use of diapers or pads Good willie Care every 2 hours Trend urine output Patient had elevated lipase on admission however remained asymptomatic Evaluated by GI and no acute intervention required Follow up with primary care provider to reassess lipase Monitor blood pressures Take caution while standing, rising, or moving Change positions slowly taking a break between each position change If you standing feel dizzy sit back down and take a break Encouraged to continue with yearly vaccinations Return to the emergency department if he developed sudden shortness of breath, chest pain, nausea, vomiting, upset stomach or intractable diarrhea Return to the emergency department if you develop fever greater than 101.5 Follow-up with the primary care physician within 1-2 weeks Thank you for [facility] for your healthcare needs Patient Instructions: Antibiotic Form, Ciprofloxacin (By mouth), Urinary Tract Infection in Women (DC), Kidney Transplant (DC) Patient Language: Armenian Stand Alone Forms: General Discharge Information, Work/School Release IP Follow-up/Referrals: Manuel Ron MD [Physician] - Long Candelario DO [Primary Care Provider] - 1 Week Discharge Medications: New ciprofloxacin HCl 500 mg Tablet 500 mg PO Q12HR Qty: 7 0RF Continued amlodipine 5 mg tablet 5 mg PO DAILY Tradjenta 5 mg tablet 5 mg PO QAM polyethylene glycol 3350 [Miralax] 17 gram/dose powder 17 g PO DAILY PRN (Reason: as needed for constipation) prednisone 5 mg tablet 5 mg PO DAILY aspirin 81 mg tablet,delayed release (DR/EC) 81 mg PO DAILY cyanocobalamin (vitamin B-12) 1,000 mcg capsule 1,000 mcg PO DAILY cholecalciferol (vitamin D3) 50 mcg (2,000 unit) capsule 50 mcg PO DAILY carvedilol 25 mg tablet 25 mg PO BID Envarsus XR 1 mg tablet extended release 24 hr 1 mg PO DAILY acetaminophen 500 mg capsule 500 mg PO Q4-6H PRN (Reason: fever or pain) pravastatin 40 mg tablet See Rx Instructions .ROUTE .COMPLEX Qty: 90 2RF Dose Instruction: Take 1 tablet by mouth once daily Rx Instructions: Take 1 tablet by mouth once daily levothyroxine [Levoxyl] 88 mcg tablet 88 mcg PO DAILY Qty: 90 1RF Date of admission: 09/07/24 13:20 Primary Care Provider: Long Candelario Admitting Provider: Marco Gusman Attending physician on admission: Thelma Laguna Condition: Stable Hospitalist MIPS Heart Failure (Exclusion) Patient has history of Heart Transplant or Left Ventricular Assistive Device?: No IF YES, STOP HERE Heart Failure (Qualifier) Patient has current or prior documentation of LVEF less than or equal to 40%, or mod/servere depressed LVSF?: No IF NO, STOP HERE
[2024-09-09] MEDS: HYDROcodone/acetaminophen (*CRX) 5-325 MG TABLET 1 TAB PO (13:44)
[2024-09-09 21:04] LABS: CMV DNA Quant PCR IU/mL Not Detected (Not Detected); Cytomegalovirus DNA Quant PCR Not Detected Log IU/mL (Not Detected)
== END 2024-09-09 14:10 | disposition home or self-care (01) | DRG 689 ==
LOC: ANHED 11:40 → ANH3MEDSUR 12:46
PROVIDERS: General Practice; Internal Medicine; Student in an Organized Health Care Education/Training Program; Admitting Provider Internal Medicine; Emergency Provider Emergency Medicine; PCP Internal Medicine; Visit Provider Student in an Organized Health Care Education/Training Program
DX: N30.00 Acute cystitis without hematuria (principal); K85.90 Acute pancreatitis without necrosis or infection, unspecified; Z94.0 Kidney transplant status; Z68.41 Body mass index [BMI] 40.0-44.9, adult; B96.1 Klebsiella pneumoniae [K. pneumoniae] as the cause of diseases classified elsewhere; E78.5 Hyperlipidemia, unspecified; E03.9 Hypothyroidism, unspecified; E66.01 Morbid (severe) obesity due to excess calories; K57.90 Diverticulosis of intestine, part unspecified, without perforation or abscess without bleeding; I12.9 Hypertensive chronic kidney disease with stage 1 through stage 4 chronic kidney disease, or unspecified chronic kidney disease; N18.32 Chronic kidney disease, stage 3b; R74.8 Abnormal levels of other serum enzymes; Z79.82 Long term (current) use of aspirin
CPT/HCPCS: 36415; 74176; 76705; 80053; 80061; 81001; 82150; 83690; 83735; 85025; 85027; 87040; 87086; 87186; 87497; 96361; 96365; 96375; 99285; A9270; G0378; J0696; J2405; J7120; J7512

== ENCOUNTER 2024-09-22 07:40 | Outpatient (RCR) | payer OTHER, SELFPAY ==
[2024-06-25 07:43] LABS: Basophils Absolute Auto 0.1 K/mm3 (0.0-0.1); Basophils Percent Auto 0.8 % (0.2-1.2); Eosinophils Absolute Auto 0.2 K/mm3 (0-0.3); Hematocrit 37.3 % (37.0-47.0); Hemoglobin 11.8 g/dL (12.0-15.0); Immature Granulocyte Percent A 1.1 % (0-0.5); Lymphocytes Absolute Auto 0.54 K/mm3 (0.9-3.2); Lymphocytes Percent Auto 5.7 % (18.3-44.2); Mean Corpuscular HGB Conc 31.6 g/dl (32-36); Mean Corpuscular Volume 91.6 fl (80-100); Mean Platelet Volume 10.9 fl (7.4-10.4); Monocytes Absolute Auto 0.6 K/mm3 (0.1-0.6); Monocytes Percent Auto 6.5 % (2.6-8.5); Neutrophils Absolute Auto 7.9 K/mm3 (1.3-6.7); Neutrophils Percent Auto 83.9 % (45.5-73.1); Platelet Count Result 250 k/mm3 (150-375); Red Blood Count 4.07 M/mm3 (4.2-5.4); Red Cell Distribution Width 14.9 % (11.5-14.5); White Blood Count 9.5 K/mm3 (4.5-10.0)
[2024-06-25 08:05] LABS: Albumin Level 3.6 g/dL (3.5-5.1); Anion Gap 5 mmol/L (4-12); Blood Urea Nitrogen 23 mg/dL (7-17); Calcium 9.9 mg/dL (8.4-10.2); Carbon Dioxide 29 mmol/L (22-30); Chloride 106 mmol/L (98-107); Estimated Glomerular Filt Rate 33; Glucose 122 mg/dL (65-110); Phosphorus 3.3 mg/dL (2.5-4.5); Potassium 3.9 mmol/L (3.4-5.0); Sodium 140 mmol/L (137-145)
[2024-06-26 15:14] LABS: Tacrolimus Prograf 5.9 mcg/L
[2024-06-28 14:18] LABS: EVB DNA,QN PCR Not Detected log IU/mL (Not Detected); Epstein Barr Virus PCR Not Detected (Not Detected)
[2024-07-23 07:14] LABS: Basophils Absolute Auto 0.1 K/mm3 (0.0-0.1); Basophils Percent Auto 0.8 % (0.2-1.2); Eosinophils Absolute Auto 0.2 K/mm3 (0-0.3); Eosinophils Percent Auto 1.7 % (0-4.4); Hematocrit 36.5 % (37.0-47.0); Hemoglobin 11.8 g/dL (12.0-15.0); Immature Granulocyte Absolute 0.09 K/mm3 (0.00-0.031); Lymphocytes Absolute Auto 0.57 K/mm3 (0.9-3.2); Lymphocytes Percent Auto 6.2 % (18.3-44.2); Mean Corpuscular HGB Conc 32.3 g/dl (32-36); Mean Corpuscular Volume 92.9 fl (80-100); Mean Platelet Volume 10.4 fl (7.4-10.4); Monocytes Absolute Auto 0.7 K/mm3 (0.1-0.6); Monocytes Percent Auto 7.5 % (2.6-8.5); Neutrophils Absolute Auto 7.6 K/mm3 (1.3-6.7); Neutrophils Percent Auto 82.8 % (45.5-73.1); Platelet Count Result 210 k/mm3 (150-375); Red Blood Count 3.93 M/mm3 (4.2-5.4); Red Cell Distribution Width 15.3 % (11.5-14.5); White Blood Count 9.2 K/mm3 (4.5-10.0)
[2024-07-23 07:30] LABS: Alanine Aminotransferase 19 U/L (6-35); Albumin Level 3.8 g/dL (3.5-5.1); Alkaline Phosphatase 77 U/L (38-126); Anion Gap 6 mmol/L (4-12); Aspartate Amino Transferase 21 U/L (14-36); Bilirubin,Total 0.6 mg/dL (0.2-1.3); Blood Urea Nitrogen 32 mg/dL (7-17); Calcium 9.8 mg/dL (8.4-10.2); Carbon Dioxide 27 mmol/L (22-30); Chloride 107 mmol/L (98-107); Cholesterol 162 mg/dL (0-200); Estimated Glomerular Filt Rate 31; Glucose 134 mg/dL (65-110); HDL Direct 66 mg/dL; Phosphorus 3.5 mg/dL (2.5-4.5); Potassium 4.5 mmol/L (3.4-5.0); Sodium 140 mmol/L (137-145); Triglycerides 81 mg/dL (<150)
[2024-07-23 07:41] LABS: LDL Cholesterol Direct 66 mg/dL
[2024-07-26 15:28] LABS: EVB DNA,QN PCR Not Detected log IU/mL (Not Detected); Epstein Barr Virus PCR Not Detected (Not Detected)
[2024-07-27 11:38] LABS: Tacrolimus Prograf 2.2 mcg/L
[2024-08-20 08:13] LABS: Basophils Absolute Auto 0.1 K/mm3 (0.0-0.1); Basophils Percent Auto 0.7 % (0.2-1.2); Eosinophils Absolute Auto 0.1 K/mm3 (0-0.3); Eosinophils Percent Auto 1.4 % (0-4.4); Hematocrit 37.8 % (37.0-47.0); Hemoglobin 11.9 g/dL (12.0-15.0); Immature Granulocyte Absolute 0.31 K/mm3 (0.00-0.031); Immature Granulocyte Percent A 3.4 % (0-0.5); Lymphocytes Absolute Auto 0.51 K/mm3 (0.9-3.2); Lymphocytes Percent Auto 5.6 % (18.3-44.2); Mean Corpuscular HGB Conc 31.5 g/dl (32-36); Mean Corpuscular Hemoglobin 29.5 pg (26-34); Mean Corpuscular Volume 93.6 fl (80-100); Mean Platelet Volume 11.4 fl (7.4-10.4); Monocytes Absolute Auto 0.7 K/mm3 (0.1-0.6); Monocytes Percent Auto 7.3 % (2.6-8.5); Neutrophils Absolute Auto 7.4 K/mm3 (1.3-6.7); Neutrophils Percent Auto 81.6 % (45.5-73.1); Platelet Count Result 231 k/mm3 (150-375); Red Blood Count 4.04 M/mm3 (4.2-5.4); Red Cell Distribution Width 15.3 % (11.5-14.5); White Blood Count 9.1 K/mm3 (4.5-10.0)
[2024-08-20 08:19] LABS: Alanine Aminotransferase 22 U/L (6-35); Albumin Level 3.8 g/dL (3.5-5.1); Alkaline Phosphatase 87 U/L (38-126); Anion Gap 6 mmol/L (4-12); Aspartate Amino Transferase 20 U/L (14-36); Bilirubin,Total 0.5 mg/dL (0.2-1.3); Blood Urea Nitrogen 32 mg/dL (7-17); Calcium 9.7 mg/dL (8.4-10.2); Carbon Dioxide 27 mmol/L (22-30); Chloride 106 mmol/L (98-107); Cholesterol 166 mg/dL (0-200); Estimated Glomerular Filt Rate 31; Glucose 120 mg/dL (65-110); HDL Direct 75 mg/dL; Phosphorus 3.5 mg/dL (2.5-4.5); Sodium 139 mmol/L (137-145); Triglycerides 99 mg/dL (<150)
[2024-08-20 08:30] LABS: LDL Cholesterol Direct 60 mg/dL
[2024-08-23 14:08] LABS: EVB DNA,QN PCR Not Detected log IU/mL (Not Detected); Epstein Barr Virus PCR Not Detected (Not Detected)
[2024-08-24 14:58] LABS: Tacrolimus Prograf 6.3 mcg/L
[2024-09-22 08:20] LABS: Basophils Absolute Auto 0.1 K/mm3 (0.0-0.1); Eosinophils Absolute Auto 0.2 K/mm3 (0-0.3); Eosinophils Percent Auto 2.8 % (0-4.4); Hematocrit 37.2 % (37.0-47.0); Immature Granulocyte Absolute 0.08 K/mm3 (0.00-0.031); Lymphocytes Absolute Auto 0.96 K/mm3 (0.9-3.2); Lymphocytes Percent Auto 12.1 % (18.3-44.2); Mean Corpuscular HGB Conc 32.3 g/dl (32-36); Mean Corpuscular Hemoglobin 29.5 pg (26-34); Mean Corpuscular Volume 91.4 fl (80-100); Mean Platelet Volume 10.7 fl (7.4-10.4); Monocytes Absolute Auto 0.7 K/mm3 (0.1-0.6); Monocytes Percent Auto 9.1 % (2.6-8.5); Neutrophils Absolute Auto 5.9 K/mm3 (1.3-6.7); Platelet Count Result 233 k/mm3 (150-375); Red Blood Count 4.07 M/mm3 (4.2-5.4); Red Cell Distribution Width 15.5 % (11.5-14.5); White Blood Count 7.9 K/mm3 (4.5-10.0)
[2024-09-22 09:02] LABS: Albumin Level 3.7 g/dL (3.5-5.1); Anion Gap 5 mmol/L (4-12); Blood Urea Nitrogen 36 mg/dL (7-17); Calcium 9.6 mg/dL (8.4-10.2); Carbon Dioxide 28 mmol/L (22-30); Chloride 107 mmol/L (98-107); Estimated Glomerular Filt Rate 31; Glucose 93 mg/dL (65-110); Phosphorus 3.4 mg/dL (2.5-4.5); Potassium 3.7 mmol/L (3.4-5.0); Sodium 140 mmol/L (137-145)
[2024-09-24 08:08] LABS: Tacrolimus Prograf 4.5 mcg/L
[2024-09-24 16:28] LABS: EVB DNA,QN PCR Not Detected log IU/mL (Not Detected); Epstein Barr Virus PCR Not Detected (Not Detected)
== END 2024-09-23 23:59 | disposition home or self-care (01) ==
LOC: ANHLAB 07:40
PROVIDERS: PCP Internal Medicine; Visit Provider Internal Medicine
DX: Z94.0 Kidney transplant status (principal); E78.5 Hyperlipidemia, unspecified; Z79.899 Other long term (current) drug therapy
CPT/HCPCS: 36415; 80061; 80069; 80076; 80197; 81001; 85025

== ENCOUNTER 2024-09-22 07:41 | Outpatient (CLI) | payer OTHER, SELFPAY ==
--- OUTSIDE RECORDS SUMMARY | 2024-09-22 07:48 | XMS_ITS | Encounter Summary ---
Author Organization [facility] Address [address] [address] [place] [address] Care Team Providers Care Beater Lead Name Role Phone Benton Bland MD Primary Care Provider [phone] Benton Bland MD Primary Care Provider [phone] Jose Martin Carlos MD Primary Care Provider [phone] Latisha Benavidez RN Unavailable [phone] Encounter Details Date Type Department Care Team (Late st Contact Info) Description 06/27/2016 Orders Only [facility] ProviderKate MD [address] [place] [id number] Social History Tobacco Use Types Packs/Day Years Used Date Smoking Tobacco: Never Alcohol Use Standard Drinks/Week Comments No 0 (1 standard drink = 0.6 oz pur e alcohol) Comments Unknown Sex and Gender Information Value Date Recorded Sex Assigned at Not on file 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 Gender Identity Not on file Sexual Orientation [...] on filedocumented in this encounter Care Teams Beater Lead Relationship Specialty Start Date End Date Benton Bland MD [address] [place] [address] PCP - General 08/10/16 07/10/21 Benton Bland MD [address] [facility] [place] [address] PCP - General 12/16/09 08/09/16 Jose Martin Carlos MD [address] [place], [place] [id number] PCP - General 07/11/21 Latisha Benavidez, RN [address] [facility] [address] [place] [address] [address] 05/25/22 documented as of this encounter
--- OUTSIDE RECORDS SUMMARY | 2024-09-22 07:48 | XMS_ITS | Clinical Summary ---
Author Organization [facility] Address [address] [place] [address] Phone Care Team Providers Care Reservoir Engineer Name Role Phone Dirk Love Primary Care Provider [phone] Allergies Active Allergy Reactions Criticality Noted Date Comments Ibuprofen 02/21/2019 Medications levothyroxine (SYNTHROID) 75 MCG tablet 1 daily 12/09/2011 Active omega-3 (FISH OIL) 1000 MG capsule 12/09/2011 Active triamcinolone (KENALOG) 0.1 % ointment CHUCK A THIN LAYER AA BID UNTIL SYMPTOMS RESOLVE 0 10/13/2018 Active ergocalciferol (VITAMIN D2) 1.25 MG (12769 UT) capsule Take 1 capsule (50,000 Units [...] Comments Influenza Vaccine (Season Ended) 2025 Insurance [facility] Care Teams Reservoir Engineer Relationship Specialty Start Date End Date Dirk Love PA [address] [facility] [address] [place] [address] PCP - General Family Medicine 09/14/20
--- OUTSIDE RECORDS SUMMARY | 2024-09-22 07:48 | XMS_ITS | Referral Summary ---
Author Organization [facility] Address [address] [place] [address] Care Team Providers Care Chemical Process Engineer Name Role Phone Jose Martin Carlos MD Primary Care Provider + [phone] Latisha Benavidez RN Unavailable Encounters Date Type Department Care Team Description 09/16/2024 Orders Only [facility] Transplant Kidney [address] [facility] [address] 77-29-437 [place] [address] Latisha Benavidez, RN Kidney replaced by transplant (Primary Dx) 09/16/2024 Telephone [facility] Transplant Kidney [address] [facility] [address] 44-64-225 [place] [address] Ilene Beltran 09/08/2024 Telephone [facility] Transplant Kidney [address] [facility] [address] 68-65-125 [place] [address] Fariba Mayer 08/26/2024 Telephone [facility] Transplant Kidney [address] [facility] [address] Mail[address] 23-24-397 [place] [address] Ilene Beltran 08/24/2024 Lab [facility] Transplant Kidney [address] [facility] [address] Mailstop 25-42-848 [place] [address] Bessie Alvarado MD 08/24/2024 Telephone [facility] Transplant Kidney [address] [facility] [address] Mailstop 90-29-0 [place] [address] Latisha Benavidez RN 08/24/2024 Lab [facility] Transplant Kidney [address] [facility] [address] Mailstop 90-29-0 [place] [address] Bessie Alvarado MD 08/24/2024 Lab [facility] Transplant Kidney [address] [facility] [address] Mailstop 90-29-0 [place] [address] Bessie Alvarado MD 08/20/2024 Lab [facility] Transplant Kidney [address] [facility] [address] Mailstop 90-29-[address] [place] [address] Bessie Alvarado MD 08/20/2024 Lab [facility] Transplant Kidney [address] [facility] [address] Mailstop 90-29-0 [place] [address] Bessie Alvarado MD 07/27/2024 Lab [facility] Transplant Kidney [address] [facility] [address] Mailstop 90-29-0 [place] [address] Bessie Alvarado MD 07/10/2024 Telephone [facility] Transplant Kidney [address] [facility] [address] Mailstop 90-29-0 [place] [address] Xin Joel, KATIE 07/10/2024 Lab [facility] Transplant Kidney [address] [facility] [address] Mailstop 90-29-0 [place] [address] Bessie Alvarado MD 06/29/2024 Lab [facility] Transplant Kidney [address] [facility] [address] Mailstop 90-29-[address] [place] [address] Bessie Alvarado MD 06/26/2024 Lab [facility] Transplant Kidney [address] [facility] [address] 23-11-470 [place] [address] Bessie Alvarado MD 06/25/2024 Lab [facility] Transplant Kidney [address] [facility] [address] 44-23-422 [place] [address] Bessie Alvarado MD from Last 3 Months [...] 1 tablet (125 mcg total) by mouth early childhood coordinator before breakfast 30 tablet 3 3 Active [...] verbal consent to speak with concha Reich [facility].P- [phone] Standing orders q- Monthly, FK ,EBV/PCR, q3 [...] often do you attend chur ch or amish services? More than 4 times per year 05/25/2022 Do you belong to any clubs o r organizations such as christianity groups, unions, fraternal or athletic groups, or [...] on file Legal Sex Female 11:59 PM RUG CLEANING SUPERVISOR Gender Identity Not on file Sexual Orientation Not on file Last Filed Vital Signs Vital Sign Reading Time Taken Comments Blood Pressure 138/84 06/03/2024 11:11 AM RUG CLEANING SUPERVISOR Pulse 76 06/03/2024 11:11 AM RUG CLEANING SUPERVISOR Temperature 36.8 C (98.3 F) 06/03/2024 11:11 AM RUG CLEANING SUPERVISOR Respiratory Rate 18 06/28/2022 9:00 AM RUG CLEANING SUPERVISOR Oxygen Saturation 99% 06/28/2022 9:00 AM RUG CLEANING SUPERVISOR Inhaled Oxygen Concentration - - Weight 91.1 kg (200 lb 12.8 oz) 025 11:11 AM RUG CLEANING SUPERVISOR Height 149.9 cm (4' 11 ) 06/03/2024 11: 11 AM RUG CLEANING SUPERVISOR Body Mass Index 40.56 06/03/2024 11:11 AM RUG CLEANING SUPERVISOR Plan of Treatment Scheduled Procedures Name Priority Associated Diagnoses Date/Ti me TRANSPLANT KIDNEY ESRD (end stage renal disease) (HCC) TRANSPLANT KIDNEY ESRD (end stage renal disease) (HCC) Medical Devices Explanted Type Area Upholstery Instructor Device Identifier Shelf Expiration Date Model / Serial / Lot [employer] Double-J 6fr 20cm 100cm 1 Step Insert Push Catheter Lonaconing Suture [id number] - [id number] Implanted:Qt y: 1 on 05/25/2022 by Aguilar Barfield MD PhD at [facility] Explanted:Qt y: 1 on 06/26/2022 by Monty Harper MD Stent Right: Transplanted Ureter [employer] [id number] 10/30/2026 [id number] / / [id number] Description:Transplanted Ure ter Procedures Procedure Name Priority [...] RNA, QUANTITATIVE, PCR Routine 06/26/2022 5:00 PM RUG CLEANING SUPERVISOR Inconclusive laboratory evidence of human immunodeficiency virus (HIV) Aftercare following organ transplant SCREENING MAMMOGRAM 2D BILATERAL Schedule Routine, Read Routine (OP Routine) 02/02/2019 COLONOSCOPY Routine 12/20/2009 from Last 3 Months or Most Recently Relevant to Health Maintenance Results * Jazmín Rene Virus PCR Qualitative (08/20/2024) Pathologist [facility] SCRIBED EBV PCR Negative TXP NO LAB FOUND 08/20/2024 Historical Provider LAB MICROBIOLOGY - GENERA L ORDERABLES Edited Result - Final Performing Organization Address [facility] de Phone Number TXP NO LAB FOUND * Tacrolimus level trough (08/20/2024) Pathologist [facility] SCRIBED Tacrolimus, trough 6.3 5 - 20 TXP NO LAB FOUND Blood 08/20/2024 Historical Provider LAB BLOOD ORDERABLES Edit ed Result - Final Performing Organization Address [facility] de Phone Number TXP NO [...] ed Result - Final Performing Organization Address [facility] de Phone Number TXP NO [...] Units/L TXP NO LAB FOUND Blood 08/20/2024 Historical Provider LAB BLOOD ORDERABLES Edit ed Result - Final Performing Organization Address [facility] de Phone Number TXP NO [...] NO LAB FOUND SCRIBED eGFR in NonAfrican [place]er 31 >60 TXP NO LAB FOUND SCRIBED Urea Nitrogen (BUN) 32(A) 7 - 17 mg/dl TXP NO LAB FOUND Blood 08/20/2024 Result [facility] Historical Provider MD LAB BLOOD ORDERABLES Yajaira l Result Performing Organization Address [facility] Co de Phone Number TXP NO LAB FOUND * Lipid panel (08/20/2024) SCRIBED Cholesterol, Total 166 0 - 200 TXP NO LA B FOUND SCRIBED HDL 75 >35 TXP NO L AB FOUND SCRIBED LDL 60 <130 TXP NO L AB FOUND SCRIBED Triglycerides 99 <150 TXP NO LAB FOUND Blood 08/20/2024 Result [facility] Provider LAB BLOOD ORDERABLES Yajaira l Result Performing Organization Address [facility] de Phone Number TXP NO LAB FOUND * EBV DNA PCR, Qualitative (07/23/2024) Pathologist [facility] EBV DNA, PCR Nt. Det. TXP NO LAB FOUND 07/23/2024 Result [facility] Provider LAB MICROBIOLOGY - GENERA L ORDERABLES Edited Result - Final Performing Organization Address [facility] de Phone Number TXP NO LAB FOUND * (ABNORMAL) Tacrolimus level trough (07/23/2024) SCRIBED Tacrolimus, trough 2.2(A) 5 - 20 TXP NO LAB FOUND Blood 07/23/2024 Result [facility] Historical Provider LAB BLOOD ORDERABLES Yajaira l Result Performing Organization Address [facility] de Phone Number TXP NO [...] ORDERABLES Yajaira l Result Performing Organization Address [facility] de Phone Number TXP NO [...] ed Result - Final Performing Organization Address [facility] Co de Phone Number TX NO LAB [...] NO LAB FOUND SCRIBED eGFR in NonAfrican [place] 31 >60 TXP NO LAB FOUND SCRIBED Urea Nitrogen (BUN) 32(A) 7 - 17 mg/dl TXP NO LAB FOUND Blood 07/23/2024 Historical Provider LAB BLOOD ORDERABLES Yajaira l Result Performing Organization Address [facility] de Phone Number TXP NO [...] ORDERABLES Yajaira l Result Performing Organization Address [facility] Co de Phone Number TXP NO LAB FOUND * Jazmín Rene Virus PCR Qualitative (06/25/2024) SCRIBED EBV PCR Negative TXP NO LAB FOUND 06/25/2024 Historical Provider LAB MICROBIOLOGY - GENERA L ORDERABLES Edited Result - Final Performing Organization Address [facility] de Phone Number TXP NO LAB FOUND * Urinalysis, macroscopic Urine (06/25/2024) SCRIBED Urine-Color yellow TXP NO LAB FOUND SCRIBED Appearance turbid TXP NO LAB FOUND SCRIBED Specific [place], Urine 1.013 TXP NO LAB FOUND SCRIBED [...] Edited Result - Final Performing Organization Address [facility] de Phone Number TXP NO LAB FOUND * Tacrolimus level trough (06/25/2024) SCRIBED Tacrolimus, trough 5.9 5 - 20 TXP NO LAB FOUND Blood 06/25/2024 Historical Provider LAB BLOOD ORDERABLES Edit ed Result - Final Performing Organization Address [facility]/ZIP Co de Phone Number TXP NO LAB [...] ed Result - Final Performing Organization Address [facility]/ZIP Co de Phone Number TXP NO LAB [...] NO LAB FOUND SCRIBED eGFR in NonAfrican [place] 33 >=60 TXP NO LAB FOUND SCRIBED Urea Nitrogen (BUN) 23(A) 7 - 17 mg/dl TXP NO LAB FOUND Blood 06/25/2024 Historical Provider LAB BLOOD ORDERABLES Yajaira l Result Performing Organization Address [facility]/ZIP Co de Phone Number TXP NO LAB FOUND * Hepatitis C (HCV) RNA PCR, quantitative (06/26/2022 5:00 PM RUG CLEANING SUPERVISOR) HCV RNA result Not Detected CITLALY APODACA Comment: The quantifiable range of this assay is 15 IU/mL to 100,000,000 IU/mL (1.18 log IU/mL to 8.00 log IU/mL). Testing was performed by the [facility] 6800 HCV Test ([employer] Testing performed at [facility] Current Interpretive Data was last revised on 2020 Blood 06/26/2022 5:00 PM RUG CLEANING SUPERVISOR 06/26/2022 5:25 PM RUG CLEANING SUPERVISOR Mo Velez MD LAB MICROBIOLOGY - GENERAL ORDERABLES Final Result [facility] Department [place] [address] * Screening Mammogram 2D Bilateral (02/02/2019) Anatomical Region Laterality Modality Breast Bilateral Mammography 02/02/2019 Impressions 02/06/2019 3:12 PM CDT Mammogram from [facility] IMPRESSION No mammographic evidence of malignancy. Recommend ourint screening mammography in one year Historical Provider IMG MAMMO PROCEDURES Yajaira l Result * Colonoscopy (12/20/2009) Anatomical Region Laterality Modality Other 12/20/2009 Impressions 02/06/2019 3:10 PM CDT Colonoscopy Results from [facility] IMPRESSION: 1 Internal Hemorrhoids 2. Minimal Diverticulosis Historical Provider ENDOSCOPY PROCEDURES Yajaira l Result from Last 3 Months or Most Recently Relevant to Health Maintenance Insurance [facility] MEDICARE [facility] [place] [id number] TRANSPLANT [facility] MEDICARE MEDICARE Advance Directives For more information, please contact: [phone] Documents on File Type Date Recorded Patient Drum Builder Expl anation ADVANCE DIRECTIVE 05/28/2022 3:55 PM POWER OF SLUBBER MACHINE OPERATOR-MEDICAL * Full Code (Latest Code Status on File) Date Activated Date Inactivated Comments 05/25/2022 9:00 PM 06/03/2022 6:34 PM * Full Code Date Activated Date Inactivated Comments 05/24/2022 11:25 PM 05/25/2022 9:00 PM Care Teams Chemical Process Engineer Relationship Specialty Start Date End Date Jose Martin Carlos MD [address] [address] PCP - General 07/11/21 Latisha Benavidez, RN [address] [place] [address] Rubber Stamp Maker 05/25/22
--- OUTSIDE RECORDS SUMMARY | 2024-09-22 07:48 | XMS_ITS | Encounter Summary ---
Author Organization [facility] Address [address] [facility] [address] [place] [address] Care Team Providers Care Knuckler Name Role Phone Benton Bland MD Primary Care Provider [phone]- [phone] Benton Bland MD Primary Care Provider [phone]- [phone] Jose Martin Carlos MD Primary Care Provider +[phone]- [phone] Latisha Benavidez RN Unavailable [phone] Encounter Details Date Type Department Care Team (Late st Contact Info) Description 05/29/2005 Orders Only [facility] ProviderKate MD [address] [place] [address] Social History Tobacco Use Types Packs/Day Years Used Date Smoking Tobacco: Never Assessed Comments Unknown Sex and Gender Information Value Date Recorded Sex Assigned at Not on file Legal Sex Female 11:59 PM REFERENCE LIBRARY ASSISTANT Gender Identity Not on file Sexual Orientation [...] on filedocumented in this encounter Care Teams Knuckler Relationship Specialty Start Date End Date Benton Bland MD [address] [place] [address] PCP - General 08/10/16 07/10/21 Benton Bland MD [address] [place] [address] PCP - General 12/16/09 08/09/16 Jose Martin Carlos MD [address] [place], [place] [id number] PCP - General 07/11/21 Latisha Benavidez, RN [address] [facility] [address] [place] [address] Bilingual Instructor 05/25/22 documented as of this encounter
--- OUTSIDE RECORDS SUMMARY | 2024-09-22 07:48 | XMS_ITS ---
Author Organization [facility] Address [address] [place] [address] Care Team Providers Care Sow Farm Manager Name Role Phone Jose Martin Carlos MD Primary Care Provider + [phone] Latisha Benavidez RN Unavailable [phone] Transplant Episode Kidney Recipient [facility] ([place], [place]) - [facility] Organ Received: Left Kidney Transplanted on 05/25/2022 Marked as Active Follow-up on 05/25/2022 Reason: Transplant[facility] at [facility] Kidney CoordinatorWhdestiny Benavidez RN Fax: [...] Fax Email Latisha Benavidez RN Kidney Coordinator [phone] N/A N/A Xin Joel RN Secondary Coordinator Secondary Post Kidney Coordinator [phone] N/A N/A Ignacio Lala MD Referring Physician [phone] N/A Ilene Beltran Primary Gas Turbine Powerplant Mechanic Helper N/A N/A N/A Martin Godoy Secondary Gas Turbine Powerplant Mechanic Helper N/A N/A N/A Therese Locke Binding End Stitcher [phone] N/A N/A Latisha Benavidez RN Video Production Intern [phone] N/A N/A Events Post-Transplant Pre-Transplant Admitted: 05/24/2022 Referred: 11/28/2018 Transplanted: 05/25/2022 Evaluation began: 9 Discharged: 06/03/2022 Committee: 02/23/2019 Center waitlisted: 9
--- OUTSIDE RECORDS SUMMARY | 2024-09-22 07:48 | XMS_ITS | Clinical Summary ---
Author Organization [facility] Address [address] [place] [address] Care Team Providers Care Bottom Pounder Cement Shoes Name Role Phone Jose Martin Carlos MD Primary Care Provider +1- [phone] Latisha Benavidez RN Unavailable [phone] Allergies No known active allergies Medications senna-docusate [...] 1 tablet (125 mcg total) by mouth banana grader before breakfast 30 tablet 3 3 Active [...] consent to speak with concha [facility]- [phone] Standing orders q- Monthly, FK ,EBV/PCR, q3 [...] Department Care Team Description 09/16/2024 Orders Only [facility] Transplant Kidney [address] [facility] [address] [place] [address] Latisha Benavidez, RN Kidney replaced by transplant (Primary Dx) 09/16/2024 Telephone [facility] Transplant Kidney [address] [facility] [address] [phone] [place] [address] Ilene Beltran 09/08/2024 Telephone [facility] Transplant Kidney [address] [facility] [address] 90-60-781 [place] [address] Fariba Mayer 08/26/2024 Telephone [facility] Transplant Kidney [address] [facility] [address] [phone] [place] [address] Ilene Beltran 08/24/2024 Lab [facility] Transplant Kidney [address] [facility] [address] Mail[address] 90-29-0 [place] [address] Bessie Alvarado MD 08/24/2024 Telephone [facility] Transplant Kidney [address] [facility] [address] 90-29-910 [place] [address] Latisha Benavidez, KATIE 08/24/2024 Lab [facility] Transplant Kidney [address] [facility] [address] Mail[address] 90-29-0 [place] [address] Bessie Alvarado MD 08/24/2024 Lab [facility] Transplant Kidney [address] [facility] [address] Mail[address] 90-29-0 [place] [address] Bessie Alvarado MD 08/20/2024 Lab [facility] Transplant Kidney [address] [facility] [address] 90[address]290 [place] [address] Bessie Alvarado MD 08/20/2024 Lab [facility] Transplant Kidney [address] [facility] [address] 90-29-[address] [place] [address] Bessie Alvarado MD 07/27/2024 Lab [facility] Transplant Kidney [address] [facility] [address] 90[address] [place] [address] Bessie Alvarado MD 07/10/2024 Telephone [facility] Transplant Kidney [address] [facility] [address] Mail[address] 90-29-0 [place] [address] Xin Joel, KATIE 07/10/2024 Lab [facility] Transplant Kidney [address] [facility] [address] Mail[address] 90-29-910 [place] [address] Bessie Alvarado MD 06/29/2024 Lab [facility] Transplant Kidney [address] [facility] [address] [phone] [place] [address] Bessie Alvarado MD 06/26/2024 Lab [facility] Transplant Kidney [address] [facility] [address] 90-11-662 [place] [address] Bessie Alvarado MD 06/25/2024 Lab [facility] Transplant Kidney [address] [facility] [address] [phone] [place] [address] Bessie Alvarado MD from Last 3 Months [...] Hx Relation Name Status Comments Father Alive [place] age 70s Mother Alive Other 1 Other [...] How often do you attend chur or congregation services? More than 4 times per year [...] on file Legal Sex Female 11:59 PM DOORMAKER Gender Identity Not on file Sexual Orientation Not on file Obstetrics History Last Filed Vital Signs Vital Sign Reading Time Taken Comments Blood Pressure 138/84 06/03/2024 11:11 AM DOORMAKER Pulse 76 06/03/2024 11:11 AM DOORMAKER Temperature 36.8 C (98.3 F) 06/03/2024 11:11 AM DOORMAKER Respiratory Rate 18 06/28/2022 9:00 AM DOORMAKER Oxygen Saturation 99% 06/28/2022 9:00 AM DOORMAKER Inhaled Oxygen Concentration - - Weight 91.1 kg (200 lb 12.8 oz) 025 11:11 AM DOORMAKER Height 149.9 cm (4' 11 ) 06/03/2024 11: 11 AM DOORMAKER Body Mass Index 40.56 06/03/2024 11:11 AM DOORMAKER Plan of Treatment Scheduled Procedures Name Priority [...] history exists Medical Devices Explanted Type Area Spring Intern Device Identifier Shelf Expiration Date Model / Serial / Lot Mobly Double-J 6fr 20cm 100cm 1 Step Insert Push Catheter Elma Suture [id number] - [id number] Implanted:Qt y: 1 on 05/25/2022 by Aguilar Barfield MD PhD at [facility] Explanted:Qt y: 1 on 06/26/2022 by Monty Harper MD Stent Right: Transplanted Ureter [employer] [id number] 10/30/2026 [id number] / / [id number] Description:Transplanted Ure ter Procedures Procedure Name Priority [...] RNA, QUANTITATIVE, PCR Routine 06/26/2022 5:00 PM DOORMAKER Inconclusive laboratory evidence of human immunodeficiency virus (HIV) Aftercare following organ transplant SCREENING MAMMOGRAM 2D BILATERAL Schedule Routine, Read Routine (OP Routine) 02/02/2019 COLONOSCOPY Routine 12/20/2009 from Last 3 Months or Most Recently Relevant to Health Maintenance Results * Jazmín Rene Virus PCR Qualitative (08/20/2024) SCRIBED EBV PCR Negative TXP NO LAB FOUND 08/20/2024 Historical Provider MD LAB MICROBIOLOGY - GENERA L ORDERABLES Edited Result - Final Performing Organization Address [facility] de Phone Number TXP NO LAB FOUND * Tacrolimus level trough (08/20/2024) SCRIBED Tacrolimus, trough 6.3 5 - 20 TXP NO LAB FOUND Blood 08/20/2024 Result [facility] Provider LAB BLOOD ORDERABLES Edit ed Result - Final Performing Organization Address [facility] de Phone Number TXP NO LAB FOUND [...] ed Result - Final Performing Organization Address [facility] de Phone Number [...] ed Result - Final Performing Organization Address [facility] de Phone Number TXP [...] NO LAB FOUND SCRIBED eGFR in NonAfrican Cape Verdean 31 >60 TXP NO LAB FOUND SCRIBED Urea Nitrogen (BUN) 32(A) 7 - 17 mg/dl TXP NO LAB FOUND Blood 08/20/2024 Historical Provider LAB BLOOD ORDERABLES Yajaira l Result Performing Organization Address [facility] Co de Phone Number TXP NO LAB FOUND * Lipid panel (08/20/2024) Pathologist [facility] SCRIBED Cholesterol, Total 166 0 - 200 TXP NO LA B FOUND SCRIBED HDL 75 >35 TXP NO L AB FOUND SCRIBED LDL 60 <130 TXP NO L AB FOUND SCRIBED Triglycerides 99 <150 TXP NO LAB FOUND Blood 08/20/2024 Result [facility] Provider MD LAB BLOOD ORDERABLES Yajaira l Result Performing Organization Address [facility] de Phone Number TXP NO LAB FOUND * EBV DNA PCR, Qualitative (07/23/2024) Pathologist [facility] EBV DNA, PCR Nt. Det. TXP NO LAB FOUND 07/23/2024 Result [facility] Provider LAB MICROBIOLOGY - GENERA L ORDERABLES Edited Result - Final Performing Organization Address [facility] de Phone Number TXP NO LAB FOUND * (ABNORMAL) Tacrolimus level trough (07/23/2024) Pathologist [facility] SCRIBED Tacrolimus, trough 2.2(A) 5 - 20 TXP NO LAB FOUND Blood 07/23/2024 Result [facility] Provider LAB BLOOD ORDERABLES Yajaira l Result Performing Organization Address [facility] de Phone Number TXP NO LAB FOUND * (ABNORMAL) CBC with auto differential (07/23/2024) Pathologist [facility] SCRIBED WBC 9.2 4.5 - 10.0 k/cumm TXP NO LAB FOUND SCRIBED Hemoglobin 11.8(A) 12 - 15 g/dL TXP NO LAB FOUND SCRIBED Hematocrit 36.5(A) 37 - 47 % TXP NO LAB FOUND SCRIBED Platelets 210 150 - 372 k/cumm TXP NO LAB FOUND SCRIBED Lymphocytes Abs 0.57(A) 0.9 - 3.2 k/cumm TXP NO LAB FOUND Blood 07/23/2024 Historical Provider MD LAB BLOOD ORDERABLES Yajaira l Result Performing Organization Address City/[facility]/ZIP Co de Phone Number TXP NO LAB [...] ed Result - Final Performing Organization Address City/[facility] Co de Phone Number TXP NO LAB [...] NO LAB FOUND SCRIBED eGFR in NonAfrican [place]de[place] 31 >60 TXP NO LAB FOUND SCRIBED Urea Nitrogen (BUN) 32(A) 7 - 17 mg/dl TXP NO LAB FOUND Blood 07/23/2024 [facility] Provider LAB BLOOD ORDERABLES Yajaira l Result Performing Organization Address [facility] de Phone Number TXP NO LAB FOUND * Lipid panel (07/23/2024) SCRIBED Cholesterol, Total 162 0 - 200 TXP NO LA B FOUND SCRIBED HDL 66 >35 TXP NO L AB FOUND SCRIBED LDL 66 <130 TXP NO L AB FOUND SCRIBED Triglycerides 81 <150 TXP NO LAB FOUND Blood 07/23/2024 [facility] Provider LAB BLOOD ORDERABLES Yajaira l Result Performing Organization Address [facility] de Phone Number TXP NO LAB FOUND * Jazmín Rene Virus PCR Qualitative (06/25/2024) SCRIBED EBV PCR Negative TXP NO LAB FOUND 06/25/2024 Result [facility] Provider LAB MICROBIOLOGY - GENERA L ORDERABLES Edited Result - Final Performing Organization Address [facility] de Phone Number TXP NO LAB FOUND * Urinalysis, macroscopic Urine (06/25/2024) SCRIBED Urine-Color yellow TXP NO LAB FOUND SCRIBED Appearance turbid TXP NO LAB FOUND SCRIBED Specific [place], Urine 1.013 TXP NO LAB FOUND SCRIBED [...] /HPF TXP NO LAB FOUND Urine 06/25/2024 [facility] Provider LAB MICROBIOLOGY - GENERA L ORDERABLES Edited Result - Final Performing Organization Address [facility] de Phone Number TXP NO LAB FOUND * Tacrolimus level trough (06/25/2024) SCRIBED Tacrolimus, trough 5.9 5 - 20 TXP NO LAB FOUND Blood 06/25/2024 Result [facility] Provider LAB BLOOD ORDERABLES Edit ed Result - Final Performing Organization Address [facility] de Phone Number TXP NO LAB FOUND [...] NO LAB FOUND SCRIBED eGFR in NonAfrican [place]de[place] 33 >=60 TXP NO LAB FOUND SCRIBED Urea Nitrogen (BUN) 23(A) 7 - 17 mg/dl TXP NO LAB FOUND Blood 06/25/2024 [facility] Provider LAB BLOOD ORDERABLES Yajaira montalvo Result TXP NO LAB FOUND * Hepatitis C (HCV) RNA PCR, quantitative (06/26/2022 5:00 PM DOORMAKER) Pathologist [facility] HCV RNA result Not Detected [facility] Comment: The quantifiable range of this assay is 15 IU/mL to 100,000,000 IU/mL (1.18 log IU/mL to 8.00 log IU/mL). Testing was performed by the [facility] 6800 HCV Test ([employer] Testing performed at [facility] Current Interpretive Data was last revised on 2020 Blood 06/26/2022 5:00 PM DOORMAKER 06/26/2022 5:25 PM DOORMAKER Mo Velez MD LAB MICROBIOLOGY - GENERAL ORDERABLES Final Result [facility] Department [place] [address] * Screening Mammogram 2D Bilateral (02/02/2019) Anatomical Region Laterality Modality Breast Bilateral Mammography 02/02/2019 Impressions 02/06/2019 3:12 PM CDT Mammogram from [facility] IMPRESSION No mammographic evidence of malignancy. Recommend ourint screening mammography in one year us Historical Provider IMG MAMMO PROCEDURES Yajaira l Result * Colonoscopy (12/20/2009) Anatomical Region Laterality Modality Other 12/20/2009 Impressions 02/06/2019 3:10 PM CDT Colonoscopy Results from [facility] IMPRESSION: 1 Internal Hemorrhoids 2. Minimal Diverticulosis us Historical Provider ENDOSCOPY PROCEDURES Yajaira l Result from Last 3 Months or Most Recently Relevant to Health Maintenance Insurance [facility] MEDICARE [facility] MEDICARE MEDICARE [facility] TRANSPLANT [facility] MEDICARE MEDICARE Advance Directives For more information, please contact: [phone] Documents on File Type Date Recorded Patient Print Manager Expl anation ADVANCE DIRECTIVE 05/28/2022 3:55 PM POWER OF AUTOMATION AND CONTROLS INSTRUCTOR-MEDICAL * Full Code (Latest Code Status on File) Date Activated Date Inactivated Comments 05/25/2022 9:00 PM 06/03/2022 6:34 PM * Full Code Date Activated Date Inactivated Comments 05/24/2022 11:25 PM 05/25/2022 9:00 PM Care Teams Bottom Pounder Cement Shoes Relationship Specialty Start Date End Date Jose Martin Carlos MD [address] [facility] [address] [place] [address] PCP - General 07/11/21 Latisha Benavidez, RN [address] [facility] [address] [place] [address] Metrologist 05/25/22
--- OUTSIDE RECORDS SUMMARY | 2024-09-22 07:48 | XMS_ITS | Encounter Summary ---
Author Organization [facility] Address [address] [facility] [address] [place] [address] Care Team Providers Care Prosthetics Technician Name Role Phone Benton Bland MD Primary Care Provider +1- [phone] Benton Bland MD Primary Care Provider [phone]- [phone] Jose Martin Carlos MD Primary Care Provider +1- [phone] Latisha Benavidez RN Unavailable [phone] Encounter Details Date Type Department Care Team (Late st Contact Info) Description 08/01/2016 Orders Only [facility] ProviderKate MD [address] [place] [address] Social History Tobacco Use Types Packs/Day Years Used Date Smoking Tobacco: Never Alcohol Use Standard Drinks/Week Comments No 0 (1 standard drink = 0.6 oz pur e alcohol) Comments Unknown Sex and Gender Information Value Date Recorded Sex Assigned at Not on file Legal Sex Female 11:59 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 [address] [place] [address] Canvas Cutter Hand 05/25/22 documented as of this encounter
[2024-09-22 09:36] LABS: Amylase 302 U/L (30-110)
[2024-09-22 09:45] LABS: Lipase 2551 U/L (23-300)
== END 2024-09-22 07:42 | disposition home or self-care (01) ==
PROVIDERS: PCP Internal Medicine; Visit Provider Internal Medicine
DX: Z94.0 Kidney transplant status (principal)
CPT/HCPCS: 36415; 82150; 83690

== ENCOUNTER 2024-10-23 07:10 | Outpatient (CLI) | payer OTHER, SELFPAY ==
--- OUTSIDE RECORDS SUMMARY | 2024-10-23 07:13 | XMS_ITS | Encounter Summary ---
Author Organization [facility] Address [address] [facility] [address] [place] [address] Care Team Providers Care Sql Manager Name Role Phone Benton Bland MD Primary Care Provider [phone]- [phone] Benton Bland MD Primary Care Provider [phone]- [phone] Jose Martin Carlos MD Primary Care Provider +1- [phone] Latisha Benavidez RN Unavailable [phone] Encounter Details Date Type Department Care Team (Late st Contact Info) Description 05/29/2005 Orders Only [facility] ProviderKate MD [address] [place] [address] Social History Tobacco Use Types Packs/Day Years Used Date Smoking Tobacco: Never Assessed Comments Unknown Sex and Gender Information Value Date Recorded Sex Assigned at Not on file Legal Sex Female 11:59 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
--- OUTSIDE RECORDS SUMMARY | 2024-10-23 07:13 | XMS_ITS ---
Author Organization [facility] Address [address] [place] [address] Care Team Providers Care Wood Hacker Name Role Phone Jose Martin Carlos MD Primary Care Provider + [phone] Latisha Benavidez RN Unavailable [phone] Transplant Episode Kidney Recipient [facility] ([place], [place]) - [facility] Organ Received: Left Kidney Transplanted on 05/25/2022 Marked as Active Follow-up on 05/25/2022 Reason: Transplanted at [facility] Kidney CoordinatorWhdestiny Benavidez RN Fax: N/A [...] Fax Email Latisha Benavidez RN Kidney Coordinator [phone] N/A N/A Xin Joel RN Secondary Coordinator Secondary Post Kidney Coordinator [phone] N/A N/A Ignacio Lala MD Referring Physician [phone] N/A Ilene Beltran Primary Cable Installation Manager N/A N/A N/A Martin Godoy Secondary Cable Installation Manager N/A N/A N/A Therese Locke Nursing Coordinator [phone] N/A N/A Latisha Benavidez RN Cryptographic Machine Operator [phone] N/A N/A Events Post-Transplant Pre-Transplant Admitted: 05/24/2022 Referred: 11/28/2018 Transplanted: 05/25/2022 Evaluation began: 9 Discharged: 06/03/2022 Committee: 02/23/2019 Center waitlisted: 9
--- OUTSIDE RECORDS SUMMARY | 2024-10-23 07:13 | XMS_ITS | Clinical Summary ---
Author Organization [facility] Address [address] [place] [address] Care Team Providers Care Auto Garage Mechanic Name Role Phone Jose Martin Carlos MD Primary Care Provider [phone] Latisha Benavidez RN Unavailable [phone] Allergies No known active allergies Medications senna-docusate (PERICOLACE) 8.6-50 mg Take 1 tablet by mouth daily 30 tablet 11 05/25/19 Active pravastatin (PravachoL) 20 mg tablet Take 2 tablets (40 mg total) by mouth daily 05/26/19 Active Additional Information Patient taking differently:40 mg oralNightly, Reported on 06/03/2024 acetaminophen 500 mg capsuleIndicat ions:Pain Take 2 capsules (1,000 mg total) by mouth every 6 (six) hours as needed for pain 05/26/19 Active blood glucose strip-disp meter kit Use as directed. 1 kit 06/01/19 Active blood glucose diagnostic (glucose blood) strip Use as directed up to four times a day. 100 each 06/01/19 Active lancets misc Use as directed up to 4 times a day. 100 each 06/01/19 Active alcohol swabs (Alcohol Wipes) pads, medicated Use as directed. 100 each 06/01/19 Active levothyroxine (Synthroid) 125 mcg tablet Take 1 tablet (125 mcg total) by mouth rn care transition before breakfast 30 tablet 3 07/04/19 23 Active famotidine (PEPCID) 20 mg tablet Take 1 tablet (20 mg total) by mouth nightly as needed for heartburn 02/15/20 23 Active cyanocobalamin (vitamin B-12) 1,000 mcg tabletIndicati ons:Prevention of Vitamin B12 Deficiency Take 1 tablet (1,000 mcg total) by mouth daily 90 tablet 3 02/15/[address] (MYFORTIC) 360 mg EC tabletIndicati ons:Prevention of Kidney Transplant Rejection Take 1 tablet (360 mg total) by mouth daily HOLDING as of 11/06 for + EBV pcr 11/07/19 24 025 Active Additional Information Patient not taking.Reported on 06/03/2024 aspirin 81 mg enteric coated tablet TAKE ONE TABLET BY MOUTH EVERY DAY 30 tablet 10 03/24/20 24 Active cholecalcifero l (VITAMIN D-3) 2000 unit tablet TAKE ONE TABLET BY MOUTH EVERY DAY 30 tablet 11 05/26/19 25 Active tacrolimus XR (Envarsus XR) 1 mg tablet extended release 24 hrIndications: Kidney replaced by transplant Take 1 tablet (1 mg total) by mouth daily 90 tablet 3 06/03/19 25 026 Active predniSONE (DELTASONE) 5 mg tablet TAKE ONE TABLET BY MOUTH EVERY DAY 30 tablet 11 06/25/19 25 Active Tradjenta 5 mg tablet TAKE ONE TABLET BY MOUTH EVERY DAY 30 tablet 11 07/28/19 25 Active amLODIPine (NORVASC) 5 mg tablet Take 1 tablet by mouth once daily 30 tablet 11 10/13/19 25 Active carvediloL (COREG) 25 mg tabletIndicati ons:Status post kidney transplant TAKE 1 TABLET BY MOUTH 2 TIMES A DAY WITH MEALS 60 tablet 10/20/19 25 Active amLODIPine (NORVASC) 5 mg tablet Take 1 tablet by mouth once daily 30 tablet 10/17/19 24 025 Discontinued carvediloL (COREG) 25 mg tabletIndicati ons:Status post kidney transplant TAKE 1 TABLET BY MOUTH 2 TIMES A DAY WITH MEALS 60 tablet 10/22/19 24 025 Discontinued Active Problems Patient Care Coordination No te Formatting of this note migh t be different from the original. Patient gave verbal consent to speak with concha Reich [facility].P- [phone] Standing orders q- Monthly, FK ,q3 Routine Exp. 05/28/25 Problem Noted Date Diagnosed [...] Encounters Date Type Department Care Team Description 09/25/2024 [facility] Transplant Kidney [address] [facility] [id number] [place] [address] Bessie Alvarado MD 09/24/2024 [facility] Transplant Kidney [address] [facility] [address] 90[address]29[address] [place] [address] Bessie Alvarado MD 09/24/2024 [facility] Transplant Kidney [address] [facility] [address] [place] [address] Bessie Alvarado MD 09/22/2024 Lab [facility] Transplant Kidney [address] [facility] [address] [phone] [place] [address] Bessie Alvarado MD 09/22/2024 Lab [facility] Transplant Kidney [address] [facility] [address] [place] [address] Bessie Alvarado MD 09/16/2024 Orders Only [facility] Transplant Kidney [address] [facility] [address] [place] [address] Latisha Benavidez, RN Kidney replaced by transplant (Primary Dx) 09/16/2024 Telephone [facility] Transplant Kidney [address] [facility] [address] Mailstop -[address] [place] [address] Ilene Beltran 09/08/2024 Telephone [facility] Transplant Kidney [address] [facility] [address] [place] [address] Fariba Mayer 08/26/2024 Telephone [facility] Transplant Kidney [address] [facility] [address] [place] [address] Ilene Beltran 08/24/2024 Lab [facility] Transplant Kidney [address] [facility] [address] [place] [address] Bessie Alvarado MD 08/24/2024 Telephone [facility] Transplant Kidney [address] [facility] [address] [phone] [place] [address] Latisha Benavidez RN 08/24/2024 Lab [facility] Transplant Kidney [address] [facility] [address] [phone] [place] [address] Bessie Alvarado MD 08/24/2024 Lab [facility] Transplant Kidney [address] [facility] [address] Mail[address] [facility] [place] [address] Bessie Alvarado MD 08/20/2024 Lab [facility] Transplant Kidney [address] [facility] [address] [facility] [place] [address] Bessie Alvarado MD 08/20/2024 Lab [facility] Transplant Kidney [address] [facility] [address] [facility] [place] [address] Bessie Alvarado MD 07/27/2024 Lab [facility] Transplant Kidney [address] [facility] [address] [place] [address] Bessie Alvarado MD from Last 3 Months Surgical History Surgery Date Site/Laterality Comments COLONOSCOPY HYSTEROSCOPY RENAL BIOPSY CENTRAL LINE PLACEMENT > 5 YEARS 05/29/2022 N/A Medical History Medical History Date Comments Hyperlipidemia Hyperlipidemia Hx Other Medical HTN, hypothyroi dism, IGA nephropathy, ovarian cyst; Comments: [facility] 06/27/2016 - CKD (chronic kidney disease) , stage V (HCC) Obesity Family History Medical History Relation Name Comments Heart attack Father Other Father Alive and well; Other Mother Alive and well; Heart disease Other 1 Family history of CArdiovascular Disease; Hyperlipidemia Other 2 Family histor y of Hyperlipidemia; Anesthesia problems Neg Hx Relation Name Status Comments Father Alive NE age 70s Mother Alive Other 1 Other [...] often do you attend chur ch or mandaeism services? More than 4 times per year 05/25/2022 Do you belong to any clubs o r organizations such as congregation groups, unions, fraternal or athletic groups, or [...] on file Legal Sex Female 11:59 PM TRAINING AND DEVELOPMENT REP Gender Identity Not on file Sexual Orientation Not on file Obstetrics History Last Filed Vital Signs Vital Sign Reading Time Taken Comments Blood Pressure 138/84 06/03/2024 11:11 AM TRAINING AND DEVELOPMENT REP Pulse 76 06/03/2024 11:11 AM TRAINING AND DEVELOPMENT REP Temperature 36.8 C (98.3 F) 06/03/2024 11:11 AM TRAINING AND DEVELOPMENT REP Respiratory Rate 18 06/28/2022 9:00 AM TRAINING AND DEVELOPMENT REP Oxygen Saturation 99% 06/28/2022 9:00 AM TRAINING AND DEVELOPMENT REP Inhaled Oxygen Concentration - - Weight 91.1 kg (200 lb 12.8 oz) 025 11:11 AM TRAINING AND DEVELOPMENT REP Height 149.9 cm (4' 11) 06/03/2024 11: 11 AM TRAINING AND DEVELOPMENT REP Body Mass Index 40.56 06/03/2024 11:11 AM TRAINING AND DEVELOPMENT REP Plan of Treatment Scheduled Procedures Name Priority [...] history exists Medical Devices Explanted Type Area Agricultural Specialist Device Identifier Shelf Expiration Date Model / Serial / Lot i-marker Double-J 6fr 20cm 100cm 1 Step Insert Push Catheter Secretary Suture [id number] - [id number] Implanted:Qt y: 1 on 05/25/2022 by Aguilar Barfield MD PhD at [facility] Explanted:Qt y: 1 on 06/26/2022 by Monty Harper MD Stent Right: Transplanted Ureter i-marker [id number] 10/30/2026 [id number] / / [id number] Description:Transplanted Ure ter Procedures Procedure Name Priority Date/Time Associated Diagnosis Comments TACROLIMUS LEVEL, TROUGH Routine 09/22/2024 RENAL FUNCTION PANEL Routine 09/22/2024 CBC WITH AUTO DIFFERENTIAL Routine 09/22/2024 EBV DNA PCR Routine 09/22/2024 TACROLIMUS LEVEL, TROUGH Routine 08/20/2024 CBC WITH AUTO DIFFERENTIAL Routine 08/20/2024 HEPATIC FUNCTION PANEL Routine 08/20/2024 LIPID PANEL Routine 08/20/2024 RENAL FUNCTION PANEL Routine 08/20/2024 JAZMÍN RENE VIRUS PCR QUALITATIVE Routine 08/20/2024 HEPATIC FUNCTION PANEL Routine 07/23/2024 RENAL FUNCTION PANEL Routine 07/23/2024 LIPID PANEL Routine 07/23/2024 TACROLIMUS LEVEL, TROUGH Routine 07/23/2024 CBC WITH AUTO DIFFERENTIAL Routine 07/23/2024 EBV DNA PCR Routine 07/23/2024 HEPATITIS C RNA, QUANTITATIVE, PCR Routine 06/26/2022 5:00 PM TRAINING AND DEVELOPMENT REP Inconclusive laboratory evidence of human immunodeficiency virus (HIV) Aftercare following organ transplant SCREENING MAMMOGRAM 2D BILATERAL Schedule Routine, Read Routine (OP Routine) 02/02/2019 COLONOSCOPY Routine 12/20/2009 from Last 3 Months or Most Recently Relevant to Health Maintenance Results * EBV DNA PCR, Qualitative (09/22/2024) EBV DNA, PCR Nt. Det. TXP NO LAB FOUND 09/22/2024 Historical Provider LAB MICROBIOLOGY - GENERA L ORDERABLES Edited Result - Final Performing Organization Address [facility] de Phone Number TXP NO LAB FOUND * (ABNORMAL) Tacrolimus level trough (09/22/2024) SCRIBED Tacrolimus, trough 4.5(A) 5 - 20 TXP NO LAB FOUND Blood 09/22/2024 Historical Provider LAB BLOOD ORDERABLES Edit ed Result - Final Performing Organization Address [facility] Co de Phone Number TXP NO LAB FOUND * CBC with auto differential (09/22/2024) SCRIBED WBC 7.9 4.5 - 10.0 k/cumm TXP NO LAB FOUND SCRIBED Hemoglobin 12.0 12.0 - 15.0 g/dL TXP NO LAB FOUND SCRIBED Hematocrit 37.2 37 - 47 % TXP NO LAB FOUND SCRIBED Platelets 233 150 - 375 k/cumm TXP NO LAB FOUND SCRIBED Lymphocytes Abs 0.96 0.9 - 3.2 k/cumm TXP NO LAB FOUND Blood 09/22/2024 Historical Provider LAB BLOOD ORDERABLES Edit ed Result - Final Performing Organization Address [facility] Co de Phone Number TXP NO LAB FOUND * (ABNORMAL) Renal function panel (09/22/2024) SCRIBED Calcium 9.6 8.4 - 10.2 mg/dl TXP NO LAB FOUND SCRIBED Phosphorus 3.4 2.5 - 4.5 mg/dl TXP NO LAB FOUND SCRIBED Albumin 3.7 3.5 - 5.1 g/dl TXP NO LAB FOUND SCRIBED Glucose 93 65 - 110 mg/dl TXP NO LAB [...] NO LAB FOUND SCRIBED eGFR in NonAfrican Moroccan 31 >60 TXP NO LAB FOUND SCRIBED Urea Nitrogen (BUN) 36(A) 7 - 17 mg/dl TXP NO LAB FOUND Blood 09/22/2024 Historical Provider LAB BLOOD ORDERABLES Edit ed Result - Final Performing Organization Address City/[facility]/ZIP Co de Phone Number TXP NO LAB FOUND * Jazmín Rene Virus PCR Qualitative (08/20/2024) Pathologist [facility] SCRIBED EBV PCR Negative TXP NO LAB FOUND 08/20/2024 [facility] Provider LAB MICROBIOLOGY - GENERA L ORDERABLES Edited Result - Final TXP NO LAB FOUND * Tacrolimus level trough (08/20/2024) SCRIBED Tacrolimus, trough 6.3 5 - 20 TXP NO LAB FOUND Blood 08/20/2024 Historical Provider LAB BLOOD ORDERABLES Edit ed Result - Final Performing Organization Address [facility] de Phone Number TXP [...] TXP NO LAB FOUND Blood 08/20/2024 Result [facility] Provider LAB BLOOD ORDERABLES Edit ed Result - Final Performing Organization Address [facility] Phone Number TXP NO LAB FOUND * Hepatic function panel (08/20/2024) Pathologist [facility] SCRIBED Protein, Total, Serum 7.0 6.3 - [...] TXP NO LAB FOUND Blood 08/20/2024 Result [facility] Provider LAB BLOOD ORDERABLES Edit ed Result - Final Performing Organization Address [facility] de Phone Number TX NO [...] NO LAB FOUND SCRIBED eGFR in NonAfrican Moroccan 31 >60 TXP NO LAB FOUND SCRIBED Urea Nitrogen (BUN) 32(A) 7 - 17 mg/dl TXP NO LAB FOUND Blood 08/20/2024 Historical Provider MD LAB BLOOD ORDERABLES Yajaira l Result TXP NO LAB FOUND * Lipid panel (08/20/2024) Pathologist [facility] SCRIBED Cholesterol, Total 166 0 - 200 TXP NO LA B FOUND SCRIBED HDL 75 >35 TXP NO L AB FOUND SCRIBED LDL 60 <130 TXP NO L AB FOUND SCRIBED Triglycerides 99 <150 TXP NO LAB FOUND Blood 08/20/2024 Historical Provider MD LAB BLOOD ORDERABLES Yajaira l Result TXP NO LAB FOUND * EBV DNA PCR, Qualitative (07/23/2024) EBV DNA, PCR Nt. Det. TXP NO LAB FOUND 07/23/2024 Result [facility] Provider LAB MICROBIOLOGY - GENERA L ORDERABLES Edited Result - Final Performing Organization Address [facility] de Phone Number TXP NO LAB FOUND * (ABNORMAL) Tacrolimus level trough (07/23/2024) SCRIBED Tacrolimus, trough 2.2(A) 5 - 20 TXP NO LAB FOUND Blood 07/23/2024 Result [facility] Historical Provider LAB BLOOD ORDERABLES Yajaira l Result Performing Organization Address [facility] de Phone Number TXP [...] TXP NO LAB FOUND Blood 07/23/2024 Result [facility] Provider LAB BLOOD ORDERABLES Yajaira l Result Performing Organization Address [facility] de Phone Number TXP [...] NO LAB FOUND SCRIBED eGFR in NonAfrican Moroccan 31 >60 TXP NO LAB FOUND SCRIBED [...] (HCV) RNA PCR, quantitative (06/26/2022 5:00 PM TRAINING AND DEVELOPMENT REP) [facility] HCV RNA result Not Detected [facility] Comment: The quantifiable range of this assay is 15 IU/mL to 100,000,000 IU/mL (1.18 log IU/mL to 8.00 log IU/mL). Testing was performed by the [facility]SHLEY 6800 HCV Test ([employer] Testing performed at [facility] Current Interpretive Data was last revised on 2020 Blood 06/26/2022 5:00 PM TRAINING AND DEVELOPMENT REP 06/26/2022 5:25 PM TRAINING AND DEVELOPMENT REP Mo Velez MD LAB MICROBIOLOGY - GENERAL ORDERABLES Final Result Performing Organization Address [facility] Co de Phone Number [facility] Department [place] [address] * Screening Mammogram 2D Bilateral (02/02/2019) Anatomical Region Laterality Modality Breast Bilateral Mammography 02/02/2019 Impressions 02/06/2019 3:12 PM CDT Mammogram from [facility] IMPRESSION No mammographic evidence of malignancy. [facility] Historical Provider IMG MAMMO PROCEDURES Yajaira l Result * Colonoscopy (12/20/2009) Anatomical Region Laterality Modality Other 12/20/2009 Impressions 02/06/2019 3:10 PM CDT Colonoscopy Results from [facility] IMPRESSION: 1 Internal Hemorrhoids 2. Minimal Diverticulosis Historical Provider ENDOSCOPY PROCEDURES Yajaira l Result from Last 3 Months or Most Recently Relevant to Health Maintenance Insurance [facility] MEDICARE [facility] MEDICARE MEDICARE [facility] TRANSPLANT [facility] MEDICARE MEDICARE Advance Directives For more information, please contact: [phone] Documents on File Type Date Recorded Patient Logistics Manager Expl anation ADVANCE DIRECTIVE 05/28/2022 3:55 PM POWER OF ENGINE ROOM HELPER-MEDICAL * Full Code (Latest Code Status on File) Date Activated Date Inactivated Comments 05/25/2022 9:00 PM 06/03/2022 6:34 PM * Full Code Date Activated Date Inactivated Comments 05/24/2022 11:25 PM 05/25/2022 9:00 PM Care Teams Auto Garage Mechanic Relationship Specialty Start Date End Date Jose Martin Carlos MD [address] [facility] [place] [address] [place] [address] PCP - General 07/11/21 Latisha Benavidez, RN [address] [address] Academic Coordinator 05/25/22
--- OUTSIDE RECORDS SUMMARY | 2024-10-23 07:13 | XMS_ITS | Encounter Summary ---
Author Organization [facility] Address [address] [facility] [address] [place] [address] Care Team Providers Care Canine Enforcement Officer Name Role Phone Benton Bland MD Primary Care Provider [phone]- [phone] Benton Bland MD Primary Care Provider [phone]- [phone] Jose Martin Carlos MD Primary Care Provider +1- [phone] Latisha Benavidez RN Unavailable [phone] Encounter Details Date Type Department Care Team (Late st Contact Info) Description 06/27/2016 Orders Only [facility] ProviderKate MD [address] [place] [address] Social History Tobacco Use Types Packs/Day Years Used Date Smoking Tobacco: Never Alcohol Use Standard Drinks/Week Comments No 0 (1 standard drink = 0.6 oz pur e alcohol) Comments Unknown Sex and Gender Information Value Date Recorded Sex Assigned at Not on file Legal Sex Female 11:59 PM ENVIRONMENTAL LEAD Gender Identity Not on file Sexual Orientation [...] on filedocumented in this encounter Care Teams Canine Enforcement Officer Relationship Specialty Start Date End Date Benton Bland MD [address] [place] [address] PCP - General 08/10/16 07/10/21 Benton Bland MD [address] [facility] [place] [address] PCP - General 12/16/09 08/09/16 Jose Martin Carlos MD [address] [place], [place] [id number] PCP - General 07/11/21 Latisha Benavidez, RN [address] [facility] [address] [place] [address] Psychiatric Nursing Assistant 05/25/22 documented as of this encounter
--- OUTSIDE RECORDS SUMMARY | 2024-10-23 07:13 | XMS_ITS | Referral Summary ---
Author Organization [facility] Address [address] [place] [address] Care Team Providers Care Spray Machine Tender Name Role Phone Jose Martin Carlos MD Primary Care Provider + [phone] Latisha Benavidez RN Unavailable Encounters Date Type Department Care Team Description 09/25/2024 Lab [facility] Transplant Kidney [address] [facility] [address] [id number] [place] [address] Bessie Alvarado MD 09/24/2024 Lab [facility] Transplant Kidney [address] [facility] [address] 90-58-0 [place] [address] Bessie Alvarado MD 09/24/2024 Lab [facility] Transplant Kidney [address] [facility] [address] 9029-300 [place] [address] Bessie Alvarado MD 09/22/2024 Lab [facility] Transplant Kidney [address] [facility] [address] [id number] [place] [address] Bessie Alvarado MD 09/22/2024 Lab [facility] Transplant Kidney [address] [facility] [address] Mail[address] [id number] [place] [address] Bessie Alvarado MD 09/16/2024 Orders Only [facility] Transplant Kidney [address] [facility] [address] [address] [place] [address] Latisha Benavidez, RN Kidney replaced by transplant (Primary Dx) 09/16/2024 Telephone [facility] Transplant Kidney [address] [facility] [phone] [place] [address] Ilene Beltran 09/08/2024 Telephone [facility] Transplant Kidney [address] [facility] [address] [place] [address] Fariba Mayer 08/26/2024 Telephone [facility] Transplant Kidney [address] [facility] [address] [place] [address] Ilene Beltran 08/24/2024 Lab [facility] Transplant Kidney [address] [facility] [address] [address] [place] [address] Bessie Alvarado MD 08/24/2024 Telephone [facility] Transplant Kidney [address] [facility] [address] [address] [place] [address] Latisha Benavidez RN 08/24/2024 Lab [facility] Transplant Kidney [address] [facility] [address] 90-290 [place] [address] Bessie Alvarado MD 08/24/2024 Lab [facility] Transplant Kidney [address] [facility] [address] 90-290 [place] [address] Bessie Alvarado MD 08/20/2024 Lab [facility] Transplant Kidney [address] [facility] [address] [address] [place] [address] Bessie Alvarado MD 08/20/2024 Lab [facility] Transplant Kidney [address] [facility] [address] Mail[address] [phone] [place] [address] Bessie Alvarado MD 07/27/2024 Lab [facility] Transplant Kidney [address] [facility] [address] Mail[address] [id number] [place] [address] Bessie Alvarado MD from Last 3 Months [...] 1 tablet (125 mcg total) by mouth bobcat operator before breakfast 30 tablet 3 07/04/19 Active famotidine (PEPCID) 20 mg tablet Take 1 tablet (20 mg total) by mouth nightly as needed for heartburn 02/15/20 Active cyanocobalamin (vitamin B-12) 1,000 mcg tabletIndicati ons:Prevention of Vitamin B12 Deficiency Take 1 tablet (1,000 mcg total) by mouth daily 90 tablet 3 02/15/[address] (MYFORTIC) 360 mg [...] A DAY WITH MEALS 60 tablet 11 10/22/19 24 025 Discontinued Active Problems Patient Care Coordination No te Formatting of this note migh t be different from the original. Patient gave verbal consent to speak with concha Reich [facility].P- [phone] Standing orders q- Monthly, FK ,q3 Routine [...] often do you attend chur ch or scientology services? More than 4 times per year 05/25/2022 Do you belong to any clubs o r organizations such as roman catholic groups, unions, fraternal or athletic groups, or [...] on file Legal Sex Female 11:59 PM MANAGER ENTERPRISE Gender Identity Not on file Sexual Orientation Not on file Last Filed Vital Signs Vital Sign Reading Time Taken Comments Blood Pressure 138/84 06/03/2024 11:11 AM MANAGER ENTERPRISE Pulse 76 06/03/2024 11:11 AM MANAGER ENTERPRISE Temperature 36.8 C (98.3 F) 06/03/2024 11:11 AM MANAGER ENTERPRISE Respiratory Rate 18 06/28/2022 9:00 AM MANAGER ENTERPRISE Oxygen Saturation 99% 06/28/2022 9:00 AM MANAGER ENTERPRISE Inhaled Oxygen Concentration - - Weight 91.1 kg (200 lb 12.8 oz) 025 11:11 AM MANAGER ENTERPRISE Height 149.9 cm (4' 11) 06/03/2024 11: 11 AM MANAGER ENTERPRISE Body Mass Index 40.56 06/03/2024 11:11 AM MANAGER ENTERPRISE Plan of Treatment Scheduled Procedures Name Priority Associated Diagnoses Date/Ti me TRANSPLANT KIDNEY ESRD (end stage renal disease) (HCC) TRANSPLANT KIDNEY ESRD (end stage renal disease) (HCC) Medical Devices Explanted Type Area Mathematics Education Professor Device Identifier Shelf Expiration Date Model / Serial / Lot [employer] Double-J 6fr 20cm 100cm 1 Step Insert Push Catheter Hunt Suture [id number] - [id number] Implanted:Qt y: 1 on 05/25/2022 by Aguilar Barfield MD PhD at [facility] Explanted:Qt y: 1 on 06/26/2022 by Monty Harper MD Stent Right: Transplanted Ureter [employer] Angels [id number] 10/30/2026 [id number] / / [id number] Description:Transplanted Ure ter Procedures Procedure Name Priority [...] RNA, QUANTITATIVE, PCR Routine 06/26/2022 5:00 PM MANAGER ENTERPRISE Inconclusive laboratory evidence of human immunodeficiency virus [...] Edited Result - Final Performing Organization Address [facility] de Phone Number TXP NO LAB FOUND * (ABNORMAL) Tacrolimus level trough (09/22/2024) SCRIBED Tacrolimus, trough 4.5(A) 5 - 20 TXP NO LAB FOUND Blood 09/22/2024 Historical Provider LAB BLOOD ORDERABLES Edit ed Result - Final Performing Organization Address City/[facility]/ZIP [...] NO LAB FOUND SCRIBED eGFR in NonAfrican Venezuelan 31 >60 TXP NO LAB FOUND SCRIBED Urea Nitrogen (BUN) 36(A) 7 - 17 mg/dl TXP NO LAB FOUND Blood 09/22/2024 Historical Provider LAB BLOOD ORDERABLES Edit ed Result - Final TXP NO LAB FOUND * Jazmín Rene Virus PCR Qualitative (08/20/2024) SCRIBED EBV PCR Negative TXP NO LAB FOUND 08/20/2024 [facility] Provider LAB MICROBIOLOGY - GENERA L ORDERABLES Edited Result - Final Performing Organization Address [facility] de Phone Number TXP NO LAB FOUND * Tacrolimus level trough (08/20/2024) SCRIBED Tacrolimus, trough 6.3 5 - 20 TXP NO LAB FOUND Blood 08/20/2024 Historical Provider LAB BLOOD ORDERABLES Edit ed Result - Final Performing Organization Address [facility] de Phone Number TXP NO LAB [...] ed Result - Final Performing Organization Address [facility] de Phone Number TXP NO LAB [...] NO LAB FOUND SCRIBED eGFR in NonAfrican Venezuelan 31 >60 TXP NO LAB FOUND SCRIBED [...] TXP NO LAB FOUND Blood 08/20/2024 Result [facility] Historical Provider LAB BLOOD ORDERABLES Yajaira l Result Performing Organization Address [facility] de Phone Number TXP NO LAB FOUND * EBV DNA PCR, Qualitative (07/23/2024) Pathologist [facility] EBV DNA, PCR Nt. Det. TXP NO LAB FOUND 07/23/2024 Result [facility] Provider LAB MICROBIOLOGY - GENERA L ORDERABLES Edited Result - Final Performing Organization Address [facility] Phone Number TXP NO LAB FOUND * (ABNORMAL) Tacrolimus level trough (07/23/2024) Pathologist [facility] SCRIBED Tacrolimus, trough 2.2(A) 5 - 20 TXP NO LAB FOUND Blood 07/23/2024 Result [facility] Provider LAB BLOOD ORDERABLES Yajaira l Result Performing Organization Address [facility] de Phone Number TXP NO LAB FOUND * (ABNORMAL) CBC with auto differential (07/23/2024) Pathologist [facility] SCRIBED WBC 9.2 4.5 - 10.0 k/cumm TXP NO LAB FOUND SCRIBED Hemoglobin 11.8(A) 12 - 15 g/dL TXP NO LAB FOUND SCRIBED Hematocrit 36.5(A) 37 - 47 % TXP NO LAB FOUND SCRIBED Platelets 210 150 - 372 k/cumm TXP NO LAB FOUND SCRIBED Lymphocytes Abs 0.57(A) 0.9 - 3.2 k/cumm TXP NO LAB FOUND Blood 07/23/2024 Result [facility] Provider LAB BLOOD ORDERABLES Yajaira l Result Performing Organization Address [facility] de Phone Number TXP NO LAB [...] Units/L TXP NO LAB FOUND Blood 07/23/2024 us Historical Provider LAB BLOOD ORDERABLES Edit [...] NO LAB FOUND SCRIBED eGFR in NonAfrican Venezuelan 31 >60 TXP NO LAB FOUND SCRIBED [...] Result Performing Organization Address City/[facility] Co de Phone Number TXP NO LAB FOUND * Hepatitis C (HCV) RNA PCR, quantitative (06/26/2022 5:00 PM MANAGER ENTERPRISE) Pathologist [facility] HCV RNA result Not Detected CITLALY APODACA Comment: The quantifiable range of this assay is 15 IU/mL to 100,000,000 IU/mL (1.18 log IU/mL to 8.00 log IU/mL). Testing was performed by the [facility]LEY 6800 HCV Test ([employer] Testing performed at [facility] Current Interpretive Data was last revised on 2020 Blood 06/26/2022 5:00 PM MANAGER ENTERPRISE 06/26/2022 5:25 PM MANAGER ENTERPRISE Mo Velez MD LAB MICROBIOLOGY - GENERAL ORDERABLES Final Result Performing Organization Address City/[facility] Co de Phone Number [facility] Department [place] [address] * Screening Mammogram 2D Bilateral (02/02/2019) Anatomical Region Laterality Modality Breast Bilateral Mammography 02/02/2019 Impressions 02/06/2019 3:12 PM CDT Mammogram from [facility] IMPRESSION No mammographic evidence of malignancy. Recommend ourint screening mammography in one year Historical Provider IMG MAMMO PROCEDURES Yajaira l Result * Colonoscopy (12/20/2009) Anatomical Region Laterality Modality Other 12/20/2009 Impressions 02/06/2019 3:10 PM CDT Colonoscopy Results from [facility] IMPRESSION: 1 Internal Hemorrhoids 2. Minimal Diverticulosis Historical Provider MD ENDOSCOPY PROCEDURES Yajaira l Result from Last 3 Months or Most Recently Relevant to Health Maintenance Insurance [facility] MEDICARE [facility] MEDICARE MEDICARE [facility] * Guarantor: Grecia Marroquin Account Type Relation to Patient Date of Phone Billing Address Personal/Family Self [address] [place] [address] MEDICARE MEDICARE Advance Directives For more information, please contact: [phone] Documents on File Type Date Recorded Patient Automotive Fuel Injection Servicer Expl anation ADVANCE DIRECTIVE 05/28/2022 3:55 PM POWER OF DRYING MACHINE RECEIVER-MEDICAL * Full Code (Latest Code Status on File) Date Activated Date Inactivated Comments 05/25/2022 9:00 PM 06/03/2022 6:34 PM * Full Code Date Activated Date Inactivated Comments 05/24/2022 11:25 PM 05/25/2022 9:00 PM Care Teams Spray Machine Tender Relationship Specialty Start Date End Date Jose Martin Carlos MD [address] [facility] [address] [place] [address] PCP - General 07/11/21 Latisha Benavidez, RN [address] [facility] [address] [place] [address] Machine Striper 05/25/22
--- OUTSIDE RECORDS SUMMARY | 2024-10-23 07:13 | XMS_ITS | Encounter Summary ---
Author Organization [facility] Address [address] [facility] [address] [place] [address] Care Team Providers Care Sap Bobj Developer Name Role Phone Benton Bland MD Primary Care Provider [phone] Benton Bland MD Primary Care Provider [phone] Jose Martin Carlos MD Primary Care Provider [phone]- [phone] Latisha Benavidez RN Unavailable [phone] Encounter Details Date Type Department Care Team (Late st Contact Info) Description 08/01/2016 Orders Only [facility] ProviderKate MD [address] [place] [address] Social History Tobacco Use Types Packs/Day Years Used Date Smoking Tobacco: Never Alcohol Use Standard Drinks/Week Comments No 0 (1 standard drink = 0.6 oz pur e alcohol) Comments Unknown Sex and Gender Information Value Date Recorded Sex Assigned at Not on file Legal Sex Female 11:59 PM 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 Gender Identity Not on file Sexual Orientation [...] on filedocumented in this encounter Care Teams Sap Bobj Developer Relationship Specialty Start Date End Date Benton Bland MD [address] [address] PCP - General 08/10/16 07/10/21 Benton Bland MD [address] [place] [address] PCP - General 12/16/09 08/09/16 Jose Martin Carlos MD [address] [facility] [address] [place] [address] PCP - General 07/11/21 Latisha Benavidez, RN [address] [facility] [address] [place] [address] Power Bender Operator 05/25/22 documented as of this encounter
--- OUTSIDE RECORDS SUMMARY | 2024-10-23 07:13 | XMS_ITS | Clinical Summary ---
Author Organization [facility] Address [address] [place] [address] Phone Care Team Providers Care Construction Specialist Name Role Phone Dirk Love Primary Care Provider [phone] Allergies Active Allergy Reactions Criticality Noted Date Comments Ibuprofen 02/21/2019 Medications levothyroxine (SYNTHROID) 75 MCG tablet 1 daily 12/09/2011 Active omega-3 (FISH OIL) 1000 MG capsule 12/09/2011 Active triamcinolone (KENALOG) 0.1 % ointment CHUCK A THIN LAYER AA BID UNTIL SYMPTOMS RESOLVE 0 10/13/2018 Active ergocalciferol (VITAMIN D2) 1.25 MG (09105 UT) capsule Take 1 capsule (50,000 Units [...] Comments Influenza Vaccine (Season Ended) 2025 Insurance [facility] Care Teams Construction Specialist Relationship Specialty Start Date End Date Dirk Love PA [address] [facility] [address] [place] [address] PCP - General Family Medicine 09/14/20
[2024-10-23 08:30] LABS: Free T4 Free Thyroxine 2.02 ng/dL (0.78-2.19)
== END 2024-10-23 07:11 | disposition home or self-care (01) ==
PROVIDERS: PCP Internal Medicine; Visit Provider Nurse Practitioner
DX: E03.9 Hypothyroidism, unspecified (principal)
CPT/HCPCS: 36415; 84439; 84443

== ENCOUNTER 2024-10-31 08:38 | Emergency (ER) | payer OTHER, SELFPAY ==
--- NOTE | 2024-10-31 08:41 | ED.SKABFB ---
HPI - Skin/Abscess/Foreign Bdy General Stated complaint: Chest and Neck Rash Time Seen by Provider: 10/31/24 08:41 Source: patient Mode of arrival: ambulatory Limitations: no limitations History of Present Illness HPI narrative: Grecia is a 63-year-old female patient presenting to the clinic today with complaints of a rash on her neck and on her right side chest. She states that the rash started on Saturday. Rash is painful/stinging. Denies any fevers, chills, body aches. Denies any environmental changes. Denies any changes in soaps, shampoos, lotions, detergents, foods, or medications. History of kidney transplant and is on anti rejection medications. Patient father has recently passed and she has been hospitalized for a UTI. Related Data Home Medications ?Medication ?Instructions ?Recorded ?Confirmed ?Last Taken ?Type aspirin 81 mg tablet,delayed 81 mg PO DAILY 10/12/22 09/06/24 09/06/24 08:00 History release linagliptin 5 mg tablet (Tradjenta) 5 mg PO QAM 10/12/22 09/06/24 09/06/24 08:00 History polyethylene glycol 3350 17 17 g PO DAILY PRN as needed for 10/12/22 09/06/24 Unknown History gram/dose oral powder (Miralax) constipation prednisone 5 mg tablet 5 mg PO DAILY 10/12/22 09/06/24 09/06/24 08:00 History amlodipine 5 mg tablet 5 mg PO DAILY 11/27/22 09/06/24 09/06/24 08:00 History cholecalciferol (vitamin D3) 50 50 mcg PO DAILY 11/13/23 09/06/24 09/06/24 08:00 History mcg (2,000 unit) capsule cyanocobalamin (vitamin B-12) 1,000 mcg PO DAILY 11/13/23 09/06/24 09/06/24 08:00 History 1,000 mcg capsule acetaminophen 500 mg capsule 500 mg PO Q4-6H PRN fever or pain 09/06/24 09/06/24 Unknown History carvedilol 25 mg tablet 25 mg PO BID hypertension 09/06/24 09/06/24 09/06/24 08:00 History tacrolimus 1 mg tablet,extended 1 mg PO DAILY 09/06/24 09/06/24 09/06/24 08:00 History release 24 hr (Envarsus XR) Allergies Allergy/AdvReac Type Severity Reaction Status Date / Time ibuprofen Allergy Severe on kidney Verified 09/06/24 08:37 transplant list nitrofurantoin Allergy Mild Unknown Verified 09/06/24 08:37 Review of Systems Review of Systems: Pertinent positives per HPI. Patient denies any fever, chills, headache, visual changes, dizziness, cough, runny nose, sore throat, shortness of breath, chest pain, palpitations, nausea, vomiting, diarrhea, constipation, abdominal pain, or any urinary issues. [facility] Past Medical History Medical History Hyperlipidemia History of bruising easily History of stress test (~2021) High risk human papilloma virus (HPV) infection of cervix Vaginal delivery x2 Hypertension Kidney disease Hypothyroidism Surgical History Surgical History History of kidney transplant History of colposcopy [place] teeth extracted H/O laparoscopy Family History Family History Father Hypertension Patient's father is in good health Mother Hypertension Patient's mother is in good health Family history of heart disease in male family member before age 55 Grandparent Family history of malignant neoplasm Social History Social History Smoking status: Never smoker Second hand tobacco smoke exposure: No Alcohol intake: never Substance use: never Substance use type: does not use Do You Feel Safe in your Home?: Yes Lack of Transportation: No Lack of Food: Never True Current Housing: I Have Housing Concerned About Future Housing: No Difficulty Paying Gas/Electric Bills: No Difficulty Paying for Meds: No Currently Unemployed: No Education: High School Diploma/GED Difficulty w/ Childcare or Family Care: No Living arrangements: with family Spiritual care concerns: No Comments At the time of my signature, I reviewed and agree with the nursing past medical, surgical, social, and family history. There is no relevant family history pertinent to the patient complaint. Exam Narrative: General: Well-developed, well nourished, in no apparent distress Head: Normocephalic, atraumatic. Cardio: Regular rate and rhythm, s1 and s2 normal, no murmur appreciated. Resp: Clear to auscultation bilaterally, no rhonchi, rales, wheezing or rubs. Integumentary: [place], warm, and dry, red, raised, erythematous base rash with vesicular lesions to the right neck and right chest Course Course Emergency Course: Portions of this record may have been created with voice recognition software. Level of Care: Express Care Visit Vital Signs Vital signs: Vital Signs Temperature 35.8 C L 10/31/24 08:54 Pulse Rate 71 10/31/24 08:54 Respiratory Rate 20 10/31/24 08:54 Blood Pressure 106/56 L 10/31/24 08:54 Pulse Oximetry 98 10/31/24 08:54 Oxygen Delivery Room Air 10/31/24 08:54 Temperature 35.8 C L 10/31/24 08:54 Pulse Rate 71 10/31/24 08:54 Respiratory Rate 20 10/31/24 08:54 Blood Pressure 106/56 L 10/31/24 08:54 Pulse Oximetry 98 10/31/24 08:54 Oxygen Delivery Room Air 10/31/24 08:54 Vital signs reviewed MDM - Skin/Abscess/Foreign Bdy MDM Narrative Medical decision making narrative: At the time of visit patient is resting comfortably on the exam table. Patient appears to be nontoxic. Plan: I suspect patient has shingles. Prescription for Valtrex was sent to the pharmacy. Supportive measures were discussed with the patient and they voiced understanding discharge instructions and agrees to treatment plan. Return precautions reviewed Differential Diagnosis Differential diagnosis: Likely abscess of skin or subcutaneous tissue, viral exanthem, dermatophytosis, urticaria, herpes zoster, allergic reaction to drug, cellulitis, eczema, insect bites, impetigo and contact dermatitis Discharge Plan Discharge Clinical Impression: Shingles Qualifiers: Herpes zoster complications: without complications Qualified Code(s): B02.9 - Zoster without complications Patient Disposition: Home Condition: Stable Instructions: Antibiotic Form, Shingles (ED) Additional Instructions: May apply lidocaine patch to the area to help alleviate pain as discussed Take Valtrex as directed Keep area covered if draining Avoid being around person's, immunocompromised persons, or person to have not received any chickenpox vaccine Avoid scratching as this can cause the rash spread or cause a secondary infection May take benadryl 25-50mg every 6 hours as needed for itching. Follow up with your PCP in 3-5 days if symptoms persist or sooner if they worsen Go to the Emergency Room if symptoms worsen- fever, rash spreading with treatment, shortness of breath, tongue swelling, drooling, or chest pain Patient Language: Bangladeshi Prescriptions: New valacyclovir 1 gram tablet 1,000 mg PO Q8H 7 Days Qty: 21 0RF No Action amlodipine 5 mg tablet 5 mg PO DAILY Tradjenta 5 mg tablet 5 mg PO QAM polyethylene glycol 3350 [Miralax] 17 gram/dose powder 17 g PO DAILY PRN (Reason: as needed for constipation) prednisone 5 mg tablet 5 mg PO DAILY aspirin 81 mg tablet,delayed release (DR/EC) 81 mg PO DAILY cyanocobalamin (vitamin B-12) 1,000 mcg capsule 1,000 mcg PO DAILY cholecalciferol (vitamin D3) 50 mcg (2,000 unit) capsule 50 mcg PO DAILY carvedilol 25 mg tablet 25 mg PO BID Envarsus XR 1 mg tablet extended release 24 hr 1 mg PO DAILY acetaminophen 500 mg capsule 500 mg PO Q4-6H PRN (Reason: fever or pain) ciprofloxacin HCl 500 mg Tablet 500 mg PO Q12HR Qty: 7 0RF pravastatin 40 mg tablet See Rx Instructions .ROUTE .COMPLEX Qty: 90 2RF Dose Instruction: Take 1 tablet by mouth once daily Rx Instructions: Take 1 tablet by mouth once daily levothyroxine [Levoxyl] 75 mcg tablet 75 mcg PO DAILY Qty: 90 2RF Follow-up/Referrals: Long Candelario DO [Primary Care Provider] - Time of Disposition: 09:03 Quality NIHSS Nursing Documentation ED NIHSS nursing documentation: reviewed/agree
[2024-10-31 08:54] VITALS: BP 106/56; PULSE 71; RESP 20; TEMP 35.8; O2SAT 98
== END 2024-10-31 09:28 | disposition home or self-care (01) ==
PROVIDERS: Emergency Provider Nurse Practitioner Family; PCP Internal Medicine
DX: B02.9 Zoster without complications (principal); E78.5 Hyperlipidemia, unspecified; E03.9 Hypothyroidism, unspecified; I10 Essential (primary) hypertension
CPT/HCPCS: 99213; G0463

== ENCOUNTER 2024-11-23 06:50 | Outpatient (RCR) | payer OTHER, SELFPAY ==
[2024-10-23 07:52] LABS: Hematocrit 36.7 % (37.0-47.0); Hemoglobin 11.9 g/dL (12.0-15.0); Immature Granulocyte Percent A 1.2 % (0-0.5); Lymphocytes Absolute Auto 0.86 K/mm3 (0.9-3.2); Mean Corpuscular HGB Conc 32.4 g/dl (32-36); Mean Corpuscular Hemoglobin 30.3 pg (26-34); Mean Corpuscular Volume 93.4 fl (80-100); Nucleated Red Blood Cells Absolute Auto 0.000 K/mm3 (0.0-0.012); Nucleated Red Blood Cells Perc 0.0 % (0.0-0.2); Platelet Count Result 214 k/mm3 (150-375); Red Blood Count 3.93 M/mm3 (4.2-5.4); White Blood Count 7.4 K/mm3 (4.5-10.0)
[2024-10-23 08:04] LABS: Albumin Level 3.6 g/dL (3.5-5.1); Anion Gap 4 mmol/L (4-12); Blood Urea Nitrogen 26 mg/dL (7-17); Calcium 9.5 mg/dL (8.4-10.2); Carbon Dioxide 26 mmol/L (22-30); Chloride 109 mmol/L (98-107); Estimated Glomerular Filt Rate 33; Glucose 94 mg/dL (65-110); Potassium 3.9 mmol/L (3.4-5.0); Sodium 139 mmol/L (137-145)
[2024-10-26 15:33] LABS: EVB DNA,QN PCR Not Detected log IU/mL (Not Detected); Epstein Barr Virus PCR Not Detected (Not Detected)
[2024-10-27 16:26] LABS: Tacrolimus Prograf. 6.2
[2024-11-23 07:36] LABS: Hematocrit 37.3 % (37.0-47.0); Hemoglobin 12.1 g/dL (12.0-15.0); Immature Granulocyte Percent A 0.6 % (0-0.5); Lymphocytes Absolute Auto 1.24 K/mm3 (0.9-3.2); Mean Corpuscular HGB Conc 32.4 g/dl (32-36); Mean Corpuscular Hemoglobin 30.3 pg (26-34); Mean Corpuscular Volume 93.5 fl (80-100); Nucleated Red Blood Cells Absolute Auto 0.000 K/mm3 (0.0-0.012); Nucleated Red Blood Cells Perc 0.0 % (0.0-0.2); Platelet Count Result 212 k/mm3 (150-375); Red Blood Count 3.99 M/mm3 (4.2-5.4); White Blood Count 7.8 K/mm3 (4.5-10.0)
[2024-11-23 07:53] LABS: Alanine Aminotransferase 20 U/L (6-35); Albumin Level 3.5 g/dL (3.5-5.1); Alkaline Phosphatase 66 U/L (38-126); Anion Gap 5 mmol/L (4-12); Aspartate Amino Transferase 28 U/L (14-36); Bilirubin,Total 0.4 mg/dL (0.2-1.3); Blood Urea Nitrogen 25 mg/dL (7-17); Calcium 9.7 mg/dL (8.4-10.2); Carbon Dioxide 26 mmol/L (22-30); Chloride 109 mmol/L (98-107); Cholesterol 170 mg/dL (0-200); Estimated Glomerular Filt Rate 35; Glucose 86 mg/dL (65-110); HDL Direct 64 mg/dL; Potassium 3.9 mmol/L (3.4-5.0); Sodium 140 mmol/L (137-145); Total Protein 6.6 g/dL (6.3-8.2); Triglycerides 52 mg/dL (<150)
[2024-11-26 18:08] LABS: Tacrolimus (FK506), Blood 6.9 ng/mL (5.0-20.0)
== END 2025-01-21 23:59 | disposition home or self-care (01) ==
LOC: ANHLAB 06:50
PROVIDERS: PCP Internal Medicine; Visit Provider Internal Medicine
DX: Z51.81 Encounter for therapeutic drug level monitoring (principal); E78.5 Hyperlipidemia, unspecified; Z94.0 Kidney transplant status; Z79.899 Other long term (current) drug therapy
CPT/HCPCS: 36415; 80061; 80069; 80076; 80197; 82150; 83690; 85025; 87799

== ENCOUNTER 2024-12-11 12:41 | Outpatient (CLI) | payer OTHER, SELFPAY ==
--- NOTE | ~2024-12-11 | CT_ITS ---
EXAMINATION: CT chest abdomen pelvis wo con DATE: 12/11/2024 13:05 INDICATION: Encounter for aftercare following kidney transplantation TECHNIQUE: Computed tomography (CT) of the chest, abdomen, and pelvis was performed without intraveno us contrast. Automated exposure control and iterative reconstruction technique were employed. The dos e-length product was 1160.79 mGy-cm. COMPARISON: 09/06/2024 FINDINGS: CHEST CT: Unchanged linear discoid atelectasis/scarring in the right middle lobe. No pneumonia, pulmonary edema , pulmonary nodules or pleural effusion. Heart size normal. Atherosclerotic coronary artery calcium l ocation. No pericardial effusion. Thoracic aorta is normal in caliber. No pathologically enlarged tho racic lymphadenopathy. Mild to moderate thoracic spondylosis with bridging osteophytes at multiple le vels consistent with diffuse idiopathic skeletal hyperostosis (DISH). ABDOMEN/PELVIS CT: Liver, gallbladder, spleen, pancreas and bilateral adrenal glands are normal. Severe bilateral renal atrophy. Right pelvic transplant kidney without hydronephrosis. Bladder, uterus and bilateral adnexa are unremarkable. There is mild colonic diverticulosis with descending and sigmoid colon predominance and without adjacent inflammatory change to suggest diverticulitis. Small bowel and appendix are nor mal. No free intraperitoneal gas or fluid. No pathologically enlarged abdominal or pelvic lymphadenop athy. Severe spondylosis at L5-S1 with mild spondylosis more cephalad lumbar spine. Bone island at th e right femoral neck. IMPRESSION: 1. 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 2. Diverticulosis. Reviewed, dictated and finalized at location A.
--- OUTSIDE RECORDS SUMMARY | 2024-12-11 12:45 | XMS_ITS ---
Author Organization [facility] Address [address] [place] [address] Care Team Providers Care Editor In Chief Name Role Phone Jose Martin Carlos MD Primary Care Provider [phone] Latisha Benavidez RN Unavailable [phone] Transplant Episode Kidney Recipient [facility] ([place], [place]) - [facility] Organ Received: Left Kidney Transplanted on 05/25/2022 Marked as Active Follow-up on 05/25/2022 Reason: Transplanted at [facility] Kidney CoordinatorWhdestiny Benavidez RN Fax: N/A Email: N/A Infection History Noted Survival Infection Treatment Organism Resolved 12/02/2024 2 years 6 months EBV (Jazmín-Ba rr virus) viremia Donor Information Organ ABO Source Meets Risk [...] Fax Email Latisha Benavidez RN Kidney Coordinator [phone] N/A N/A Xin Joel, RN Secondary Coordinator Secondary Post Kidney Coordinator [phone] N/A N/A Ignacio Lala MD Referring Physician [phone] N/A Ilenecarole Beltran Primary Magnetic Observer N/A N/A N/A Martin Godoy Secondary Magnetic Observer N/A N/A N/A Therese Locke Tie Worker [phone] N/A N/A Latisha Benavidez, industrial seamstressDocumentation Manager [phone] N/A N/A Events Post-Transplant Pre-Transplant Admitted: 05/24/2022 Referred: 11/28/2018 Transplanted: 05/25/2022 Evaluation began: 9 Discharged: 06/03/2022 Committee: 02/23/2019 Center waitlisted: 9 Appointments (11/10/2024 - 01/11/2025) When With Visit Type Description 12/02/2024 Transplant - Sarahi Cabral Encount er for aftercare following kidney transplant (Primary Dx); Encounter for long-term (current) use of high-risk medication; Dyslipidemia; Essential hypertension; Hypothyroidism, unspecified type; Stage 3a chronic kidney disease (HCC); Chronic fatigue; EBV (Jazmín-Zhu virus) viremia; Renal osteodystrophy; Type 2 diabetes mellitus without complication, without long-term current use of insulin (HCC); Elevated amylase and lipase
--- OUTSIDE RECORDS SUMMARY | 2024-12-11 12:45 | XMS_ITS | Clinical Summary ---
Author Organization [facility] Address [address] [place] [address] Phone Care Team Providers Care Network Cabler Name Role Phone Dirk Love Primary Care Provider [phone] Allergies Active Allergy Reactions Criticality Noted Date Comments Ibuprofen 02/21/2019 Medications levothyroxine (SYNTHROID) 75 MCG tablet 1 daily 12/09/2011 Active omega-3 (FISH OIL) 1000 MG capsule 12/09/2011 Active triamcinolone (KENALOG) 0.1 % ointment CHUCK A THIN LAYER AA BID UNTIL SYMPTOMS RESOLVE 0 10/13/2018 Active ergocalciferol (VITAMIN D2) 1.25 MG (96272 UT) capsule Take 1 capsule (50,000 Units [...] Date Last Done Comments Influenza Vaccine (#1) 2025 Insurance [facility] Care Teams Network Cabler Relationship Specialty Start Date End Date Dirk Love PA [address] [facility] [address] [place] [address] PCP - General Family Medicine 09/14/20
--- OUTSIDE RECORDS SUMMARY | 2024-12-11 12:45 | XMS_ITS | Encounter Summary ---
Author Organization [facility] Address [address] [facility] [address] [place] [address] Care Team Providers Care Corporate Safety Coordinator Name Role Phone Benton Bland MD Primary Care Provider [phone] Benton Bland MD Primary Care Provider [phone] Jose Martin Carlos MD Primary Care Provider [phone] Latisha Benavidez RN Unavailable [phone] Encounter Details Date Type Department Care Team (Late st Contact Info) Description 08/01/2016 Orders Only [facility] ProviderKate MD [address] [place] [address] Social History Tobacco Use Types Packs/Day Years Used Date Smoking Tobacco: Never Alcohol Use Standard Drinks/Week Comments No 0 (1 standard drink = 0.6 oz pur e alcohol) Comments Unknown Sex and Gender Information Value Date Recorded Sex Assigned at Not on file Legal Sex Female 11:59 PM WEB CONTENT COORDINATOR Gender Identity Not on file Sexual Orientation [...] on filedocumented in this encounter Care Teams Corporate Safety Coordinator Relationship Specialty Start Date End Date Benton Bland MD [address] [place] [address] PCP - General 08/10/16 07/10/21 Benton Bland MD [address] [place] [address] PCP - General 12/16/09 08/09/16 Jose Martin Carlos MD [address] [place] [address] PCP - General 07/11/21 Latisha Benavidez, RN [address] [facility] [address] [place] [address] Setter Automatic Spinning Lathe 05/25/22 documented as of this encounter
--- OUTSIDE RECORDS SUMMARY | 2024-12-11 12:45 | XMS_ITS | Referral Summary ---
Author Organization [facility] Address [address] [place] [address] Care Team Providers Care Tool And Gauge Inspector Name Role Phone Jose Martin Carlos MD Primary Care Provider + [phone] Latisha Benavidez RN Unavailable [phone] Encounters Date Type Department Care Team Description 12/08/2024 Telephone [facility] Transplant Kidney [address] [facility] [address] [id number] [place] [address] Latisha Benavidez, RN 12/04/2024 Orders Only [facility] Transplant Kidney [address] [facility] [address] [id number] [place] [address] Latisha Benavidez, RN 12/04/2024 Telephone [facility] Transplant Kidney [address] [facility] [address] 90-93-166 [place] [address] Latisha Benavidez, RN 12/02/2024 Orders Only [facility] Transplant Kidney [address] [facility] [address] 90-82-000 [place] [address] Latisha Benavidez, RN Kidney replaced by transplant (Primary Dx) 12/02/2024 Telephone [facility] Transplant Kidney [address] [facility] [address] [phone] [place] [address] Latisha Benavidez RN 12/02/2024 10:00 AM CDT Office Visit [facility] Ne[facility] [address] [facility] 5th [place] [address] [place] [address] Laura Cabral MD Encounter for aftercare following kidney transplant (Primary Dx); Encounter for long-term (current) use of high-risk medication; Dyslipidemia; Essential hypertension; Hypothyroidism, unspecified type; Stage 3a chronic kidney disease (HCC); Chronic fatigue; EBV (Jazmín-Zhu virus) viremia; Renal osteodystrophy; Type 2 diabetes mellitus without complication, without long-term current use of insulin (HCC); Elevated amylase and lipase 11/27/2024 Lab [facility] Transplant Kidney [address] [facility] [address] [place] [address] Bessie Alvarado MD 11/26/2024 Lab [facility] Transplant Kidney [address] [facility] [address] [place], [place] [address] [place] [address] Bessie Alvarado MD 11/26/2024 Orders Only [facility] Transplant Kidney [address] [facility] [address] [place] [address] Latisha Benavidez, RN Kidney replaced by transplant (Primary Dx); Abnormal serum level of lipase 11/26/2024 Telephone [facility] Transplant Kidney [address] [facility] [address] [place] [address] Latisha Benavidez, RN 11/26/2024 Telephone [facility] Transplant Kidney [address] [facility] [address] [place] [address] Latisha Benavidez RN 11/25/2024 Lab [facility] Transplant Kidney [address] [facility] [address] [place] [address] Bessie Alvarado MD 11/25/2024 Telephone [facility] Transplant Kidney [address] [facility] [address] Mail[address] 90-29-910 [place] [address] Gita Wang 11/23/2024 Lab [facility] Transplant Kidney [address] [facility] [address] Mail[address] [phone] [place] [address] Bessie Alvarado MD 10/30/2024 Telephone [facility] Transplant Kidney [address] [facility] [address] Mail[address] [phone] [place] [address] Gita Wang 10/29/2024 Telephone [facility] Transplant Kidney [address] [facility] [address] Mail[address] [phone] [place] [address] Gita Wang 10/27/2024 Lab [facility] Transplant Kidney [address] [facility] [address] Mail[address] [phone] [place] [address] Bessie Alvarado MD 10/26/2024 Lab [facility] Transplant Kidney [address] [facility] [address] 90-290 [place] [address] Bessie Alvarado MD 10/23/2024 Lab [facility] Transplant Kidney [address] [facility] [address] Mail[address] [phone] [place] [address] Bessie Alvarado MD 09/25/2024 Lab [facility] Transplant Kidney [address] [facility] [address] Mail[address] 90-29-910 [place] [address] Bessie Alvarado MD 09/24/2024 Lab [facility] Transplant Kidney [address] [facility] [address] [phone] [place] [address] Bessie Alvarado MD 09/24/2024 Lab [facility] Transplant Kidney [address] [facility] [address] Mail[address] 70-03-909 [place] [address] Bessie Alvarado MD 09/22/2024 Lab [facility] Transplant Kidney [address] [facility] [address] Mail[address] 65-37-124 [place] [address] Bessie Alvarado MD 09/22/2024 Lab [facility] Transplant Kidney [address] [facility] [address] Mail[address] [phone] [place] [address] Bessie Alvarado MD 09/16/2024 Orders Only [facility] Transplant Kidney [address] [facility] [address] [phone] [place] [address] Latisha Benavidez RN Kidney replaced by transplant (Primary Dx) 09/16/2024 Telephone [facility] Transplant Kidney [address] [facility] [address] [phone] [place] [address] Ilene Beltran from Last 3 Months Allergies No known [...] tablet (125 mcg total) by mouth early intervention school psychologist before breakfast 30 tablet 3 3 Active famotidine (PEPCID) 20 mg tablet Take 1 tablet (20 mg total) by mouth nightly as needed for heartburn 3 Active cyanocobalamin (vitamin B-12) 1,000 mcg tabletIndicatio ns:Prevention of Vitamin B12 Deficiency Take 1 tablet (1,000 mcg total) by mouth daily 90 tablet [address] (MYFORTIC) 360 mg EC tabletIndicatio ns:Prevention of Kidney Transplant Rejection Take 1 tablet (360 mg total) by mouth daily HOLDING as of 11/06 for + EBV pcr 4 Active Additional Information Patient not taking.Reported on [...] EVERY DAY 30 tablet 11 5 Active amLODIPine (NORVASC) 5 mg tablet Take 1 tablet by mouth once daily 30 tablet 11 5 Active carvediloL (COREG) 25 mg tabletIndicatio ns:Status post kidney transplant TAKE 1 TABLET BY MOUTH 2 TIMES A DAY WITH MEALS 60 tablet 11 5 Active Active Problems Patient Care Coordination No te Formatting of this note migh t be different from the original. Patient gave verbal consent to speak with [facility]P- [phone] Standing orders q- Monthly, FK ,q3 Routine Exp. 05/28/25 Problem Noted Date Diagnosed Date EBV (Jazmín-Zhu virus) viremia 12/02/2024 Renal osteodystrophy 12/02/2024 Type 2 diabetes mellitus wit hout complication, without long-term current use of insulin 12/02/2024 Elevated amylase and lipase 12/02/2024 Encounter for aftercare following kidney transpl ant 06/19/2022 Removal of staple 06/19/2022 Encounter for [...] often do you attend chur ch or adventism services? More than 4 times per year 05/25/2022 Do you belong to any clubs o r organizations such as orthodoxy groups, unions, fraternal or athletic groups, or [...] on file Legal Sex Female 11:59 PM SUSHI CHEF Gender Identity Not on file Sexual Orientation Not on file Last Filed Vital Signs Vital Sign Reading Time Taken Comments Blood Pressure 157/88 12/02/2024 9:25 AM CDT Pulse 67 12/02/2024 9:25 AM CDT Temperature 36.7 C (98.1 F) 12/02/2024 9:25 AM CDT Respiratory Rate 18 06/28/2022 9:00 AM SUSHI CHEF Oxygen Saturation 99% 06/28/2022 9:00 AM SUSHI CHEF Inhaled Oxygen Concentration - - Weight 94.7 kg (208 lb 11.2 oz) 12/02/2024 9:25 AM CDT Height 149.9 cm (4' 11) 12/02/2024 9:25 AM CDT Body Mass Index 42.15 12/02/2024 9:25 AM CDT Plan of Treatment Scheduled Procedures Name Priority Associated Diagnoses Date/Ti me TRANSPLANT KIDNEY ESRD (end stage renal disease) (HCC) TRANSPLANT KIDNEY ESRD (end stage renal disease) (HCC) Medical Devices Explanted Type Area Senior Qc Technician Device Identifier Shelf Expiration Date Model / Serial / Lot Cloutex Double-J 6fr 20cm 100cm 1 Step Insert Push Catheter [place] Suture [id number] - [id number] Implanted:Qt y: 1 on 05/25/2022 by Aguilar Barfield MD PhD at [facility] Explanted:Qt y: 1 on 06/26/2022 by Monty Harper MD Stent Right: Transplanted Ureter Cloutex [id number] 10/30/2026 [id number] / / [id number] Description:Transplanted Ure ter Procedures Procedure Name Priority Date/Time Associated Diagnosis Comments TACROLIMUS LEVEL, TROUGH Routine 11/23/2024 AMYLASE Routine 11/23/2024 LIPASE Routine 11/23/2024 RENAL FUNCTION PANEL Routine 11/23/2024 HEPATIC FUNCTION PANEL Routine 11/23/2024 LIPID PANEL Routine 11/23/2024 CBC WITH AUTO DIFFERENTIAL Routine 11/23/2024 JAZMÍN ZHU VIRUS PCR QUALITATIVE Routine 11/23/2024 TACROLIMUS LEVEL, TROUGH Routine 10/23/2024 RENAL FUNCTION PANEL Routine 10/23/2024 CBC WITH AUTO DIFFERENTIAL Routine 10/23/2024 JAZMÍN ZHU VIRUS PCR QUALITATIVE Routine 10/23/2024 TACROLIMUS LEVEL, TROUGH Routine 09/22/2024 RENAL FUNCTION PANEL Routine 09/22/2024 CBC WITH AUTO DIFFERENTIAL Routine 09/22/2024 EBV DNA PCR Routine 09/22/2024 HEMOGLOBIN A1C Routine 11/26/2022 HEPATITIS C RNA, QUANTITATIVE, PCR Routine 06/26/2022 5:00 PM SUSHI CHEF Inconclusive laboratory evidence of human immunodeficiency virus (HIV) Aftercare following organ transplant SCREENING MAMMOGRAM 2D BILATERAL Schedule Routine, Read Routine (OP Routine) 02/02/2019 COLONOSCOPY Routine 12/20/2009 from Last 3 Months or Most Recently Relevant to Health Maintenance Results * Jazmín Zhu Virus PCR Qualitative (11/23/2024) SCRIBED EBV PCR Positive TXP NO LAB FOUND Comment:[id number] 11/23/2024 us Historical Provider LAB MICROBIOLOGY - GENERA L ORDERABLES Edited Result - Final TXP NO LAB FOUND * Tacrolimus level trough (11/23/2024) SCRIBED Tacrolimus, trough 6.9 5 - 20 TXP NO LAB FOUND Blood 11/23/2024 Result [facility] Provider LAB BLOOD ORDERABLES Edit ed Result - Final Performing Organization Address [facility] de Phone Number TXP NO LAB FOUND * (ABNORMAL) CBC with auto differential (11/23/2024) SCRIBED WBC 7.8 4.5 - 10.0 K/cumm TXP NO LAB FOUND SCRIBED Hemoglobin 12.1 12.0 - 15.0 g/dL TXP NO LAB FOUND SCRIBED Hematocrit 37.3 37.0 - 47.0 % TXP NO LAB FOUND SCRIBED Platelets 212 150 - 375 K/cumm TXP NO LAB FOUND SCRIBED RBC 3.99(A) 4.20 - 5.40 M/cumm TXP NO LAB FOUND SCRIBED Lymphocytes Abs 1.2 0.9 - 3.2 K/cumm TXP NO LAB FOUND Blood 11/23/2024 Result [facility] Provider LAB BLOOD ORDERABLES Yajaira l Result Performing Organization Address [facility] de Phone Number TXP NO LAB FOUND * (ABNORMAL) Lipase (11/23/2024) SCRIBED Lipase 2,868(A) 23 - 300 IUnit/mL TXP NO LAB FOUND Blood 11/23/2024 Result [facility] Provider LAB BLOOD ORDERABLES Yajaira l Result Performing Organization Address [facility] de Phone Number TXP NO LAB FOUND * (ABNORMAL) Amylase (11/23/2024) SCRIBED Amylase 261(A) 30 - 110 IUnit/mL TXP NO LAB FOUND Blood 11/23/2024 Result [facility] Provider LAB BLOOD ORDERABLES Edit ed Result - Final Performing Organization Address [facility] de Phone Number TXP NO LAB FOUND * Hepatic function panel (11/23/2024) SCRIBED Protein, Total, Serum 6.6 6.3 - 8.2 g/dL TXP NO LAB FOUND SCRIBED Albumin 3.5 3.5 - 5.1 g/dl TXP NO LAB FOUND SCRIBED Bilirubin, Total 0.4 0.2 - 1.3 mg/dL TXP NO LAB FOUND SCRIBED Bilirubin, Direct 0.0 0.0 - 0.3 mg/dL TXP NO LAB FOUND SCRIBED Alkaline Phosphatase 66 38 - 126 Units/L TXP NO LAB FOUND SCRIBED Aspartate Transaminase (AST) 28 14 - 36 Units/L TXP NO LAB FOUND SCRIBED Alanine Transaminase (ALT) 20 6 - 35 Units/L TXP NO LAB FOUND Blood 11/23/2024 [facility] Provider LAB BLOOD ORDERABLES Yajaira l Result Performing Organization Address [facility] de Phone Number TXP NO LAB FOUND * (ABNORMAL) Renal function panel (11/23/2024) SCRIBED Calcium 9.7 8.4 - 10.2 mg/dl TXP NO LAB FOUND SCRIBED Phosphorus 3.2 2.5 - 4.5 mg/dl TXP NO LAB FOUND SCRIBED Albumin 3.5 3.5 - 5.1 g/dl TXP NO LAB FOUND SCRIBED Glucose 86 65 - 110 mg/dl TXP NO LAB FOUND SCRIBED Creatinine 1.51(A) 0.7 - 1.0 mg/dl TXP NO LAB FOUND SCRIBED Sodium 140 137 - 145 mmol/L TXP NO LAB FOUND SCRIBED Potassium 3.9 3.4 - 5.0 mmol/L TXP NO LAB FOUND SCRIBED Chloride 109(A) 98 - 107 mmol/L TXP NO LAB FOUND SCRIBED Carbon Dioxide 26 22 - 30 mmol/L TXP NO LAB FOUND SCRIBED eGFR in NonAfrican Eritrean 35 >60 TXP NO LAB FOUND SCRIBED Urea Nitrogen (BUN) 25 7 17 TXP NO LAB FOUND Blood 11/23/2024 Result [facility] Provider LAB BLOOD ORDERABLES Edit ed Result - Final Performing Organization Address [facility] de Phone Number TXP NO LAB FOUND * Lipid panel (11/23/2024) SCRIBED Cholesterol, Total 170 0 - 200 mg/dL TXP NO LAB FOUND SCRIBED Triglycerides 52 <150 mg/dL TXP NO LAB FOUND SCRIBED HDL 65 >35 mg/dL TXP NO L AB FOUND SCRIBED LDL 69 <130 mg/dL TXP NO LAB FOUND Scribed Non-HDL Cholesterol 0 NONE mg/dL TXP NO LAB FOUND SCRIBED Total Cholesterol/HDL Ratio 0 NONE TXP NO LAB FOUND Blood 11/23/2024 Result [facility] Provider LAB BLOOD ORDERABLES Yajaira l Result Performing Organization Address [facility] de Phone Number TXP NO LAB FOUND * Jazmín Zhu Virus PCR Qualitative (10/23/2024) SCRIBED EBV PCR Negative TXP NO LAB FOUND 10/23/2024 Result [facility] LAB MICROBIOLOGY - GENERA L ORDERABLES Edited Result - Final Performing Organization Address [facility] de Phone Number TXP NO LAB FOUND * Tacrolimus level trough (10/23/2024) SCRIBED Tacrolimus, trough 6.2 5 20 TXP NO LAB FOUND Comment:received test correc tion Blood 10/23/2024 Result [facility] LAB BLOOD ORDERABLES Edit ed Result - Final Performing Organization Address [facility] de Phone Number TXP NO LAB FOUND * (ABNORMAL) CBC with auto differential (10/23/2024) SCRIBED WBC 7.4 4.5 - 10.0 k/cumm TXP NO LAB FOUND SCRIBED Hemoglobin 11.9(A) 12 - 15 g/dL TXP NO LAB FOUND SCRIBED Hematocrit 36.7(A) 37 - 47 % TXP NO LAB FOUND SCRIBED Platelets 214 150 - 375 k/cumm TXP NO LAB FOUND SCRIBED Lymphocytes Abs 0.86(A) 0.9 - 3.2 k/cumm TXP NO LAB FOUND Blood 10/23/2024 us Historical Provider LAB BLOOD ORDERABLES Yajaira l Result TXP NO LAB FOUND * (ABNORMAL) Renal function panel (10/23/2024) SCRIBED Calcium 9.5 8.4 - 10.2 mg/dl TXP NO LAB FOUND SCRIBED Phosphorus 3.1 2.5 - 4.5 mg/dl TXP NO LAB FOUND SCRIBED Albumin 3.6 3.5 - 5.1 g/dl TXP NO LAB FOUND SCRIBED Glucose 94 65 - 110 mg/dl TXP NO LAB FOUND SCRIBED Creatinine 1.59(A) 0.7 - 1.0 mg/dl TXP NO LAB FOUND SCRIBED Sodium 139 137 - 145 mmol/L TXP NO LAB FOUND SCRIBED Potassium 3.9 3.4 - 5.0 mmol/L TXP NO LAB FOUND SCRIBED Chloride 109(A) 98 - 107 mmol/L TXP NO LAB FOUND SCRIBED Carbon Dioxide 26 22 - 30 mmol/L TXP NO LAB FOUND SCRIBED eGFR in NonAfrican Eritrean 33 >=60 TXP NO LAB FOUND SCRIBED Urea Nitrogen (BUN) 26(A) 7 - 17 mg/dl TXP NO LAB FOUND Blood 10/23/2024 us Historical Provider LAB BLOOD ORDERABLES Edit ed Result - Final TXP NO LAB FOUND * EBV DNA PCR, Qualitative (09/22/2024) EBV DNA, PCR Nt. Det. TXP NO LAB FOUND 09/22/2024 Historical Provider LAB MICROBIOLOGY - GENERA L ORDERABLES Edited Result - Final Performing Organization Address [facility] de Phone Number TXP NO LAB FOUND * (ABNORMAL) Tacrolimus level trough (09/22/2024) SCRIBED Tacrolimus, trough 4.5(A) 5 - 20 TXP NO LAB FOUND Blood 09/22/2024 Historical Provider LAB BLOOD ORDERABLES Edit ed Result - Final Performing Organization Address [facility] de Phone Number TXP NO [...] ed Result - Final Performing Organization Address [facility] de Phone Number TXP NO [...] NO LAB FOUND SCRIBED eGFR in NonAfrican Eritrean 31 >60 TXP NO LAB FOUND SCRIBED Urea Nitrogen (BUN) 36(A) 7 - 17 mg/dl TXP NO LAB FOUND Blood 09/22/2024 Historical Provider MD LAB BLOOD ORDERABLES Edit ed Result - Final Performing Organization Address City/[facility]/ZIP Co de Phone Number TXP NO LAB FOUND * (ABNORMAL) Hemoglobin A1c (11/26/2022) SCRIBED Hemoglobin A1c 5.8(A) 0 - 5.7 % TXP NO LAB FOUND Blood 11/26/2022 Historical Provider MD LAB BLOOD ORDERABLES Edit ed Result - Final Performing Organization Address [facility]/ZIP Co de Phone Number TXP NO LAB FOUND * Hepatitis C (HCV) RNA PCR, quantitative (06/26/2022 5:00 PM SUSHI CHEF) HCV RNA result Not Detected [facility] Comment: The quantifiable range of this assay is 15 IU/mL to 100,000,000 IU/mL (1.18 log IU/mL to 8.00 log IU/mL). Testing was performed by the [id number] HCV Test ([employer] Testing performed at [facility] Current Interpretive Data was last revised on 2020 Blood 06/26/2022 5:00 PM SUSHI CHEF 06/26/2022 5:25 PM SUSHI CHEF Mo Velez MD LAB MICROBIOLOGY - GENERAL ORDERABLES Final Result [facility] Department [place] [address] * Screening Mammogram 2D Bilateral (02/02/2019) Anatomical Region Laterality Modality Breast Bilateral Mammography 02/02/2019 Impressions 02/06/2019 3:12 PM CDT Mammogram from [facility] IMPRESSION No mammographic evidence of malignancy. Recommend ourint screening mammography in one year Historical Provider IMG MAMMO PROCEDURES Yajaira l Result * Colonoscopy (12/20/2009) Anatomical Region Laterality Modality Other 12/20/2009 Impressions 02/06/2019 3:10 PM CDT Colonoscopy Results from [facility] IMPRESSION: 1 Internal Hemorrhoids 2. Minimal Diverticulosis Historical Provider ENDOSCOPY PROCEDURES Yajaira l Result from Last 3 Months or Most Recently Relevant to Health Maintenance Insurance [facility] MEDIC[facility] Address: [id number] [place] [address] [facility] TRANSPLANT [facility] MEDICARE MEDICARE Advance Directives For more information, please contact: [phone] Documents on File Type Date Recorded Patient Mobile Engineer Expl anation ADVANCE DIRECTIVE 05/28/2022 3:55 PM POWER OF PLASTER 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
--- OUTSIDE RECORDS SUMMARY | 2024-12-11 12:45 | XMS_ITS | Clinical Summary ---
Author Organization [facility] Address [address] [place] [address] Care Team Providers Care Senior Investment Analyst Name Role Phone Jose Martin Carlos MD Primary Care Provider [phone]- [phone] Latisha Benavidez RN Unavailable [phone] Allergies No known active allergies Medications senna-docusate [...] 1 tablet (125 mcg total) by mouth professional engineer before breakfast 30 tablet 3 3 [...] 1 mg tablet extended release 24 hrIndications:K idkayden replaced by transplant Take 1 tablet (1 [...] verbal consent to speak with concha Reich [facility].P- [phone] Standing orders q- Monthly, FK ,q3 Routine Exp. 05/28/25 Problem Noted Date Diagnosed Date EBV (Jazmín-Rene virus) viremia 12/02/2024 Renal osteodystrophy 12/02/2024 Type [...] Type Department Care Team Description 12/08/2024 Telephone [facility] Transplant Kidney [address] [address] [address] [id number] [place] [address] Latisha Benavidez, RN 12/04/2024 Orders Only [facility] Transplant Kidney [address] [facility] [address] 27-28-418 [place] [address] Latisha Benavidez, RN 12/04/2024 Telephone [facility] Transplant Kidney [address] [facility] [address] 90-79-513 [place] [address] Latisha Benavidez RN 12/02/2024 10:00 AM CDT Office Visit [facility] [address] [facility] 5th [place] [address] [place] [address] Laura Cabral MD Encounter for aftercare following kidney transplant (Primary Dx); Encounter for long-term (current) use of high-risk medication; Dyslipidemia; Essential hypertension; Hypothyroidism, unspecified type; Stage 3a chronic kidney disease (HCC); Chronic fatigue; EBV (Jazmín-Rene virus) viremia; Renal osteodystrophy; Type 2 diabetes mellitus without complication, without long-term current use of insulin (HCC); Elevated amylase and lipase 12/02/2024 Orders Only [facility] Transplant Kidney [address] [facility] [address] [place], [place] [address] [place] [address] Latisha Benavidez RN Kidney replaced by transplant (Primary Dx) 12/02/2024 Telephone [facility] Transplant Kidney [address] [facility] [address] [facility] [place] [address] Latisha Benavidez RN 11/27/2024 Lab [facility] Transplant Kidney [address] [facility] [address] [place], [place] [address]op [facility] [place] [address] Bessie Alvarado MD 11/26/2024 Lab [facility] Transplant Kidney [address] [facility] [address] [facility] [place] [address] Bessie Alvarado MD 11/26/2024 Orders Only [facility] Transplant Kidney [address] [facility] [address] [facility] [place] [address] Latisha Benavidez RN Kidney replaced by transplant (Primary Dx); Abnormal serum level of lipase 11/26/2024 Telephone [facility] Transplant Kidney [address] [facility] [address] [facility] [place] [address] Latisha Benavidez RN 11/26/2024 Telephone [facility] Transplant Kidney [address] [facility] [address] 90-29-910 [place] [address] Latisha Benavidez RN 11/25/2024 Lab [facility] Transplant Kidney [address] [facility] [address] Mail[address] 90-29-910 [place] [address] Bessie Alvarado MD 11/25/2024 Telephone [facility] Trans[facility] Kidney [address] [facility] [address] Mailstop 90-29-910 [place] [address] Gita Wang 11/23/2024 Lab [facility] Transplant Kidney [address] [facility] [address] Mailstop 90-29-910 [place] [address] Bessie Alvarado MD 10/30/2024 Telephone [facility] Transplant Kidney [address] [facility] [address] Mail[address] 90-29-910 [place] [address] Gita Wang 10/29/2024 Telephone [facility] Transplant Kidney [address] [facility] [address] Mail[address] 90-29-910 [place] [address] Gita Wang 10/27/2024 Lab [facility] Transplant Kidney [address] [facility] [address] Mail[address] 90-29-910 [place] [address] Bessie Alvarado MD 10/26/2024 Lab [facility] Transplant Kidney [address] [facility] [address] Mailstop 90-29-910 [place] [address] Bessie Alvarado MD 10/23/2024 Lab [facility] Transplant Kidney [address] [facility] [address] Mailstop 90-29-910 [place] [address] Bessie Alvarado MD 09/25/2024 Lab [facility] Transplant Kidney [address] [facility] [address] Mail[address] 90-29-910 [place] [address] Bessie Alvarado MD 09/24/2024 Lab [facility] Transplant Kidney [address] [facility] [address] Mailstop -[address] [place] [address] Bessie Alvarado MD 09/24/2024 Lab [facility] Transplant Kidney [address] [facility] [address] [place] [address] Bessie Alvarado MD 09/22/2024 Lab [facility] Transplant Kidney [address] [facility] [address] [place] [address] Bessie Alvarado MD 09/22/2024 Lab [facility] Transplant Kidney [address] [facility] [address] [place] [address] Bessie Alvarado MD 09/16/2024 Orders Only [facility] Transplant Kidney [address] [facility] [address] [place] [address] Latisha Benavidez RN Kidney replaced by transplant (Primary Dx) 09/16/2024 Telephone [facility] Transplant Kidney [address] [facility] [address] [place] [address] Ilene Beltran from Last 3 Months Surgical History Surgery [...] Hx Relation Name Status Comments Father Alive [place] age 70s Mother Alive Other 1 Other [...] often do you attend chur ch or rastafarian services? More than 4 times per year [...] on file Legal Sex Female 11:59 PM PIPE FITTER MAINTENANCE Gender Identity Not on file Sexual Orientation Not on file Obstetrics History Last Filed Vital Signs Vital Sign Reading Time Taken Comments Blood Pressure 157/88 12/02/2024 9:25 AM CDT Pulse 67 12/02/2024 9:25 AM CDT Temperature 36.7 C (98.1 F) 12/02/2024 9:25 AM CDT Respiratory Rate 18 06/28/2022 9:00 AM PIPE FITTER MAINTENANCE Oxygen Saturation 99% 06/28/2022 9:00 AM PIPE FITTER MAINTENANCE Inhaled Oxygen Concentration - - Weight 94.7 kg (208 lb 11.2 oz) 12/02/2024 9:25 AM CDT Height 149.9 cm (4' 11) 12/02/2024 9:25 AM CDT Body Mass Index 42.15 12/02/2024 9:25 AM CDT Plan of Treatment Scheduled Procedures Name Priority Associated Diagnoses Date/Ti me TRANSPLANT KIDNEY ESRD (end stage renal disease) ([facility]) TRANSPLANT KIDNEY ESRD (end stage renal disease) (HCC) Health Maintenance Due Date Last Done Comments Albumin Creatinine Ratio, Urine 1959 Cervical Cancer Screening 1959 Depression Screening 1959 Dilated Eye Exam 1959 Foot Exam 1959 Regular Well Visit/Exam 18-64 12/29/1977 Zoster Vaccine (1 of 2) 12/29/1978 DTaP/Tdap/Td Vaccine (2 - Td or Tdap) 06/14/2019 06/14/2009 Colon Cancer Screening-Colonoscopy 12/21/2019 12/20/2009 Breast Cancer Screening-Mammogram 02/03/2020 019 Pneumococcal vaccine <65 (2 of 2 - PCV) 02/27/2021 02/28/2020 Hemoglobin A1C 05/29/2023 11/26/2022, 05/24/2022 Influenza Vaccine (#1) 2025 Lipid Panel 11/23/2025 11/23/2024, 04, 07/23/2024, Additional history exists eGFR 11/23/2025 11/23/2024, 10/11, 09/22/2024, Additional history exists Colon Cancer Screening-CT Colonography Discontinued 12/20/2009 Colon Cancer Screening-DNA Stool Discontinued 12/21/19 Colon Cancer Screening-FIT Discontinued 12/20/2009 Colon Cancer Screening-Sigmoidoscopy Discontinued 12/20/2009 Hepatitis B Screening Completed 05/24/2022 Hepatitis C Screening Completed 06/26/2022 , 05/24/2022, 05/24/2022, Additional history exists Medical Devices Explanted Type Area Community Marketing Manager Device Identifier Shelf Expiration Date Model / Serial / Lot Ayannah Double-J 6fr 20cm 100cm 1 Step Insert Push Catheter [place] S[employer] [id number] - [id number] Implanted:Qt y: 1 on 05/25/2022 by Aguilar Barfield MD PhD at [facility] Explanted:Qt y: 1 on 06/26/2022 by Monty Harper MD Stent Right: Transplanted Ureter Ayannah [id number] 10/30/2026 [id number] / / [id number] Description:Transplanted Ure ter Procedures Procedure Name Priority Date/Time Associated Diagnosis Comments TACROLIMUS LEVEL, TROUGH Routine 11/23/2024 AMYLASE Routine 11/23/2024 LIPASE Routine 11/23/2024 RENAL FUNCTION PANEL Routine 11/23/2024 HEPATIC FUNCTION PANEL Routine 11/23/2024 LIPID PANEL Routine 11/23/2024 CBC WITH AUTO DIFFERENTIAL Routine 11/23/2024 JAZMÍN RENE VIRUS PCR QUALITATIVE Routine 11/23/2024 TACROLIMUS LEVEL, TROUGH Routine 10/23/2024 RENAL FUNCTION PANEL Routine 10/23/2024 CBC WITH AUTO DIFFERENTIAL Routine 10/23/2024 JAZMÍN RENE VIRUS PCR QUALITATIVE Routine 10/23/2024 TACROLIMUS LEVEL, TROUGH Routine 09/22/2024 RENAL FUNCTION PANEL Routine 09/22/2024 CBC WITH AUTO DIFFERENTIAL Routine 09/22/2024 EBV DNA PCR Routine 09/22/2024 HEMOGLOBIN A1C Routine 11/26/2022 HEPATITIS C RNA, QUANTITATIVE, PCR Routine 06/26/2022 5:00 PM PIPE FITTER MAINTENANCE Inconclusive laboratory evidence of human immunodeficiency virus (HIV) Aftercare following organ transplant SCREENING MAMMOGRAM 2D BILATERAL Schedule Routine, Read Routine (OP Routine) 02/02/2019 COLONOSCOPY Routine 12/20/2009 from Last 3 Months or Most Recently Relevant to Health Maintenance Results * Jazmín Rene Virus PCR Qualitative (11/23/2024) SCRIBED EBV PCR Positive TXP NO LAB FOUND Comment:[id number] 11/23/2024 us Historical Provider LAB MICROBIOLOGY - GENERA L ORDERABLES Edited Result - Final TXP NO LAB FOUND * Tacrolimus level trough (11/23/2024) SCRIBED Tacrolimus, trough 6.9 5 - 20 TXP NO LAB FOUND Blood 11/23/2024 Result [facility] Provider LAB BLOOD ORDERABLES Edit ed Result - Final Performing Organization Address [facility] de Phone Number TXP NO [...] TXP NO LAB FOUND Blood 11/23/2024 Result [facility] Provider LAB BLOOD ORDERABLES Yajaira l Result Performing Organization Address [facility] de Phone Number TXP NO LAB FOUND * (ABNORMAL) Lipase (11/23/2024) SCRIBED Lipase 2,868(A) 23 - 300 IUnit/mL TXP NO LAB FOUND Blood 11/23/2024 Result [facility] Provider LAB BLOOD ORDERABLES Yajaira l Result Performing Organization Address [facility] de Phone Number TXP NO LAB FOUND * (ABNORMAL) Amylase (11/23/2024) SCRIBED Amylase 261(A) 30 - 110 IUnit/mL TXP NO LAB FOUND Blood 11/23/2024 Result [facility] Provider LAB BLOOD ORDERABLES Edit ed Result - Final Performing Organization Address [facility] de Phone Number TXP NO [...] Units/L TXP NO LAB FOUND Blood 11/23/2024 Historical Provider LAB BLOOD ORDERABLES Yajaira l [...] NO LAB FOUND SCRIBED eGFR in NonAfrican Montenegrin 35 >60 TXP NO LAB FOUND SCRIBED Urea Nitrogen (BUN) 25 7 17 TXP NO LAB FOUND Blood 11/23/2024 Historical Provider LAB BLOOD ORDERABLES Edit ed Result - Final Performing Organization Address [facility] de Phone Number TXP NO [...] TXP NO LAB FOUND Blood 11/23/2024 Result [facility] Provider LAB BLOOD ORDERABLES Yajaira l Result Performing Organization Address [facility] de Phone Number TXP NO LAB FOUND * Jazmín Rene Virus PCR Qualitative (10/23/2024) SCRIBED EBV PCR Negative TXP NO LAB FOUND 10/23/2024 Result [facility] Provider LAB MICROBIOLOGY - GENERA L ORDERABLES Edited Result - Final Performing Organization Address [facility] de Phone Number TXP NO LAB FOUND * Tacrolimus level trough (10/23/2024) SCRIBED Tacrolimus, trough 6.2 5 20 TXP NO LAB FOUND Comment:received test correc tion Blood 10/23/2024 Result [facility] Historical Provider LAB BLOOD ORDERABLES Edit ed Result - Final Performing Organization Address [facility] de Phone Number TXP NO [...] k/cumm TXP NO LAB FOUND Blood 10/23/2024 Historical Provider LAB BLOOD ORDERABLES Yajaira l Result Performing Organization Address [facility]/State/ZIP Co de Phone Number TXP NO LAB FOUND * (ABNORMAL) Renal function panel (10/23/2024) [facility] SCRIBED Calcium 9.5 8.4 - 10.2 mg/dl [...] NO LAB FOUND SCRIBED eGFR in NonAfrican Montenegrin 33 >=60 TXP NO LAB FOUND SCRIBED Urea Nitrogen (BUN) 26(A) 7 - 17 mg/dl TXP NO LAB FOUND Blood 10/23/2024 Historical Provider LAB BLOOD ORDERABLES Edit ed Result - Final Performing Organization Address [facility]/ZIP Co de Phone Number [place] NO LAB FOUND * EBV DNA PCR, Qualitative (09/22/2024) EBV DNA, PCR Nt. Det. TXP NO LAB FOUND 09/22/2024 Historical Provider LAB MICROBIOLOGY - GENERA L ORDERABLES Edited Result - Final Performing Organization Address [facility] de Phone Number TXP NO LAB FOUND * (ABNORMAL) Tacrolimus level trough (09/22/2024) Pathologist [facility] SCRIBED Tacrolimus, trough 4.5(A) 5 - 20 TXP NO LAB FOUND Blood 09/22/2024 Historical Provider LAB BLOOD ORDERABLES Edit ed Result - Final Performing Organization Address [facility] de Phone Number TXP NO [...] ed Result - Final Performing Organization Address [facility] de Phone Number TXP NO [...] NO LAB FOUND SCRIBED eGFR in NonAfrican Montenegrin 31 >60 TXP NO LAB FOUND SCRIBED Urea Nitrogen (BUN) 36(A) 7 - 17 mg/dl TXP NO LAB FOUND Blood 09/22/2024 Result [facility] Historical Provider LAB BLOOD ORDERABLES Edit ed Result - Final Performing Organization Address City/[facility]/ZIP Co de Phone Number TXP NO LAB FOUND * (ABNORMAL) Hemoglobin A1c (11/26/2022) [facility] SCRIBED Hemoglobin A1c 5.8(A) 0 - 5.7 % TXP NO LAB FOUND Blood 11/26/2022 Result [facility] Provider MD LAB BLOOD ORDERABLES Edit ed Result - Final Performing Organization Address [facility]/ZIP Co de Phone Number TXP NO LAB FOUND * Hepatitis C (HCV) RNA PCR, quantitative (06/26/2022 5:00 PM PIPE FITTER MAINTENANCE) Pathologist [facility] HCV RNA result Not Detected [facility] Comment: The quantifiable range of this assay is 15 IU/mL to 100,000,000 IU/mL (1.18 log IU/mL to 8.00 log IU/mL). Testing was performed by the [employer] 6800 HCV Test ([employer] Testing performed at [facility] Current Interpretive Data was last revised on 2020 Blood 06/26/2022 5:00 PM PIPE FITTER MAINTENANCE 06/26/2022 5:25 PM PIPE FITTER MAINTENANCE us Mo Velez MD LAB MICROBIOLOGY - GENERAL ORDERABLES Final Result [facility] Department [place] [address] * Screening Mammogram 2D Bilateral (02/02/2019) Anatomical Region Laterality Modality Breast Bilateral Mammography 02/02/2019 Impressions 02/06/2019 3:12 PM CDT Mammogram from [facility] IMPRESSION No mammographic evidence of malignancy. Recommend ourint screening mammography in one year Historical Provider IMG MAMMO PROCEDURES Yajaira l Result * Colonoscopy (12/20/2009) Anatomical Region Laterality Modality Other 12/20/2009 Impressions 02/06/2019 3:10 PM CDT Colonoscopy Results from [facility] IMPRESSION: 1 Internal Hemorrhoids 2. Minimal Diverticulosis Historical Provider ENDOSCOPY PROCEDURES Yajaira l Result from Last 3 Months or Most Recently Relevant to Health Maintenance Insurance [facility] MEDIC[facility] TRANSPLANT [facility] MEDICARE MEDICARE Advance Directives For more information, please contact: [phone] Documents on File Type Date Recorded Patient Drill Rig Operator Helper Expl anation ADVANCE DIRECTIVE 05/28/2022 3:55 PM POWER OF MANAGER RESTAURANT-MEDICAL * Full Code (Latest Code Status on File) Date Activated Date Inactivated Comments 05/25/2022 9:00 PM 06/03/2022 6:34 PM * Full Code Date Activated Date Inactivated Comments 05/24/2022 11:25 PM 05/25/2022 9:00 PM Care Teams Senior Investment Analyst Relationship Specialty Start Date End Date Jose Martin Carlos MD [address] [place], [place] [id number] PCP - General 07/11/21 Latisha Benavidez, RN [address] [address] System Architect 05/25/22
--- OUTSIDE RECORDS SUMMARY | 2024-12-11 12:45 | XMS_ITS | Encounter Summary ---
Author Organization [facility] Address [address] [facility] [place] [facility] [address] [place] [address] Care Team Providers Care Mail Processing Machine Operator Name Role Phone Benton Bland MD Primary Care Provider [phone]- [phone] Benton Bland MD Primary Care Provider [phone]- [phone] Jose Martin Carlos MD Primary Care Provider +1- [phone] Latisha Benavidez RN Unavailable [phone] Encounter Details Date Type Department Care Team (Late st Contact Info) Description 06/27/2016 Orders Only [facility] ProviderKate MD [address] [place] [address] Social History Tobacco Use Types Packs/Day Years Used Date Smoking Tobacco: Never Alcohol Use Standard Drinks/Week Comments No 0 (1 standard drink = 0.6 oz pur e alcohol) Comments Unknown Sex and Gender Information Value Date Recorded Sex Assigned at Not on file Legal Sex Female 11:59 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 [place] [address] PCP - General 12/16/09 08/09/16 Jose Martin Carlos MD [address] [place], [place] [id number] PCP - General 07/11/21 Latisha Benavidez, RN [address] [facility] [address] [place] [address] Clock And Watch Hands Dipper 05/25/22 documented as of this encounter
--- OUTSIDE RECORDS SUMMARY | 2024-12-11 12:45 | XMS_ITS | Encounter Summary ---
Author Organization [facility] Medical [facility] Address [address] [facility] [address] [place] [address] Care Team Providers Care Membership Sales Representative Name Role Phone Benton Bland MD Primary Care Provider [phone]- [phone] Benton Bland MD Primary Care Provider [phone]- [phone] Jose Martin Carlos MD Primary Care Provider [phone]- [phone] Latisha Benavidez RN Unavailable [phone] Encounter Details Date Type Department Care Team (Late st Contact Info) Description 05/29/2005 Orders Only [facility] ProviderKate MD [address] [place] [address] Social History Tobacco Use Types Packs/Day Years Used Date Smoking Tobacco: Never Assessed Comments Unknown Sex and Gender Information Value Date Recorded Sex Assigned at Not on file Legal Sex Female 11:59 PM CITRIX ARCHITECT Gender Identity Not on file Sexual [...] on filedocumented in this encounter Care Teams Membership Sales Representative Relationship Specialty Start Date End Date Benton Bland MD [address] [place] [address] PCP - General 08/10/16 07/10/21 Benton Bland MD [address] [place] [address] PCP - General 12/16/09 08/09/16 Jose Martin Carlos MD [address] [place], [place] [id number] PCP - General 07/11/21 Latisha Benavidez, RN [address] [facility] [address] [place] [address] Battery Starter 05/25/22 documented as of this encounter
== END 2024-12-11 12:42 | disposition home or self-care (01) ==
PROVIDERS: PCP Internal Medicine; Visit Provider Internal Medicine Nephrology
DX: Z48.22 Encounter for aftercare following kidney transplant (principal); N26.1 Atrophy of kidney (terminal); K57.30 Diverticulosis of large intestine without perforation or abscess without bleeding
CPT/HCPCS: 71250; 74176

== ENCOUNTER 2024-12-19 15:25 | Emergency (ER) | payer OTHER, SELFPAY ==
--- OUTSIDE RECORDS SUMMARY | 2024-12-19 15:28 | XMS_ITS | Encounter Summary ---
Author Organization [facility] Address [address] [facility] [address] [place] [address] Care Team Providers Care Maxillofacial Pathology Name Role Phone Benton Bland MD Primary Care Provider [phone]- [phone] Benton Bland MD Primary Care Provider +1- [phone] Jose Martin Carlos MD Primary Care Provider +1- [phone] Latisha Benavidez RN Unavailable [phone] Neil Frederick RN Unavailable Unavaila ble Encounter Details Date Type Department Care Team (Late st Contact Info) Description 08/01/2016 Orders Only [facility] ProviderKate MD [address] [place] [address] Social History Tobacco Use Types Packs/Day Years Used Date Smoking Tobacco: Never Alcohol Use Standard Drinks/Week Comments No 0 (1 standard drink = 0.6 oz pur e alcohol) Comments Unknown Sex and Gender Information Value Date Recorded Sex Assigned at Not on file Legal Sex Female 11:59 PM 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 COUNSELOR Gender Identity Not on file Sexual Orientation [...] on filedocumented in this encounter Care Teams Maxillofacial Pathology Relationship Specialty Start Date End Date Benton Bland MD [address] [place] [address] PCP - General 08/10/16 07/10/21 Benton Bland MD [address] [place] [address] PCP - General 12/16/09 08/09/16 Jose Martin Carlos MD [address] [place] [address] PCP - General 07/11/21 Latisha Benavidez RN [address] [facility] [address] [place] [address] Milieu Counselor 05/25/22 Neil Treadwell RN Milieu Counselor Transplant 12/15/24 documented as of this encounter
--- OUTSIDE RECORDS SUMMARY | 2024-12-19 15:28 | XMS_ITS | Clinical Summary ---
Author Organization [facility] Address [address] [place] [address] Phone Care Team Providers Care Controls Technician Name Role Phone Dirk Love Primary Care Provider [phone] Allergies Active Allergy Reactions Criticality Noted Date Comments Ibuprofen 02/21/2019 Medications levothyroxine (SYNTHROID) 75 MCG tablet 1 daily 12/09/2011 Active omega-3 (FISH OIL) 1000 MG capsule 12/09/2011 Active triamcinolone (KENALOG) 0.1 % ointment CHUCK A THIN LAYER AA BID UNTIL SYMPTOMS RESOLVE 0 10/13/2018 Active ergocalciferol (VITAMIN D2) 1.25 MG (99127 UT) capsule Take 1 capsule (50,000 Units [...] Done Comments Influenza Vaccine (#1) 2025 Insurance [facility] Care Teams Controls Technician Relationship Specialty Start Date End Date Dirk Love PA [address] [facility] [address] [place] [address] PCP - General Family Medicine 09/14/20
--- OUTSIDE RECORDS SUMMARY | 2024-12-19 15:28 | XMS_ITS | Encounter Summary ---
Author Organization [facility] Address [address] [facility] [address] [place] [address] Care Team Providers Care Second Crusher Name Role Phone Benton Bland MD Primary Care Provider [phone]- [phone] Benton Bland MD Primary Care Provider [phone]- [phone] Jose Martin Carlos MD Primary Care Provider [phone] Latisha Benavidez RN Unavailable [phone] Neil Frederick RN Unavailable Unavaila ble Encounter Details Date Type Department Care Team (Late st Contact Info) Description 05/29/2005 Orders Only [facility] ProviderKate MD [address] [place] [address] Social History Tobacco Use Types Packs/Day Years Used Date Smoking Tobacco: Never Assessed Comments Unknown Sex and Gender Information Value Date Recorded Sex Assigned at Not on file Legal Sex Female 11:59 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 Gender Identity Not on file Sexual Orientation [...] on filedocumented in this encounter Care Teams Second Crusher Relationship Specialty Start Date End Date Benton Bland MD [address] [place] [address] PCP - General 08/10/16 07/10/21 Benton Bland MD [address] [place] [address] PCP - General 12/16/09 08/09/16 Jose Martin Carlos MD [address] [place], [place] [id number] PCP - General 07/11/21 Latisha Benavidez, RN [address] [facility] [address] [place] [address] Manager Training 05/25/22 Neil Treadwell, card makerManager Training Transplant 12/15/24 documented as of this encounter
--- OUTSIDE RECORDS SUMMARY | 2024-12-19 15:28 | XMS_ITS ---
Author Organization [facility] Address [address] [place] [address] Care Team Providers Care Yeast Fermentation Attendant Name Role Phone Jose Martin Carlos MD Primary Care Provider [phone]- [phone] Neil Frederick RN Unavailable Unavaila ble Transplant Episode Kidney Recipient [facility] ([place], [place]) - [facility] Organ Received: Left Kidney Transplanted on 05/25/2022 Marked as Active Follow-up on 05/25/2022 Reason: Transplanted at [facility] Kidney CoordinatorNeil Frederick RN Phone: N/A Fax: N/A Email: N/A Infection History Noted [...] Care Team Name Role Phone Fax Email Neil Frederick RN Kidney Coordinator N/A N/A N/A Xin Zoey Joel, RN Secondary Coordinator Secondary Post Kidney Coordinator [phone] N/A N/A Ignacio Lala MD Referring Physician [phone] N/A Ilene Beltran Primary Payroll Coordinator N/A N/A N/A Martin Godoy Secondary Payroll Coordinator N/A N/A N/A Neil Frederick, warp handCigarette Inspector N/A N/A N/A Therese Locke Coding Specialist Home Health [phone] N/A N/A Events Post-Transplant Pre-Transplant Admitted: 05/24/2022 Referred: 11/28/2018 Transplanted: 05/25/2022 Evaluation began: 9 Discharged: 06/03/2022 Committee: 02/23/2019 Center waitlisted: 9 Appointments (11/18/2024 - 01/19/2025) When With Visit Type Description 12/02/2024 Transplant - Sarahi Cabral Return Encount er for aftercare following kidney transplant (Primary Dx); Encounter for long-term (current) use of high-risk medication; Dyslipidemia; Essential hypertension; Hypothyroidism, unspecified type; Stage 3a chronic kidney disease (HCC); Chronic fatigue; EBV (Jazmín-Zhu virus) viremia; Renal osteodystrophy; Type 2 diabetes mellitus without complication, without long-term current use of insulin (HCC); Elevated amylase and lipase
--- OUTSIDE RECORDS SUMMARY | 2024-12-19 15:28 | XMS_ITS | Clinical Summary ---
Author Organization [facility] Address [address] [place] [address] Care Team Providers Care Pipe Machine Operator Name Role Phone Jose Martin Carlos MD Primary Care Provider [phone]- [phone] Neil Frederick RN Unavailable Unavaila ble Allergies No known active allergies Medications senna-docusate [...] 1 tablet (125 mcg total) by mouth senior report developer before breakfast 30 tablet 3 3 Active [...] 1 mg tablet extended release 24 hrIndications:Ana idkayden replaced by transplant Take 1 tablet [...] consent to speak with [facility]- [phone] Standing orders q- Monthly, FK ,q3 Routine [...] Type Department Care Team Description 12/08/2024 Telephone [facility] Transplant Kidney [address] [facility] [address] 90-96-446 [place] [address] Latisha Benavidez RN 12/04/2024 Orders Only [facility] Transplant Kidney [address] [facility] [address] 90-09-478 [place] [address] Latisha Benavidez RN 12/04/2024 Telephone [facility] Transplant Kidney [address] [facility] [address] 90-79-414 [place] [address] Latisha Benavidez RN 12/02/2024 10:00 AM CDT Office Visit [facility] Nephrology [address] [facility] 5[address] [place] [address] [place] [address] Laura Cabral MD Encounter for aftercare following kidney transplant (Primary Dx); Encounter for long-term (current) use of high-risk medication; Dyslipidemia; Essential hypertension; Hypothyroidism, unspecified type; Stage 3a chronic kidney disease (HCC); Chronic fatigue; EBV (Jazmín-Rene virus) viremia; Renal osteodystrophy; Type 2 diabetes mellitus without complication, without long-term current use of insulin (HCC); Elevated amylase and lipase 12/02/2024 Orders Only [facility] Transplant Kidney [address] [facility] [address] [facility] [place] [address] Latisha Benavidez RN Kidney replaced by transplant (Primary Dx) 12/02/2024 Telephone [facility] Transplant Kidney [address] [facility] [address] [place], [place] [address] [facility] [place] [address] Latisha Benavidez RN 11/27/2024 Lab [facility] Transplant Kidney [address] [facility] [address] [facility] [place] [address] Bessie Alvarado MD 11/26/2024 Lab [facility] Transplant Kidney [address] [facility] [address] [facility] [place] [address] Bessie Alvarado MD 11/26/2024 Orders Only [facility] Transplant Kidney [address] [facility] [address] [facility] [place] [address] Latisha Benavidez RN Kidney replaced by transplant (Primary Dx); Abnormal serum level of lipase 11/26/2024 Telephone [facility] Transplant Kidney [address] [facility] [address] [place] [address] Latisha Benavidez RN 11/26/2024 Telephone [facility] Transplant Kidney [address] [facility] [address] Mail[address] 90-29-910 [place] [address] Latisha Benavidez RN 11/25/2024 Lab [facility] Transplant Kidney [address] [facility] [address] Mail[address] 90-29-910 [place] [address] Bessie Alvarado MD 11/25/2024 Telephone [facility] Transplant Kidney [address] [facility] [address] Mail[address] 90-29-910 [place] [address] Gita Wang 11/23/2024 Lab [facility] Transplant Kidney [address] [facility] [address] Mailstop 90-29-910 [place] [address] Bessie Alvarado MD 10/30/2024 Telephone [facility] Transplant Kidney [address] [facility] [address] Mail[address] 90-29-910 [place] [address] Gita Wang 10/29/2024 Telephone [facility] Transplant Kidney [address] [facility] [address] Mail[address] 90-29-910 [place] [address] Gita Wang 10/27/2024 Lab [facility] Transplant Kidney [address] [facility] [address] Mailstop 90-29-910 [place] [address] Bessie Alvarado MD 10/26/2024 Lab [facility] Transplant Kidney [address] [facility] [address] Mailstop 90-29-910 [place] [address] Bessie Alvarado MD 10/23/2024 Lab [facility] Transplant Kidney [address] [facility] [address] Mailstop 90-29-910 [place] [address] Bessie Alvarado MD 09/25/2024 Lab [facility] Transplant Kidney [address] [facility] [address] Mailstop 90-[address]10 [place] [address] Bessie Alvarado MD 09/24/2024 Lab [facility] Transplant Kidney [address] [facility] [address] Mail[address] [facility] [place] [address] Bessie Alvarado MD 09/24/2024 Lab [facility] Transplant Kidney [address] [facility] [address] [facility] [place] [address] Bessie Alvarado MD 09/22/2024 Lab [facility] Transplant Kidney [address] [facility] [address] [place] [address] Bessie Alvarado MD 09/22/2024 Lab [facility] Transplant Kidney [address] [facility] [address] Mail[address] [place] [address] Bessie Alvarado MD from Last 3 Months [...] Hx Relation Name Status Comments Father Alive [place] age 70s Mother Alive Other 1 Other [...] often do you attend chur ch or jainism services? More than 4 times per year 05/25/2022 Do you belong to any clubs o r organizations such as catholic groups, unions, fraternal or athletic groups, [...] Date Recorded Getting School Help Needed Denies 12/15 /2023 Comments No Sex and Gender Information Value Date Recorded Sex Assigned at Not on file Legal Sex Female 11:59 PM VAN DRIVER Gender Identity Not on file Sexual Orientation Not on file Obstetrics History Last Filed Vital Signs Vital Sign Reading Time Taken Comments Blood Pressure 157/88 12/02/2024 9:25 AM CDT Pulse 67 12/02/2024 9:25 AM CDT Temperature 36.7 C (98.1 F) 12/02/2024 9:25 AM CDT Respiratory Rate 18 06/28/2022 9:00 AM VAN DRIVER Oxygen Saturation 99% 06/28/2022 9:00 AM VAN DRIVER Inhaled Oxygen Concentration - - Weight 94.7 [...] history exists Medical Devices Explanted Type Area Computer Help Desk Representative Device Identifier Shelf Expiration Date Model / Serial / Lot [email or web address] Double-J 6fr 20cm 100cm 1 Step Insert Push Catheter [place] Suture [id number] - [id number] Implanted:Qt y: 1 on 05/25/2022 by Aguilar Barfield MD PhD at [facility] Explanted:Qt y: 1 on 06/26/2022 by Monty Harper MD Stent Right: Transplanted Ureter [email or web address] [id number] 10/30/2026 [id number] / / [id number] Description:Transplanted Ure ter Procedures Procedure Name Priority [...] RNA, QUANTITATIVE, PCR Routine 06/26/2022 5:00 PM VAN DRIVER Inconclusive laboratory evidence of human immunodeficiency virus (HIV) Aftercare following organ transplant SCREENING MAMMOGRAM 2D BILATERAL Schedule Routine, Read Routine (OP Routine) 02/02/2019 COLONOSCOPY Routine 12/20/2009 from Last 3 Months or Most Recently Relevant to Health Maintenance Results * Jazmín Rene Virus PCR Qualitative (11/23/2024) SCRIBED EBV PCR Positive TXP NO LAB FOUND Comment:[id number] 11/23/2024 Historical Provider LAB MICROBIOLOGY - GENERA L ORDERABLES Edited Result - Final Performing Organization Address [facility] de Phone Number TXP NO LAB FOUND * Tacrolimus level trough (11/23/2024) SCRIBED Tacrolimus, trough 6.9 5 - 20 TXP NO LAB FOUND Blood 11/23/2024 Historical Provider LAB BLOOD ORDERABLES Edit ed Result - Final Performing Organization Address [facility] Co de Phone Number TXP [...] K/cumm TXP NO LAB FOUND Blood 11/23/2024 Historical Provider LAB BLOOD ORDERABLES Yajaira l Result Performing Organization Address [facility] de Phone Number TXP NO LAB FOUND * (ABNORMAL) Lipase (11/23/2024) SCRIBED Lipase 2,868(A) 23 - 300 IUnit/mL TXP NO LAB FOUND Blood 11/23/2024 Historical Provider LAB BLOOD ORDERABLES Yajaira l Result Performing Organization Address [facility] de Phone Number TXP NO LAB FOUND * (ABNORMAL) Amylase (11/23/2024) SCRIBED Amylase 261(A) 30 - 110 IUnit/mL TXP NO LAB FOUND Blood 11/23/2024 Result [facility] Historical Provider LAB BLOOD ORDERABLES Edit ed Result - Final Performing Organization Address [facility] de Phone Number TXP NO LAB FOUND [...] Units/L TXP NO LAB FOUND Blood 11/23/2024 [facility] Provider LAB BLOOD ORDERABLES Yajaira l Result Performing Organization Address City/[facility]/ZIP Co de Phone Number TXP NO [...] NO LAB FOUND SCRIBED eGFR in NonAfrican Palestinian 35 >60 TXP NO LAB FOUND SCRIBED Urea Nitrogen (BUN) 25 7 17 TXP NO LAB FOUND Blood 11/23/2024 Historical Provider LAB BLOOD ORDERABLES Edit ed Result - Final TXP NO LAB FOUND * Lipid panel [...] TXP NO LAB FOUND Blood 11/23/2024 Result [facility] Historical Provider LAB BLOOD ORDERABLES Yajaira l Result Performing Organization Address [facility] de Phone Number TXP NO LAB FOUND * Jazmín Rene Virus PCR Qualitative (10/23/2024) SCRIBED EBV PCR Negative TXP NO LAB FOUND 10/23/2024 Result [facility] Provider LAB MICROBIOLOGY - GENERA L ORDERABLES Edited Result - Final Performing Organization Address [facility] de Phone Number TXP NO LAB FOUND * Tacrolimus level trough (10/23/2024) SCRIBED Tacrolimus, trough 6.2 5 20 TXP NO LAB FOUND Comment:received test correc tion Blood 10/23/2024 Result [facility] Provider LAB BLOOD ORDERABLES Edit ed Result - Final Performing Organization Address [facility] de Phone Number TXP NO LAB FOUND [...] LAB FOUND Blood 10/23/2024 us Historical Provider MD LAB BLOOD ORDERABLES Yajaira l Result Performing Organization Address [facility] de Phone Number TXP NO LAB FOUND [...] NO LAB FOUND SCRIBED eGFR in NonAfrican Palestinian 33 >=60 TXP NO LAB FOUND SCRIBED Urea Nitrogen (BUN) 26(A) 7 - 17 mg/dl TXP NO LAB FOUND Blood 10/23/2024 Historical Provider LAB BLOOD ORDERABLES Edit ed Result - Final Performing Organization Address [facility] de Phone Number TXP NO LAB FOUND * EBV DNA PCR, Qualitative (09/22/2024) Pathologist [facility] EBV DNA, PCR Nt. Det. TXP NO LAB FOUND 09/22/2024 Historical Provider LAB MICROBIOLOGY - GENERA L ORDERABLES Edited Result - Final Performing Organization Address [facility] de Phone Number TXP NO LAB FOUND * (ABNORMAL) Tacrolimus level trough (09/22/2024) Pathologist [facility] SCRIBED Tacrolimus, trough 4.5(A) 5 - 20 TXP NO LAB FOUND Blood 09/22/2024 [facility] Provider MD LAB BLOOD ORDERABLES Edit ed Result - Final Performing Organization Address [facility] de Phone Number TXP NO LAB FOUND [...] k/cumm TXP NO LAB FOUND Blood 09/22/2024 Result [facility] Provider LAB BLOOD ORDERABLES Edit ed Result - Final Performing Organization Address [facility] de Phone Number [place] NO LAB FOUND * (ABNORMAL) Renal function panel (09/22/2024) Pathologist [facility] SCRIBED Calcium 9.6 8.4 - 10.2 mg/dl [...] NO LAB FOUND SCRIBED eGFR in NonAfrican Palestinian 31 >60 TXP NO LAB FOUND SCRIBED Urea Nitrogen (BUN) 36(A) 7 - 17 mg/dl TXP NO LAB FOUND Blood 09/22/2024 Historical Provider LAB BLOOD ORDERABLES Edit ed Result - Final TXP NO LAB FOUND * (ABNORMAL) Hemoglobin A1c (11/26/2022) [facility] SCRIBED Hemoglobin A1c 5.8(A) 0 - 5.7 % TXP NO LAB FOUND Blood 11/26/2022 Historical Provider LAB BLOOD ORDERABLES Edit ed Result - Final Performing Organization Address [facility] Co de Phone Number TXP NO LAB FOUND * Hepatitis C (HCV) RNA PCR, quantitative (06/26/2022 5:00 PM VAN DRIVER) [facility] HCV RNA result Not Detected [facility] Comment: The quantifiable range of this assay is 15 IU/mL to 100,000,000 IU/mL (1.18 log IU/mL to 8.00 log IU/mL). Testing was performed by the [facility] 6800 HCV Test ([employer] Testing performed at [facility] Current Interpretive Data was last revised on 2020 Blood 06/26/2022 5:00 PM VAN DRIVER 06/26/2022 5:25 PM VAN DRIVER Mo Velez MD LAB MICROBIOLOGY - GENERAL ORDERABLES Final Result Performing Organization Address City/[facility]/ZIP Co de Phone Number [facility] Department [place] [address] * Screening Mammogram 2D Bilateral (02/02/2019) Anatomical Region Laterality Modality Breast Bilateral Mammography 02/02/2019 Impressions 02/06/2019 3:12 PM CDT Mammogram from [facility] IMPRESSION No mammographic evidence of malignancy. Recommend ourint screening mammography in one year us Historical Provider IMG MAMMO PROCEDURES Yajaira l Result * Colonoscopy (12/20/2009) Anatomical Region Laterality Modality Other 12/20/2009 Impressions 02/06/2019 3:10 PM CDT Colonoscopy Results from [facility] IMPRESSION: 1 Internal Hemorrhoids 2. Minimal Diverticulosis us Historical Provider ENDOSCOPY PROCEDURES Yajaira l Result from Last 3 Months or Most Recently Relevant to Health Maintenance Insurance [facility] MEDICARE [facility] TRANSPLANT [facility] MEDICARE MEDICARE Advance Directives For more information, please contact: [phone] Documents on File Type Date Recorded Patient Poultry Cutter Expl anation ADVANCE DIRECTIVE 05/28/2022 3:55 PM POWER OF MESH WORKER-MEDICAL * Full Code (Latest Code Status on File) Date Activated Date Inactivated Comments 05/25/2022 9:00 PM 06/03/2022 6:34 PM * Full Code Date Activated Date Inactivated Comments 05/24/2022 11:25 PM 05/25/2022 9:00 PM Care Teams Pipe Machine Operator Relationship Specialty Start Date End Date Jose Martin Carlos MD [address] [facility] [address] [place] [address] PCP - General 07/11/21 Neil Frederick, service cleanerCorrections Unit Supervisor Transplant 12/15/24
--- OUTSIDE RECORDS SUMMARY | 2024-12-19 15:28 | XMS_ITS | Encounter Summary ---
Author Organization [facility] Address [address] [place] [address] Care Team Providers Care Paunch Trimmer Name Role Phone Benton Bland MD Primary Care Provider +1- [phone] Benton Bland MD Primary Care Provider +1- [phone] Jose Martin Carlos MD Primary Care Provider +1- [phone] Latisha Benavidez RN Unavailable [phone] Neil Frederick RN Unavailable Unavaila ble Encounter Details Date Type Department Care Team (Late st Contact Info) Description 06/27/2016 Orders Only [facility] ProviderKate MD [address] [place] [address] Social History Tobacco Use Types Packs/Day Years Used Date Smoking Tobacco: Never Alcohol Use Standard Drinks/Week Comments No 0 (1 standard drink = 0.6 oz pur e alcohol) Comments Unknown Sex and Gender Information Value Date Recorded Sex Assigned at Not on file Legal Sex Female 11:59 PM TOBACCO WEIGHER Gender Identity Not on file Sexual Orientation [...] on filedocumented in this encounter Care Teams Paunch Trimmer Relationship Specialty Start Date End Date Benton Bland MD [address] [place] [address] PCP - General 08/10/16 07/10/21 Benton Bland MD [address] [place] [address] PCP - General 12/16/09 08/09/16 Jose Martin Carlos MD [address] [place] [address] PCP - General 07/11/21 Latisha Benavidez RN [address] [facility] [address] [place] [address] Applications Engineer Manufacturing 05/25/22 Neil Treadwell RN Applications Engineer Manufacturing Transplant 12/15/24 documented as of this encounter
[2024-12-19 15:30] VITALS: BP 176/88; PULSE 70; RESP 16; TEMP 37.2; O2SAT 99
--- OUTSIDE RECORDS SUMMARY | 2024-12-19 16:22 | XMS_ITS | Encounter Summary ---
Author Organization [facility] Address [address] [facility] [address] [place] [address] Care Team Providers Care Melter Operator Name Role Phone Benton Bland MD Primary Care Provider +1- [phone] Benton Bland MD Primary Care Provider +1- [phone] Jose Martin Carlos MD Primary Care Provider +1- [phone] Latisha Benavidez RN Unavailable [phone] Neil Frederick RN Unavailable Unavaila ble Encounter Details Date Type Department Care Team (Late st Contact Info) Description 08/01/2016 Orders Only [facility] ProviderKate MD [address] [place] [address] Social History Tobacco Use Types Packs/Day Years Used Date Smoking Tobacco: Never Alcohol Use Standard Drinks/Week Comments No 0 (1 standard drink = 0.6 oz pur e alcohol) Comments Unknown Sex and Gender Information Value Date Recorded Sex Assigned at Not on file Legal Sex Female 11:59 PM DROP CLIPPER Gender Identity Not on file Sexual Orientation [...] on filedocumented in this encounter Care Teams Melter Operator Relationship Specialty Start Date End Date Benton Bland MD [address] [place] [address] PCP - General 08/10/16 07/10/21 Benton Bland MD [address] [place] [address] PCP - General 12/16/09 08/09/16 Jose Martin Carlos MD [address] [place] [address] PCP - General 07/11/21 Latisha Benavidez RN [address] [facility] [address] [place] [address] Animal Husbandry Professor 05/25/22 Neil Treadwell RN Animal Husbandry Professor Transplant 12/15/24 documented as of this encounter
--- OUTSIDE RECORDS SUMMARY | 2024-12-19 16:22 | XMS_ITS | Clinical Summary ---
Author Organization [facility] Address [address] [place] [address] Care Team Providers Care Medical Receptionist Medical Assistant Name Role Phone Jose Martin Carlos MD Primary Care Provider +1- [phone] Neil Frederick RN Unavailable Unavaila ble Allergies [...] 1 tablet (125 mcg total) by mouth nursing scheduler before breakfast 30 tablet 3 3 Active [...] consent to speak with concha [facility]- [phone] Standing orders q- Monthly, FK ,q3 Routine [...] Type Department Care Team Description 12/08/[address] [facility] Transplant Kidney [address] [facility] [address] 90[address]11-598 [place] [address] Latisha Benavidez RN 12/04/2024 Orders Only [facility] Transplant Kidney [address] [facility] [address] 90-22-849 [place] [address] Latisha Benavidez RN 12/04/2024 Telephone [facility] Transplant Kidney [address] [facility] [address] 90-14-695 [place] [address] Latisha Benavidez RN 12/02/2024 10:00 AM CDT Office Visit [facility] Nephrology [address] [facility] 5th [place] [address] [place] [address] Laura Cabral MD Encounter for aftercare following kidney transplant (Primary Dx); Encounter for long-term (current) use of high-risk medication; Dyslipidemia; Essential hypertension; Hypothyroidism, unspecified type; Stage 3a chronic kidney disease (HCC); Chronic fatigue; EBV (Jazmín-Rene virus) viremia; Renal osteodystrophy; Type 2 diabetes mellitus without complication, without long-term current use of insulin (HCC); Elevated amylase and lipase 12/02/[address] [facility] Transplant Kidney [address] [facility] [address] [facility] [place] [address] Latisha Benavidez RN Kidney replaced by transplant (Primary Dx) 12/02/[address] [facility] Transplant Kidney [address] [facility] [address] [place], [place] [address]op [facility] [place] [address] Latisha Benavidez RN 11/27/[address] [facility] Transplant Kidney [address] [facility] [address] [facility] [place] [address] Bessie Alvarado MD 11/26/2024 Lab [facility] Transplant Kidney [address] [facility] [address] [facility] [place] [place] [address] Bessie Alvarado MD 11/26/[address] [facility] Transplant Kidney [address] [facility] [address] [facility] [place] [place] [address] Latisha Benavidez RN Kidney replaced by transplant (Primary Dx); Abnormal serum level of lipase 11/26/[address] [facility] Transplant Kidney [address] [facility] [address] [place] [address] Latisha Benavidez RN 11/26/2024 Telephone [facility] Transplant Kidney [address] [facility] [address] 90[address]29-910 [place] [address] Latisha Benavidez RN 11/25/2024 Lab [facility] Transplant Kidney [address] [facility] [address] 90[address]29-910 [place] [address] Bessie Alvarado MD 11/25/2024 Telephone [facility] Transplant Kidney [address] [facility] [address] 90[address]29-910 [place] [address] Gita Wang 11/23/2024 Lab [facility] Transplant Kidney [address] [facility] [address] 90-29-910 [place] [address] Bessie Alvarado MD 10/30/2024 Telephone [facility] Transplant Kidney [address] [facility] [address] 90[address]29-910 [place] [address] Gita Wang 10/29/2024 Telephone [facility] Transplant Kidney [address] [facility] [address] 90[address]29-910 [place] [address] Gita Wang 10/27/2024 Lab [facility] Transplant Kidney [address] [facility] [address] 90[address]29-910 [place] [address] Bessie Alvarado MD 10/26/2024 Lab [facility] Transplant Kidney [address] [facility] [address] 90-29-910 [place] [address] Bessie Alvarado MD 10/23/2024 Lab [facility] Transplant Kidney [address] [facility] [address] 90[address]29-910 [place] [address] Bessie Alvarado MD 09/25/2024 Lab [facility] Transplant Kidney [address] [facility] [address] 90-[address]10 [place] [address] Bessie Alvarado MD 09/24/2024 Lab [facility] Transplant Kidney [address] [facility] [address] [facility] [place] [address] Bessie Alvarado MD 09/24/2024 Lab [facility] Transplant Kidney [address] [facility] [address] [facility] [place] [address] Bessie Alvarado MD 09/22/2024 Lab [facility] Transplant Kidney [address] [facility] [address] [place] [address] Bessie Alvarado MD 09/22/2024 Lab [facility] Transplant Kidney [address] [facility] [address] [place] [address] Bessie Alvarado MD from Last 3 Months [...] Hx Relation Name Status Comments Father Alive [place] age 70s Mother Alive Other 1 Other [...] often do you attend chur ch or orthodoxy services? More than 4 times per year 05/25/2022 Do you belong to any clubs o r organizations such as anabaptism groups, unions, fraternal or athletic groups, or [...] on file Legal Sex Female 11:59 PM COTTRELL OPERATOR Gender Identity Not on file Sexual Orientation Not on file Obstetrics History Last Filed Vital Signs Vital Sign Reading Time Taken Comments Blood Pressure 157/88 12/02/2024 9:25 AM CDT Pulse 67 12/02/2024 9:25 AM CDT Temperature 36.7 C (98.1 F) 12/02/2024 9:25 AM CDT Respiratory Rate 18 06/28/2022 9:00 AM COTTRELL OPERATOR Oxygen Saturation 99% 06/28/2022 9:00 AM COTTRELL OPERATOR Inhaled Oxygen Concentration - - Weight 94.7 [...] history exists Medical Devices Explanted Type Area Furnace Repairer Device Identifier Shelf Expiration Date Model / Serial / Lot StudyBlue Double-J 6fr 20cm 100cm 1 Step Insert Push Catheter Galliano Suture [id number] - [id number] Implanted:Qt y: 1 on 05/25/2022 by Aguilar Barfield MD PhD at [facility] Explanted:Qt y: 1 on 06/26/2022 by Monty Harper MD Stent Right: Transplanted Ureter StudyBlue [id number] 10/30/2026 [id number] / / [id number] Description:Transplanted Ure ter Procedures Procedure Name Priority [...] RNA, QUANTITATIVE, PCR Routine 06/26/2022 5:00 PM COTTRELL OPERATOR Inconclusive laboratory evidence of human immunodeficiency virus [...] Result - Final Performing Organization Address [facility] de Phone Number TXP NO LAB FOUND * Tacrolimus level trough (11/23/2024) SCRIBED Tacrolimus, trough 6.9 5 - 20 TXP NO LAB FOUND Blood 11/23/2024 Historical Provider LAB BLOOD ORDERABLES Edit ed Result - Final Performing Organization Address [facility] Co de Phone Number TXP [...] Yajaira l Result Performing Organization Address [facility] de Phone Number TXP NO LAB FOUND * (ABNORMAL) Lipase (11/23/2024) SCRIBED Lipase 2,868(A) 23 - 300 IUnit/mL TXP NO LAB FOUND Blood 11/23/2024 Historical Provider LAB BLOOD ORDERABLES Yajaira l Result Performing Organization Address [facility] de Phone Number TXP NO LAB FOUND * (ABNORMAL) Amylase (11/23/2024) SCRIBED Amylase 261(A) 30 - 110 IUnit/mL TXP NO LAB FOUND Blood 11/23/2024 Result [facility] Historical Provider LAB BLOOD ORDERABLES Edit ed Result - Final Performing Organization Address [facility] de Phone Number TXP NO [...] Units/L TXP NO LAB FOUND Blood 11/23/2024 [facility] Provider LAB BLOOD ORDERABLES Yajaira l Result Performing Organization Address City/[facility]/ZIP Co de Phone Number TXP NO [...] NO LAB FOUND SCRIBED eGFR in NonAfrican Portuguese 35 >60 TXP NO LAB FOUND SCRIBED [...] TXP NO LAB FOUND Blood 11/23/2024 Result [facility] Historical Provider LAB BLOOD ORDERABLES Yajaira l Result Performing Organization Address [facility] de Phone Number TXP NO LAB FOUND * Jazmín Rene Virus PCR Qualitative (10/23/2024) SCRIBED EBV PCR Negative TXP NO LAB FOUND 10/23/2024 Result [facility] Provider LAB MICROBIOLOGY - GENERA L ORDERABLES Edited Result - Final Performing Organization Address [facility] de Phone Number TXP NO LAB FOUND * Tacrolimus level trough (10/23/2024) SCRIBED Tacrolimus, trough 6.2 5 20 TXP NO LAB FOUND Comment:received test correc tion Blood 10/23/2024 Result [facility] Provider LAB BLOOD ORDERABLES Edit ed Result - Final Performing Organization Address [facility] de Phone Number TXP NO [...] Yajaira l Result Performing Organization Address [facility] de Phone Number TXP NO [...] NO LAB FOUND SCRIBED eGFR in NonAfrican Portuguese 33 >=60 TXP NO LAB FOUND SCRIBED Urea Nitrogen (BUN) 26(A) 7 - 17 mg/dl TXP NO LAB FOUND Blood 10/23/2024 Historical Provider LAB BLOOD ORDERABLES Edit ed Result - Final Performing Organization Address [facility] de Phone Number TXP NO LAB FOUND * EBV DNA PCR, Qualitative (09/22/2024) Pathologist [facility] EBV DNA, PCR Nt. Det. TXP NO LAB FOUND 09/22/2024 Historical Provider LAB MICROBIOLOGY - GENERA L ORDERABLES Edited Result - Final Performing Organization Address [facility] de Phone Number TXP NO LAB FOUND * (ABNORMAL) Tacrolimus level trough (09/22/2024) Pathologist [facility] SCRIBED Tacrolimus, trough 4.5(A) 5 - 20 TXP NO LAB FOUND Blood 09/22/2024 [facility] Provider MD LAB BLOOD ORDERABLES Edit ed Result - Final Performing Organization Address [facility] de Phone Number TXP NO [...] TXP NO LAB FOUND Blood 09/22/2024 Result [facility] Provider LAB BLOOD ORDERABLES Edit ed Result - Final Performing Organization Address [facility] de Phone Number [place] NO LAB FOUND * (ABNORMAL) Renal function panel (09/22/2024) Pathologist [facility] SCRIBED Calcium 9.6 8.4 - 10.2 mg/dl [...] NO LAB FOUND SCRIBED eGFR in NonAfrican Portuguese 31 >60 TXP NO LAB FOUND SCRIBED Urea Nitrogen (BUN) 36(A) 7 - 17 mg/dl TXP NO LAB FOUND Blood 09/22/2024 Historical Provider LAB BLOOD ORDERABLES Edit ed Result - Final TXP NO LAB FOUND * (ABNORMAL) Hemoglobin A1c (11/26/2022) [facility] SCRIBED Hemoglobin A1c 5.8(A) 0 - 5.7 % TXP NO LAB FOUND Blood 11/26/2022 Historical Provider LAB BLOOD ORDERABLES Edit ed Result - Final Performing Organization Address [facility] Co de Phone Number TXP NO LAB FOUND * Hepatitis C (HCV) RNA PCR, quantitative (06/26/2022 5:00 PM COTTRELL OPERATOR) [facility] HCV RNA result Not Detected [facility] Comment: The quantifiable range of this assay is 15 IU/mL to 100,000,000 IU/mL (1.18 log IU/mL to 8.00 log IU/mL). Testing was performed by the [employer] 6800 HCV Test ([employer] Testing performed at [facility] Current Interpretive Data was last revised on 2020 Blood 06/26/2022 5:00 PM COTTRELL OPERATOR 06/26/2022 5:25 PM COTTRELL OPERATOR Mo Velez MD LAB MICROBIOLOGY - GENERAL ORDERABLES Final Result Performing Organization Address City/[facility]/ZIP Co de Phone Number [facility] Department [place] [address] * Screening Mammogram 2D Bilateral (02/02/2019) Anatomical Region Laterality Modality Breast Bilateral Mammography 02/02/2019 Impressions 02/06/2019 3:12 PM CDT Mammogram from [facility] IMPRESSION No mammographic evidence of malignancy. Recommend ourint screening mammography in one year us Historical Provider IMG MAMMO PROCEDURES Yajaira l Result * Colonoscopy (12/20/2009) Anatomical Region Laterality Modality Other 12/20/2009 Impressions 02/06/2019 3:10 PM CDT Colonoscopy Results from [facility] IMPRESSION: 1 Internal Hemorrhoids 2. Minimal Diverticulosis us Historical Provider ENDOSCOPY PROCEDURES Yajiara l Result from Last 3 Months or Most Recently Relevant to Health Maintenance Insurance [facility] H[facility]/PPO Address: [address] [address] [facility] HMO/PPO Address: [address] [address] [facility] HMO/PPO Address: [address] [address] [place] [address] [address] [facility] HMO/PPO Address: [address] [address] [place] [address] MEDICARE MEDICARE Advance Directives For more information, please contact: [phone] Documents on File Type Date Recorded Patient Secretary To Board Of Commissioners Expl anation ADVANCE DIRECTIVE 05/28/2022 3:55 PM POWER OF DIRECTOR OF SLEEP-MEDICAL * Full Code (Latest Code Status on File) Date Activated Date Inactivated Comments 05/25/2022 9:00 PM 06/03/2022 6:34 PM * Full Code Date Activated Date Inactivated Comments 05/24/2022 11:25 PM 05/25/2022 9:00 PM Care Teams Medical Receptionist Medical Assistant Relationship Specialty Start Date End Date Jose Martin Carlos MD [address] [facility] [address] [place] [address] PCP - General 07/11/21 Neil Frederick, psychologist industrial organizationalLatrine Cleaner Transplant 12/15/24
--- OUTSIDE RECORDS SUMMARY | 2024-12-19 16:22 | XMS_ITS | Encounter Summary ---
Author Organization [facility] Address [address] [facility] [address] [place] [address] Care Team Providers Care Mortgage Underwriter Name Role Phone Benton Bland MD Primary Care Provider [phone]- [phone] Benton Bland MD Primary Care Provider +1- [phone] Jose Martin Carlos MD Primary Care Provider +1- [phone] Latisha Benavidez RN Unavailable [phone] Neil Frederick RN Unavailable Unavaila ble Encounter Details Date Type Department Care Team (Late st Contact Info) Description 06/27/2016 Orders Only [facility] ProviderKate MD [address] [place] [address] Social History Tobacco Use Types Packs/Day Years Used Date Smoking Tobacco: Never Alcohol Use Standard Drinks/Week Comments No 0 (1 standard drink = 0.6 oz pur e alcohol) Comments Unknown Sex and Gender Information Value Date Recorded Sex Assigned at Not on file Legal Sex Female 11:59 PM DENTAL HYGIENE PROFESSOR Gender Identity Not on file Sexual Orientation [...] on filedocumented in this encounter Care Teams Mortgage Underwriter Relationship Specialty Start Date End Date Benton Bland MD [address] [place] [address] PCP - General 08/10/16 07/10/21 Benton Bland MD [address] [place] [address] PCP - General 12/16/09 08/09/16 Jose Martin Carlos MD [address] [place] [address] PCP - General 07/11/21 Latisha Benavidez RN [address] [facility] [address] [place] [address] Loan Originator 05/25/22 Neil Treadwell RN Loan Originator Transplant 12/15/24 documented as of this encounter
--- OUTSIDE RECORDS SUMMARY | 2024-12-19 16:22 | XMS_ITS | Clinical Summary ---
Author Organization [facility] Address [address] [place] [address] Phone Care Team Providers Care Director Of Photography Name Role Phone Dirk Love Primary Care Provider [phone] Allergies Active Allergy Reactions Criticality Noted Date Comments Ibuprofen 02/21/2019 Medications levothyroxine (SYNTHROID) 75 MCG tablet 1 daily 12/09/2011 Active omega-3 (FISH OIL) 1000 MG capsule 12/09/2011 Active triamcinolone (KENALOG) 0.1 % ointment CHUCK A THIN LAYER AA BID UNTIL SYMPTOMS RESOLVE 0 10/13/2018 Active ergocalciferol (VITAMIN D2) 1.25 MG (45889 UT) capsule Take 1 capsule (50,000 Units [...] Done Comments Influenza Vaccine (#1) 2025 Insurance [facility] Care Teams Director Of Photography Relationship Specialty Start Date End Date Dirk Love [place] [address] [facility] [address] [place] [address] PCP - General Family Medicine 09/14/20
--- OUTSIDE RECORDS SUMMARY | 2024-12-19 16:22 | XMS_ITS | Encounter Summary ---
Author Organization [facility] Address [address] [facility] [address] [place] [address] Care Team Providers Care Electrocardiograph Operator Name Role Phone Benton Bland MD Primary Care Provider [phone]- [phone] Benton Bland MD Primary Care Provider [phone]- [phone] Jose Martin Carlos MD Primary Care Provider [phone]- [phone] Latisha Benavidez RN Unavailable [phone] Neil Frederick RN Unavailable Unavaila ble Encounter Details Date Type Department Care Team (Late st Contact Info) Description 05/29/2005 Orders Only [facility] ProviderKate MD [address] [place] [address] Social History Tobacco Use Types Packs/Day Years Used Date Smoking Tobacco: Never Assessed Comments Unknown Sex and Gender Information Value Date Recorded Sex Assigned at Not on file Legal Sex Female 11:59 PM PREFORMS LAMINATOR Gender Identity Not on file Sexual Orientation [...] on filedocumented in this encounter Care Teams Electrocardiograph Operator Relationship Specialty Start Date End Date Benton Bland MD [address] [place] [address] PCP - General 08/10/16 07/10/21 Benton Bland MD [address] [place] [address] PCP - General 12/16/09 08/09/16 Jose Martin Carlos MD [address] [place], [place] [id number] PCP - General 07/11/21 Latisha Benavidez, RN [address] [facility] [address] [place] [address] Hand Brim Ironer 05/25/22 Neil Treadwell, information clerk brokerageHand Brim Ironer Transplant 12/15/24 documented as of this encounter
--- OUTSIDE RECORDS SUMMARY | 2024-12-19 16:22 | XMS_ITS ---
Author Organization [facility] Address [address] [place] [address] Care Team Providers Care Supervisor Park Workers Name Role Phone Jose Martin Carlos MD Primary Care Provider [phone]- [phone] Neil Frederick RN Unavailable Unavaila ble Transplant Episode Kidney Recipient [facility] ([place], [place]) - [facility] Organ Received: Left Kidney Transplanted on 05/25/2022 Marked as Active Follow-up on 05/25/2022 Reason: Transplanted at [facility] Kidney CoordinatorNeil Frederick RN Phone: N/A Fax: [...] RN Secondary Coordinator Secondary Post Kidney Coordinator [phone] N/A N/A Ignacio Lala MD Referring Physician [phone] N/A Ilene Beltran Primary Technician Submarine Cable Equipment N/A N/A N/A Mratin Godoy Secondary Technician Submarine Cable Equipment N/A N/A N/A Neil Frederick, supervisor mechanic boilermakingShop Tech N/A N/A N/A Therese Locke Coin Box Inspector [phone] N/A N/A Events Post-Transplant Pre-Transplant Admitted: 05/24/2022 [...]
--- NOTE | 2024-12-19 16:40 | ED_ITS ---
HPI - General Adult General Chief complaint: Urogenital-Female Stated complaint: suspected uti Time Seen by Provider: 12/19/24 16:17 History of Present Illness HPI narrative: [age] old female history of kidney transplant performed at [facility] approximately 2.5 years ago, 2022 presents emergency department for evaluation for nausea and diarrhea. Patient states she has had no actual emesis with this. Does have been ongoing for the last few days. Patient denies any pain with urination but states the symptoms are similar to previous urinary tract infections. Patient does continue to have close follow-up with the [facility] transplant team. Patient did have a recent CT scan on 12/11, which shows severe bilateral atrophy with right pelvic transplant kidney. With diverticulosis. No other acute findings were identified. Related Data Home Medications ?Medication ?Instructions ?Recorded ?Confirmed ?Last Taken ?Type aspirin 81 mg tablet,delayed 81 mg PO DAILY 10/12/22 11/17/24 09/06/24 08:00 History release linagliptin 5 mg tablet (Tradjenta) 5 mg PO QAM 10/12/22 11/17/24 09/06/24 08:00 History amlodipine 5 mg tablet 5 mg PO DAILY 11/27/22 11/17/24 09/06/24 08:00 History cholecalciferol (vitamin D3) 50 50 mcg PO DAILY 11/13/23 11/17/24 09/06/24 08:00 History mcg (2,000 unit) capsule cyanocobalamin (vitamin B-12) 1,000 mcg PO DAILY 11/13/23 11/17/24 09/06/24 08:00 History 1,000 mcg capsule carvedilol 25 mg tablet 25 mg PO BID hypertension 09/06/24 11/17/24 09/06/24 08:00 History tacrolimus 1 mg tablet,extended 1 mg PO DAILY 09/06/24 11/17/24 09/06/24 08:00 History release 24 hr (Envarsus XR) Allergies Allergy/AdvReac Type Severity Reaction Status Date / Time ibuprofen Allergy Severe on kidney Verified 12/19/24 16:52 transplant list nitrofurantoin Allergy Mild Unknown Verified 12/19/24 16:52 Review of Systems 2 Review of Systems: All systems reviewed & are unremarkable except as noted in HPI and below PMFSH Past Medical History Medical History Hyperlipidemia History of bruising easily History of stress test (~2021) High risk human papilloma virus (HPV) infection of cervix Vaginal delivery x2 Hypertension Kidney disease Hypothyroidism Surgical History Surgical History History of kidney transplant History of colposcopy [place] teeth extracted H/O laparoscopy Family History Family History Father Hypertension Patient's father is in good health Mother Hypertension Patient's mother is in good health Family history of heart disease in male family member before age 55 Grandparent Family history of malignant neoplasm Social History Social History Smoking status: Never smoker Second hand tobacco smoke exposure: No Alcohol intake: never Substance use: never Substance use type: does not use Do You Feel Safe in your Home?: Yes Lack of Transportation: No Lack of Food: Never True Current Housing: I Have Housing Concerned About Future Housing: No Difficulty Paying Gas/Electric Bills: No Difficulty Paying for Meds: No Currently Unemployed: No Education: High School Diploma/GED Difficulty w/ Childcare or Family Care: No Living arrangements: with family Spiritual care concerns: No Exam 2 Narrative: APPEARANCE: Well appearing, no pain, no distress, well-nourished. HEAD: normocephalic, atraumatic. EYES: PERRLA/EOMI, conjunctivae clear. NOSE: Normal no drainage EARS:TMS clear with good light reflex. THROAT: Pharynx clear, no exudate. NECK: Supple. No adenopathy, no masses. RESPIRATORY: Airway patent, respirations nonlabored. Clear to auscultation bilaterally, no rales, rhonchi, wheezing. CARDIOVASCULAR: Regular rate and rhythm without murmurs rubs or gallops. ABDOMINAL: Normal bowel sounds with right lower quadrant tenderness to palpation MUSCULOSKELETAL: Moves all extremities. Strength/ROM intact, No edema, No calf tenderness. NEURO: Alert. Cranial nerves II through XII intact. Good gait. Good coordination SKIN: Warm, dry. Normal Color Course Vital Signs Vital signs: Vital Signs Temperature 99 F 12/19/24 15:30 Pulse Rate 70 12/19/24 15:30 Respiratory Rate 16 12/19/24 15:30 Blood Pressure 176/88 H 12/19/24 15:30 Pulse Oximetry 99 12/19/24 15:30 Oxygen Delivery Room Air 12/19/24 15:30 Temperature 99 F 12/19/24 15:30 Pulse Rate 70 12/19/24 15:30 Respiratory Rate 16 12/19/24 15:30 Blood Pressure 176/88 H 12/19/24 15:30 Pulse Oximetry 99 12/19/24 15:30 Oxygen Delivery Room Air 12/19/24 15:30 Medical Decision Making MDM Narrative Medical decision making narrative: [age] old female history of kidney transplant presents to the emergency department for evaluation for nausea and diarrhea. Patient states the symptoms are similar to previous urinary tract infections. Patient denies any urinary symptoms. Patient denies any current abdominal pain. Patient is afebrile with no leukocytosis hemoglobin of 12.7. Patient's INR is 1.1. Patient's creatinine is 1.5 which is similar to her baseline. Lactic acid is not elevated. Lipase is within normal limits. Urine was +1 for protein which is better than her most recent urinalysis, patient does have trace leukocyte esterase and moderate squamous epithelial cells with +1 bacteria, patient has no red blood cells no white blood cells and is nitrate negative on the urine. Urine culture was ordered. Patient was not started on any antibiotics for a UTI. On re- examination patient has no abdominal tenderness to palpation. Patient was updated the results of her workup. Does prefer to be discharged home and have close outpatient follow-up. Differential Diagnosis Differential Diagnosis: Pancreatitis, enteritis, colitis, diverticulitis, urinary tract infection Vital Signs Vital Signs: Vital Signs Temperature 99 F 12/19/24 15:30 Pulse Rate 70 12/19/24 15:30 Respiratory Rate 16 12/19/24 15:30 Blood Pressure 176/88 H 12/19/24 15:30 Pulse Oximetry 99 12/19/24 15:30 Oxygen Delivery Room Air 12/19/24 15:30 Temperature 99 F 12/19/24 15:30 Pulse Rate 70 12/19/24 15:30 Respiratory Rate 16 12/19/24 15:30 Blood Pressure 176/88 H 12/19/24 15:30 Pulse Oximetry 99 12/19/24 15:30 Oxygen Delivery Room Air 12/19/24 15:30 Lab Data Lab results reviewed: Yes I reviewed the patient's lab results. 12/19/24 16:50 12/19/24 16:50 Labs: Lab Results 12/19/24 12/19/24 12/19/24 Range/Units 16:49 16:50 16:51 WBC 8.5 (4.5-10.0) K/mm3 RBC 4.18 L (4.2-5.4) M/mm3 Hgb 12.7 (12.0-15.0) g/dL Hct 39.1 (37.0-47.0) % MCV 93.5 (80-100) fl MCH 30.4 (26-34) pg MCHC 32.5 (32-36) g/dl RDW 15.9 H (11.5-14.5) % Plt Count 203 (150-375) k/mm3 MPV 10.7 H (7.4-10.4) fl Immature Gran % (Auto) 0.6 H (0-0.5) % Neut % (Auto) 85.1 H (45.5-73.1) % Lymph % (Auto) 6.4 L (18.3-44.2) % [place] % (Auto) 5.4 (2.6-8.5) % Eos % (Auto) 1.9 (0-4.4) % Baso % (Auto) 0.6 (0.2-1.2) % Lymph # (Auto) 0.55 L (0.9-3.2) K/mm3 [place] # (Auto) 0.5 (0.1-0.6) K/mm3 Eos # (Auto) 0.2 (0-0.3) K/mm3 Baso # (Auto) 0.1 (0.0-0.1) K/mm3 Abs Immat Gran (auto) 0.05 H (0.00-0.031) K/mm3 Absolute Neuts (auto) 7.3 H (1.3-6.7) K/mm3 Absolute Nucleated RBC 0.000 (0.0-0.012) K/mm3 Nucleated RBC % 0.0 (0.0-0.2) % PT 13.8 (11.1-14.7) Seconds INR 1.1 APTT 23.6 (22.3-36.8) Seconds Sodium 138 (137-145) mmol/L Potassium 3.9 (3.4-5.0) mmol/L Chloride 108 H (98-107) mmol/L Carbon Dioxide 23 (22-30) mmol/L Anion Gap 7 (4-12) mmol/L BUN 25 H (7-17) mg/dL Creatinine 1.50 H (0.7-1.0) mg/dL Estim Creat Clear Calc Not Reportable Estimated GFR 35 L (59 - ) Glucose 157 H (65-110) mg/dL Lactic Acid 1.4 (0.7-2.0) mmol/L Calcium 10.0 (8.4-10.2) mg/dL Total Bilirubin 0.7 (0.2-1.3) mg/dL AST 26 (14-36) U/L ALT 27 (6-35) U/L Alkaline Phosphatase 70 (38-126) U/L Total Protein 6.9 (6.3-8.2) g/dL Albumin 3.8 (3.5-5.1) g/dL Lipase 198 (23-300) U/L Urine Color Yellow (Yellow) Urine Appearance Clear (Clear) Urine pH 5.5 (5.0-9.0) Ur Specific Saline 1.019 (1.001-1.035) Urine Protein 1+ H (Negative) mg/dL Urine Glucose (UA) Negative (Negative) mg/dL Urine Ketones Negative (Negative) mg/dL Ur Blood (Man) Trace (Negative) Urine Nitrate Negative (Negative) Urine Bilirubin Negative (Negative) Urine Urobilinogen 0.2 (<2.0) mg/dL Leukocyte Esterase Rfl Trace H (Negative) ANNE MARIE/UL Urine RBC 0-2 (0-2) /hpf Urine WBC 0-5 (0-3) /hpf Ur Squamous Epith Cells Moderate (Few) /hpf Urine Bacteria 1+ H /hpf Urine Casts 3-5 Tacrolimus Pending Discharge Plan Discharge Clinical Impression: Nausea, Diarrhea Patient Disposition: Home Condition: Stable Instructions: Antibiotic Form, Clear Liquid Diet (ED), Acute Nausea and Vomiting (DC) Additional Instructions: You have a urine culture that is pending. Your lipase was within normal limits. Clear liquid diet for the next 1-3 days. Zofran as needed for nausea control. Have close follow-up with your physicians as outpatient. If you have any worsening symptoms then please call or return to the emergency department. Patient Language: Citizen Of [place] Prescriptions: New ondansetron 4 mg tablet,disintegrating 4 mg PO Q8H PRN (Reason: nausea and vomiting) Qty: 14 0RF No Action valacyclovir 1 gram tablet 1,000 mg PO Q8H 7 Days Qty: 21 0RF amlodipine 5 mg tablet 5 mg PO DAILY Tradjenta 5 mg tablet 5 mg PO QAM aspirin 81 mg tablet,delayed release (DR/EC) 81 mg PO DAILY cyanocobalamin (vitamin B-12) 1,000 mcg capsule 1,000 mcg PO DAILY cholecalciferol (vitamin D3) 50 mcg (2,000 unit) capsule 50 mcg PO DAILY carvedilol 25 mg tablet 25 mg PO BID Envarsus XR 1 mg tablet extended release 24 hr 1 mg PO DAILY pravastatin 40 mg tablet See Rx Instructions .ROUTE .COMPLEX Qty: 90 2RF Dose Instruction: Take 1 tablet by mouth once daily Rx Instructions: Take 1 tablet by mouth once daily levothyroxine [Levoxyl] 75 mcg tablet 75 mcg PO DAILY Qty: 90 2RF Follow-up/Referrals: Long Candelario DO [Primary Care Provider] -
[2024-12-19] MEDS: LACTATED RINGERS 1,000 ML 999 ML IV CONT (16:50)
[2024-12-19 17:06] LABS: Hematocrit 39.1 % (37.0-47.0); Hemoglobin 12.7 g/dL (12.0-15.0); Immature Granulocyte Percent A 0.6 % (0-0.5); Lymphocytes Absolute Auto 0.55 K/mm3 (0.9-3.2); Mean Corpuscular HGB Conc 32.5 g/dl (32-36); Mean Corpuscular Hemoglobin 30.4 pg (26-34); Mean Corpuscular Volume 93.5 fl (80-100); Nucleated Red Blood Cells Absolute Auto 0.000 K/mm3 (0.0-0.012); Nucleated Red Blood Cells Perc 0.0 % (0.0-0.2); Platelet Count Result 203 k/mm3 (150-375); Red Blood Count 4.18 M/mm3 (4.2-5.4); White Blood Count 8.5 K/mm3 (4.5-10.0)
[2024-12-19 17:07] LABS: Add Urine Microscopic? YES; Appearance Urine Clear (Clear); Glucose Urine UA Negative (Negative); Leukocyte Esterase Ur Trace LEU/UL (Negative); Nitrate Urine Negative (Negative); Specific Grav Ur 1.019 (1.001-1.035)
[2024-12-19 17:12] LABS: Alanine Aminotransferase 27 U/L (6-35); Albumin Level 3.8 g/dL (3.5-5.1); Alkaline Phosphatase 70 U/L (38-126); Anion Gap 7 mmol/L (4-12); Aspartate Amino Transferase 26 U/L (14-36); Bilirubin,Total 0.7 mg/dL (0.2-1.3); Blood Urea Nitrogen 25 mg/dL (7-17); Calcium 10.0 mg/dL (8.4-10.2); Carbon Dioxide 23 mmol/L (22-30); Chloride 108 mmol/L (98-107); Estimated Glomerular Filt Rate 35; Glucose 157 mg/dL (65-110); Potassium 3.9 mmol/L (3.4-5.0); Sodium 138 mmol/L (137-145); Total Protein 6.9 g/dL (6.3-8.2)
[2024-12-19 17:18] LABS: INR 1.1; Prothrombin Time 13.8 Seconds (11.1-14.7)
[2024-12-19 17:19] LABS: Partial Thromboplastin Time 23.6 Seconds (22.3-36.8)
[2024-12-19 17:38] LABS: Lipase 198 U/L (23-300)
[2024-12-23 06:07] LABS: Tacrolimus (FK506), Blood 5.1 ng/mL (5.0-20.0)
== END 2024-12-19 18:13 | disposition home or self-care (01) ==
PROVIDERS: Emergency Provider Emergency Medicine; PCP Internal Medicine
DX: R11.0 Nausea (principal); R19.7 Diarrhea, unspecified; E78.5 Hyperlipidemia, unspecified; I10 Essential (primary) hypertension; E03.9 Hypothyroidism, unspecified; Z94.0 Kidney transplant status
CPT/HCPCS: 36415; 80053; 80197; 81001; 83605; 83690; 85025; 85610; 85730; 96360; 99283; J7120

== ENCOUNTER 2025-03-25 06:59 | Outpatient (CLI) | payer OTHER, SELFPAY ==
--- OUTSIDE RECORDS SUMMARY | 2025-03-25 07:02 | XMS_ITS | Encounter Summary ---
Author Organization [facility] Address [address] [place] [address] Care Team Providers Care Contact Finger Assembler Name Role Phone Benton Bland MD Primary Care Provider [phone]- [phone] Benton Bland MD Primary Care Provider [phone]- [phone] Jose Martin Carlos MD Primary Care Provider [phone]- [phone] Latisha Benavidez RN Unavailable [phone] Neil Frederick RN Unavailable Unavaila ble Encounter Details Date Type Department Care Team (Late st Contact Info) Description 08/01/2016 Orders Only [facility] ProviderKate MD [address] [place] [address] Social History Tobacco Use Types Packs/Day Years Used Date Smoking Tobacco: Never Alcohol Use Standard Drinks/Week Comments No 0 (1 standard drink = 0.6 oz pur e alcohol) Comments Unknown Sex and Gender Information Value Date Recorded Sex Assigned at Not on file 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 Gender Identity Not on file Sexual Orientation [...] filedocumented in this encounter Care Teams Contact Finger Assembler Relationship Specialty Start Date End Date Benton Bland MD [address] [place] [address] PCP - General 08/10/16 07/10/21 Benton Bland MD [address] [place] [address] PCP - General 12/16/09 08/09/16 Jose Martin Carlos MD [address] [place] [address] PCP - General 07/11/21 Latisha Benavidez RN [address] [facility] [address] [place] [address] Advertising Teacher 05/25/22 Neil Treadwell RN Advertising Teacher Transplant 12/15/24 documented as of this encounter
--- OUTSIDE RECORDS SUMMARY | 2025-03-25 07:02 | XMS_ITS ---
Author Organization [facility] Address [address] [place] [address] Care Team Providers Care Finance Clerk Name Role Phone Jose Martin Carlos MD Primary Care Provider [phone]- [phone] Neil Frederick RN Unavailable Unavaila ble Transplant Episode Kidney Recipient [facility] ([place], [place]) - [facility] Organ Received: Left Kidney Transplanted on 05/25/2022 Marked as Active Follow-up on 05/25/2022 Reason: Transplanted at [facility] Kidney CoordinatorNeil Frederick RN Phone: N/A [...] RN Secondary Coordinator Secondary Post Kidney Coordinator [phone] N/A N/A Ignacio Lala MD Referring Physician [phone] N/A Ilene Beltran Primary Joint Yarner N/A N/A N/A Martin Godoy Secondary Joint Yarner N/A N/A N/A Neil Frederick, balance bridge assemblerClinical Trial Manager N/A N/A N/A Therese Locke Die Tripper [phone] N/A N/A Events Post-Transplant Pre-Transplant Admitted: 05/24/2022 Referred: 11/28/2018 Transplanted: 05/25/2022 Evaluation began: 9 Discharged: 06/03/2022 Committee: 02/23/2019 Center waitlisted: 9
--- OUTSIDE RECORDS SUMMARY | 2025-03-25 07:02 | XMS_ITS | Encounter Summary ---
Author Organization [facility] Address [address] [place] [address] Care Team Providers Care Air Conditioning Unit Tester Name Role Phone Benton Bland MD Primary Care Provider [phone]- [phone] Benton Bland MD Primary Care Provider [phone]- [phone] Jose Martin Carlos MD Primary Care Provider [phone]- [phone] Latisha Benavidez RN Unavailable [phone] Neil Frederick RN Unavailable Unavaila ble Encounter Details Date Type Department Care Team (Late st Contact Info) Description 06/27/2016 Orders Only [facility] ProviderKate MD [address] [place] [address] Social History Tobacco Use Types Packs/Day Years Used Date Smoking Tobacco: Never Alcohol Use Standard Drinks/Week Comments No 0 (1 standard drink = 0.6 oz pur e alcohol) Comments Unknown Sex and Gender Information Value Date Recorded Sex Assigned at Not on file 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 Gender Identity Not on file Sexual Orientation Not on file documented as of this encounter Functional Status documented as of this encounter Plan of [...] on filedocumented in this encounter Care Teams Air Conditioning Unit Tester Relationship Specialty Start Date End Date Benton Bland MD [address] [place] [address] PCP - General 08/10/16 07/10/21 Benton Bland MD [address] [address] PCP - General 12/16/09 08/09/16 Jose Martin Carlos MD [address] [place] [address] PCP - General 07/11/21 Latisha Benavidez, RN [address] [facility] [address] [place] [address] Department Assistant 05/25/22 Neil Treadwell RN Department Assistant Transplant 12/15/24 documented as of this encounter
--- OUTSIDE RECORDS SUMMARY | 2025-03-25 07:02 | XMS_ITS | Encounter Summary ---
Author Organization [facility] Address [address] [place] [address] Care Team Providers Care Platform Loader Name Role Phone Benton Bland MD Primary Care Provider [phone]- [phone] Benton Bland MD Primary Care Provider [phone]- [phone] Jose Martin Carlos MD Primary Care Provider [phone]- [phone] Latisha Benavidez RN Unavailable [phone] Neil Frederick RN Unavailable Unavaila ble Encounter Details Date Type Department Care Team (Late st Contact Info) Description 05/29/2005 Orders Only [facility] ProviderKate MD [address] [place] [address] Social History Tobacco Use Types Packs/Day Years Used Date Smoking Tobacco: Never Assessed Comments Unknown Sex and Gender Information Value Date Recorded Sex Assigned at Not on file 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 Gender Identity Not on file Sexual Orientation [...] on filedocumented in this encounter Care Teams Platform Loader Relationship Specialty Start Date End Date Benton Bland MD [address] [place] [address] PCP - General 08/10/16 07/10/21 Benton Bland MD [address] [place] [address] PCP - General 12/16/09 08/09/16 Jose Martin Carlos MD [address] [place], [place] [id number] PCP - General 07/11/21 Latisha Benavidez, RN [address] [facility] [address] [place] [address] County Records Management Officer 05/25/22 Neil Treadwell, film processing supervisorCounty Records Management Officer Transplant 12/15/24 documented as of this encounter
[2025-03-25 09:44] LABS: Thyroid Stimulating Hormone 9.300 uIU/mL (0.465-4.680)
[2025-03-25 09:46] LABS: Free T4 Free Thyroxine 1.49 ng/dL (0.78-2.19)
== END 2025-03-25 07:00 | disposition home or self-care (01) ==
LOC: ANHLAB 07:00
PROVIDERS: PCP Internal Medicine; Visit Provider Internal Medicine
DX: E03.9 Hypothyroidism, unspecified (principal)
CPT/HCPCS: 36415; 80069; 80197; 84439; 84443; 85025; 87799

== ENCOUNTER 2025-03-25 07:01 | Outpatient (RCR) | payer OTHER, SELFPAY ==
[2025-01-25 07:27] LABS: Hematocrit 38.5 % (37.0-47.0); Hemoglobin 12.5 g/dL (12.0-15.0); Immature Granulocyte Percent A 0.7 % (0-0.5); Lymphocytes Absolute Auto 1.18 K/mm3 (0.9-3.2); Mean Corpuscular HGB Conc 32.5 g/dl (32-36); Mean Corpuscular Hemoglobin 30.5 pg (26-34); Mean Corpuscular Volume 93.9 fl (80-100); Nucleated Red Blood Cells Absolute Auto 0.000 K/mm3 (0.0-0.012); Nucleated Red Blood Cells Perc 0.0 % (0.0-0.2); Platelet Count Result 202 k/mm3 (150-375); Red Blood Count 4.10 M/mm3 (4.2-5.4); White Blood Count 7.3 K/mm3 (4.5-10.0)
[2025-01-25 07:54] LABS: Albumin Level 3.6 g/dL (3.5-5.1); Anion Gap 5 mmol/L (4-12); Blood Urea Nitrogen 28 mg/dL (7-17); Calcium 9.4 mg/dL (8.4-10.2); Carbon Dioxide 27 mmol/L (22-30); Chloride 105 mmol/L (98-107); Estimated Glomerular Filt Rate 29; Glucose 101 mg/dL (65-110); Potassium 3.9 mmol/L (3.4-5.0); Sodium 137 mmol/L (137-145)
[2025-01-28 11:08] LABS: Tacrolimus (FK506), Blood 6.4 ng/mL (5.0-20.0)
[2025-02-16 13:01] LABS: EBV PCR Quant (Whole Blood) Negative
[2025-02-19 08:05] LABS: Hematocrit 37.8 % (37.0-47.0); Hemoglobin 12.3 g/dL (12.0-15.0); Immature Granulocyte Percent A 1.0 % (0-0.5); Lymphocytes Absolute Auto 0.85 K/mm3 (0.9-3.2); Mean Corpuscular HGB Conc 32.5 g/dl (32-36); Mean Corpuscular Hemoglobin 30.5 pg (26-34); Mean Corpuscular Volume 93.8 fl (80-100); Nucleated Red Blood Cells Absolute Auto 0.000 K/mm3 (0.0-0.012); Nucleated Red Blood Cells Perc 0.0 % (0.0-0.2); Platelet Count Result 190 k/mm3 (150-375); Red Blood Count 4.03 M/mm3 (4.2-5.4); White Blood Count 7.2 K/mm3 (4.5-10.0)
[2025-02-19 08:31] LABS: Alanine Aminotransferase 23 U/L (6-35); Albumin Level 3.6 g/dL (3.5-5.1); Alkaline Phosphatase 76 U/L (38-126); Anion Gap 7 mmol/L (4-12); Aspartate Amino Transferase 26 U/L (14-36); Bilirubin,Total 0.5 mg/dL (0.2-1.3); Blood Urea Nitrogen 37 mg/dL (7-17); Calcium 9.7 mg/dL (8.4-10.2); Carbon Dioxide 25 mmol/L (22-30); Chloride 106 mmol/L (98-107); Cholesterol 177 mg/dL (0-200); Estimated Glomerular Filt Rate 33; Glucose 102 mg/dL (65-110); HDL Direct 65 mg/dL; Potassium 3.7 mmol/L (3.4-5.0); Sodium 138 mmol/L (137-145); Total Protein 6.5 g/dL (6.3-8.2); Triglycerides 71 mg/dL (<150)
[2025-02-23 12:08] LABS: EBV PCR Quant (Whole Blood) 9644 copies/mL (Negative)
[2025-02-23 21:07] LABS: Tacrolimus (FK506), Blood 5.9 ng/mL (5.0-20.0)
[2025-03-25 09:02] LABS: Hematocrit 38.5 % (37.0-47.0); Hemoglobin 12.7 g/dL (12.0-15.0); Immature Granulocyte Percent A 0.7 % (0-0.5); Lymphocytes Absolute Auto 1.03 K/mm3 (0.9-3.2); Mean Corpuscular HGB Conc 33.0 g/dl (32-36); Mean Corpuscular Hemoglobin 31.0 pg (26-34); Mean Corpuscular Volume 93.9 fl (80-100); Nucleated Red Blood Cells Absolute Auto 0.000 K/mm3 (0.0-0.012); Nucleated Red Blood Cells Perc 0.0 % (0.0-0.2); Platelet Count Result 201 k/mm3 (150-375); Red Blood Count 4.10 M/mm3 (4.2-5.4); White Blood Count 7.1 K/mm3 (4.5-10.0)
[2025-03-25 09:17] LABS: Albumin Level 3.8 g/dL (3.5-5.1); Carbon Dioxide 27 mmol/L (22-30)
[2025-03-25 09:29] LABS: Anion Gap 5 mmol/L (4-12); Blood Urea Nitrogen 32 mg/dL (7-17); Calcium 9.8 mg/dL (8.4-10.2); Chloride 105 mmol/L (98-107); Estimated Glomerular Filt Rate 31; Glucose 90 mg/dL (65-110); Potassium 3.8 mmol/L (3.4-5.0); Sodium 137 mmol/L (137-145)
[2025-03-27 15:09] LABS: EBV PCR Quant (Whole Blood) 10558 copies/mL (Negative); Tacrolimus (FK506), Blood 5.2 ng/mL (5.0-20.0)
== END 2025-04-25 23:59 | disposition home or self-care (01) ==
LOC: ANHLAB 07:01
PROVIDERS: PCP Internal Medicine; Visit Provider Internal Medicine
DX: Z94.0 Kidney transplant status (principal)
CPT/HCPCS: 36415; 80061; 80069; 80076; 80197; 85025; 87799

== ENCOUNTER 2025-05-11 15:10 | Outpatient (CLI) | payer OTHER, SELFPAY ==
--- NOTE | ~2025-05-11 | MM_ITS ---
EXAMINATION: MM screening [facility] BI w daniela HISTORY: Z12.31 - Encounter for screening mammogram for malignant ... TECHNIQUE: Craniocaudal and mediolateral oblique 3-D tomosynthesis images were obtained and synthetic 2-D images were generated. CAD analysis was submitted and interpreted. COMPARISON: 2023, 2022, and 2021 BREAST PARENCHYMAL COMPOSITION: The breast tissue is heterogeneously dense, which may obscure small masses. FINDINGS: No suspicious masses are seen. There are no suspicious calcifications. No unexplained architectural distortion is seen. There are no skin or nipple abnormalities identified. There is no adenopathy seen on the images submitted. IMPRESSION: No mammographic evidence to suggest malignancy is seen. The patient may return to screening mammography as per ACR guidelines. BI-RADS 1 - Negative. Reviewed, dictated and finalized at location C. EYBALL COMMENTATOR
--- OUTSIDE RECORDS SUMMARY | 2025-05-11 15:18 | XMS_ITS | Encounter Summary ---
Author Organization [facility] Address [address] [place] [address] Care Team Providers Care Manager Imaging Name Role Phone Benton Bland MD Primary Care Provider [phone]- [phone] Benton Bland MD Primary Care Provider [phone] Jose Martin Carlos MD Primary Care Provider [phone]- [phone] Latisha Benavidez RN Unavailable [phone] Neil Frederick RN Unavailable Unavaila ble Encounter Details Date Type Department Care Team (Late st Contact Info) Description 05/29/2005 Orders Only [facility] ProviderKate MD [address] [place] [address] Social History Tobacco Use Types Packs/Day Years Used Date Smoking Tobacco: Never Assessed Comments Unknown Sex and Gender Information Value Date Recorded Sex Assigned at Not on file 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 Gender Identity Not on file Sexual Orientation [...] on filedocumented in this encounter Care Teams Manager Imaging Relationship Specialty Start Date End Date Benton Bland MD [address] [place] [address] PCP - General 08/10/16 07/10/21 Benton Bland MD [address] [place] [address] PCP - General 12/16/09 08/09/16 Jose Martin Carlos MD [address] [place], [place] [id number] PCP - General 07/11/21 Latisha Benavidez, RN [address] [facility] [address] [place] [address] Recreation Coordinator 05/25/22 Neil Treadwell, weight loss sales consultantRecreation Coordinator Transplant 12/15/24 documented as of this encounter
--- OUTSIDE RECORDS SUMMARY | 2025-05-11 15:18 | XMS_ITS ---
Author Organization [facility] Address [address] [place] [address] Care Team Providers Care Sports Bookmaker Name Role Phone Jose Martin Carlos MD Primary Care Provider [phone]- [phone] Neil Frederick RN Unavailable Unavaila ble Transplant Episode Kidney Recipient [facility] ([place], [place]) - [facility] Organ Received: Left Kidney Transplanted on 05/25/2022 Marked as Active Follow-up on 05/25/2022 Reason: Transplanted at [facility] Kidney CoordinatorNeil Frederick RN Phone: N/A [...] Frederick RN Kidney Coordinator N/A N/A N/A Ignacio Lala MD Referring Physician [phone] N/A Lubna Ocampo, RN Secondary Coordinator Secondary Post Kidney Coordinator N/A N/A N/A Ilene Beltran Primary Processing Supervisor N/A N/A N/A Martin Godoy Secondary Processing Supervisor N/A N/A N/A Neil Frederick, roof designerManager Nicu N/A N/A N/A Therese Locke Embossing Unit Operator [phone] N/A N/A Events Post-Transplant Pre-Transplant Admitted: 05/24/2022 Referred: 11/28/2018 Transplanted: 05/25/2022 Evaluation began: 9 Discharged: 06/03/2022 Committee: 02/23/2019 Center waitlisted: 9
--- OUTSIDE RECORDS SUMMARY | 2025-05-11 15:18 | XMS_ITS | Clinical Summary ---
Author Organization [facility] Address [address] [place] [address] Care Team Providers Care Tripper Name Role Phone Jose Martin Carlos MD Primary Care Provider +1- [phone] Neil Frederick RN Unavailable Unavaila ble Allergies [...] tablet (125 mcg total) by mouth customer servicer before breakfast 30 tablet 3 3 Active [...] consent to speak with [facility]- [phone] Standing orders q- Monthly, FK ,q3 Routine [...] Encounters Date Type Department Care Team Description 03/25/2025 [facility] Transplant Kidney [address] [address] [address] [phone] [place] [address] Bessie Alvarado MD 02/24/2025 [facility] Transplant Kidney [address] [facility] [address] [id number] [place] [address] Bessie Alvarado MD 02/23/2025 [facility] Transplant Kidney [address] [facility] [address] [phone] [place] [address] Bessie Alvarado MD 02/19/2025 Lab [facility] Transplant Kidney [address] [facility] [address] Mailstop [phone] [place] [address] Bessie Alvarado MD 02/19/2025 Lab [facility] Transplant Kidney [address] [facility] [address] Mailstop [phone] [place] [address] Bessie Alvarado MD 02/16/2025 Lab [facility] Transplant Kidney [address] [facility] [address] Mailstop [phone] [place] [address] Bessie Alvarado MD 02/11/2025 [facility] Transplant Kidney [address] [facility] [address] Mailstop [phone] [place] [address] Gita Wang from Last 3 Months Surgical History Surgery [...] or pharmacy Never 06/28/2022 Social Connection and Isolation Panel Answer Date Recorded In a typical week, how many times do you talk on the phone with family, friends, or neighbors? More than three times a week 05/25/2022 How often do you get togethe r with friends or relatives? Three times a week 05/25/2022 How often do you attend chur ch or mormonism services? More than 4 times per year 05/25/2022 Do you belong to any clubs o r organizations such as episcopalian groups, unions, fraternal or athletic groups, or [...] on file Legal Sex Female 11:59 PM CAR SHIFTER Gender Identity Not on file Sexual Orientation Not on file Last Filed Vital Signs Vital Sign Reading Time Taken Comments Blood Pressure 157/88 12/02/2024 9:25 AM CDT Pulse 67 12/02/2024 9:25 AM CDT Temperature 36.7 C (98.1 F) 12/02/2024 9:25 AM CDT Respiratory Rate 18 06/28/2022 9:00 AM CAR SHIFTER Oxygen Saturation 99% 06/28/2022 9:00 AM CAR SHIFTER Inhaled Oxygen Concentration - - Weight 94.7 [...] Cervical Cancer Screening 1959 Depression Screening 1959 Osteoporosis Screening-Bone Density Scan 1959 Dilated Eye Exam 1959 Foot Exam 1959 Zoster Vaccine (1 of 2) 12/29/1978 DTaP/Tdap/Td Vaccine (2 - Td or Tdap) 06/14/2019 06/14/2009 Colon Cancer Screening-Colonoscopy 12/21/2019 12/20/2009 Breast Cancer Screening-Mammogram 02/03/2020 019 Pneumococcal vaccine 65+ (2 of 2 - PCV) 02/27/2021 02/28/2020 Hemoglobin A1C 05/29/2023 11/26/2022, 05/24/2022 Fall Risk Assessment 06/03/2023 06/03/2022 Well Visit 65+ 12/29/2024 Influenza Vaccine (#1) 2025 Lipid Panel 02/19/2026 02/19/2025, 11/10, 08/20/2024, Additional history exists eGFR 03/25/2026 03/25/2025, 02/10, 01/25/2025, Additional history exists Colon Cancer Screening-CT Colonography Discontinued 12/20/2009 Colon Cancer Screening-DNA Stool Discontinued 12/21/19 Colon Cancer Screening-FIT Discontinued 12/20/2009 Colon Cancer Screening-Sigmoidoscopy Discontinued 12/20/2009 Hepatitis B Screening Completed 05/24/2022 Hepatitis C Screening Completed 06/26/2022 , 05/24/2022, 05/24/2022, Additional history exists Medical Devices Explanted Type Area Compliance Tester Device Identifier Shelf Expiration Date Model / Serial / Lot [employer] Double-J 6fr 20cm 100cm 1 Step Insert Push Catheter Pringle Suture [id number] - [id number] Implanted:Qt y: 1 on 05/25/2022 by Aguilar Barfield MD PhD at [facility] Explanted:Qt y: 1 on 06/26/2022 by Monty Harper MD Stent Right: Transplanted Ureter [employer] [id number] 10/30/2026 [id number] / / [id number] Description:Transplanted Ure ter Procedures Procedure Name Priority Date/Time Associated Diagnosis Comments TSH Routine 03/25/2025 7:14 AM CAR SHIFTER TACROLIMUS LEVEL, TROUGH Routine 03/25/2025 7:14 AM CAR SHIFTER JAZMÍN RENE VIRUS PCR QUALITATIVE Routine 03/25/2025 7:14 AM CAR SHIFTER CBC WITH AUTO DIFFERENTIAL Routine 03/25/2025 RENAL FUNCTION PANEL Routine 03/25/2025 TACROLIMUS LEVEL, TROUGH Routine 02/19/2025 EBV - JAZMÍN-RENE VIRUS DNA PCR QUANT Routine 02/19/2025 HEPATIC FUNCTION PANEL Routine 02/19/2025 LIPID PANEL Routine 02/19/2025 RENAL FUNCTION PANEL Routine 02/19/2025 CBC WITH AUTO DIFFERENTIAL Routine 02/19/2025 HEMOGLOBIN A1C Routine 11/26/2022 HEPATITIS C RNA, QUANTITATIVE, PCR Routine 06/26/2022 5:00 PM CAR SHIFTER Inconclusive laboratory evidence of human immunodeficiency virus (HIV) Aftercare following organ transplant SCREENING MAMMOGRAM 2D BILATERAL Schedule Routine, Read Routine (OP Routine) 02/02/2019 COLONOSCOPY Routine 12/20/2009 from Last 3 Months or Most Recently Relevant to Health Maintenance Results * Jazmín Rene Virus PCR Qualitative (03/25/2025 7:14 AM CAR SHIFTER) SCRIBED EBV PCR Positive TXP NO LAB FOUND Comment:10187 CPY/ML log 10 4.024 NEG LOG10 CPY/ML TXP NO LAB FOUND 03/25/2025 7:14 AM CAR SHIFTER [facility] Provider LAB MICROBIOLOGY - GENERA L ORDERABLES Final Result Performing Organization Address [facility] Co de Phone Number TXP NO LAB FOUND * Tacrolimus level trough (03/25/2025 7:14 AM CAR SHIFTER) SCRIBED Tacrolimus, trough 5.2 5 - 20 NG/ML TXP NO LAB FOUND Blood 03/25/2025 7:14 AM CAR SHIFTER Historical Provider LAB BLOOD ORDERABLES Edit ed Result - Final Performing Organization Address [facility] Co de Phone Number TXP NO LAB FOUND * (ABNORMAL) TSH (03/25/2025 7:14 AM CAR SHIFTER) Scribed TSH 9.30(A) 0.47 - 4.68 uIU/mL TXP NO LAB FOUND Blood 03/25/2025 7:14 AM CAR SHIFTER Historical Provider LAB BLOOD ORDERABLES Edit ed Result - Final Performing Organization Address [facility] Co de Phone Number TXP NO LAB FOUND * (ABNORMAL) CBC with auto differential (03/25/2025) SCRIBED WBC 7.1 3.8 - 9.9 K/cumm TXP NO LAB FOUND SCRIBED Hemoglobin 12.7 11.9 - 15.5 g/dL TXP NO LAB FOUND SCRIBED Hematocrit 38.5(A) 38.9 - 50.3 % TXP NO LAB FOUND SCRIBED Platelets 201 150 - 400 K/cumm TXP NO LAB FOUND SCRIBED RBC 4.10 3.90 - 5.20 M/cumm TXP NO LAB FOUND SCRIBED Lymphocytes Abs 1.03 0.8 - 3.3 K/cumm TXP NO LAB FOUND Blood 03/25/2025 us Historical Provider LAB BLOOD ORDERABLES Edit ed Result - Final TXP NO LAB FOUND * (ABNORMAL) Renal function panel (03/25/2025) Pathologist [facility] SCRIBED Sodium 137 135 - 145 mmol/L TXP NO LAB FOUND SCRIBED Potassium 3.8 3.3 - 5.2 mmol/L TXP NO LAB FOUND SCRIBED Chloride 105 97 - 110 mmol/L TXP NO LAB FOUND SCRIBED Carbon Dioxide 27 22 - 32 mmol/L TXP NO LAB FOUND SCRIBED Anion Gap 5 2 - 15 mmol/L TXP NO LAB FOUND SCRIBED Urea Nitrogen (BUN) 32(A) 6 - 25 mg/dL TXP NO LAB FOUND SCRIBED Creatinine 1.64(A) 0.60 - 1.10 mg/dL TXP NO LAB FOUND SCRIBED Glucose 90 70 - 199 mg/dL TXP NO LAB FOUND SCRIBED Calcium 9.8 8.5 - 10.3 mg/dL TXP NO LAB FOUND SCRIBED Phosphorus 3.6 2.3 - 4.5 mg/dL TXP NO LAB FOUND SCRIBED Albumin 3.8 3.5 - 5.0 g/dL TXP NO LAB FOUND SCRIBED eGFR 31 >60 mL/min/1.7 3 m2 TXP NO LAB FOUND Blood 03/25/2025 Result [facility] Provider MD LAB BLOOD ORDERABLES Yajaira l Result Performing Organization Address [facility] de Phone Number TXP NO LAB FOUND * EBV - Jazmín-Rene Virus DNA PCR Quant (02/19/2025) Pathologist [facility] EBV DNA, PCR 9,644 TXP NO LAB FOUND 02/19/2025 Result [facility] Provider MD LAB BLOOD ORDERABLES Edit ed Result - Final Performing Organization Address [facility] de Phone Number TXP NO LAB FOUND * Tacrolimus level trough (02/19/2025) Pathologist [facility] SCRIBED Tacrolimus, trough 5.9 5 - 20 TXP NO LAB FOUND Blood 02/19/2025 Result [facility] Provider MD LAB BLOOD ORDERABLES Edit ed Result - Final Performing Organization Address [facility] de Phone Number TXP NO LAB FOUND * (ABNORMAL) CBC with auto differential (02/19/2025) Pathologist [facility] SCRIBED WBC 7.2 3.8 - 9.9 K/cumm TXP NO LAB FOUND SCRIBED Hemoglobin 12.3 11.9 - 15.5 g/dL TXP NO LAB FOUND SCRIBED Hematocrit 37.8(A) 38.9 - 50.3 % TXP NO LAB FOUND SCRIBED Platelets 190 150 - 400 K/cumm TXP NO LAB FOUND SCRIBED RBC 4.03 3.90 - 5.20 M/cumm TXP NO LAB FOUND SCRIBED Lymphocytes Abs 0.85 0.8 - 3.3 K/cumm TXP NO LAB FOUND Blood 02/19/2025 Result [facility] Provider LAB BLOOD ORDERABLES Yajaira l Result Performing Organization Address [facility] de Phone Number TXP NO LAB FOUND * Hepatic function panel (02/19/2025) SCRIBED Protein, Total, Serum 6.5 6.3 - 8.2 g/dL TXP NO LAB FOUND SCRIBED Albumin 3.6 3.5 - 5.0 g/dL TXP NO LAB FOUND SCRIBED Bilirubin, Total 0.5 0.2 - 1.3 mg/dL TXP NO LAB FOUND SCRIBED Bilirubin, Direct 0.0 0.0 - 0.3 mg/dL TXP NO LAB FOUND SCRIBED Alkaline Phosphatase 76 38 - 126 Units/L TXP NO LAB FOUND SCRIBED Aspartate Transaminase (AST) 26 10 - 45 Units/L TXP NO LAB FOUND SCRIBED Alanine Transaminase (ALT) 23 7 - 45 Units/L TXP NO LAB FOUND Blood 02/19/2025 us Historical Provider LAB BLOOD ORDERABLES Edit ed Result - Final TXP NO LAB FOUND * (ABNORMAL) Renal function panel (02/19/2025) SCRIBED Sodium 138 135 - 145 mmol/L TXP NO LAB FOUND SCRIBED Potassium 3.7 3.3 - 5.2 mmol/L TXP NO LAB FOUND SCRIBED Chloride 106 97 - 110 mmol/L TXP NO LAB FOUND SCRIBED Carbon Dioxide 25 22 - 32 mmol/L TXP NO LAB FOUND SCRIBED Anion Gap 7 2 - 15 mmol/L TXP NO LAB FOUND SCRIBED Urea Nitrogen (BUN) 37(A) 6 - 25 mg/dL TXP NO LAB FOUND SCRIBED Creatinine 1.56(A) 0.60 - 1.10 mg/dL TXP NO LAB FOUND SCRIBED Glucose 102 70 - 199 mg/dL TXP NO LAB FOUND SCRIBED Calcium 9.7 8.5 - 10.3 mg/dL TXP NO LAB FOUND SCRIBED Phosphorus 3.4 2.3 - 4.5 mg/dL TXP NO LAB FOUND SCRIBED Albumin 3.6 3.5 - 5.0 g/dL TXP NO LAB FOUND SCRIBED eGFR 33 >60 mL/min/1.7 3 m2 TXP NO LAB FOUND Blood 02/19/2025 Result [facility] Provider MD LAB BLOOD ORDERABLES Yajaira l Result Performing Organization Address [facility] de Phone Number TXP NO LAB FOUND * Lipid panel (02/19/2025) SCRIBED Cholesterol, Total 177 30 - 199 mg/dL TXP NO LAB FOUND SCRIBED Triglycerides 71 <=149 mg/dL TXP NO LAB FOUND SCRIBED HDL 65 >=40 mg/dL TXP NO LAB FOUND SCRIBED LDL 76 <=129 mg/dL TXP NO LAB FOUND Scribed Non-HDL Cholesterol TXP NO LAB FOUND Comment:na SCRIBED Total Cholesterol/HDL Ratio TXP NO LAB FOUND Comment:na Blood 02/19/2025 Result [facility] Provider MD LAB BLOOD ORDERABLES Edit ed Result - Final Performing Organization Address [facility] de Phone Number TXP NO LAB FOUND * (ABNORMAL) Hemoglobin A1c (11/26/2022) Pathologist [facility] SCRIBED Hemoglobin A1c 5.8(A) 0 - 5.7 % TXP NO LAB FOUND Blood 11/26/2022 Result [facility] Provider MD LAB BLOOD ORDERABLES Edit ed Result - Final Performing Organization Address [facility] de Phone Number TXP NO LAB FOUND * Hepatitis C (HCV) RNA PCR, quantitative (06/26/2022 5:00 PM CAR SHIFTER) Pathologist [facility] HCV RNA result Not Detected CITLALY ZAYAS Comment: The quantifiable range of this assay is 15 IU/mL to 100,000,000 IU/mL (1.18 log IU/mL to 8.00 log IU/mL). Testing was performed by the [facility] 6800 HCV Test ([employer] Testing performed at [facility] Current Interpretive Data was last revised on 2020 Blood 06/26/2022 5:00 PM CAR SHIFTER 06/26/2022 5:25 PM CAR SHIFTER Mo Velez MD LAB MICROBIOLOGY - GENERAL ORDERABLES Final Result CITLALY [facility] Department [place] [address] * Screening Mammogram 2D Bilateral (02/02/2019) Anatomical Region Laterality Modality Breast Bilateral Mammography 02/02/2019 Impressions 02/06/2019 3:12 PM CDT [facility] IMPRESSION No mammographic evidence of malignancy. Recommend ourint screening mammography in one year Historical Provider IMG MAMMO PROCEDURES Yajaira l Result * Colonoscopy (12/20/2009) Anatomical Region Laterality Modality Other 12/20/2009 Impressions 02/06/2019 3:10 PM CDT Colonoscopy Results from [facility] IMPRESSION: 1 Internal Hemorrhoids 2. Minimal Diverticulosis Historical Provider ENDOSCOPY PROCEDURES Yajaira l Result from Last 3 Months or Most Recently Relevant to Health Maintenance Insurance [facility] MEDICARE [facility] TRANSPLANT [employer] MEDICARE MEDICARE Advance Directives For more information, please contact: [phone] Documents on File Type Date Recorded Patient Ship Manager Expl anation ADVANCE DIRECTIVE 05/28/2022 3:55 PM POWER OF PLANE CAPTAIN-MEDICAL * Full Code (Latest Code Status on File) Date Activated Date Inactivated Comments 05/25/2022 9:00 PM 06/03/2022 6:34 PM * Full Code Date Activated Date Inactivated Comments 05/24/2022 11:25 PM 05/25/2022 9:00 PM Care Teams Tripper Relationship Specialty Start Date End Date Jose Martin Carlos MD [address] [facility] [address] [place] [address] PCP - General 07/11/21 Neil Frederick RN Keeper Head Transplant 12/15/24
--- OUTSIDE RECORDS SUMMARY | 2025-05-11 15:18 | XMS_ITS | Encounter Summary ---
Author Organization [facility] Address [address] [facility] [address] [place] [address] Care Team Providers Care Rib Cloth Knitter Name Role Phone Benton Bland MD Primary Care Provider +1- [phone] Benton Bland MD Primary Care Provider +1- [phone] Jose Martin Carlos MD Primary Care Provider +1- [phone] Latisha Benavidez RN Unavailable [phone] Neil Frederick RN Unavailable Unavaila ble Encounter Details Date Type Department Care Team (Late st Contact Info) Description 06/27/2016 Orders Only [facility] ProviderKate MD [address] [place] [address] Social History Tobacco Use Types Packs/Day Years Used Date Smoking Tobacco: Never Alcohol Use Standard Drinks/Week Comments No 0 (1 standard drink = 0.6 oz pur e alcohol) Comments Unknown Sex and Gender Information Value Date Recorded Sex Assigned at Not on file Legal Sex Female 11:59 PM 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 MIDWIFE Gender Identity Not on file Sexual Orientation [...] on filedocumented in this encounter Care Teams Rib Cloth Knitter Relationship Specialty Start Date End Date Benton Bland MD [address] [place] [address] PCP - General 08/10/16 07/10/21 Benton Bland MD [address] [place] [address] PCP - General 12/16/09 08/09/16 Jose Martin Carlos MD [address] [place] [address] PCP - General 07/11/21 Latisha Benavidez RN [address] [facility] [address] [place] [address] Cable Braider 05/25/22 Neil Treadwell RN Cable Braider Transplant 12/15/24 documented as of this encounter
--- OUTSIDE RECORDS SUMMARY | 2025-05-11 15:18 | XMS_ITS | Encounter Summary ---
Author Organization [facility] Address [address] [place] [address] Care Team Providers Care Pattern Attendant Name Role Phone Benton Bland MD Primary Care Provider +1- [phone] Benton Bland MD Primary Care Provider [phone]- [phone] Jose Martin Carlos MD Primary Care Provider +1- [phone] Latisha Benavidez RN Unavailable [phone] Neil Frederick RN Unavailable Unavaila ble Encounter Details Date Type Department Care Team (Late st Contact Info) Description 08/01/2016 Orders Only [facility] ProviderKate MD [address] [place] [address] Social History Tobacco Use Types Packs/Day Years Used Date Smoking Tobacco: Never Alcohol Use Standard Drinks/Week Comments No 0 (1 standard drink = 0.6 oz pur e alcohol) Comments Unknown Sex and Gender Information Value Date Recorded Sex Assigned at Not on file 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 Female 11:59 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 Gender Identity Not on file Sexual Orientation [...] on filedocumented in this encounter Care Teams Pattern Attendant Relationship Specialty Start Date End Date Benton Bland MD [address] [place] [address] PCP - General 08/10/16 07/10/21 Benton Bland MD [address] [place] [address] PCP - General 12/16/09 08/09/16 Jose Martin Carlos MD [address] [place] [address] PCP - General 07/11/21 Latisha Benavidez RN [address] [facility] [address] [place] [address] Playback Operator 05/25/22 Neil Treadwell RN Playback Operator Transplant 12/15/24 documented as of this encounter
--- OUTSIDE RECORDS SUMMARY | 2025-05-11 15:18 | XMS_ITS | Clinical Summary ---
Author Organization [facility] Address [address] [place] [address] Phone Care Team Providers Care Flight Agent Name Role Phone Dirk Love Primary Care Provider [phone] Allergies Active Allergy Reactions Criticality Noted Date Comments Ibuprofen 02/21/2019 Medications levothyroxine (SYNTHROID) 75 MCG tablet 1 daily 12/09/2011 Active omega-3 (FISH OIL) 1000 MG capsule 12/09/2011 Active triamcinolone (KENALOG) 0.1 % ointment CHUCK A THIN LAYER AA BID UNTIL SYMPTOMS RESOLVE 0 10/13/2018 Active ergocalciferol (VITAMIN D2) 1.25 MG (00256 UT) capsule Take 1 capsule (50,000 Units [...] Health Maintenance Due Date Last Done Comments Pneumococcal PPSV23/PCV13 65 + Years / Low and Medium Risk (2 of 4 - PCV) 02/27/2021 02/28/2020 Influenza Vaccine (#1) [address] [facility] Care Teams Flight Agent Relationship Specialty Start Date End Date Dirk Love PA [address] [facility] [address] [place] [address] PCP - General Family Medicine 09/14/20
== END 2025-05-11 15:11 | disposition home or self-care (01) ==
LOC: ANHFOHIMG 15:11
PROVIDERS: PCP Internal Medicine; Visit Provider Obstetrics & Gynecology
DX: Z12.31 Encounter for screening mammogram for malignant neoplasm of breast (principal)
CPT/HCPCS: 77063; 77067